=== PATIENT | female | born 1950 | race Caucasian/White ===

== ENCOUNTER → 2018-02-19 07:51 | Outpatient (CLI) | payer OTHER, MEDICAID, SELFPAY ==
[2018-02-19 09:59] LABS: Add Manual Diff / Slide Review NO; Eosinophils Percent Auto 1.8 % (2-4); Hematocrit 45.5 % (36-46); Hemoglobin 15.3 g/dL (12.0-16.0); Lymphocytes Percent Auto 41.4 % (25-40); Mean Corpuscular HGB Conc 33.8 % (30-36); Mean Corpuscular Hemoglobin 33.8 PG (26-34); Mean Corpuscular Volume 100.2 fL (80-100); Monocytes Percent Auto 10.6 % (3-14); Neutrophils Absolute Auto 2100 /uL (3000-5900); Neutrophils Percent Auto 45.2 % (50-75); Platelet Count 381 X10^3/uL (150-400); Red Blood Cell Count 4.54 X10^6/uL (4.0-5.2); Red Cell Distribution Width 13.9 % (11.6-14.8); White Blood Cell Count 4.6 X10^3/uL (4.5-11.0)
[2018-02-19 10:31] LABS: HDL Cholesterol 65 mg/dL (40-60); Triglycerides 286 mg/dL (35-150)
[2018-02-19 10:39] LABS: Cholesterol 420 mg/dL (140-199); LDL Cholesterol Calculated 298 mg/dL (<100)
[2018-02-19 10:41] LABS: Vitamin D 25 Hydroxy (D3) 38.4 ng/mL (30.0-100.0)
[2018-02-21 15:26] LABS: Cancer Antigen 27.29 21 U/mL (< 38)
== END ==
PROVIDERS: PCP Family Medicine; Visit Provider Family Medicine
DX: E55.9 Vitamin D deficiency, unspecified (principal); E78.5 Hyperlipidemia, unspecified
CPT/HCPCS: 36415; 80061; 82306; 85025; 86300

== ENCOUNTER → 2018-04-28 10:55 | Outpatient (CLI) | payer OTHER, MEDICAID, SELFPAY ==
--- NOTE | 2018-04-28 | DI.MG.S_ITS ---
BILATERAL DIGITAL SCREENING MAMMOGRAM 3D/2D WITH CAD POST LUMPECTOMY: 04/28/2018 CLINICAL: Routine screening. Personal history of left breast cancer. Comparison is made to exams dated: 04/12/2017 mammogram, 12/09/2015 mammogram, and 11/06/2014 mammogram - [facility]. The tissue of both breasts is heterogeneously dense. This may lower the sensitivity of mammography. Current study was also evaluated with a Computer Aided Detection (CAD) system. There is a high density focal asymmetry in the left breast at 3 o'clock anterior depth. No other significant masses, calcifications, or other findings are seen in either breast. IMPRESSION: INCOMPLETE: NEEDS ADDITIONAL IMAGING EVALUATION The high density focal asymmetry in the left breast is indeterminate. Additional views with possible ultrasound are recommended. This exam was interpreted at Station ID: [id number]. NOTE: For mammograms, a report in lay terms will be sent to the patient. Approximately 15% of breast malignancies will not be visualized mammographically. In the management of a palpable breast mass, a negative mammogram must not discourage biopsy of a clinically suspicious lesion. Electronically Signed By: Annabella cage/thomas:04/30/2018 08:56:49 copy to: FREDDY MCLAIN letter sent: Additional Imaging Needed ACR BI-RADS Category 0: Incomplete [id number]
== END ==
PROVIDERS: PCP Family Medicine; Visit Provider Family Medicine
DX: Z12.31 Encounter for screening mammogram for malignant neoplasm of breast (principal); Z85.3 Personal history of malignant neoplasm of breast
CPT/HCPCS: 77063; 77067

== ENCOUNTER → 2018-05-23 14:22 | Outpatient (CLI) | payer OTHER, MEDICAID, SELFPAY ==
--- NOTE | 2018-05-23 14:25 | DI.MG.S_ITS ---
UNILATERAL LEFT DIGITAL DIAGNOSTIC MAMMOGRAM 3D/2D WITH ADDITIONAL VIEWS: 05/23/2018 CLINICAL: Additional evaluation requested from prior study. Comparison is made to exams dated: 04/28/2018 mammogram, 04/12/2017 mammogram, and 12/09/2015 mammogram - [facility]. The tissue of left breast is heterogeneously dense. This may lower the sensitivity of mammography. Previously noted high density focal asymmetry in the left breast at 3 o'clock anterior depth on comparison screening mammogram resolves with additional views and likely represented superimposition of benign anatomic tissues. No significant masses, calcifications, or other findings are seen in the breast. IMPRESSION: INCOMPLETE: NEEDS ADDITIONAL IMAGING EVALUATION Previously noted high density focal asymmetry in the left breast at 3 o'clock anterior depth on comparison screening mammogram resolves with additional views and likely represented superimposition of benign anatomic tissues. A targeted ultrasound is recommended and will be performed immediately following this exam. This exam was interpreted at Station ID: [id number]. NOTE: For mammograms, a report in lay terms will be sent to the patient. Approximately 15% of breast malignancies will not be visualized mammographically. In the management of a palpable breast mass, a negative mammogram must not discourage biopsy of a clinically suspicious lesion. Electronically Signed By: Ramesh Brown M.D. ecl/:05/23/2018 17:48:20 copy to: Jakob Lamas copy to: FREDDY MCLAIN letter sent: Additional Imaging Needed ACR BI-RADS Category 0: Incomplete [id number]
--- NOTE | 2018-05-23 14:25 | DI.US.S_ITS ---
LIMITED ULTRASOUND OF LEFT BREAST: 05/23/2018 CLINICAL: Follow up from addtional views. Comparison is made to exams dated: 05/23/2018 mammogram, 04/28/2018 mammogram, and 04/12/2017 mammogram - [facility]. Real-time and Doppler ultrasound of the left breast 3 o'clock, and retroareolar regions were performed. Rooney scale images of the real-time examination were reviewed. No underlying breast mass or abnormality is identified. There is no ultrasound correlate for the previously noted high density focal asymmetry in the left breast at 3 o'clock anterior depth on comparison screening mammogram, which also resolved on additional diagnostic views performed earlier today. IMPRESSION: NEGATIVE There is no sonographic evidence of malignancy in the imaged portions of the left breast. Return to annual screening mammography is recommended, next due in April 2019. The patient is advised to monitor her breasts and to return sooner for re-evaluation should she feel anything grow or change. This exam was interpreted at Station ID: [id number]. Electronically Signed By: Ramesh Brown M.D. ecl/:05/23/2018 17:51:07 copy to: Jakob aLmas copy to: FREDDY MCLAIN letter sent: Clinical Evaluation Ultrasound BI-RADS: 1 Negative
== END ==
PROVIDERS: PCP Family Medicine; Visit Provider Family Medicine
DX: R92.8 Other abnormal and inconclusive findings on diagnostic imaging of breast (principal); N64.89 Other specified disorders of breast
CPT/HCPCS: 76642; 77065; G0279

== ENCOUNTER → 2018-08-09 10:03 | Outpatient (CLI) | payer OTHER, MEDICAID, SELFPAY ==
--- NOTE | 2018-08-09 10:08 | DI.RAD.S_ITS ---
PROCEDURE: XR FOOT LT MIN 3V INDICATIONS: left foot injury - dropped cup on foot 4 days ago TECHNIQUE: 3 views of the foot were acquired. COMPARISON: [facility], , FOOT 3V RIGHT, 07/09/2010, 11:38. FINDINGS: Bones: Postoperative changes are present related to a 1st metatarsophalangeal joint fusion. Orthopedic hardware is intact. There also are post surgical changes of the heads of the 2nd and 3rd metatarsals. A single orthopedic screw in each metatarsal head is present. The hardware is intact. Alignment is within normal limits. Moderate degenerative changes involving the interphalangeal joints and metatarsophalangeal joints are present. There also are mild to moderate degenerative changes of the midfoot and hindfoot joints. There is no acute fracture or dislocation. No suspicious osseous lesion is evident. Soft tissues: No tibiotalar joint effusion. Achilles tendon appears normal. IMPRESSION: 1. No acute osseous abnormality of the left foot. 2. Postoperative changes of the forefoot as described. 3. Mild to moderate degenerative changes of the left foot. Dictated by: Lenny Naranjo M.D. on 08/09/2018 at 9:48 Approved by: Lenny Naranjo M.D. on 08/09/2018 at 9:52
== END ==
PROVIDERS: PCP Family Medicine; Visit Provider Physician Assistant
DX: M79.672 Pain in left foot (principal); M19.072 Primary osteoarthritis, left ankle and foot
CPT/HCPCS: 73630

== ENCOUNTER → 2018-08-15 16:40 | Outpatient (CLI) | payer OTHER, MEDICAID, SELFPAY ==
[2018-08-15 17:40] LABS: Add Manual Diff / Slide Review NO; Basophils Absolute Auto 0 /uL (0-100); Basophils Percent Auto 0.7 % (0-2); Eosinophils Absolute Auto 200 /uL (0-450); Eosinophils Percent Auto 3.1 % (2-4); Hematocrit 42.7 % (36-46); Lymphocytes Absolute Auto 1800 /uL (1100-4500); Lymphocytes Percent Auto 25.7 % (25-40); Mean Corpuscular HGB Conc 32.9 % (30-36); Mean Corpuscular Hemoglobin 32.5 PG (26-34); Mean Corpuscular Volume 98.9 fL (80-100); Monocytes Absolute Auto 1000 /uL (0-900); Monocytes Percent Auto 14.4 % (3-14); Neutrophils Absolute Auto 3900 /uL (1500-7000); Neutrophils Percent Auto 56.1 % (50-75); Platelet Count 329 X10^3/uL (150-400); Red Blood Cell Count 4.32 X10^6/uL (4.0-5.2); Red Cell Distribution Width 14.4 % (11.6-14.8)
[2018-08-15 18:03] LABS: Alanine Aminotransferase 30 IU/L (9-52); Albumin 3.7 g/dL (3.5-5.0); Albumin Globulin Ratio 1.5 (1.0-2.8); Alkaline Phosphatase 62 U/L (38-126); Aspartate Aminotransferase 25 IU/L (14-36); Bilirubin Total 0.3 mg/dL (0.2-1.3); Blood Urea Nitrogen 18 mg/dL (7-17); Calcium 9.5 mg/dL (8.4-10.2); Carbon Dioxide 28 mmol/L (22-32); Chloride 102 mmol/L (98-107); Estimated Glomerular Filt Rate > 60.0 mL/min (>60); Globulin 2.4 g/dL (1.7-4.1); Glucose 90 mg/dL (80-110); HEMOLYSIS < 15 (0-50); Potassium 4.3 mmol/L (3.4-5.1); Sodium 137 mmol/L (137-145); Total Protein 6.1 g/dL (6.3-8.2)
[2018-08-15 18:35] LABS: TSH w/ Reflex to FT4 1.63 uIU/mL (0.47-4.68)
[2018-08-15 18:52] LABS: Vitamin B12 541 pg/mL (239-931)
[2018-08-18 14:50] LABS: Homocysteine 10.1 umol/L (< 10.4)
== END ==
PROVIDERS: Family Provider Orthopaedic Surgery; PCP Family Medicine; Visit Provider Family Medicine
DX: R41.3 Other amnesia (principal); R79.89 Other specified abnormal findings of blood chemistry; D75.89 Other specified diseases of blood and blood-forming organs
CPT/HCPCS: 36415; 80053; 82607; 83090; 84443; 85025

== ENCOUNTER → 2018-08-29 16:00 | Oncology outpatient (ONC) | payer OTHER, MEDICAID, SELFPAY ==
[2018-08-29 16:13] VITALS: BP 123/79; PULSE 81; RESP 18; TEMP 36.4; O2SAT 98
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
--- NOTE | 2019-09-13 08:29 | ONC.SCHED ---
Please don't move. Moved 09/24 appt out to 09/30 so additional imaging results would be available.
== END ==
PROVIDERS: PCP Family Medicine; Visit Provider Nurse Practitioner Gerontology
DX: Z08 Encounter for follow-up examination after completed treatment for malignant neoplasm (principal); Z85.3 Personal history of malignant neoplasm of breast
CPT/HCPCS: 99214

== ENCOUNTER → 2018-09-04 14:35 | Outpatient (CLI) | payer OTHER, MEDICAID, SELFPAY ==
--- NOTE | 2018-09-04 14:38 | DI.RAD.S_ITS ---
PROCEDURE: XR CERVICAL SPINE 2V OR 3V INDICATIONS: Neck pain TECHNIQUE: 3 view(s) of the cervical spine were acquired. COMPARISON: [facility], , THORACIC SPINE 3 VIEWS, 09/09/2015, 14:49. FINDINGS: Bones: No fractures or dislocations to the C7 level. The lateral masses of C1 appear intact on the odontoid view. No suspicious bony lesions. There is degenerative disc disease, severe at C5-C6 and moderate at C6-C7. Mild to moderate bilateral facet arthropathy scattered in cervical spine. Soft tissues: No prevertebral soft tissue swelling. IMPRESSION: Degenerative disc and facet disease in cervical spine. Dictated by: Sue Benoit M.D. on 09/04/2018 at 17:11 Approved by: Sue Benoit M.D. on 09/04/2018 at 17:12
== END ==
PROVIDERS: PCP Family Medicine; Visit Provider Registered Nurse
DX: M50.322 Other cervical disc degeneration at C5-C6 level (principal); M47.812 Spondylosis without myelopathy or radiculopathy, cervical region
CPT/HCPCS: 72040

== ENCOUNTER 2018-11-08 13:45 | Outpatient (RCR) | payer OTHER, MEDICAID, SELFPAY ==
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
== END 2018-12-27 11:33 | disposition home or self-care (01) ==
LOC: PHYS 13:45
PROVIDERS: PCP Family Medicine; Visit Provider Family Medicine
DX: M54.2 Cervicalgia (principal)
CPT/HCPCS: 97014; 97110; 97140; 97162; 97535; G0283

== ENCOUNTER 2018-11-14 17:18 | Emergency (ER) | payer OTHER, MEDICAID, SELFPAY ==
[2018-11-14 17:20] VITALS: BP 124/79; PULSE 101; RESP 18; TEMP 37.6; O2SAT 97
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
--- NOTE | 2018-11-14 19:18 | ED.EXTPRO ---
HPI - Extremity Problem <Mable GuptaCARL-BC - Last Filed: 11/14/18 20:26> General Chief complaint: Extremity Problem,Nontraumatic Stated complaint: RT ANKLE PAIN Time Seen by Provider: 11/14/18 18:21 Source: patient Mode of arrival: ambulatory Limitations: no limitations History of Present Illness HPI Narrative: The patient is a 68-year-old female former smoker with history of right ankle fracture presents with recurrence of right ankle pain. She states it started hurting yesterday. She states she has had steroid injections before and would like 1 today. She denies any numbness or tingling. She takes ibuprofen 3 times a day and has not taken anything else for the pain. She denies any trauma. She is concerned about not getting a steroid injection today as she is going out of town tomorrow. She denies any numbness or tingling. She denies any bruising to the area. She states that she sees an orthopedist with [facility]. Related Data Home Medications Medication Instructions Recorded Confirmed [BONE STRENGTH] TID #0 07/12/17 09/04/18 calcium carb,cit 300 mg-D3 200 tab PO tab 02/28/18 09/04/18 [id number] 13.5 mg tablet multivitamin tablet 1 tab PO DAILY 02/28/18 09/04/18 omega-3 fatty acids 1,000 mg 1,000 mg PO DAILY 02/28/18 09/04/18 capsule vitamin K2 40 mcg tablet 75 mcg PO DAILY tab 02/28/18 09/04/18 cholecalciferol (vitamin D3) 5,000 5,000 unit PO DAILY 08/23/18 09/04/18 unit capsule Previous Rx's Medication Instructions Recorded Disabled Parking Permit ea #1 05/09/16 atorvastatin 40 mg tablet 40 mg PO DAILY #90 tab 05/14/18 conjugated estrogens 0.625 mg/gram See Rx Instructions .ROUTE 07/27/18 vaginal cream .COMPLEX #30 gram acyclovir 400 mg tablet 800 mg PO TID #60 tab 09/26/18 zolpidem ER 12.5 mg 12.5 mg PO .COMPLEX #60 tab 10/12/18 tablet,extended release,multiphase ibuprofen 600 mg tablet 600 mg PO TID #30 tab 11/05/18 Valium 10mg Vaginal Tablet 1 tab VAGINAL Q8H PRN #30 tab 11/09/18 diclofenac 1 % topical gel 4 gram TOP QID #100 gram 11/09/18 lidocaine 1 patch TOP DAILY #15 each 11/14/18 Allergies Allergy/AdvReac Type Severity Reaction Status Date / Time hydroxyzine [HYDROXYZINE] Allergy Mild facial rash Verified 09/04/18 13:30 chlordiazepoxide Allergy Unknown anxiety Verified 09/04/18 13:30 [CHLORDIAZEPOXIDE] doxepin [DOXEPIN] Allergy Unknown rectal Verified 09/04/18 13:30 burning erythromycin base Allergy Unknown Verified 09/04/18 13:30 filgrastim Allergy Unknown Verified 09/04/18 13:30 meperidine Allergy Unknown Verified 09/04/18 13:30 mirtazapine [MIRTAZAPINE] Allergy Unknown swollen Verified 09/04/18 13:30 tongue, blurry vision pegfilgrastim Allergy Unknown Verified 09/04/18 13:30 propoxyphene Allergy Unknown Verified 09/04/18 13:30 ramelteon [RAMELTEON] Allergy Unknown rectal Verified 09/04/18 13:30 burning trazodone [TRAZODONE] Allergy Unknown insomnia Verified 09/04/18 13:30 bupropion AdvReac Intermediate SORE Verified 09/04/18 13:30 THROAT, SUPPRESSED APPETITE oxycodone [OXYCODONE] AdvReac Intermediate seizure Verified 09/04/18 13:30 amoxicillin [AMOXICILLIN] AdvReac Mild diarrhea Verified 09/04/18 13:30 meloxicam AdvReac Mild GI SYMPTOMS Verified 09/04/18 13:30 Review of Systems <CARL Walton- - Last Filed: 11/14/18 20:26> Review of Systems GENERAL: Denies chills, fatigue, malaise, fever, sweats. HEENT: Denies sinus pain, ear pain, sore throat, difficulty swallowing, dizziness. RESPIRATORY: Denies dyspnea, cough, wheezing, hemoptysis, sputum. CARDIOVASCULAR: Denies chest pain, palpitations, orthopnea, edema, GASTROINTESTINAL: Denies nausea, vomiting, abdominal pain, diarrhea, constipation, melena. : Denies dysuria, frequency, incontinence, hematuria, urinary retention. MUSCULOSKELETAL: See HPI SKIN: See HPI NEUROLOGIC: Denies weakness, headache, numbness, change in speech, confusion, seizures, incoordination. PSYCHIATRIC: No concerning psychosocial issues. 12 point review of systems is negative except for those stated above PFSH <JAYY Walton - Last Filed: 11/14/18 20:26> Medical History Ankle pain (Chronic ~2009) Anxiety (Chronic ~1957) Breast cancer (Chronic ~2004) Chronic back pain (Chronic ~2006) Depression (Chronic ~1957) Foot pain (Chronic ~1999) Hearing loss (Chronic ~2006) Hyperlipidemia (Chronic ~1979) Insomnia (Chronic ~1984) Osteoarthritis of knees, bilateral (Chronic ~2009) Osteopenia (Chronic ~1989) Osteoporosis (Chronic ~2009) Plantar warts (Chronic ~1963) Rosacea (Chronic ~1983) Shoulder pain (Chronic ~1999) Tinnitus (Chronic ~1999) Chickenpox (Resolved ~1953) Fracture, trimalleolar (Resolved ~07/12/10) Labral tear of left hip joint (Resolved ~1986) Mononucleosis (Resolved ~1967) Mumps (Resolved ~1953) Torn ACL (anterior cruciate ligament) (Resolved ~1966) Surgical History (Updated 08/29/18 @ 16:36 by Jerrod Casanova MD) History of ankle surgery (Resolved ~2009) History of repair of anterior cruciate ligament of left knee (Resolved ~2003) Anesthesia (Inactive) History of lumpectomy (~2005) Status post arthroscopy (~2014) Status post hysterectomy (~1996) Family History (Updated 07/02/15 @ 00:00 by Amalia Long DO) Father Osteoporosis Mother Heart disease High cholesterol Alzheimer's dementia without behavioral disturbance, unspecified timing of dementia onset Social History Smoking Status: Former smoker Tobacco: How many years used: 4 second hand exposure: No alcohol intake: never substance use type: does not use Family History (Updated 07/02/15 @ 00:00 by Amalia Long DO) Father Osteoporosis Mother Heart disease High cholesterol Alzheimer's dementia without behavioral disturbance, unspecified timing of dementia onset Social History Smoking Status: Former smoker Tobacco: How many years used: 4 second hand exposure: No alcohol intake: never substance use type: does not use Exam <JAYY Walton - Last Filed: 11/14/18 20:26> Narrative Exam Narrative: GENERAL: This is a well-nourished, well-developed patient, no acute distress 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 Normocephalic. No temporal or scalp tenderness. NECK: Trachea midline. No JVD or lymphadenopathy. Supple, nontender, no meningeal signs. CARDIOVASCULAR: Regular rate and rhythm RESPIRATORY: No cough. No increased respiratory effort. No stridor. EXTREMITIES: Generalized pain to palpation right ankle. Pain to palpation of medial malleolus especially. Full range of motion noted right ankle. No pedal edema. Positive pedal pulses. Capillary refill less than 2 seconds. BACK: Nontender without deformity or crepitance. No flank tenderness. NEURO: AOx3. SKIN: No erythema rash ecchymosis or abrasion noted right ankle Initial Vital Signs Initial Vital Signs: Vital Signs Temperature 99.6 F 11/14/18 17:20 Pulse Rate 101 H 11/14/18 17:20 Respiratory Rate 18 11/14/18 17:20 Blood Pressure 124/79 11/14/18 17:20 Pulse Oximetry 97 11/14/18 17:20 <Armand Deleon MD - Last Filed: 11/15/18 06:55> Initial Vital Signs Initial Vital Signs: Vital Signs Temperature 99.6 F 11/14/18 17:20 Pulse Rate 101 H 11/14/18 17:20 Respiratory Rate 18 11/14/18 17:20 Blood Pressure 124/79 11/14/18 17:20 Pulse Oximetry 97 11/14/18 17:20 Course <JAYY Walton - Last Filed: 11/14/18 20:26> Orders Ordered: ED Orders 11/14/18 18:27 XR ankle RT min 3V Stat Vital Signs - 8 hr 11/14/18 17:20 11/14/18 19:29 Temperature 99.6 F Pulse Rate 101 H 88 Respiratory Rate 18 Blood Pressure 124/79 121/74 Pulse Oximetry 97 98 <Armand Deleon MD - Last Filed: 11/15/18 06:55> Orders Ordered: ED Orders 11/14/18 18:27 XR ankle RT min 3V Stat Vital Signs - 8 hr 11/14/18 17:20 11/14/18 19:29 Temperature 99.6 F Pulse Rate 101 H 88 Respiratory Rate 18 Blood Pressure 124/79 121/74 Pulse Oximetry 97 98 MDM - Extremity (Nontraumatic) <JAYY Walton - Last Filed: 11/14/18 20:26> Imaging Data Ankle x-ray: Radiologist's impression: [address] [address] XRay Report Signed Patient: Yarelis Decker TMR#: [id number] : 1950Acct:[id number] Age/Sex: 68 / FDate of Service: 11/14/18 Loc: ED Accession Number: [id number] Procedure: XR ankle RT min 3V Ordering Provider: Mable Gupta PROCEDURE: XR ANKLE RT MIN 3V INDICATIONS: right ankle pain, hx fracture TECHNIQUE: 3 views of the ankle were acquired. COMPARISON: [facility], , ANKLE 3 VIEWS RIGHT, 07/09/2010, 12:02. FINDINGS: Bones: No acute fracture identified. Healed lateral malleolar fracture. Tibiotalar joint degeneration. Soft tissues: No tibiotalar joint effusion. Achilles tendon appears normal. IMPRESSION: No acute fracture. Chronic and posttraumatic skull as above. Dictated by: Tony Putnam M.D. on 11/14/2018 at 19:01 Approved by: Tony Putnam M.D. on 11/14/2018 at 19:02 [facility] Narrative Medical decision making narrative: The patient is a 68-year-old female with chronic right a new presents requesting a steroid injection into her right ankle. She was not to get in with Orthopedics, so came to the emergency department. The patient is neurovascularly intact and ambulating well. She has no acute findings on her x-ray. I encouraged rest ice compression elevation give her prescription of lidocaine patches for her pain. Discussed at length return precautions to the Emergency Department Clinic acute concerns such as chest pain or shortness of breath. Encouraged follow-up with primary care provider and/or Orthopedics regarding her ankle. No questions or concerns upon discharge. Discharge Plan Departure Patient Disposition: Home Clinical Impression: Acute ankle pain Qualifiers: Laterality: right Qualified Code(s): M25.571 - Pain in right ankle and joints of right foot Discharge Date/Time: 11/14/18 19:30 Interventions: ED Discharge Assessment Last Done: 11/14/18 19:29 Instructions: How To Perform RICE (Rest, Ice, Compress, Elevate), DI for Ankle Pain Activity Restrictions/Additional Instructions: Your ankle x-ray shows no new fracture. Please use rest ice compression elevation. I have given her prescription of lidocaine patches. For your request of steroid injection, please follow up with primary care provider and/or Orthopedics. Please come back to emergency department for any acute concerns such as chest pain shortness of breath, concern for heart attack or stroke. Prescriptions: New lidocaine 5 % adhesive patch,medicated 1 patch TOP DAILY Qty: 15 RF: 0 No Action cholecalciferol (vitamin D3) 5,000 unit capsule 5,000 unit PO DAILY RF: 0 Disabled Parking Permit Qty: 1 RF: 0 [BONE STRENGTH] TID Qty: 0 RF: 0 atorvastatin 40 mg tablet 40 mg PO DAILY Qty: 90 RF: 1 conjugated estrogens 0.625 mg/gram cream See Rx Instructions .ROUTE .COMPLEX Qty: 30 RF: 2 acyclovir 400 mg tablet 800 mg PO TID Qty: 60 RF: 5 zolpidem 12.5 mg tablet,ext release multiphase 12.5 mg PO .COMPLEX Qty: 60 RF: 2 ibuprofen 600 mg tablet 600 mg PO TID Qty: 30 RF: 0 Valium 10mg Vaginal Tablet 1 tab Vaginal 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 I was available for consultation or to see the patient directly if requested. I agree with the evaluation, assessment and treatment plan noted in the record.
--- NOTE | 2018-11-14 19:21 | ED_ITS ---
HPI - Extremity Problem <Mable GuptaCARL-BC - Last Filed: 11/14/18 20:26> General Chief complaint: Extremity Problem,Nontraumatic Stated complaint: RT ANKLE PAIN Time Seen by Provider: 11/14/18 18:21 Source: patient Mode of arrival: ambulatory Limitations: no limitations History of Present Illness HPI Narrative: The patient is a 68-year-old female former smoker with history of right ankle fracture presents with recurrence of right ankle pain. She states it started hurting yesterday. She states she has had steroid injections before and would like 1 today. She denies any numbness or tingling. She takes ibuprofen 3 times a day and has not taken anything else for the pain. She denies any trauma. She is concerned about not getting a steroid injection today as she is going out of town tomorrow. She denies any numbness or tingling. She denies any bruising to the area. She states that she sees an orthopedist with [facility]. Related Data Home Medications Medication Instructions Recorded Confirmed [BONE STRENGTH] TID #0 07/12/17 09/04/18 calcium carb,cit 300 mg-D3 200 tab PO tab 02/28/18 09/04/18 [id number]--[id number] 13.5 mg tablet multivitamin tablet 1 tab PO DAILY 02/28/18 09/04/18 omega-3 fatty acids 1,000 mg 1,000 mg PO DAILY 02/28/18 09/04/18 capsule vitamin K2 40 mcg tablet 75 mcg PO DAILY tab 02/28/18 09/04/18 cholecalciferol (vitamin D3) 5,000 5,000 unit PO DAILY 08/23/18 09/04/18 unit capsule Previous Rx's Medication Instructions Recorded Disabled Parking Permit ea #1 05/09/16 atorvastatin 40 mg tablet 40 mg PO DAILY #90 tab 05/14/18 conjugated estrogens 0.625 mg/gram See Rx Instructions .ROUTE 07/27/18 vaginal cream .COMPLEX #30 gram acyclovir 400 mg tablet 800 mg PO TID #60 tab 09/26/18 zolpidem ER 12.5 mg 12.5 mg PO .COMPLEX #60 tab 10/12/18 tablet,extended release,multiphase ibuprofen 600 mg tablet 600 mg PO TID #30 tab 11/05/18 Valium 10mg Vaginal Tablet 1 tab VAGINAL Q8H PRN #30 tab 11/09/18 diclofenac 1 % topical gel 4 gram TOP QID #100 gram 11/09/18 lidocaine 1 patch TOP DAILY #15 each 11/14/18 Allergies Allergy/AdvReac Type Severity Reaction Status Date / Time hydroxyzine [HYDROXYZINE] Allergy Mild facial rash Verified 09/04/18 13:30 chlordiazepoxide Allergy Unknown anxiety Verified 09/04/18 13:30 [CHLORDIAZEPOXIDE] doxepin [DOXEPIN] Allergy Unknown rectal Verified 09/04/18 13:30 burning erythromycin base Allergy Unknown Verified 09/04/18 13:30 filgrastim Allergy Unknown Verified 09/04/18 13:30 meperidine Allergy Unknown Verified 09/04/18 13:30 mirtazapine [MIRTAZAPINE] Allergy Unknown swollen Verified 09/04/18 13:30 tongue, blurry vision pegfilgrastim Allergy Unknown Verified 09/04/18 13:30 propoxyphene Allergy Unknown Verified 09/04/18 13:30 ramelteon [RAMELTEON] Allergy Unknown rectal Verified 09/04/18 13:30 burning trazodone [TRAZODONE] Allergy Unknown insomnia Verified 09/04/18 13:30 bupropion AdvReac Intermediate SORE Verified 09/04/18 13:30 THROAT, SUPPRESSED APPETITE oxycodone [OXYCODONE] AdvReac Intermediate seizure Verified 09/04/18 13:30 amoxicillin [AMOXICILLIN] AdvReac Mild diarrhea Verified 09/04/18 13:30 meloxicam AdvReac Mild GI SYMPTOMS Verified 09/04/18 13:30 Review of Systems <CARL Walton- - Last Filed: 11/14/18 20:26> Review of Systems GENERAL: Denies chills, fatigue, malaise, fever, sweats. HEENT: Denies sinus pain, ear pain, sore throat, difficulty swallowing, dizziness. RESPIRATORY: Denies dyspnea, cough, wheezing, hemoptysis, sputum. CARDIOVASCULAR: Denies chest pain, palpitations, orthopnea, edema, GASTROINTESTINAL: Denies nausea, vomiting, abdominal pain, diarrhea, constipation, melena. : Denies dysuria, frequency, incontinence, hematuria, urinary retention. MUSCULOSKELETAL: See HPI SKIN: See HPI NEUROLOGIC: Denies weakness, headache, numbness, change in speech, confusion, seizures, incoordination. PSYCHIATRIC: No concerning psychosocial issues. 12 point review of systems is negative except for those stated above PFSH <JAYY Walton - Last Filed: 11/14/18 20:26> Medical History Ankle pain (Chronic ~2009) Anxiety (Chronic ~1957) Breast cancer (Chronic ~2004) Chronic back pain (Chronic ~2006) Depression (Chronic ~1957) Foot pain (Chronic ~1999) Hearing loss (Chronic ~2006) Hyperlipidemia (Chronic ~1979) Insomnia (Chronic ~1984) Osteoarthritis of knees, bilateral (Chronic ~2009) Osteopenia (Chronic ~1989) Osteoporosis (Chronic ~2009) Plantar warts (Chronic ~1963) Rosacea (Chronic ~1983) Shoulder pain (Chronic ~1999) Tinnitus (Chronic ~1999) Chickenpox (Resolved ~1953) Fracture, trimalleolar (Resolved ~07/12/10) Labral tear of left hip joint (Resolved ~1986) Mononucleosis (Resolved ~1967) Mumps (Resolved ~1953) Torn ACL (anterior cruciate ligament) (Resolved ~1966) Surgical History (Updated 08/29/18 @ 16:36 by Jerrod Casanova MD) History of ankle surgery (Resolved ~2009) History of repair of anterior cruciate ligament of left knee (Resolved ~2003) Anesthesia (Inactive) History of lumpectomy (~2005) Status post arthroscopy (~2014) Status post hysterectomy (~1996) Family History (Updated 07/02/15 @ 00:00 by Amalia Long DO) Father Osteoporosis Mother Heart disease High cholesterol Alzheimer's dementia without behavioral disturbance, unspecified timing of dementia onset Social History Smoking Status: Former smoker Tobacco: How many years used: 4 second hand exposure: No alcohol intake: never substance use type: does not use Family History (Updated 07/02/15 @ 00:00 by Amalia Long DO) Father Osteoporosis Mother Heart disease High cholesterol Alzheimer's dementia without behavioral disturbance, unspecified timing of dementia onset Social History Smoking Status: Former smoker Tobacco: How many years used: 4 second hand exposure: No alcohol intake: never substance use type: does not use Exam <JAYY Walton - Last Filed: 11/14/18 20:26> Narrative Exam Narrative: GENERAL: This is a well-nourished, well-developed patient, no acute distress 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 Normocephalic. No temporal or scalp tenderness. NECK: Trachea midline. No JVD or lymphadenopathy. Supple, nontender, no meningeal signs. CARDIOVASCULAR: Regular rate and rhythm RESPIRATORY: No cough. No increased respiratory effort. No stridor. EXTREMITIES: Generalized pain to palpation right ankle. Pain to palpation of medial malleolus especially. Full range of motion noted right ankle. No pedal edema. Positive pedal pulses. Capillary refill less than 2 seconds. BACK: Nontender without deformity or crepitance. No flank tenderness. NEURO: AOx3. SKIN: No erythema rash ecchymosis or abrasion noted right ankle Initial Vital Signs Initial Vital Signs: Vital Signs Temperature 99.6 F 11/14/18 17:20 Pulse Rate 101 H 11/14/18 17:20 Respiratory Rate 18 11/14/18 17:20 Blood Pressure 124/79 11/14/18 17:20 Pulse Oximetry 97 11/14/18 17:20 <Armand Deleon MD - Last Filed: 11/15/18 06:55> Initial Vital Signs Initial Vital Signs: Vital Signs Temperature 99.6 F 11/14/18 17:20 Pulse Rate 101 H 11/14/18 17:20 Respiratory Rate 18 11/14/18 17:20 Blood Pressure 124/79 11/14/18 17:20 Pulse Oximetry 97 11/14/18 17:20 Course <JAYY Walton - Last Filed: 11/14/18 20:26> Orders Ordered: ED Orders 11/14/18 18:27 XR ankle RT min 3V Stat Vital Signs - 8 hr 11/14/18 17:20 11/14/18 19:29 Temperature 99.6 F Pulse Rate 101 H 88 Respiratory Rate 18 Blood Pressure 124/79 121/74 Pulse Oximetry 97 98 <Armand Deleon MD - Last Filed: 11/15/18 06:55> Orders Ordered: ED Orders 11/14/18 18:27 XR ankle RT min 3V Stat Vital Signs - 8 hr 11/14/18 17:20 11/14/18 19:29 Temperature 99.6 F Pulse Rate 101 H 88 Respiratory Rate 18 Blood Pressure 124/79 121/74 Pulse Oximetry 97 98 MDM - Extremity (Nontraumatic) <JAYY Walton - Last Filed: 11/14/18 20:26> Imaging Data Ankle x-ray: Radiologist's impression: [address] [address] XRay Report Signed Patient: Yarelis Decker TMR#: [id number] : 1950Acct:[id number] Age/Sex: 68 / FDate of Service: 11/14/18 Loc: ED Accession Number: [id number] Procedure: XR ankle RT min 3V Ordering Provider: Mable Gupta PROCEDURE: XR ANKLE RT MIN 3V INDICATIONS: right ankle pain, hx fracture TECHNIQUE: 3 views of the ankle were acquired. COMPARISON: [facility], , ANKLE 3 VIEWS RIGHT, 07/09/2010, 12:02. FINDINGS: Bones: No acute fracture identified. Healed lateral malleolar fracture. Tibiotalar joint degeneration. Soft tissues: No tibiotalar joint effusion. Achilles tendon appears normal. IMPRESSION: No acute fracture. Chronic and posttraumatic skull as above. Dictated by: Tony Putnam M.D. on 11/14/2018 at 19:01 Approved by: Tony Putnam M.D. on 11/14/2018 at 19:02 [facility] Narrative Medical decision making narrative: The patient is a 68-year-old female with chronic right a new presents requesting a steroid injection into her right ankle. She was not to get in with Orthopedics, so came to the emergency department. The patient is neurovascularly intact and ambulating well. She has no acute findings on her x-ray. I encouraged rest ice compression elevation give her prescription of lidocaine patches for her pain. Discussed at length return precautions to the Emergency Department Clinic acute concerns such as chest pain or shortness of breath. Encouraged follow-up with primary care provider and/or Orthopedics regarding her ankle. No questions or concerns upon discharge. Discharge Plan Departure Patient Disposition: Home Clinical Impression: Acute ankle pain Qualifiers: Laterality: right Qualified Code(s): M25.571 - Pain in right ankle and joints of right foot Discharge Date/Time: 11/14/18 19:30 Interventions: ED Discharge Assessment Last Done: 11/14/18 19:29 Instructions: How To Perform RICE (Rest, Ice, Compress, Elevate), DI for Ankle Pain Activity Restrictions/Additional Instructions: Your ankle x-ray shows no new fracture. Please use rest ice compression elevation. I have given her prescription of lidocaine patches. For your request of steroid injection, please follow up with primary care provider and/or Orthopedics. Please come back to emergency department for any acute concerns such as chest pain shortness of breath, concern for heart attack or stroke. Prescriptions: New lidocaine 5 % adhesive patch,medicated 1 patch TOP DAILY Qty: 15 RF: 0 No Action cholecalciferol (vitamin D3) 5,000 unit capsule 5,000 unit PO DAILY RF: 0 Disabled Parking Permit Qty: 1 RF: 0 [BONE STRENGTH] TID Qty: 0 RF: 0 atorvastatin 40 mg tablet 40 mg PO DAILY Qty: 90 RF: 1 conjugated estrogens 0.625 mg/gram cream See Rx Instructions .ROUTE .COMPLEX Qty: 30 RF: 2 acyclovir 400 mg tablet 800 mg PO TID Qty: 60 RF: 5 zolpidem 12.5 mg tablet,ext release multiphase 12.5 mg PO .COMPLEX Qty: 60 RF: 2 ibuprofen 600 mg tablet 600 mg PO TID Qty: 30 RF: 0 Valium 10mg Vaginal Tablet 1 tab Vaginal Q8H PRN (Reason: Pudendal Neuropathy) Qty: 30 RF: 3 diclofenac sodium [Voltaren] 1 % gel 4 gram TOP QID Qty: 100 RF: 0 vitamin K2 40 mcg tablet 75 mcg PO DAILY RF: 0 omega-3 fatty acids 1,000 mg capsule 1,000 mg PO DAILY RF: 0 multivitamin [One Daily Multivitamin] tablet 1 tab PO DAILY RF: 0 calcium crb,bbi-[id number]-fum88-genis [Citracal + Bone Density] 300-200-13.5 mg-unit-mg tablet PO RF: 0 Referrals: Amalia Long DO [Primary Care Provider] - <Armand Deleon MD - Last Filed: 11/15/18 06:55> Cosign ED Attending Dequanature Attestation: I was present in the ER at the time of this patient's care. I was available for consultation or to see the patient directly if requested. I agree with the evaluation, assessment and treatment plan noted in the record.
[2018-11-14 19:29] VITALS: BP 121/74; PULSE 88; O2SAT 98
== END 2018-11-14 19:30 | disposition home or self-care (01) ==
PROVIDERS: Emergency Provider Nurse Practitioner Family; PCP Family Medicine
DX: M25.571 Pain in right ankle and joints of right foot (principal)
CPT/HCPCS: 73610; 99282; 99283

== ENCOUNTER → 2019-01-18 07:40 | Outpatient (CLI) | payer OTHER, MEDICAID, SELFPAY ==
[2019-01-18 08:12] LABS: Add Manual Diff / Slide Review NO; Basophils Absolute Auto 100 /uL (0-100); Basophils Percent Auto 0.7 % (0-2); Eosinophils Absolute Auto 100 /uL (0-450); Eosinophils Percent Auto 1.9 % (2-4); Hematocrit 43.3 % (36-46); Hemoglobin 14.7 g/dL (12.0-16.0); Lymphocytes Absolute Auto 1600 /uL (1100-4500); Lymphocytes Percent Auto 20.2 % (25-40); Mean Corpuscular HGB Conc 33.8 % (30-36); Mean Corpuscular Hemoglobin 33.2 PG (26-34); Mean Corpuscular Volume 98.1 fL (80-100); Monocytes Absolute Auto 600 /uL (0-900); Monocytes Percent Auto 8.3 % (3-14); Neutrophils Absolute Auto 5300 /uL (1500-7000); Neutrophils Percent Auto 68.9 % (50-75); Platelet Count 318 X10^3/uL (150-400); Red Blood Cell Count 4.41 X10^6/uL (4.0-5.2); Red Cell Distribution Width 13.1 % (11.6-14.8); White Blood Cell Count 7.7 X10^3/uL (4.5-11.0)
[2019-01-18 08:33] LABS: Estimated Glomerular Filt Rate > 60.0 mL/min (>60)
[2019-01-18 08:53] LABS: Vitamin D 25 Hydroxy (D3) 69.5 ng/mL (30.0-100.0)
[2019-01-18 09:04] LABS: Thyroid Stimulating Hormone 3.59 uIU/mL (0.47-4.68)
[2019-01-22 15:50] LABS: Parathyroid Hormone Int 36 pg/mL (14-64)
[2019-01-23 16:12] LABS: N-Telopeptide Serum 6.6 nM BCE (6.2-19.0)
== END ==
PROVIDERS: PCP Family Medicine; Visit Provider Internal Medicine Endocrinology, Diabetes & Metabolism
DX: M81.0 Age-related osteoporosis without current pathological fracture (principal)
CPT/HCPCS: 36415; 82306; 82523; 82565; 83970; 84443; 85025

== ENCOUNTER → 2019-01-18 15:40 | Outpatient (CLI) | payer OTHER, MEDICAID, SELFPAY ==
--- NOTE | 2019-01-18 | DI.MRI.S_ITS ---
PROCEDURE: MR HEAD/BRAIN WO CON INDICATIONS: Memory loss. TECHNIQUE: Non-contrast axial T1 spin echo, axial T2 fast spin echo, sagittal and axial FLAIR, coronal T2 fast spin echo, axial gradient echo, axial diffusion and ADC through the brain. COMPARISON: [facility], CT, HEAD WITHOUT CONTRAST, 03/20/2015, 23:59. [facility], MR, BRAIN W&WO CONTRAST, 05/06/2016, 14:10. FINDINGS: Image quality: Excellent. CSF spaces: Ventricles appear symmetric in size and shape. Basal cisterns are patent. No extra-axial fluid collections. Brain: No intracranial bleeds or mass effects. There is ugii-az-[id number] cerebral volume loss for age, most prominent in frontal lobes. There are moderate periventricular and deep white matter chronic small vessel ischemic changes. Chronic microvascular ischemic change is also noted in the left irasema. Bilateral vasoganglia calcification. Brainstem appears normal. Diffusion-weighted images show no acute ischemic insults. No chronic ischemic insults. Normal intravascular flow voids are present. Skull and face: Calvarial bone marrow is normal in signal. Orbits are normal. Sinuses: Sinuses and mastoids are clear. IMPRESSION: 1. No acute intracranial abnormalities. 2. Quuk-ju-wxpnhegu cerebral volume loss, most prominent in frontal lobes bilaterally. 3. Moderate chronic microvascular ischemic changes. 4. Bilateral areas of calcifications, likely idiopathic. Dictated by: Sue Benoit M.D. on 01/18/2019 at 16:53 Approved by: Sue Benoit M.D. on 01/18/2019 at 16:59
== END ==
PROVIDERS: PCP Family Medicine; Visit Provider Psychiatry & Neurology Neurology
DX: R41.3 Other amnesia (principal)
CPT/HCPCS: 70551

== ENCOUNTER → 2019-01-22 10:43 | Outpatient (CLI) | payer OTHER, MEDICAID, SELFPAY ==
[2019-01-22 12:44] LABS: Free T3, Triiodothyronine Free 3.05 pg/mL (2.77-5.27); Free T4, Direct Thyroxine 0.92 ng/dL (0.78-2.19)
== END ==
PROVIDERS: PCP Family Medicine; Visit Provider Family Medicine
DX: E03.9 Hypothyroidism, unspecified (principal)
CPT/HCPCS: 36415; 84439; 84481

== ENCOUNTER → 2019-03-21 13:10 | Outpatient (CLI) | payer OTHER, MEDICAID, SELFPAY | PROVIDERS: PCP Family Medicine; Visit Provider Family Medicine | DX: M81.0 Age-related osteoporosis without current pathological fracture (principal); Z78.0 Asymptomatic menopausal state; Z82.62 Family history of osteoporosis; Z85.3 Personal history of malignant neoplasm of breast; Z90.722 Acquired absence of ovaries, bilateral; Z87.891 Personal history of nicotine dependence | CPT/HCPCS: 77080 ==

== ENCOUNTER 2019-05-09 14:30 | Outpatient (RCR) | payer OTHER, MEDICAID, SELFPAY ==
--- NOTE | 2019-03-12 15:44 | ST.OPIE ---
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 Pretty Arias, Neurologist Reason for Referral Mild Cognitive Impairment Past Medical History Patient History Ms. Brianne holliday she woke up with sudden memory loss in April of 2018. She has seen a neurologist and neuropsychologist and has been diagnosed with mild cognitive impairment of unknown cause. She had an MRI which showed wdop-fn-[id number] cerebral volume loss, most prominent in frontal lobes bilaterally and moderate chronic microvascular ischemic changes , but was negative for acute intracranial abnormalities. She has a medical history significant for an isolated seizure, anxiety, depression, alcohol abuse, breast cancer, COPD, PTSD, polysubstance overdose/suicide attempt. Hearing Hearing Level Impaired Auditory History Patient reports hearing impairments in her left ear Vision Vision Status Impaired Comments wears glasses Educational Status Education Level Some college Occupational Status Occupation Status Retired Previous Therapy Previous Speech-Language Therapy No - Findings Cognitive/Memory Impressions No formal assessment completed today since patient was recently evaluated by neuropsychologist Yeny Sarkar . Results of this assessment are as follows: Peerless Naming Test - Average RBANS Digit Span - Average Trails A - Average Trails B - Impaired RBANS Coding - Low Average RBANS Copy - Average RBANS Line Orientation - Average RBANS List Learning - Low Average List Recall - Average List Recognition - Average Story Learning - Average Story Recall - Low Average Figure Recall - Low Average Per report from Dr. Yeny Sarkar, Ms. Decker's baseline intellectual functional is in the average range. Her recommendations included a re-evaluation with Dr. Arias as well as physical, cognitive, and social engagement and a referral for a driving evaluation with consideration of restricted driving. Ms. Decker reports difficulty with short term memory and word finding problems. She states it is hard for her to remember where things are at home, even common items such as teaspoons . Her cognitive impairments have had a negative effect on her safety, self-care and general tasks and demands. For this reason, she now has a caregiver for a few hours 4 times a week who helps with cooking, shopping and errands. In addition to her caregiver, the patient implements the following strategies: making lists, using a calender, leaving a light over the stove on so she remembers to turn it off. Despite average results of neuropsychological assessment, patient was referred for cognitive rehabilitation by her neurologist Dr. Pretty Arias under the diagnosis of Mild Cognitive Impairment. Recommendations Recommendations Cognitive rehabilitation including and education and training in compensatory strategies is recommended. Ongoing assessment may also be warranted. Treatment Goals Short Term Goals To be determined Total Time Full Evaluation Time 45
--- NOTE | 2019-04-11 09:07 | ST.OPTN ---
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 Brianne holliday she woke up with sudden memory loss in April of 2018. She has seen a neurologist and neuropsychologist and has been diagnosed with mild cognitive impairment of unknown cause. She had an MRI which showed uvso-yw-beuudeuk cerebral volume loss, most prominent in frontal lobes bilaterally and moderate chronic microvascular ischemic changes , but was negative for acute intracranial abnormalities. She has a medical history significant for an isolated seizure, anxiety, depression, alcohol abuse, breast cancer, COPD, PTSD, polysubstance overdose/suicide attempt. She lives at home with an older room mate and she has a caregiver for 3 hours 4 times a week. Subjective Identification Type Name Observations/Patient Presentation Patient was pleasant, alert and oriented, but tangential and disorganized in her responses. She endorsed generalized anxiety symptoms related to daily chores/tasks and her caregiver. 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 Intermediate Goals Yarelis will implement strategies discussed and demonstrate improved time management, organization and overall executive functions for completing daily activities. Treatment Activities Reviewed assessment results from evaluation by neuropsychologist Dr. Yeny Sarkar. Discussed her recommendations for driving evaluation and follow-up with Dr. Jha which she has scheduled. We also discussed my recommendation for Yarelis to meet her a social service assistant from [facility] [employer] to discuss her concerns about her current caregiver not being a good fit for her and inquire about getting a new caregiver. Discussed goals for therapy including improving overall organization to improve productivity and decrease generalized anxiety related to daily tasks. Requested Yarelis bring her smart phone and calendar with her to the next session. Assessment Patient Response to Treatment Good Rehab Potential Good Reviewed with Patient Goals,Home Exercise Program Plan Amount of Therapy Recommended 1-2 Months Frequency of Treatment Once a Week Length of Session 45 Minutes Therapeutic Contents Client Education,Cognitive- Linguistic Training,Home Exercise Program Provided Patient/Caregiver Instruction Home Exercise Program,Plan of Care,Questions/Concerns Therapy Recommendations Continue with Current Program
--- NOTE | 2019-05-09 15:49 | ST.OPTN ---
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 Brianne holliday she woke up with sudden memory loss in April of 2018. She has seen a neurologist and neuropsychologist and has been diagnosed with mild cognitive impairment of unknown cause. She had an MRI which showed [id number] cerebral volume loss, most prominent in frontal lobes bilaterally and moderate chronic microvascular ischemic changes , but was negative for acute intracranial abnormalities. She has a medical history significant for an isolated seizure, anxiety, depression, alcohol abuse, breast cancer, COPD, PTSD, polysubstance overdose/suicide attempt. She lives at home with an older room mate and she has a caregiver for 3 hours 4 times a week. Subjective Identification Type Name Observations/Patient Presentation Yarelis arrived on time and remembered to bring her calendar and phone as suggested at our last meeting a month ago. Since that visit, she had a follow-up with her neurologist Dr. Jha and reports she was told her memory problems may be a side effect of one of the medications she is on. She is being weaned off of that medication. 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 Correspondence School Teacher Goals Yarelis will implement strategies discussed and demonstrate improved time management, organization and overall executive functions for completing daily activities. Treatment Activities Set-up phone reminders/alarms for taking vitamins in the morning and alerts 1 week prior to family/friend birthdays. Discussed organization of calendars/ planners and recommended sticking to one small materials planner which she keeps in her purse to use for scheduling appointments and a larger calendar at home. Targeted problem solving by giving solutions to various medical and household problems/ situations read aloud. Targeted organization/ executive function for ordering steps in a task (1-4) - 95% accuracy. Assessment Patient Response to Treatment Good Rehab Potential Good Assessment of Improvement Yarelis was less tangential today and more brief and on-topic with her responses today. She is demonstrating good use of external memory aids as she remembered to bring calendars and her phone to therapy which we talked about 1 month ago. She continues to have difficulty organizing her daily tasks and reports feeling overwhelmed or getting side tracked mid-project. Reviewed with Patient Goals,Home Exercise Program Plan Amount of Therapy Recommended 1-2 Months Frequency of Treatment Once a Week Length of Session 45 Minutes Therapeutic Contents Client Education,Cognitive- Linguistic Training,Home Exercise Program Provided Patient/Caregiver Instruction Home Exercise Program,Plan of Care,Questions/Concerns Therapy Recommendations Continue with Current Program
--- NOTE | 2019-05-21 15:22 | ST.OPDS ---
Visit Care Team Role Provider Type Amalia Long DO Primary Care Provider Physician Address: [address] [place] [address], [address], [place], [address] Pretty Arias MD Attending Provider Non-Staff Address: [address] [place] [address], [address] CURRICULUM ASSISTANT PRINCIPAL Treatment Note CURRICULUM ASSISTANT PRINCIPAL Treatment Note Start: 03/18/19 13:32 Freq: Status: Active Protocol: Document 05/21/19 15:20 TLC (Rec: 05/28/19 15:22 TLC [id number]) Speech Pathology Treatment Note Visit Type Note Type Discharge Summary Objective Short Term Goals Yarelis will participate in cognitive training including education on tips to improve memory, emotional self- regulation and building habits and routines. 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 Treatment Activities No treatment provided on this date. Assessment Assessment of Improvement Yarelis attended three speech therapy sessions targeting internal and external memory aids, organization and executive functions. She is being discharged per request. Reviewed with Patient Goals,Home Exercise Program Plan Amount of Therapy Recommended No Further Therapy Therapy Recommendations Discharge to Home Exercise Program
== END 2019-05-09 15:30 ==
LOC: SP 14:30
PROVIDERS: PCP Family Medicine; Visit Provider Psychiatry & Neurology Neurology
DX: G31.84 Mild cognitive impairment of uncertain or unknown etiology (principal)
CPT/HCPCS: 92507

== ENCOUNTER → 2019-07-01 16:16 | Outpatient (CLI) | payer OTHER, MEDICAID, SELFPAY | PROVIDERS: PCP Family Medicine; Visit Provider Family Medicine | DX: Z51.81 Encounter for therapeutic drug level monitoring (principal) | CPT/HCPCS: 80346 ==

== ENCOUNTER → 2019-09-04 12:00 | Outpatient (CLI) | payer OTHER, MEDICAID, SELFPAY ==
--- NOTE | 2019-09-04 | DI.MG.S_ITS ---
BILATERAL DIGITAL SCREENING MAMMOGRAM 3D/2D WITH CAD: 09/04/2019 CLINICAL: Routine screening. Personal history of left breast cancer. Comparison is made to exams dated: 05/23/2018 mammogram, 04/28/2018 mammogram, 04/12/2017 mammogram, 12/09/2015 mammogram, and 11/06/2014 mammogram - [facility]. The tissue of both breasts is heterogeneously dense. This may lower the sensitivity of mammography. Current study was also evaluated with a Computer Aided Detection (CAD) system. There is an irregular equal density asymmetry with fine calcifications in the right breast posterior depth superior region seen on the mediolateral oblique view only. There is possible architectural distortion associated with the asymmetry. No other significant masses, calcifications, or other findings are seen in either breast. IMPRESSION: INCOMPLETE: NEEDS ADDITIONAL IMAGING EVALUATION The irregular equal density asymmetry in the right breast is indeterminate. Additional views with possible ultrasound are recommended. This exam was interpreted at Station ID: [id number]. NOTE: For mammograms, a report in lay terms will be sent to the patient. Approximately 15% of breast malignancies will not be visualized mammographically. In the management of a palpable breast mass, a negative mammogram must not discourage biopsy of a clinically suspicious lesion. Electronically Signed By: Brennon Ash M.D. slc/:09/05/2019 12:52:24 copy to: Jakob Lamas copy to: FREDDY MCLAIN letter sent: Additional Imaging Needed ACR BI-RADS Category 0: Incomplete [id number]
== END ==
PROVIDERS: PCP Family Medicine; Referring Provider Family Medicine; Visit Provider Family Medicine
DX: Z12.31 Encounter for screening mammogram for malignant neoplasm of breast (principal); Z85.3 Personal history of malignant neoplasm of breast
CPT/HCPCS: 77063; 77067

== ENCOUNTER 2019-09-05 14:30 | Outpatient (RCR) | payer OTHER, MEDICAID, SELFPAY ==
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
== END 2019-09-06 14:30 ==
LOC: PHYS 14:30
PROVIDERS: PCP Family Medicine; Referring Provider Family Medicine; Visit Provider Family Medicine
DX: M53.3 Sacrococcygeal disorders, not elsewhere classified (principal); M76.02 Gluteal tendinitis, left hip
CPT/HCPCS: 97110; 97140; 97161

== ENCOUNTER → 2019-09-25 14:14 | Outpatient (CLI) | payer OTHER, MEDICAID, SELFPAY ==
--- NOTE | 2019-09-25 | DI.MG.S_ITS ---
UNILATERAL RIGHT DIGITAL DIAGNOSTIC MAMMOGRAM 3D/2D WITH ADDITIONAL VIEWS POST LUMPECTOMY: 09/25/2019 CLINICAL: Additional evaluation requested from prior study. Comparison is made to exams dated: 09/04/2019 mammogram, 04/28/2018 mammogram, and 04/12/2017 mammogram - [facility]. The tissue of right breast is heterogeneously dense. This may lower the sensitivity of mammography. The asymmetry in the right breast posterior depth superior region seen on the mediolateral oblique view only is not seen in additional views. The calicifications seen on the screening mammogram associated with this asymmetry are not seen on additional views. No other significant masses or calcifications are seen in the breast. IMPRESSION: The asymmetry in the right breast seen on the screening mammogram likely respresents superimposed fibroglandular tissue and is benign. The calcifications in the right breast seen only on the screening mammogram likely respresent artifact and are benign. There is no mammographic evidence of malignancy. A 1 year screening mammogram is recommended. This exam was interpreted at Station ID: [id number]. NOTE: For mammograms, a report in lay terms will be sent to the patient. Approximately 15% of breast malignancies will not be visualized mammographically. In the management of a palpable breast mass, a negative mammogram must not discourage biopsy of a clinically suspicious lesion. Electronically Signed By: Annabella Beaver M.D. lk/:09/25/2019 15:03:08 copy to: Jakob Lamas copy to: FREDDY MCLAIN letter sent: Normal Exam ACR BI-RADS Category 2: Benign Finding(s) 3342F
== END ==
PROVIDERS: PCP Family Medicine; Referring Provider Family Medicine; Visit Provider Family Medicine
DX: R92.8 Other abnormal and inconclusive findings on diagnostic imaging of breast (principal); R92.1 Mammographic calcification found on diagnostic imaging of breast; N64.89 Other specified disorders of breast
CPT/HCPCS: 77065; G0279

== ENCOUNTER → 2020-06-10 14:03 | Outpatient (CLI) | payer OTHER, MEDICAID, SELFPAY ==
--- NOTE | 2020-06-10 | DI.MG.S_ITS ---
BILATERAL DIGITAL DIAGNOSTIC MAMMOGRAM 3D/2D POST LUMPECTOMY: 06/10/2020 CLINICAL: Left breast pain. Comparison is made to exams dated: 09/25/2019 mammogram, 09/04/2019 mammogram, 09/04/2019 mammogram, and 04/28/2018 mammogram - [facility]. The tissue of both breasts is heterogeneously dense. This may lower the sensitivity of mammography. No significant masses, calcifications, or other findings are seen in either breast. IMPRESSION: INCOMPLETE: NEEDS ADDITIONAL IMAGING EVALUATION There is no abnormality seen in the left breast to correspond with the area of clinical concern, palpable abnormality, and pain indicated by square marker in the upper aspect, however, an ultrasound is recommended for further evaluation and is scheduled to immediately follow this examination. This exam was interpreted at Station ID: [id number]. NOTE: For mammograms, a report in lay terms will be sent to the patient. Approximately 15% of breast malignancies will not be visualized mammographically. In the management of a palpable breast mass, a negative mammogram must not discourage biopsy of a clinically suspicious lesion. Electronically Signed By: Shane Ivy M.D. aty/:06/10/2020 14:55:22 ACR BI-RADS Category 0: Incomplete [id number]
--- NOTE | 2020-06-10 | DI.US.S_ITS ---
ULTRASOUND OF LEFT BREAST: 06/10/2020 CLINICAL: Focal left breast pain. Comparison is made to exams dated: 06/10/2020 mammogram, 09/04/2019 mammogram, 09/04/2019 mammogram, 05/23/2018 ultrasound, 05/23/2018 mammogram, and 04/28/2018 mammogram - [facility]. Color flow and real-time ultrasound of the left breast were performed. Rooney scale images of the real-time examination were reviewed. No significant abnormalities were seen sonographically in the left breast. IMPRESSION: NEGATIVE There is no sonographic evidence of malignancy. There are no abnormalities seen in the left breast to correspond with the areas of clinical concern, palpable abnormality, and pain at 10, 11, and 12 o'clock which appears to correlate with ridge of normal dense fibroglandular tissue, however, recommend clinical follow up for persistent or worsening symptoms, or development of any clinically suspicious findings. A 1 year screening mammogram is recommended. Findings and recommendations were conveyed to the patient during today's evaluation. This exam was interpreted at Station ID: [id number]. Electronically Signed By: Shane Ivy M.D. at/:06/10/2020 14:57:31 letter sent: Clinical Evaluation Ultrasound BI-RADS: 1 Negative
== END ==
PROVIDERS: PCP Family Medicine; Referring Provider Family Medicine; Visit Provider Family Medicine
DX: R92.8 Other abnormal and inconclusive findings on diagnostic imaging of breast (principal); N64.4 Mastodynia; N63.20 Unspecified lump in the left breast, unspecified quadrant
CPT/HCPCS: 76642; 77066; G0279

== ENCOUNTER → 2020-06-11 07:24 | Outpatient (CLI) | payer OTHER, MEDICAID, SELFPAY ==
[2020-06-11 08:37] LABS: Add Manual Diff / Slide Review NO; Basophils Absolute Auto 100 /uL (0-100); Basophils Percent Auto 1.1 % (0-2); Eosinophils Absolute Auto 200 /uL (0-450); Eosinophils Percent Auto 2.7 % (2-4); Hematocrit 46.6 % (36-46); Hemoglobin 15.6 g/dL (12.0-16.0); Lymphocytes Absolute Auto 2900 /uL (1100-4500); Lymphocytes Percent Auto 39.4 % (25-40); Mean Corpuscular HGB Conc 33.5 % (30-36); Mean Corpuscular Hemoglobin 33.2 PG (26-34); Monocytes Absolute Auto 800 /uL (0-900); Monocytes Percent Auto 10.9 % (3-14); Neutrophils Absolute Auto 3400 /uL (1500-7000); Neutrophils Percent Auto 45.9 % (50-75); Platelet Count 394 X10^3/uL (150-400); Red Cell Distribution Width 13.9 % (11.6-14.8); White Blood Cell Count 7.3 X10^3/uL (4.5-11.0)
[2020-06-11 09:04] LABS: Alanine Aminotransferase 35 IU/L (<35); Albumin 3.9 g/dL (3.5-5.0); Albumin Globulin Ratio 1.3 (1.0-2.8); Alkaline Phosphatase 61 U/L (38-126); Aspartate Aminotransferase 27 IU/L (14-36); Bilirubin Total 0.5 mg/dL (0.2-1.3); Blood Urea Nitrogen 15 mg/dL (7-17); Calcium 9.5 mg/dL (8.4-10.2); Carbon Dioxide 31 mmol/L (22-32); Chloride 105 mmol/L (98-107); Cholesterol 281 mg/dL (140-199); Estimated Glomerular Filt Rate > 60.0 mL/min (>60); Glucose 84 mg/dL (80-110); HDL Cholesterol 61 mg/dL (40-60); HEMOLYSIS < 15 (0-50); LDL Cholesterol Calculated 173 mg/dL (<100); Potassium 4.3 mmol/L (3.4-5.1); Sodium 138 mmol/L (137-145); Total Protein 6.9 g/dL (6.3-8.2); Triglycerides 236 mg/dL (35-150)
[2020-06-11 09:33] LABS: TSH w/ Reflex to FT4 4.53 uIU/mL (0.47-4.68)
== END ==
PROVIDERS: PCP Family Medicine; Referring Provider Family Medicine; Visit Provider Family Medicine
DX: D75.89 Other specified diseases of blood and blood-forming organs (principal); E03.9 Hypothyroidism, unspecified; E55.9 Vitamin D deficiency, unspecified; E78.5 Hyperlipidemia, unspecified; M81.0 Age-related osteoporosis without current pathological fracture; R74.8 Abnormal levels of other serum enzymes; R79.89 Other specified abnormal findings of blood chemistry
CPT/HCPCS: 36415; 80053; 80061; 82306; 84443; 85025

== ENCOUNTER → 2020-07-30 07:45 | Outpatient (CLI) | payer OTHER, MEDICAID, SELFPAY ==
[2020-07-30 08:59] LABS: Alanine Aminotransferase 23 IU/L (<35); Albumin 3.9 g/dL (3.5-5.0); Albumin Globulin Ratio 1.5 (1.0-2.8); Alkaline Phosphatase 63 U/L (38-126); Aspartate Aminotransferase 22 IU/L (14-36); BUN Creatinine Ratio 20.2 (6-22); Bilirubin Total 0.5 mg/dL (0.2-1.3); Blood Urea Nitrogen 17 mg/dL (7-17); Calcium 9.4 mg/dL (8.4-10.2); Carbon Dioxide 34 mmol/L (22-32); Chloride 105 mmol/L (98-107); Cholesterol 264 mg/dL (140-199); Estimated Glomerular Filt Rate > 60.0 mL/min (>60); Globulin 2.6 g/dL (1.7-4.1); Glucose 89 mg/dL (80-110); HDL Cholesterol 61 mg/dL (40-60); HEMOLYSIS < 15 (0-50); LDL Cholesterol Calculated 169 mg/dL (<100); Potassium 4.2 mmol/L (3.4-5.1); Sodium 141 mmol/L (137-145); Total Protein 6.5 g/dL (6.3-8.2); Triglycerides 169 mg/dL (35-150)
== END ==
PROVIDERS: PCP Family Medicine; Referring Provider Family Medicine; Visit Provider Family Medicine
DX: E78.2 Mixed hyperlipidemia (principal); D75.89 Other specified diseases of blood and blood-forming organs
CPT/HCPCS: 36415; 80053; 80061

== ENCOUNTER → 2021-01-06 10:28 | Outpatient (CLI) | payer OTHER, MEDICAID, SELFPAY ==
--- NOTE | 2021-01-06 | DI.MRI.S_ITS ---
PROCEDURE: MR LUMBAR SPINE WO CON INDICATIONS: Other specified diseases of anus and rectum TECHNIQUE: Noncontrast sagittal T1 spin echo and T2 fast echo, sagittal STIR, axial T1 and T2 fast spin echo through the lumbar spine. In cases with scoliosis, additional coronal T2 fast spin echo may be performed. COMPARISON: [facility], MR, L-SPINE WITHOUT CONTRAST, 11/16/2016, 7:33. FINDINGS: Image quality: Excellent. Alignment and Curvature: There is normal bony alignment. Bone Marrow: Marrow is of normal overall signal. Moderate reactive endplate changes are present at L2-3, L3-4, L4-5, minimal to mild L1-L2, L5-S1. Prominent Schmorl's node is noted at the superior endplate of L5. No acute vertebral body compression fractures. Spinal Cord: Conus medullaris terminates at the L2 level. Visualized cord demonstrates normal signal and size. Paraspinous Soft Tissues: No paravertebral masses. Multiple foci of increased T2 hyperintensity are present within the left kidney, likely cyst. Discs: Pade-nm-rluhzoim desiccation is present throughout the lumbar spine most notable at L3-4. L1-L2: No disc bulge, spinal stenosis or foraminal narrowing. No interval change. L2-L3: No disc bulge, spinal stenosis or foraminal narrowing. No interval change. L3-L4: Mild disc bulge without spinal stenosis. Mild right and moderate left foraminal narrowing within packed on the left L3 nerve root. Facet hypertrophy is present. Overall appearance is stable. L4-L5: Mild disc bulge without spinal stenosis. Mild left and rusc-yx-vyezisxo right foraminal narrowing, minimally progressive on the right compared to prior exam. Facet and ligamentum flavum hypertrophy are present. L5-S1: Minimal disc bulge without spinal stenosis. Minimal left foraminal narrowing. No interval change. IMPRESSION: 1. Multilevel degenerative changes with minimal progression noted at L4-5 as above. Dictated by: Anastasiia Abdi M.D. on 01/06/2021 at 14:58 Approved by: Anastasiia Abdi M.D. on 01/06/2021 at 15:09
--- NOTE | 2021-01-06 | DI.MRI.S_ITS ---
PROCEDURE: MR PELVIS WO CON INDICATIONS: Rectal pain TECHNIQUE: Axial 2-D FLASH in- and [id number], axial breath-hold T2 FSE, axial STIR FSE. Optional contrast may be given, followed by axial 2-D FLASH with fat saturation acquired over the lesion of concern. COMPARISON: [facility], CR, XR LUMBAR SPINE WITH FLEXION EXTENSION 5 VIEWS, 10/31/2018, 10:34. [facility], MR, MR LUMBAR SPINE WO CON, 01/06/2021, 10:46. [facility], MR, PELVIS WITHOUT CONTRAST, 11/16/2016, 8:09. FINDINGS: Image quality: Reduced by absence of intravenous contrast, the clinical office was called and did confirm that the study was to be performed without intravenous MR contrast. Region of interest: The rectal wall thickness is normal, no evidence of eccentric mass at the mural or sub mucosal level. Inflammation along the borders of the rectum is not seen. In the presacral space no lesion is found.. Bones: Nearby osseous structures demonstrate normal overall marrow signal. IMPRESSION: Source of rectal pain is not identified. The study was performed without contrast specifically at the clinician request. No underlying infection or neoplasm is suspected. Dictated by: Ambrosio Dixon M.D. on 01/06/2021 at 15:47 Approved by: Ambrosio Dixon M.D. on 01/06/2021 at 15:52
== END ==
PROVIDERS: PCP Family Medicine; Referring Provider Physician Assistant; Visit Provider Physician Assistant
DX: M47.816 Spondylosis without myelopathy or radiculopathy, lumbar region (principal); K62.89 Other specified diseases of anus and rectum
CPT/HCPCS: 72148; 72195

== ENCOUNTER → 2021-06-15 14:08 | Outpatient (CLI) | payer OTHER, MEDICAID, SELFPAY ==
--- NOTE | 2021-06-15 | DI.MG.S_ITS ---
BILATERAL DIGITAL SCREENING MAMMOGRAM 3D/2D WITH CAD: 06/15/2021 CLINICAL: Routine screening. Personal history of left breast cancer. Comparison is made to exams dated: 06/10/2020 mammogram, 09/25/2019 mammogram, 09/04/2019 mammogram, and 09/04/2019 mammogram - [facility]. The tissue of both breasts is heterogeneously dense. This may lower the sensitivity of mammography. Current study was also evaluated with a Computer Aided Detection (CAD) system. There are benign vascular calcifications in the right breast. There also are benign post operative findings in the left breast. No significant masses, calcifications, or other findings are seen in either breast. There has been no significant interval change. IMPRESSION: BENIGN There is no mammographic evidence of malignancy. A 1 year screening mammogram is recommended. This exam was interpreted at Station ID: [id number]. NOTE: For mammograms, a report in lay terms will be sent to the patient. Approximately 15% of breast malignancies will not be visualized mammographically. In the management of a palpable breast mass, a negative mammogram must not discourage biopsy of a clinically suspicious lesion. Electronically Signed By: Sylvia jackman/thomas:06/15/2021 14:37:01 letter sent: Normal Exam ACR BI-RADS Category 2: Benign Finding(s) 3342F
== END ==
PROVIDERS: PCP Family Medicine; Referring Provider Family Medicine; Visit Provider Family Medicine
DX: Z12.31 Encounter for screening mammogram for malignant neoplasm of breast (principal); Z85.3 Personal history of malignant neoplasm of breast
CPT/HCPCS: 77063; 77067

== ENCOUNTER → 2021-07-23 13:31 | Outpatient (CLI) | payer OTHER, MEDICAID, SELFPAY | PROVIDERS: PCP Family Medicine; Referring Provider Family Medicine; Visit Provider Family Medicine | DX: M81.0 Age-related osteoporosis without current pathological fracture (principal); Z85.3 Personal history of malignant neoplasm of breast; Z78.0 Asymptomatic menopausal state; Z90.722 Acquired absence of ovaries, bilateral; Z87.891 Personal history of nicotine dependence | CPT/HCPCS: 77080 ==

== ENCOUNTER → 2021-09-16 12:33 | Outpatient (CLI) | payer OTHER, MEDICAID, SELFPAY ==
[2021-09-16 14:45] LABS: Add Manual Diff / Slide Review NO; Basophils Absolute Auto 100 /uL (0-100); Basophils Percent Auto 0.9 % (0-2); Eosinophils Absolute Auto 100 /uL (0-450); Eosinophils Percent Auto 1.6 % (2-4); Hematocrit 47.4 % (36-46); Hemoglobin 15.8 g/dL (12.0-16.0); Lymphocytes Absolute Auto 1800 /uL (1100-4500); Lymphocytes Percent Auto 21.7 % (25-40); Mean Corpuscular HGB Conc 33.3 % (30-36); Mean Corpuscular Hemoglobin 33.9 PG (26-34); Mean Corpuscular Volume 101.8 fL (80-100); Monocytes Absolute Auto 900 /uL (0-900); Neutrophils Absolute Auto 5300 /uL (1500-7000); Neutrophils Percent Auto 64.8 % (50-75); Platelet Count 418 X10^3/uL (150-400); Red Blood Cell Count 4.66 X10^6/uL (4.0-5.2); Red Cell Distribution Width 13.7 % (11.6-14.8); White Blood Cell Count 8.1 X10^3/uL (4.5-11.0)
[2021-09-16 15:03] LABS: Alanine Aminotransferase 24 IU/L (<35); Albumin 4.5 g/dL (3.5-5.0); Albumin Globulin Ratio 1.4 (1.0-2.8); Alkaline Phosphatase 82 U/L (38-126); Aspartate Aminotransferase 29 IU/L (14-36); BUN Creatinine Ratio 12.8 (6-22); Bilirubin Total 0.5 mg/dL (0.2-1.3); Blood Urea Nitrogen 11 mg/dL (7-17); Calcium 9.2 mg/dL (8.4-10.2); Carbon Dioxide 29 mmol/L (22-32); Chloride 102 mmol/L (98-107); Cholesterol 309 mg/dL (140-199); Estimated Glomerular Filt Rate > 60.0 mL/min (>60); Globulin 3.2 g/dL (1.7-4.1); Glucose 91 mg/dL (80-110); HDL Cholesterol 59 mg/dL (40-60); HEMOLYSIS < 15 (0-50); LDL Cholesterol Calculated 191 mg/dL (<100); Potassium 3.8 mmol/L (3.4-5.1); Sodium 140 mmol/L (137-145); Total Protein 7.7 g/dL (6.3-8.2); Triglycerides 296 mg/dL (35-150)
[2021-09-16 16:40] LABS: TSH w/ Reflex to FT4 3.87 uIU/mL (0.47-4.68)
== END ==
PROVIDERS: PCP Family Medicine; Referring Provider Family Medicine; Visit Provider Family Medicine
DX: D75.89 Other specified diseases of blood and blood-forming organs (principal); E03.9 Hypothyroidism, unspecified; E78.5 Hyperlipidemia, unspecified; F32.9 Major depressive disorder, single episode, unspecified; M81.0 Age-related osteoporosis without current pathological fracture; R79.89 Other specified abnormal findings of blood chemistry
CPT/HCPCS: 36415; 80053; 80061; 84443; 85025

== ENCOUNTER → 2022-07-22 14:09 | Outpatient (CLI) | payer OTHER, MEDICAID, SELFPAY ==
--- NOTE | 2022-07-22 | DI.MG.S_ITS ---
BILATERAL DIGITAL SCREENING MAMMOGRAM 3D/2D WITH CAD: 07/22/2022 CLINICAL: Routine screening. Personal history of left breast cancer. Comparison is made to exams dated: 06/15/2021 mammogram, 06/10/2020 mammogram, 09/04/2019 mammogram, and 04/28/2018 mammogram - [facility]. Both breasts are heterogeneously dense, which may obscure small masses (category c / 51-75% glandular tissue). Current study was also evaluated with a Computer Aided Detection (CAD) system. There are benign vascular calcifications in the right breast. There also are benign post operative findings in the left breast. No significant masses, calcifications, or other findings are seen in either breast. There has been no significant interval change. IMPRESSION: BENIGN There is no mammographic evidence of malignancy. A 1 year screening mammogram is recommended. This exam was interpreted at Station ID: [id number]. NOTE: For mammograms, a report in lay terms will be sent to the patient. Approximately 15% of breast malignancies will not be visualized mammographically. In the management of a palpable breast mass, a negative mammogram must not discourage biopsy of a clinically suspicious lesion. Electronically Signed By: Ismael bobby/thomas:07/22/2022 15:33:39 letter sent: Normal Exam ACR BI-RADS Category 2: Benign Finding(s) 3342F
== END ==
PROVIDERS: PCP Family Medicine; Referring Provider Family Medicine; Visit Provider Family Medicine
DX: Z12.31 Encounter for screening mammogram for malignant neoplasm of breast (principal); Z85.3 Personal history of malignant neoplasm of breast
CPT/HCPCS: 77063; 77067

== ENCOUNTER → 2022-10-13 08:59 | Outpatient (CLI) | payer OTHER, MEDICAID, SELFPAY | PROVIDERS: PCP Family Medicine; Visit Provider Nurse Practitioner Family | DX: R10.2 Pelvic and perineal pain (principal) | CPT/HCPCS: 87086 ==

== ENCOUNTER → 2022-11-14 15:51 | Outpatient (CLI) | payer OTHER, MEDICAID, SELFPAY ==
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
== END ==
PROVIDERS: PCP Family Medicine; Referring Provider Family Medicine; Visit Provider Family Medicine
DX: M19.072 Primary osteoarthritis, left ankle and foot (principal); M25.572 Pain in left ankle and joints of left foot; M85.872 Other specified disorders of bone density and structure, left ankle and foot; Z98.1 Arthrodesis status
CPT/HCPCS: 73610; 73630

== ENCOUNTER 2022-11-27 13:33 | Observation (INO) | payer OTHER, MEDICAID, SELFPAY ==
[2022-11-27] VITALS (18 sets, daily range): BP systolic 124–170; BP diastolic 56–89; PULSE 90–105; RESP 13–44; TEMP 36.4–37.1; O2SAT 94–100; BMI 25.7
--- NOTE | 2022-11-27 13:41 | DI.CT.S_ITS ---
PROCEDURE: CT HEAD/BRAIN WO CON INDICATIONS: altered mental status TECHNIQUE: Noncontrast 4.5 mm thick angled axial sections acquired from the foramen magnum to the vertex, with coronal and sagittal reformats. For radiation dose reduction, the following was used: automated exposure control, adjustment of mA and/or kV according to patient size. COMPARISON: None. FINDINGS: Image quality: Excellent. CSF spaces: Basal cisterns are patent. No extra-axial fluid collections. The ventricles are symmetric in size and shape. Brain: No intracranial bleeds or masses. There is cerebral volume loss for age, with resultant ventricular and sulcal prominence. There are moderate periventricular and deep white matter chronic small vessel ischemic changes. There is intracranial internal carotid artery atherosclerosis. Skull and face: Calvarium and visualized facial bones appear intact, without suspicious lesions. Sinuses: Visualized sinuses and mastoids are clear. IMPRESSION: 1. No CT evidence of acute intracranial process. 2. Age-appropriate cerebral cortical volume loss and chronic microvascular ischemic changes. Dictated by: Sylvia Vale M.D. on 11/27/2022 at 13:19 Approved by: Sylvia Vale M.D. on 11/27/2022 at 13:21
--- NOTE | 2022-11-27 13:41 | ED_ITS ---
HPI - Altered Mental Status General Chief Complaint: Altered Mental Status Stated Complaint: confused Time Seen by Provider: 11/27/22 13:40 History of Present Illness HPI narrative: 72-year-old female nonsmoker with out any known chronic medical history presents by [employer] police for [place]. They were called to evaluate the patient who was found wandering the streets. She was clearly confused and stating she was looking for the capital building in [place] and then mentioned that she was going to the [facility]. Finally she is making discussions about trying to find a court office. She is convinced it is 2005. She shows no signs of injury and has no complaints. Police had reached out to the patient's who is unable to care for her or keep her at home as he is limited by physical limitations secondary to chronic illness. Please state the mentions that this had happened 1 time before and he was able to convince her to stay home, however this time around he has no control over her. There is no report of medications that she should take or has not been taking. She denies any recent trauma or injury. There is no report of fever chills nor nausea, vomiting or diarrhea. The timeline regarding onset of her altered mental status is unclear. Related Data Home Medications Medication Instructions Recorded Confirmed atorvastatin 80 mg tablet 80 mg PO BEDTIME 11/27/22 11/27/22 Previous Rx's Medication Instructions Recorded Disabled Parking Permit #1 ea 02/26/21 quetiapine 25 mg tablet 25 mg PO BID 30 days #60 tabs 11/29/22 Allergies Allergy/AdvReac Type Severity Reaction Status Date / Time hydroxyzine [HYDROXYZINE] Allergy Mild facial rash Verified 11/29/22 18:43 erythromycin base Allergy Unknown Verified 11/29/22 18:43 filgrastim Allergy Unknown Verified 11/29/22 18:43 meperidine Allergy Unknown Verified 11/29/22 18:43 mirtazapine [MIRTAZAPINE] Allergy Unknown swollen Verified 11/29/22 18:43 tongue, blurry vision pegfilgrastim Allergy Unknown Verified 11/29/22 18:43 propoxyphene Allergy Unknown Verified 11/29/22 18:43 bupropion AdvReac Intermediate SORE Verified 11/29/22 18:43 THROAT, SUPPRESSED APPETITE oxycodone [OXYCODONE] AdvReac Intermediate seizure Verified 11/29/22 18:43 amoxicillin [AMOXICILLIN] AdvReac Mild diarrhea Verified 11/29/22 18:43 meloxicam AdvReac Mild GI SYMPTOMS Verified 11/29/22 18:43 chlordiazepoxide AdvReac Unknown anxiety Verified 11/29/22 18:43 [CHLORDIAZEPOXIDE] doxepin [DOXEPIN] AdvReac Unknown rectal Verified 11/29/22 18:43 burning ramelteon [RAMELTEON] AdvReac Unknown rectal Verified 11/29/22 18:43 burning trazodone [TRAZODONE] AdvReac Unknown insomnia Verified 11/29/22 18:43 Review of Systems Review of Systems Narrative: GENERAL: Denies chills, fatigue, malaise, fever, sweats. HEENT: Denies sinus pain, ear pain, sore throat, difficulty swallowing, dizziness. RESPIRATORY: Denies dyspnea, cough, wheezing, hemoptysis, sputum. CARDIOVASCULAR: Denies chest pain, palpitations, orthopnea, edema, GASTROINTESTINAL: Denies nausea, vomiting, abdominal pain, diarrhea, constipation, melena. : Denies dysuria, frequency, incontinence, hematuria, urinary retention. MUSCULOSKELETAL: denies weakness, joint pain, or bony pain SKIN: Denies rash, skin lesions, or other NEUROLOGIC: Denies weakness, headache, numbness, change in speech, confusion, seizures, incoordination. PSYCHIATRIC: see HPI 12 point review of systems is negative except for those stated above Patient History Medical History Acrochordon Actinic keratosis Alcoholism Ankle pain (~2009) Anxiety (~1957) Breast cancer (~2004) Callus of foot Chickenpox (~1953) Chronic back pain (~2006) Depression (~1957) Foot pain (~1999) Fracture, trimalleolar (~07/12/10) Hearing loss (~2006) Hyperlipidemia (~1979) Insomnia (~1984) Labral tear of left hip joint (~1986) Mononucleosis (~1967) Mumps (~1953) Osteoarthritis of ankle Osteoarthritis of knees, bilateral (~2009) Osteopenia (~1989) Osteoporosis (~2009) Pain of left breast Plantar warts (~1963) Rosacea (~1983) Shoulder pain (~1999) Tinnitus (~1999) Torn ACL (anterior cruciate ligament) (~1966) Surgical History Anesthesia History of ankle surgery (~2009) History of lumpectomy (~2005) History of repair of anterior cruciate ligament of left knee (~2003) Status post arthroscopy (~2014) Status post hysterectomy (~1996) Family History Father Osteoporosis Mother Heart disease High cholesterol Alzheimer's dementia without behavioral disturbance, unspecified timing of dementia onset Social History household members: spouse and other Smoking Status: Unknown if ever smoked Tobacco: How many years used: 4 second hand exposure: No alcohol intake: never substance use type: former substance user (former marijuana ) and marijuana (former ) Exam Narrative Exam Narrative: GENERAL: [72] year old patient appears stated age. Well-developed patient, in mild distress. pleasantly confused, GCS 14 HEAD: Atraumatic. Normocephalic. EYES: Pupils equal round and reactive. Extraocular motions intact. No scleral icterus. No injection or drainage. ENT: mucous membranes moistNose without bleeding, purulent drainage. Throat without erythema, tonsillar hypertrophy or exudate. Airway patent. NECK: Trachea midline. Non tender CARDIOVASCULAR: Regular rate and rhythm without murmurs, gallops, or rubs. RESPIRATORY: Clear to auscultation. Breath sounds equal bilaterally. No wheezes, rales, or rhonchi. GASTROINTESTINAL: Abdomen soft, non-tender, nondistended. EXTREMITIES: No edema or joint tenderness. BACK: Nontender without deformity or crepitance. No flank tenderness. NEURO: alert to person, unaware of date or location SKIN: No rash or erythema of visible areas Initial Vital Signs Initial Vital Signs: Vital Signs Temperature 98.8 F 11/27/22 13:35 Pulse Rate 90 11/27/22 13:35 Respiratory Rate 16 11/27/22 13:35 Blood Pressure 169/86 H 11/27/22 13:35 Pulse Oximetry 98 11/27/22 13:35 Oxygen Delivery Method Room Air 11/27/22 13:35 Procedures Lumbar Puncture Time Out Performed: Yes Patient Position: upright Skin Prep: 0.5% Chlorhexidine/Alcohol Local Anesthetic: lidocaine 2% Amount of anesthesia used (mL): 3 Spinal Needle Gauge: 22G Interspace Used: L4-L5 Fluid Initially Obtained: clear Complications: none Course Orders Ordered: Discontinued Medications Acetaminophen (Acetaminophen 325 Mg Tablet) 650 mg PO Q6H PRN PRN Reason: Fever/Mild Pain (1-3) Last Admin: 11/29/22 15:23 Dose: 650 mg Documented By: Admin: 11/29/22 09:25 Dose: 650 mg Documented By: Admin: 11/29/22 03:26 Dose: 650 mg Documented By: Admin: 11/28/22 22:01 Dose: 650 mg Documented By: Admin: 11/28/22 14:07 Dose: 650 mg Documented By: Admin: 11/28/22 08:15 Dose: 650 mg Documented By: Admin: 11/27/22 22:53 Dose: 650 mg Documented By: CARLOS Sodium Chloride (Normal Saline 0.9%) 1,000 mls @ 150 mls/hr IV CONT DESIREE Last Infusion: 11/27/22 17:37 Dose: 0 mls/hr Documented By: Admin: 11/27/22 14:04 Dose: 150 mls/hr Documented By: MARCELLUS Thiamine HCl 200 mg/ Sodium (Chloride) 102 mls @ 408 mls/hr IV NOW ONE Stop: 11/27/22 13:52 Last Infusion: 11/27/22 15:30 Dose: 0 mls/hr Documented By: Admin: 11/27/22 14:52 Dose: 408 mls/hr Documented By: MARCELLUS Sodium Chloride (Normal Saline 0.9%) 1,000 mls @ 1,000 mls/hr IV BOLUS ONE Stop: 11/27/22 17:20 Last Infusion: 11/27/22 18:20 Dose: 0 mls/hr Documented By: Admin: 11/27/22 17:38 Dose: 1,000 mls/hr Documented By: BRUCE Lactated Ringer's (Lactated Ringers) 1,000 mls @ 100 mls/hr IV CONT DESRIEE Stop: 12/28/22 04:58 Last Infusion: 11/28/22 22:17 Dose: 0 mls/hr Documented By: Admin: 11/28/22 05:26 Dose: 100 mls/hr Documented By: Infusion: 11/28/22 05:10 Dose: 0 mls/hr Documented By: Admin: 11/27/22 19:10 Dose: 100 mls/hr Documented By: CARLOS Naloxone HCl (Naloxone 0.4 Mg/Ml Vial) 0.2 mg IV Q2MIN PRN PRN Reason: Opiate Reversal Potassium Chloride (Potassium Chloride 20 Meq Tab) 40 meq PO Q6H DESIREE Stop: 11/28/22 18:46 Last Admin: 11/28/22 21:58 Dose: Not Given Documented By: Admin: 11/28/22 13:17 Dose: 40 meq Documented By: VISHAL Potassium Chloride (Potassium Chloride 20 Meq Tab) 40 meq PO Q6H DESIREE Stop: 11/28/22 22:01 Last Admin: 11/28/22 22:01 Dose: 40 meq Documented By: CARLOS Quetiapine Fumarate (Quetiapine 25 Mg Tablet) 25 mg PO BEDTIME [facility] Last Admin: 11/27/22 23:11 Dose: 25 mg Documented By: CARLOS Quetiapine Fumarate (Quetiapine 25 Mg Tablet) 25 mg PO BID [facility] Last Admin: 11/29/22 08:49 Dose: 25 mg Documented By: Admin: 11/28/22 22:02 Dose: 25 mg Documented By: Admin: 11/28/22 10:55 Dose: 25 mg Documented By: VISHAL MDM - Altered Mental Status Lab Data 11/28/22 07:45 11/29/22 05:45 Labs: Lab Results 11/27/22 11/27/22 11/27/22 Range/Units 14:00 14:00 14:00 WBC 11.4 H (4.5-11.0) X10^3/uL RBC 4.14 (4.0-5.2) X10^6/uL Hgb 14.1 (12.0-16.0) g/dL Hct 42.4 (36-46) % MCV 102.4 H (80-100) fL MCH 34.1 H (26-34) PG MCHC 33.3 (30-36) % RDW 13.2 (11.6-14.8) % Plt Count 397 (150-400) X10^3/uL Neut % (Auto) 70.4 (50-75) % Lymph % (Auto) 15.6 L (25-40) % [place] % (Auto) 13.3 (3-14) % Eos % (Auto) 0.2 L (2-4) % Baso % (Auto) 0.5 (0-2) % Neut # (Auto) 8000 H (2490-9568) /uL Lymph # (Auto) 1800 (2345-3222) /uL [place] # (Auto) 1500 H (0-900) /uL Eos # (Auto) 0 (0-450) /uL Baso # (Auto) 100 (0-100) /uL PT 12.9 H (10.1-12.7) SECONDS INR 1.1 (0.9-1.3) APTT 30 (26-36) SECONDS Sodium (137-145) mmol/L Potassium (3.4-5.1) mmol/L Chloride (98-107) mmol/L Carbon Dioxide (22-32) mmol/L BUN (7-17) mg/dL Creatinine (0.52-1.04) mg/dL Estimated GFR (>60) mL/min BUN/Creatinine Ratio (6-22) Glucose (80-110) mg/dL Serum Osmolality (280-301) mOsmol/kg Lactate (0.7-2.1) mmol/L Calcium (8.4-10.2) mg/dL Magnesium (1.6-2.3) mg/dL Total Bilirubin (0.2-1.3) mg/dL AST (14-36) IU/L ALT (<35) IU/L Alkaline Phosphatase (38-126) U/L Ammonia (9-30) umol/L Total Creatine Kinase 1103 H (30-135) U/L CK-MB (CK-2) TNP CK-MB (CK-2) Rel Index TNP Troponin I 0.018 (0.01-0.034) ng/mL Total Protein (6.3-8.2) g/dL Albumin (3.5-5.0) g/dL Globulin (1.7-4.1) g/dL Albumin/Globulin Ratio (1.0-2.8) Procalcitonin 0.05 (<0.5) ng/mL TSH (0.47-4.68) uIU/mL Prolactin (3.0-18.6) ng/mL Urine Color Urine Appearance Urine pH (4.5-8.0) Ur Specific [place] (1.000-1.035) Urine Protein (Negative) Urine Glucose (UA) (Negative) g/dL Urine Ketones (NEGATIVE) Urine Occult Blood (Negative) Urine Nitrate (Negative) Urine Bilirubin (NEGATIVE) Ur Bilirubin Confirm (Negative) Urine Urobilinogen (0.2) E.U./dL Ur Leukocyte Esterase (NEGATIVE) Urine RBC (0-5/HPF) Urine WBC (0-5/HPF) Ur Squamous Epith Cells (0-5/HPF) Urine Bacteria (None) Hyaline Casts (None) Urine Mucus (Negative) Salicylates (<20) mg/dL U Opiates 300ng/mL cut (Negative) Ur Oxycodone Screen (Negative) Urine Methadone Screen (Negative) Acetaminophen (10-30) ug/mL Ur Barbiturates Screen (Negative) U Tricyclic Antidepress (Negative) Ur Phencyclidine Scrn (Negative) Ur Amphetamines Screen (Negative) U Methamphetamines Scrn (Negative) Ur MDMA Scrn (Ecstasy) (Negative) U Benzodiazepines Scrn (Negative) Urine Cocaine Screen (Negative) U Marijuana (THC) Screen (Negative) Ethyl Alcohol ( - 10) mg/dL 11/27/22 11/27/22 11/27/22 Range/Units 14:00 14:00 14:00 WBC (4.5-11.0) X10^3/uL RBC (4.0-5.2) X10^6/uL Hgb (12.0-16.0) g/dL Hct (36-46) % MCV (80-100) fL MCH (26-34) PG MCHC (30-36) % RDW (11.6-14.8) % Plt Count (150-400) X10^3/uL Neut % (Auto) (50-75) % Lymph % (Auto) (25-40) % [place] % (Auto) (3-14) % Eos % (Auto) (2-4) % Baso % (Auto) (0-2) % Neut # (Auto) (8279-5277) /uL Lymph # (Auto) (2982-9944) /uL [place] # (Auto) (0-900) /uL Eos # (Auto) (0-450) /uL Baso # (Auto) (0-100) /uL PT (10.1-12.7) SECONDS INR (0.9-1.3) APTT (26-36) SECONDS Sodium 139 (137-145) mmol/L Potassium 3.7 (3.4-5.1) mmol/L Chloride 103 (98-107) mmol/L Carbon Dioxide 23 (22-32) mmol/L BUN 27 H (7-17) mg/dL Creatinine 0.90 (0.52-1.04) mg/dL Estimated GFR > 60 (>60) mL/min BUN/Creatinine Ratio 30.0 H (6-22) Glucose 105 (80-110) mg/dL Serum Osmolality (280-301) mOsmol/kg Lactate 1.6 (0.7-2.1) mmol/L Calcium 8.9 (8.4-10.2) mg/dL Magnesium (1.6-2.3) mg/dL Total Bilirubin 0.7 (0.2-1.3) mg/dL AST 65 H (14-36) IU/L ALT 30 (<35) IU/L Alkaline Phosphatase 99 (38-126) U/L Ammonia (9-30) umol/L Total Creatine Kinase (30-135) U/L CK-MB (CK-2) CK-MB (CK-2) Rel Index Troponin I (0.01-0.034) ng/mL Total Protein 7.4 (6.3-8.2) g/dL Albumin 4.3 (3.5-5.0) g/dL Globulin 3.1 (1.7-4.1) g/dL Albumin/Globulin Ratio 1.4 (1.0-2.8) Procalcitonin (<0.5) ng/mL TSH 2.28 (0.47-4.68) uIU/mL Prolactin 13.9 (3.0-18.6) ng/mL Urine Color Urine Appearance Urine pH (4.5-8.0) Ur Specific [place] (1.000-1.035) Urine Protein (Negative) Urine Glucose (UA) (Negative) g/dL Urine Ketones (NEGATIVE) Urine Occult Blood (Negative) Urine Nitrate (Negative) Urine Bilirubin (NEGATIVE) Ur Bilirubin Confirm (Negative) Urine Urobilinogen (0.2) E.U./dL Ur Leukocyte Esterase (NEGATIVE) Urine RBC (0-5/HPF) Urine WBC (0-5/HPF) Ur Squamous Epith Cells (0-5/HPF) Urine Bacteria (None) Hyaline Casts (None) Urine Mucus (Negative) Salicylates < 1.0 (<20) mg/dL U Opiates 300ng/mL cut (Negative) Ur Oxycodone Screen (Negative) Urine Methadone Screen (Negative) Acetaminophen < 10 (10-30) ug/mL Ur Barbiturates Screen (Negative) U Tricyclic Antidepress (Negative) Ur Phencyclidine Scrn (Negative) Ur Amphetamines Screen (Negative) U Methamphetamines Scrn (Negative) Ur MDMA Scrn (Ecstasy) (Negative) U Benzodiazepines Scrn (Negative) Urine Cocaine Screen (Negative) U Marijuana (THC) Screen (Negative) Ethyl Alcohol < 10 ( - 10) mg/dL 11/27/22 11/27/22 11/27/22 Range/Units 14:00 14:00 14:20 WBC (4.5-11.0) X10^3/uL RBC (4.0-5.2) X10^6/uL Hgb (12.0-16.0) g/dL Hct (36-46) % MCV (80-100) fL MCH (26-34) PG MCHC (30-36) % RDW (11.6-14.8) % Plt Count (150-400) X10^3/uL Neut % (Auto) (50-75) % Lymph % (Auto) (25-40) % [place] % (Auto) (3-14) % Eos % (Auto) (2-4) % Baso % (Auto) (0-2) % Neut # (Auto) (0653-3076) /uL Lymph # (Auto) (7303-3734) /uL [place] # (Auto) (0-900) /uL Eos # (Auto) (0-450) /uL Baso # (Auto) (0-100) /uL PT (10.1-12.7) SECONDS INR (0.9-1.3) APTT (26-36) SECONDS Sodium (137-145) mmol/L Potassium (3.4-5.1) mmol/L Chloride (98-107) mmol/L Carbon Dioxide (22-32) mmol/L BUN (7-17) mg/dL Creatinine (0.52-1.04) mg/dL Estimated GFR (>60) mL/min BUN/Creatinine Ratio (6-22) Glucose (80-110) mg/dL Serum Osmolality 297 (280-301) mOsmol/kg Lactate (0.7-2.1) mmol/L Calcium (8.4-10.2) mg/dL Magnesium 2.1 (1.6-2.3) mg/dL Total Bilirubin (0.2-1.3) mg/dL AST (14-36) IU/L ALT (<35) IU/L Alkaline Phosphatase (38-126) U/L Ammonia < 9 L (9-30) umol/L Total Creatine Kinase (30-135) U/L CK-MB (CK-2) CK-MB (CK-2) Rel Index Troponin I (0.01-0.034) ng/mL Total Protein (6.3-8.2) g/dL Albumin (3.5-5.0) g/dL Globulin (1.7-4.1) g/dL Albumin/Globulin Ratio (1.0-2.8) Procalcitonin (<0.5) ng/mL TSH (0.47-4.68) uIU/mL Prolactin (3.0-18.6) ng/mL Urine Color Urine Appearance Urine pH (4.5-8.0) Ur Specific [place] (1.000-1.035) Urine Protein (Negative) Urine Glucose (UA) (Negative) g/dL Urine Ketones (NEGATIVE) Urine Occult Blood (Negative) Urine Nitrate (Negative) Urine Bilirubin (NEGATIVE) Ur Bilirubin Confirm (Negative) Urine Urobilinogen (0.2) E.U./dL Ur Leukocyte Esterase (NEGATIVE) Urine RBC (0-5/HPF) Urine WBC (0-5/HPF) Ur Squamous Epith Cells (0-5/HPF) Urine Bacteria (None) Hyaline Casts (None) Urine Mucus (Negative) Salicylates (<20) mg/dL U Opiates 300ng/mL cut (Negative) Ur Oxycodone Screen (Negative) Urine Methadone Screen (Negative) Acetaminophen (10-30) ug/mL Ur Barbiturates Screen (Negative) U Tricyclic Antidepress (Negative) Ur Phencyclidine Scrn (Negative) Ur Amphetamines Screen (Negative) U Methamphetamines Scrn (Negative) Ur MDMA Scrn (Ecstasy) (Negative) U Benzodiazepines Scrn (Negative) Urine Cocaine Screen (Negative) U Marijuana (THC) Screen (Negative) Ethyl Alcohol ( - 10) mg/dL 11/27/22 11/27/22 Range/Units 15:17 15:17 WBC (4.5-11.0) X10^3/uL RBC (4.0-5.2) X10^6/uL Hgb (12.0-16.0) g/dL Hct (36-46) % MCV (80-100) fL MCH (26-34) PG MCHC (30-36) % RDW (11.6-14.8) % Plt Count (150-400) X10^3/uL Neut % (Auto) (50-75) % Lymph % (Auto) (25-40) % [place] % (Auto) (3-14) % Eos % (Auto) (2-4) % Baso % (Auto) (0-2) % Neut # (Auto) (8343-1311) /uL Lymph # (Auto) (1303-5302) /uL [place] # (Auto) (0-900) /uL Eos # (Auto) (0-450) /uL Baso # (Auto) (0-100) /uL PT (10.1-12.7) SECONDS INR (0.9-1.3) APTT (26-36) SECONDS Sodium (137-145) mmol/L Potassium (3.4-5.1) mmol/L Chloride (98-107) mmol/L Carbon Dioxide (22-32) mmol/L BUN (7-17) mg/dL Creatinine (0.52-1.04) mg/dL Estimated GFR (>60) mL/min BUN/Creatinine Ratio (6-22) Glucose (80-110) mg/dL Serum Osmolality (280-301) mOsmol/kg Lactate (0.7-2.1) mmol/L Calcium (8.4-10.2) mg/dL Magnesium (1.6-2.3) mg/dL Total Bilirubin (0.2-1.3) mg/dL AST (14-36) IU/L ALT (<35) IU/L Alkaline Phosphatase (38-126) U/L Ammonia (9-30) umol/L Total Creatine Kinase (30-135) U/L CK-MB (CK-2) CK-MB (CK-2) Rel Index Troponin I (0.01-0.034) ng/mL Total Protein (6.3-8.2) g/dL Albumin (3.5-5.0) g/dL Globulin (1.7-4.1) g/dL Albumin/Globulin Ratio (1.0-2.8) Procalcitonin (<0.5) ng/mL TSH (0.47-4.68) uIU/mL Prolactin (3.0-18.6) ng/mL Urine Color Yellow Urine Appearance Clear Urine pH 5.5 (4.5-8.0) Ur Specific [place] >=1.030 H (1.000-1.035) Urine Protein 1+ H (Negative) Urine Glucose (UA) Negative (Negative) g/dL Urine Ketones 2+ H (NEGATIVE) Urine Occult Blood Negative (Negative) Urine Nitrate Negative (Negative) Urine Bilirubin 2+ H (NEGATIVE) Ur Bilirubin Confirm Negative (Negative) Urine Urobilinogen 0.2 (0.2) E.U./dL Ur Leukocyte Esterase Negative (NEGATIVE) Urine RBC 0-1/hpf (0-5/HPF) Urine WBC 0-1/hpf (0-5/HPF) Ur Squamous Epith Cells 0-1 /hpf (0-5/HPF) Urine Bacteria None seen (None) Hyaline Casts 10-30/lpf (None) Urine Mucus 1+ H (Negative) Salicylates (<20) mg/dL U Opiates 300ng/mL cut Negative (Negative) Ur Oxycodone Screen Negative (Negative) Urine Methadone Screen Negative (Negative) Acetaminophen (10-30) ug/mL Ur Barbiturates Screen Negative (Negative) U Tricyclic Antidepress Negative (Negative) Ur Phencyclidine Scrn Negative (Negative) Ur Amphetamines Screen Negative (Negative) U Methamphetamines Scrn Negative (Negative) Ur MDMA Scrn (Ecstasy) Negative (Negative) U Benzodiazepines Scrn Positive H (Negative) Urine Cocaine Screen Negative (Negative) U Marijuana (THC) Screen Negative (Negative) Ethyl Alcohol ( - 10) mg/dL Point of Care Testing Glucose POC 105 MDM Narrative Medical decision making narrative: [72] year old patient presents with acute change in mental status Multiple etiologies for patient's symptoms considered including, but not limited to: [electrolyte abnormality versus intracranial abnormality versus toxic/metabolic/infectious encephalopathy] Prior Charts reviewed in our EMR Primary Historian: patient Labs reviewed and interpreted by myself: No significant abnormality requiring specific intervention Imaging reviewed: CT of head without specific findings requiring intervention Consultations: Discussed with hospitalist, Dr. Lucero, she is seen and evalua natalee the patient at the bedside and will admit for acute delirium/encephalopathy Patient presents with altered mental status which bowel counts is a significant departure from her baseline. Prior notes mention elements of dementia but certainly no confusion to this level. Patient requires hospitalization for further evaluation and stabilization of her condition Discharge Plan Departure Patient Disposition: Admitted as Observation Clinical Impression: Acute delirium, Rhabdomyolysis Admit Date/Time: 11/27/22 16:32 Admit Provider: Any Lucero
[2022-11-27] MEDS: SODIUM CHLORIDE 0.9% 1,000 ML 150 ML IV (14:04)
[2022-11-27 14:20] LABS: Add Manual Diff / Slide Review NO; Basophils Absolute Auto 100 /uL (0-100); Basophils Percent Auto 0.5 % (0-2); Eosinophils Absolute Auto 0 /uL (0-450); Eosinophils Percent Auto 0.2 % (2-4); Hematocrit 42.4 % (36-46); Hemoglobin 14.1 g/dL (12.0-16.0); Lymphocytes Absolute Auto 1800 /uL (1100-4500); Lymphocytes Percent Auto 15.6 % (25-40); Mean Corpuscular HGB Conc 33.3 % (30-36); Mean Corpuscular Hemoglobin 34.1 PG (26-34); Mean Corpuscular Volume 102.4 fL (80-100); Monocytes Absolute Auto 1500 /uL (0-900); Monocytes Percent Auto 13.3 % (3-14); Neutrophils Absolute Auto 8000 /uL (1500-7000); Neutrophils Percent Auto 70.4 % (50-75); Platelet Count 397 X10^3/uL (150-400); Red Blood Cell Count 4.14 X10^6/uL (4.0-5.2); Red Cell Distribution Width 13.2 % (11.6-14.8); White Blood Cell Count 11.4 X10^3/uL (4.5-11.0)
[2022-11-27 14:21] LABS: INR 1.1 (0.9-1.3); Prothrombin Time 12.9 SECONDS (10.1-12.7)
[2022-11-27 14:24] LABS: PTT Partial Thromboplastin Tim 30 SECONDS (26-36)
[2022-11-27 14:26] LABS: Creatine Kinase 1103 U/L (30-135)
[2022-11-27 14:27] LABS: Magnesium 2.1 mg/dL (1.6-2.3)
[2022-11-27 14:29] LABS: Acetaminophen < 10 ug/mL (10-30); Alanine Aminotransferase 30 IU/L (<35); Albumin 4.3 g/dL (3.5-5.0); Albumin Globulin Ratio 1.4 (1.0-2.8); Alkaline Phosphatase 99 U/L (38-126); Aspartate Aminotransferase 65 IU/L (14-36); Bilirubin Total 0.7 mg/dL (0.2-1.3); Blood Urea Nitrogen 27 mg/dL (7-17); Calcium 8.9 mg/dL (8.4-10.2); Carbon Dioxide 23 mmol/L (22-32); Chloride 103 mmol/L (98-107); Estimated Glomerular Filt Rate > 60 mL/min (>60); Ethanol (ETOH) < 10 mg/dL; Globulin 3.1 g/dL (1.7-4.1); Glucose 105 mg/dL (80-110); HEMOLYSIS < 15 (0-50); Lactate (Lactic Acid) 1.6 mmol/L (0.7-2.1); Potassium 3.7 mmol/L (3.4-5.1); Salicylate < 1.0 mg/dL (<20); Sodium 139 mmol/L (137-145); Total Protein 7.4 g/dL (6.3-8.2)
[2022-11-27 14:39] LABS: Troponin I 0.018 ng/mL (0.01-0.034)
[2022-11-27 14:44] LABS: Procalcitonin 0.05 ng/mL (<0.5); Prolactin 13.9 ng/mL (3.0-18.6)
[2022-11-27 14:48] LABS: Ammonia (NH3) < 9 umol/L (9-30)
[2022-11-27] MEDS: THIAMINE 200 MG in SODIUM CHLORIDE 0.9% 100 ML 408 MG IV (14:52)
--- NOTE | 2022-11-27 14:55 | PC.NURSE ---
Pt appears in no apparent distress. Alert to self, location, day/month but confused about how she arrived at ED. Ambulated with wobbly gait to restroom.
[2022-11-27 15:03] LABS: Thyroid Stimulating Hormone 2.28 uIU/mL (0.47-4.68)
[2022-11-27 15:26] LABS: Appearance Urine UA CLEAR; Bilirubin Urine UA 2+ (NEGATIVE); Color Urine UA YELLOW; Glucose Urine UA NEGATIVE (Negative); Ketones Urine UA 2+ (NEGATIVE); Leukocyte Esterase Urine UA NEGATIVE (NEGATIVE); Nitrite Urine UA NEGATIVE (Negative); Occult Blood Urine UA NEGATIVE (Negative); Protein Urine UA 1+ (Negative); Specific Gravity Urine UA >=1.030 (1.000-1.035); Urobilinogen Urine UA 0.2 E.U./dL (0.2)
[2022-11-27 15:33] LABS: pH Urine UA 5.5 (4.5-8.0)
[2022-11-27 15:34] LABS: UR Morphine/Opiate cutoff 300 Negative (Negative); Ur Creatinine Normal (Normal); Ur Specific Gravity Normal (Normal); Urine Amphetamines Negative (Negative); Urine Barbiturates Negative (Negative); Urine Benzodiazepines Positive (Negative); Urine Cocaine Negative (Negative); Urine MDMA Negative (Negative); Urine Methamphetamines Negative (Negative); Urine Phencyclidine Negative (Negative); Urine Tetrahydrocannabinol Negative (Negative); Urine pH Normal (Normal)
[2022-11-27 15:35] LABS: Urine Methadone Negative (Negative); Urine Oxycodone Negative (Negative); Urine Tricyclic Antidepressant Negative (Negative)
[2022-11-27 15:37] LABS: Ictotest Urine Negative (Negative)
[2022-11-27 15:46] LABS: Bacteria Urine None Seen; Hyaline Casts Urine 10-30/LPF; Mucus Urine 1+ (Negative); RBC Urine 0-1/HPF (0-5/HPF); Squamous Epithelial Cell Urine 0-1 /HPF (0-5/HPF); WBC Urine 0-1/HPF (0-5/HPF)
--- NOTE | 2022-11-27 16:15 | PC.NURSE ---
Pt appears more confused now, thinks she is in a hurry [place].
--- NOTE | 2022-11-27 17:30 | PC.NURSE ---
LP performed at bedside with physician, sterile procedure. Pt tolerated procedure well.
--- NOTE | 2022-11-27 17:31 | PC.NURSE ---
Pt eating dinner, in good spirits, and in no apparent distress.
[2022-11-27 17:36] LABS: Glucose CSF 62 mg/dL (40-70); Total Protein CSF 44 mg/dL (12-60)
[2022-11-27] MEDS: SODIUM CHLORIDE 0.9% 1,000 ML 1000 ML IV (17:38)
[2022-11-27 17:40] LABS: CSF Tube Number 3
[2022-11-27 17:41] LABS: Appearance CSF Clear (Clear); CSF Tube Volume 1.0 mL; Color CSF Colorless (Colorless); Red Blood Cell CSF 3 RBC /uL; White Blood Cell CSF 2.5 MONO/uL (0-5)
[2022-11-27 18:44] LABS: Enterovirus Not Detected (Not Detect); Escherichia coli K1 Not Detected (Not Detect); Streptococcus pneumoniae Not Detected (Not Detect)
[2022-11-27 18:45] LABS: Cryptococcus neoformans/gattii Not Detected (Not Detect); Haemophilus influenzae Not Detected (Not Detect); Herpes simplex virus 1 Not Detected (Not Detect); Herpes simplex virus 2 Not Detected (Not Detect); Human herpesvirus 6 Not Detected (Not Detect); Human parechovirus Not Detected (Not Detect); Listeria monocytogenes Not Detected (Not Detect); Neisseria meningitidis Not Detected (Not Detect); Streptococcus agalactiae Not Detected (Not Detect); Varicella Zoster Virus Not Detected (Not Detecte)
--- NOTE | 2022-11-27 18:59 | P.HP_ITS ---
History of Present Illness History of Present Illness Chief complaint: confused Narrative: 72-year-old female with known history of remote breast cancer, remote tobacco dependence, mild cognitive impairment, remote history of alcohol dependence, osteoporosis, hyperlipidemia, reported history of HSV for which she is on acyclovir 800 mg t.i.d. prophylactically and recent ankle sprain who was brought in by the [place] police Department after being found wandering in the streets in front of traffic. History is somewhat challenging to obtain. From what I am able to gather, zaid was recently in the process of moving. She has a housemate and she states that he is moving at the end of the summer to be with family. She is supposed to move into low-income housing according to records. She was seen on November [address] [facility] complaining that she had left her tramadol and Ambien at a hotel by accident and needed more. She also complained of needing her Valium vaginal suppositories. Additionally, she reported a 3 day history of an ankle sprain. At that time, she reported that she twisted it while she was in [place]. She stepped hard out of a [employer]. She was seen in the emergency department there and was diagnosed with a sprain. He returned to the primary care office on November 14. During this most recent visit, she noted that all of her medications were in a storage unit and she had been unable to access them. She got refills of her Ambien, tramadol, and Valium vaginal suppositories. During that visit she was noted to be alert and oriented x3. She was also noted to be alert and oriented during her visit on November 04. Patient is able to tell me she does have some confusion such as forgetting where the forks and knives or kept in her home. She is unable to tell me exactly where she is living right now. She states Magdi who is listed as her in her medical record is in fact her housemate. She can tell me it is approaching December but tells me the year is 2004. She is aware of her confusion and her inability to tell me her age. She states that while she has some baseline confusion this is much more than is normal for her. She does have difficulty tracking questions and will frequently become 10 essential and begin talking about lying underneath the stars on towels. She also continues to reference moving into some type of long term environment. There is no documentation of this anywhere. In the emergency department, she underwent wor kup inclusive of head CT, blood work, urinalysis, drug screen, lumbar puncture. She was found have an elevated CPK at 11:00 a.m. and 3. AST was mildly elevated at 65. She was mildly tachycardic. Urine was notably concentrated. No other obvious etiology for her symptoms were identified. Multiple efforts were made to contact her housemate, but he could not be reached. [facility] Social History Smoking Status: Never smoker Comment: Past medical history: As listed in the HPI Family history: Mother had dementia Social history: Patient is a former smoker remotely in her 20s. No alcohol use. Meds Home Medications and Allergies Home Medications Medication Instructions Recorded Confirmed Type acyclovir 800 mg tablet 800 mg PO TID 11/27/22 11/27/22 History atorvastatin 80 mg tablet 80 mg PO BEDTIME 11/27/22 11/27/22 History tramadol 50 mg tablet 50 mg PO BID PRN Pain (Scale Score 11/27/22 11/27/22 History 4-6) zolpidem 12.5 mg tablet,extended 12.5 mg PO BEDTIME 11/27/22 11/27/22 History release,multiphase Allergies Allergy/AdvReac Type Severity Reaction Status Date / Time oxycodone Allergy Severe Seizure Verified 11/27/22 14:17 hydroxyzine Allergy Mild Rash Verified 11/27/22 14:17 chlordiazepoxide Allergy Unknown Verified 11/27/22 14:21 doxepin Allergy Unknown Verified 11/27/22 14:17 erythromycin base Allergy Unknown Verified 11/27/22 14:17 filgrastim Allergy Unknown Verified 11/27/22 14:21 mirtazapine Allergy Unknown Verified 11/27/22 14:17 pegfilgrastim Allergy Unknown Verified 11/27/22 14:21 propoxyphene Allergy Unknown Verified 11/27/22 14:21 ramelteon Allergy Unknown Verified 11/27/22 14:17 bupropion AdvReac Intermediate Gastrointestinal Verified 11/27/22 14:21 Upset meloxicam AdvReac Mild Gastrointestinal Verified 11/27/22 14:21 Upset trazodone AdvReac Unknown Verified 11/27/22 14:17 Review of Systems Review of Systems Narrative: All other systems were reviewed negative Exam Vital Signs (past 8 hours): - 11/27/22 13:35 11/27/22 14:05 11/27/22 14:46 Temperature 98.8 F Pulse Rate 90 104 H 97 H Respiratory Rate 16 16 16 Blood Pressure 169/86 H Pulse Oximetry 98 99 Oxygen Delivery Method Room Air Room Air Oxygen Flow Rate 11/27/22 14:48 11/27/22 14:48 11/27/22 15:00 Temperature Pulse Rate 101 H Respiratory Rate 13 Blood Pressure 146/78 H 149/80 H Pulse Oximetry 100 Oxygen Delivery Method Oxygen Flow Rate 11/27/22 15:00 11/27/22 15:15 11/27/22 15:15 Temperature Pulse Rate 99 H 97 H Respiratory Rate 13 27 H Blood Pressure 145/67 H Pulse Oximetry 100 100 Oxygen Delivery Method Oxygen Flow Rate 11/27/22 15:30 11/27/22 15:31 11/27/22 15:31 Temperature Pulse Rate 103 H 105 H Respiratory Rate 26 H 44 H Blood Pressure 159/89 H Pulse Oximetry 100 99 Oxygen Delivery Method Oxygen Flow Rate 11/27/22 16:00 11/27/22 16:00 11/27/22 16:10 Temperature Pulse Rate 92 H Respiratory Rate 18 Blood Pressure 138/65 129/66 Pulse Oximetry Oxygen Delivery Method Oxygen Flow Rate 11/27/22 16:10 11/27/22 16:15 11/27/22 16:15 Temperature Pulse Rate 92 H 92 H Respiratory Rate 23 19 Blood Pressure 129/72 Pulse Oximetry Oxygen Delivery Method Room Air Oxygen Flow Rate 11/27/22 16:30 11/27/22 16:30 11/27/22 16:45 Temperature Pulse Rate 92 H 98 H Respiratory Rate 24 19 Blood Pressure 124/59 L Pulse Oximetry Oxygen Delivery Method Oxygen Flow Rate 11/27/22 16:45 11/27/22 16:50 11/27/22 16:56 Temperature Pulse Rate 93 H 101 H Respiratory Rate 22 Blood Pressure 170/67 H Pulse Oximetry 94 Oxygen Delivery Method Oxygen Flow Rate 11/27/22 17:49 11/27/22 18:44 Temperature 97.6 F Pulse Rate 101 H 94 H Respiratory Rate 20 19 Blood Pressure 130/57 L 129/56 L Pulse Oximetry 98 98 Oxygen Delivery Method Room Air Oxygen Flow Rate 0 Oxygen Delivery Method Room Air Oxygen Flow Rate 0 Narrative Exam Narrative: GEN: Alert and oriented x1-2, no acute distress HEENT: Normocephalic, face symmetric, pupils equal round reactive to light, extraocular movements intact, sclerae anicteric, conjunctiva clear, nares patent, oropharynx reveals an intact soft and hard palate with moist mucous membranes, dentition is fair NECK: Supple, no lymphadenopathy, thyroid without enlargement or nodularity, carotids no bruits CHEST: Respiratory excursions symmetric, clear to auscultation bilaterally CV: Regular rate and rhythm, no murmurs, rubs, gallops, PMI nondisplaced ABD: Soft, nontender, nondistended, bowel sounds present in all 4 quadrants, no organomegaly or masses appreciated EXTR: Warm, well perfused, no clubbing/cyanosis/edema SKIN: Warm and dry, without rash NEURO: Alert and oriented 1-2, she is mildly tremulous, otherwise grossly in tact Psych: Mood and affect are appropriate Objective Labs 11/27/22 14:00 11/27/22 14:00 Labs: Laboratory Results - last 24 hr 11/27/22 11/27/22 11/27/22 14:00 14:00 14:00 WBC 11.4 H RBC 4.14 Hgb 14.1 Hct 42.4 MCV 102.4 H MCH 34.1 H MCHC 33.3 RDW 13.2 Plt Count 397 Neut % (Auto) 70.4 Lymph % (Auto) 15.6 L [place] % (Auto) 13.3 Eos % (Auto) 0.2 L Baso % (Auto) 0.5 Neut # (Auto) 8000 H Lymph # (Auto) 1800 [place] # (Auto) 1500 H Eos # (Auto) 0 Baso # (Auto) 100 PT 12.9 H INR 1.1 APTT 30 Sodium Potassium Chloride Carbon Dioxide BUN Creatinine Estimated GFR BUN/Creatinine Ratio Glucose Lactate Calcium Magnesium Total Bilirubin AST ALT Alkaline Phosphatase Ammonia Total Creatine Kinase 1103 H CK-MB (CK-2) TNP CK-MB (CK-2) Rel Index TNP Troponin I 0.018 Total Protein Albumin Globulin Albumin/Globulin Ratio Procalcitonin 0.05 TSH Prolactin Urine Color Urine Appearance Urine pH Ur Specific [place] Urine Protein Urine Glucose (UA) Urine Ketones Urine Occult Blood Urine Nitrate Urine Bilirubin Ur Bilirubin Confirm Urine Urobilinogen Ur Leukocyte Esterase Urine RBC Urine WBC Ur Squamous Epith Cells Urine Bacteria Hyaline Casts Urine Mucus CSF Tube Number CSF Volume CSF Appearance CSF Color CSF WBC CSF RBC CSF Mononuclear WBCs CSF Polynuclear WBCs CSF Glucose CSF Total Protein CSF C.neoform/gat PCR CSF CMV DNA (PCR) CSF Enterovirus (PCR) CSF E. coli (PCR) CSF H. influenzae (PCR) CSF HSV I (PCR) CSF HSV II (PCR) CSF HHV 6 (PCR) CSF L.monocytogenes PCR CSF N. meningitidis PCR CSF Parechovirus (PCR) CSF S. agalactiae (PCR) CSF S. pneumoniae (PCR) CSF VZV (PCR) Salicylates U Opiates 300ng/mL cut Ur Oxycodone Screen Urine Methadone Screen Acetaminophen Ur Barbiturates Screen U Tricyclic Antidepress Ur Phencyclidine Scrn Ur Amphetamines Screen U Methamphetamines Scrn Ur MDMA Scrn (Ecstasy) U Benzodiazepines Scrn Urine Cocaine Screen U Marijuana (THC) Screen Ethyl Alcohol 11/27/22 11/27/22 11/27/22 14:00 14:00 14:00 WBC RBC Hgb Hct MCV MCH MCHC RDW Plt Count Neut % (Auto) Lymph % (Auto) [place] % (Auto) Eos % (Auto) Baso % (Auto) Neut # (Auto) Lymph # (Auto) [place] # (Auto) Eos # (Auto) Baso # (Auto) PT INR APTT Sodium 139 Potassium 3.7 Chloride 103 Carbon Dioxide 23 BUN 27 H Creatinine 0.90 Estimated GFR > 60 BUN/Creatinine Ratio 30.0 H Glucose 105 Lactate 1.6 Calcium 8.9 Magnesium Total Bilirubin 0.7 AST 65 H ALT 30 Alkaline Phosphatase 99 Ammonia Total Creatine Kinase CK-MB (CK-2) CK-MB (CK-2) Rel Index Troponin I Total Protein 7.4 Albumin 4.3 Globulin 3.1 Albumin/Globulin Ratio 1.4 Procalcitonin TSH 2.28 Prolactin 13.9 Urine Color Urine Appearance Urine pH Ur Specific [place] Urine Protein Urine Glucose (UA) Urine Ketones Urine Occult Blood Urine Nitrate Urine Bilirubin Ur Bilirubin Confirm Urine Urobilinogen Ur Leukocyte Esterase Urine RBC Urine WBC Ur Squamous Epith Cells Urine Bacteria Hyaline Casts Urine Mucus CSF Tube Number CSF Volume CSF Appearance CSF Color CSF WBC CSF RBC CSF Mononuclear WBCs CSF Polynuclear WBCs CSF Glucose CSF Total Protein CSF C.neoform/gat PCR CSF CMV DNA (PCR) CSF Enterovirus (PCR) CSF E. coli (PCR) CSF H. influenzae (PCR) CSF HSV I (PCR) CSF HSV II (PCR) CSF HHV 6 (PCR) CSF L.monocytogenes PCR CSF N. meningitidis PCR CSF Parechovirus (PCR) CSF S. agalactiae (PCR) CSF S. pneumoniae (PCR) CSF VZV (PCR) Salicylates < 1.0 U Opiates 300ng/mL cut Ur Oxycodone Screen Urine Methadone Screen Acetaminophen < 10 Ur Barbiturates Screen U Tricyclic Antidepress Ur Phencyclidine Scrn Ur Amphetamines Screen U Methamphetamines Scrn Ur MDMA Scrn (Ecstasy) U Benzodiazepines Scrn Urine Cocaine Screen U Marijuana (THC) Screen Ethyl Alcohol < 10 11/27/22 11/27/22 11/27/22 14:00 14:20 15:17 WBC RBC Hgb Hct MCV MCH MCHC RDW Plt Count Neut % (Auto) Lymph % (Auto) [place] % (Auto) Eos % (Auto) Baso % (Auto) Neut # (Auto) Lymph # (Auto) [place] # (Auto) Eos # (Auto) Baso # (Auto) PT INR APTT Sodium Potassium Chloride Carbon Dioxide BUN Creatinine Estimated GFR BUN/Creatinine Ratio Glucose Lactate Calcium Magnesium 2.1 Total Bilirubin AST ALT Alkaline Phosphatase Ammonia < 9 L Total Creatine Kinase CK-MB (CK-2) CK-MB (CK-2) Rel Index Troponin I Total Protein Albumin Globulin Albumin/Globulin Ratio Procalcitonin TSH Prolactin Urine Color Yellow Urine Appearance Clear Urine pH 5.5 Ur Specific [place] >=1.030 H Urine Protein 1+ H Urine Glucose (UA) Negative Urine Ketones 2+ H Urine Occult Blood Negative Urine Nitrate Negative Urine Bilirubin 2+ H Ur Bilirubin Confirm Negative Urine Urobilinogen 0.2 Ur Leukocyte Esterase Negative Urine RBC 0-1/hpf Urine WBC 0-1/hpf Ur Squamous Epith Cells 0-1 /hpf Urine Bacteria None seen Hyaline Casts 10-30/lpf Urine Mucus 1+ H CSF Tube Number CSF Volume CSF Appearance CSF Color CSF WBC CSF RBC CSF Mononuclear WBCs CSF Polynuclear WBCs CSF Glucose CSF Total Protein CSF C.neoform/gat PCR CSF CMV DNA (PCR) CSF Enterovirus (PCR) CSF E. coli (PCR) CSF H. influenzae (PCR) CSF HSV I (PCR) CSF HSV II (PCR) CSF HHV 6 (PCR) CSF L.monocytogenes PCR CSF N. meningitidis PCR CSF Parechovirus (PCR) CSF S. agalactiae (PCR) CSF S. pneumoniae (PCR) CSF VZV (PCR) Salicylates U Opiates 300ng/mL cut Ur Oxycodone Screen Urine Methadone Screen Acetaminophen Ur Barbiturates Screen U Tricyclic Antidepress Ur Phencyclidine Scrn Ur Amphetamines Screen U Methamphetamines Scrn Ur MDMA Scrn (Ecstasy) U Benzodiazepines Scrn Urine Cocaine Screen U Marijuana (THC) Screen Ethyl Alcohol 11/27/22 11/27/22 11/27/22 15:17 17:10 17:10 WBC RBC Hgb Hct MCV MCH MCHC RDW Plt Count Neut % (Auto) Lymph % (Auto) [place] % (Auto) Eos % (Auto) Baso % (Auto) Neut # (Auto) Lymph # (Auto) [place] # (Auto) Eos # (Auto) Baso # (Auto) PT INR APTT Sodium Potassium Chloride Carbon Dioxide BUN Creatinine Estimated GFR BUN/Creatinine Ratio Glucose Lactate Calcium Magnesium Total Bilirubin AST ALT Alkaline Phosphatase Ammonia Total Creatine Kinase CK-MB (CK-2) CK-MB (CK-2) Rel Index Troponin I Total Protein Albumin Globulin Albumin/Globulin Ratio Procalcitonin TSH Prolactin Urine Color Urine Appearance Urine pH Ur Specific [place] Urine Protein Urine Glucose (UA) Urine Ketones Urine Occult Blood Urine Nitrate Urine Bilirubin Ur Bilirubin Confirm Urine Urobilinogen Ur Leukocyte Esterase Urine RBC Urine WBC Ur Squamous Epith Cells Urine Bacteria Hyaline Casts Urine Mucus CSF Tube Number 3 CSF Volume 1.0 ml CSF Appearance Clear CSF Color Colorless CSF WBC 2.5 CSF RBC 3 CSF Mononuclear WBCs TNP CSF Polynuclear WBCs TNP CSF Glucose 62 CSF Total Protein 44 CSF C.neoform/gat PCR Not detected CSF CMV DNA (PCR) Not detected CSF Enterovirus (PCR) Not detected CSF E. coli (PCR) Not detected CSF H. influenzae (PCR) Not detected CSF HSV I (PCR) Not detected CSF HSV II (PCR) Not detected CSF HHV 6 (PCR) Not detected CSF L.monocytogenes PCR Not detected CSF N. meningitidis PCR Not detected CSF Parechovirus (PCR) Not detected CSF S. agalactiae (PCR) Not detected CSF S. pneumoniae (PCR) Not detected CSF VZV (PCR) Not detected Salicylates U Opiates 300ng/mL cut Negative Ur Oxycodone Screen Negative Urine Methadone Screen Negative Acetaminophen Ur Barbiturates Screen Negative U Tricyclic Antidepress Negative Ur Phencyclidine Scrn Negative Ur Amphetamines Screen Negative U Methamphetamines Scrn Negative Ur MDMA Scrn (Ecstasy) Negative U Benzodiazepines Scrn Positive H Urine Cocaine Screen Negative U Marijuana (THC) Screen Negative Ethyl Alcohol Assessment & Plan Assessment & Plan narrative: 1. Acute metabolic encephalopathy Unclear etiology, though I do suspect there may be a component of polypharmacy at play. Her recent visit it was noted that she had not had her meds as they had been locked in storage. She received refills of Ambien, diazepam suppositories, as well as tramadol. It is possible that she developed encephalopathy related to having been off of the meds for an unclear period of time and then having them all restarted simultaneously. It is also possible that she forgot she had taken meds and then taken higher doses and indicated. Furthermore, the high-dose acyclovir could certainly be contributing to her confusional state as well. There is no clear evidence of infection but cultures are pending. Given her history of breast cancer, I have also ordered an MRI to rule out metastatic disease, although I feel this is much less likely. 2. Dehydration Patient presents with concentrated urine, an elevated CPK and was found wandering in the streets. We are unable to verify where she has been most recently, what her access to food and water has been. Reportedly the police took her home and her housemate/ told them that he could not care for her. Will gently hydrate overnight and reassess in the morning. 3. Tachycardia Certainly, could be related to some toxicity from polypharmacy versus dehydration. She is not having any cardiac symptoms. 4. Leukocytosis Mild. As noted, no clear evidence for infection. Cultures are pending. No indication for antibiotics. 5. Azotemia Mild. Anticipate this will improve with hydration 6. Mild rhabdomyolysis As noted CPK was greater than 1100, AST is mildly elevated. Hydrating gently with LR overnight. Anticipate this will resolve without complication. 7. Remote history of breast cancer As noted, MRI has been ordered to rule out metastasis 8. Mild cognitive impairment Speech therapy for cognitive evaluation. However I am not sure they are here over the holiday weekend. Therefore,OT has been ordered for a slums assessment. 9. Genital herpes per report As noted, she is on high-dose acyclovir 800 t.i.d. for unclear reasons. This apparently has been prescribed chronically for prophylaxis. Given her cognitive impairment, she may be safer to be placed on Valtrex prophylaxis for decreased dosing frequency. Code status DNR DNI per POLST form Prophylaxis Low Meenu score Disposition Admit to acute medical care under observation status. Discharge planning co nsult requested as it is uncertain what her ultimate disposition will be
[2022-11-27] MEDS: LACTATED RINGERS 1,000 ML 100 ML IV (19:10)
[2022-11-27] MEDS: ACETAMINOPHEN 325 MG TABLET 650 MG PO (22:53)
[2022-11-27] MEDS: QUETIAPINE 25 MG TABLET PO (23:11)
[2022-11-28] VITALS: BP 107/52; PULSE 96; RESP 16; TEMP 36.4; O2SAT 90
[2022-11-28] MEDS: LACTATED RINGERS 1,000 ML 100 ML IV (05:26)
[2022-11-28 06:21] VITALS: BP 133/71; PULSE 105; RESP 16; TEMP 36.3; O2SAT 97
[2022-11-28 08:01] LABS: Add Manual Diff / Slide Review NO; Basophils Absolute Auto 0 /uL (0-100); Basophils Percent Auto 0.3 % (0-2); Eosinophils Absolute Auto 100 /uL (0-450); Eosinophils Percent Auto 0.8 % (2-4); Hematocrit 39.2 % (36-46); Hemoglobin 13.2 g/dL (12.0-16.0); Lymphocytes Absolute Auto 900 /uL (1100-4500); Lymphocytes Percent Auto 7.3 % (25-40); Mean Corpuscular HGB Conc 33.7 % (30-36); Mean Corpuscular Hemoglobin 34.5 PG (26-34); Mean Corpuscular Volume 102.5 fL (80-100); Monocytes Absolute Auto 1100 /uL (0-900); Neutrophils Absolute Auto 10100 /uL (1500-7000); Neutrophils Percent Auto 82.6 % (50-75); Platelet Count 318 X10^3/uL (150-400); Red Blood Cell Count 3.82 X10^6/uL (4.0-5.2); Red Cell Distribution Width 13.5 % (11.6-14.8); White Blood Cell Count 12.3 X10^3/uL (4.5-11.0)
[2022-11-28 08:13] LABS: Alanine Aminotransferase 27 IU/L (<35); Albumin 3.1 g/dL (3.5-5.0); Albumin Globulin Ratio 1.2 (1.0-2.8); Alkaline Phosphatase 78 U/L (38-126); Aspartate Aminotransferase 46 IU/L (14-36); BUN Creatinine Ratio 18.2 (6-22); Bilirubin Total 0.6 mg/dL (0.2-1.3); Blood Urea Nitrogen 10 mg/dL (7-17); Calcium 7.5 mg/dL (8.4-10.2); Carbon Dioxide 25 mmol/L (22-32); Chloride 109 mmol/L (98-107); Creatine Kinase 728 U/L (30-135); Estimated Glomerular Filt Rate > 60 mL/min (>60); Globulin 2.6 g/dL (1.7-4.1); Glucose 90 mg/dL (80-110); HEMOLYSIS < 15 (0-50); Potassium 3.1 mmol/L (3.4-5.1); Sodium 139 mmol/L (137-145); Total Protein 5.7 g/dL (6.3-8.2)
[2022-11-28] MEDS: ACETAMINOPHEN 325 MG TABLET 650 MG PO ×3 (08:15→22:01)
--- NOTE | 2022-11-28 09:37 | PM.PN.1 ---
Subjective Subjective Interval history: 72 year old female admitted with mild rhabdomyolysis and possible acute encephalopathy from polypharmacy. SLUMS testing was today with speech therapy. Likely at baseline after further review of outpatient documentation. Exam Vital Signs (past 8 hours): - 11/28/22 06:21 Temperature 97.4 F L Pulse Rate 105 H Respiratory Rate 16 Blood Pressure 133/71 Pulse Oximetry 97 Oxygen Delivery Method Room Air Oxygen Flow Rate 0 Narrative Exam Narrative: GEN: Alert and oriented x1, no acute distress HEENT: Normocephalic, face symmetric, pupils equal round reactive to light, extraocular movements intact, sclerae anicteric, conjunctiva clear, nares patent, oropharynx reveals an intact soft and hard palate with moist mucous membranes, dentition is fair NECK: Supple, no lymphadenopathy, thyroid without enlargement or nodularity, carotids no bruits CHEST: Respiratory excursions symmetric, clear to auscultation bilaterally CV: Regular rate and rhythm, no murmurs, rubs, gallops, PMI nondisplaced ABD: Soft, nontender, nondistended, bowel sounds present in all 4 quadrants, no organomegaly or masses appreciated EXTR: Warm, well perfused, no clubbing/cyanosis/edema SKIN: Warm and dry, without rash NEURO: Alert and oriented 1, she is mildly tremulous, otherwise grossly intact Psych: Mood and affect are appropriate Objective Labs 11/28/22 07:45 11/28/22 07:45 Labs: Laboratory Results - last 24 hr 11/27/22 11/27/22 11/27/22 14:00 14:00 14:00 WBC 11.4 H RBC 4.14 Hgb 14.1 Hct 42.4 MCV 102.4 H MCH 34.1 H MCHC 33.3 RDW 13.2 Plt Count 397 Neut % (Auto) 70.4 Lymph % (Auto) 15.6 L [place] % (Auto) 13.3 Eos % (Auto) 0.2 L Baso % (Auto) 0.5 Neut # (Auto) 8000 H Lymph # (Auto) 1800 [place] # (Auto) 1500 H Eos # (Auto) 0 Baso # (Auto) 100 PT 12.9 H INR 1.1 APTT 30 Sodium Potassium Chloride Carbon Dioxide BUN Creatinine Estimated GFR BUN/Creatinine Ratio Glucose Lactate Calcium Magnesium Total Bilirubin AST ALT Alkaline Phosphatase Ammonia Total Creatine Kinase 1103 H CK-MB (CK-2) TNP CK-MB (CK-2) Rel Index TNP Troponin I 0.018 Total Protein Albumin Globulin Albumin/Globulin Ratio Procalcitonin 0.05 TSH Prolactin Urine Color Urine Appearance Urine pH Ur Specific [place] Urine Protein Urine Glucose (UA) Urine Ketones Urine Occult Blood Urine Nitrate Urine Bilirubin Ur Bilirubin Confirm Urine Urobilinogen Ur Leukocyte Esterase Urine RBC Urine WBC Ur Squamous Epith Cells Urine Bacteria Hyaline Casts Urine Mucus CSF Tube Number CSF Volume CSF Appearance CSF Color CSF WBC CSF RBC CSF Mononuclear WBCs CSF Polynuclear WBCs CSF Glucose CSF Total Protein CSF C.neoform/gat PCR CSF CMV DNA (PCR) CSF Enterovirus (PCR) CSF E. coli (PCR) CSF H. influenzae (PCR) CSF HSV I (PCR) CSF HSV II (PCR) CSF HHV 6 (PCR) CSF L.monocytogenes PCR CSF N. meningitidis PCR CSF Parechovirus (PCR) CSF S. agalactiae (PCR) CSF S. pneumoniae (PCR) CSF VZV (PCR) Salicylates U Opiates 300ng/mL cut Ur Oxycodone Screen Urine Methadone Screen Acetaminophen Ur Barbiturates Screen U Tricyclic Antidepress Ur Phencyclidine Scrn Ur Amphetamines Screen U Methamphetamines Scrn Ur MDMA Scrn (Ecstasy) U Benzodiazepines Scrn Urine Cocaine Screen U Marijuana (THC) Screen Ethyl Alcohol 11/27/22 11/27/22 11/27/22 14:00 14:00 14:00 WBC RBC Hgb Hct MCV MCH MCHC RDW Plt Count Neut % (Auto) Lymph % (Auto) [place] % (Auto) Eos % (Auto) Baso % (Auto) Neut # (Auto) Lymph # (Auto) [place] # (Auto) Eos # (Auto) Baso # (Auto) PT INR APTT Sodium 139 Potassium 3.7 Chloride 103 Carbon Dioxide 23 BUN 27 H Creatinine 0.90 Estimated GFR > 60 BUN/Creatinine Ratio 30.0 H Glucose 105 Lactate 1.6 Calcium 8.9 Magnesium Total Bilirubin 0.7 AST 65 H ALT 30 Alkaline Phosphatase 99 Ammonia Total Creatine Kinase CK-MB (CK-2) CK-MB (CK-2) Rel Index Troponin I Total Protein 7.4 Albumin 4.3 Globulin 3.1 Albumin/Globulin Ratio 1.4 Procalcitonin TSH 2.28 Prolactin 13.9 Urine Color Urine Appearance Urine pH Ur Specific [place] Urine Protein Urine Glucose (UA) Urine Ketones Urine Occult Blood Urine Nitrate Urine Bilirubin Ur Bilirubin Confirm Urine Urobilinogen Ur Leukocyte Esterase Urine RBC Urine WBC Ur Squamous Epith Cells Urine Bacteria Hyaline Casts Urine Mucus CSF Tube Number CSF Volume CSF Appearance CSF Color CSF WBC CSF RBC CSF Mononuclear WBCs CSF Polynuclear WBCs CSF Glucose CSF Total Protein CSF C.neoform/gat PCR CSF CMV DNA (PCR) CSF Enterovirus (PCR) CSF E. coli (PCR) CSF H. influenzae (PCR) CSF HSV I (PCR) CSF HSV II (PCR) CSF HHV 6 (PCR) CSF L.monocytogenes PCR CSF N. meningitidis PCR CSF Parechovirus (PCR) CSF S. agalactiae (PCR) CSF S. pneumoniae (PCR) CSF VZV (PCR) Salicylates < 1.0 U Opiates 300ng/mL cut Ur Oxycodone Screen Urine Methadone Screen Acetaminophen < 10 Ur Barbiturates Screen U Tricyclic Antidepress Ur Phencyclidine Scrn Ur Amphetamines Screen U Methamphetamines Scrn Ur MDMA Scrn (Ecstasy) U Benzodiazepines Scrn Urine Cocaine Screen U Marijuana (THC) Screen Ethyl Alcohol < 10 11/27/22 11/27/22 11/27/22 14:00 14:20 15:17 WBC RBC Hgb Hct MCV MCH MCHC RDW Plt Count Neut % (Auto) Lymph % (Auto) [place] % (Auto) Eos % (Auto) Baso % (Auto) Neut # (Auto) Lymph # (Auto) [place] # (Auto) Eos # (Auto) Baso # (Auto) PT INR APTT Sodium Potassium Chloride Carbon Dioxide BUN Creatinine Estimated GFR BUN/Creatinine Ratio Glucose Lactate Calcium Magnesium 2.1 Total Bilirubin AST ALT Alkaline Phosphatase Ammonia < 9 L Total Creatine Kinase CK-MB (CK-2) CK-MB (CK-2) Rel Index Troponin I Total Protein Albumin Globulin Albumin/Globulin Ratio Procalcitonin TSH Prolactin Urine Color Yellow Urine Appearance Clear Urine pH 5.5 Ur Specific [place] >=1.030 H Urine Protein 1+ H Urine Glucose (UA) Negative Urine Ketones 2+ H Urine Occult Blood Negative Urine Nitrate Negative Urine Bilirubin 2+ H Ur Bilirubin Confirm Negative Urine Urobilinogen 0.2 Ur Leukocyte Esterase Negative Urine RBC 0-1/hpf Urine WBC 0-1/hpf Ur Squamous Epith Cells 0-1 /hpf Urine Bacteria None seen Hyaline Casts 10-30/lpf Urine Mucus 1+ H CSF Tube Number CSF Volume CSF Appearance CSF Color CSF WBC CSF RBC CSF Mononuclear WBCs CSF Polynuclear WBCs CSF Glucose CSF Total Protein CSF C.neoform/gat PCR CSF CMV DNA (PCR) CSF Enterovirus (PCR) CSF E. coli (PCR) CSF H. influenzae (PCR) CSF HSV I (PCR) CSF HSV II (PCR) CSF HHV 6 (PCR) CSF L.monocytogenes PCR CSF N. meningitidis PCR CSF Parechovirus (PCR) CSF S. agalactiae (PCR) CSF S. pneumoniae (PCR) CSF VZV (PCR) Salicylates U Opiates 300ng/mL cut Ur Oxycodone Screen Urine Methadone Screen Acetaminophen Ur Barbiturates Screen U Tricyclic Antidepress Ur Phencyclidine Scrn Ur Amphetamines Screen U Methamphetamines Scrn Ur MDMA Scrn (Ecstasy) U Benzodiazepines Scrn Urine Cocaine Screen U Marijuana (THC) Screen Ethyl Alcohol 11/27/22 11/27/22 11/27/22 15:17 17:10 17:10 WBC RBC Hgb Hct MCV MCH MCHC RDW Plt Count Neut % (Auto) Lymph % (Auto) [place] % (Auto) Eos % (Auto) Baso % (Auto) Neut # (Auto) Lymph # (Auto) [place] # (Auto) Eos # (Auto) Baso # (Auto) PT INR APTT Sodium Potassium Chloride Carbon Dioxide BUN Creatinine Estimated GFR BUN/Creatinine Ratio Glucose Lactate Calcium Magnesium Total Bilirubin AST ALT Alkaline Phosphatase Ammonia Total Creatine Kinase CK-MB (CK-2) CK-MB (CK-2) Rel Index Troponin I Total Protein Albumin Globulin Albumin/Globulin Ratio Procalcitonin TSH Prolactin Urine Color Urine Appearance Urine pH Ur Specific [place] Urine Protein Urine Glucose (UA) Urine Ketones Urine Occult Blood Urine Nitrate Urine Bilirubin Ur Bilirubin Confirm Urine Urobilinogen Ur Leukocyte Esterase Urine RBC Urine WBC Ur Squamous Epith Cells Urine Bacteria Hyaline Casts Urine Mucus CSF Tube Number 3 CSF Volume 1.0 ml CSF Appearance Clear CSF Color Colorless CSF WBC 2.5 CSF RBC 3 CSF Mononuclear WBCs TNP CSF Polynuclear WBCs TNP CSF Glucose 62 CSF Total Protein 44 CSF C.neoform/gat PCR Not detected CSF CMV DNA (PCR) Not detected CSF Enterovirus (PCR) Not detected CSF E. coli (PCR) Not detected CSF H. influenzae (PCR) Not detected CSF HSV I (PCR) Not detected CSF HSV II (PCR) Not detected CSF HHV 6 (PCR) Not detected CSF L.monocytogenes PCR Not detected CSF N. meningitidis PCR Not detected CSF Parechovirus (PCR) Not detected CSF S. agalactiae (PCR) Not detected CSF S. pneumoniae (PCR) Not detected CSF VZV (PCR) Not detected Salicylates U Opiates 300ng/mL cut Negative Ur Oxycodone Screen Negative Urine Methadone Screen Negative Acetaminophen Ur Barbiturates Screen Negative U Tricyclic Antidepress Negative Ur Phencyclidine Scrn Negative Ur Amphetamines Screen Negative U Methamphetamines Scrn Negative Ur MDMA Scrn (Ecstasy) Negative U Benzodiazepines Scrn Positive H Urine Cocaine Screen Negative U Marijuana (THC) Screen Negative Ethyl Alcohol 11/28/22 11/28/22 11/28/22 07:45 07:45 07:45 WBC 12.3 H RBC 3.82 L Hgb 13.2 Hct 39.2 MCV 102.5 H MCH 34.5 H MCHC 33.7 RDW 13.5 Plt Count 318 Neut % (Auto) 82.6 H Lymph % (Auto) 7.3 L [place] % (Auto) 9.0 Eos % (Auto) 0.8 L Baso % (Auto) 0.3 Neut # (Auto) 96425 H Lymph # (Auto) 900 L [place] # (Auto) 1100 H Eos # (Auto) 100 Baso # (Auto) 0 PT INR APTT Sodium 139 Potassium 3.1 L Chloride 109 H Carbon Dioxide 25 BUN 10 Creatinine 0.55 Estimated GFR > 60 BUN/Creatinine Ratio 18.2 Glucose 90 Lactate Calcium 7.5 L Magnesium Total Bilirubin 0.6 AST 46 H ALT 27 Alkaline Phosphatase 78 Ammonia Total Creatine Kinase 728 H CK-MB (CK-2) CK-MB (CK-2) Rel Index Troponin I Total Protein 5.7 L Albumin 3.1 L Globulin 2.6 Albumin/Globulin Ratio 1.2 Procalcitonin TSH Prolactin Urine Color Urine Appearance Urine pH Ur Specific [place] Urine Protein Urine Glucose (UA) Urine Ketones Urine Occult Blood Urine Nitrate Urine Bilirubin Ur Bilirubin Confirm Urine Urobilinogen Ur Leukocyte Esterase Urine RBC Urine WBC Ur Squamous Epith Cells Urine Bacteria Hyaline Casts Urine Mucus CSF Tube Number CSF Volume CSF Appearance CSF Color CSF WBC CSF RBC CSF Mononuclear WBCs CSF Polynuclear WBCs CSF Glucose CSF Total Protein CSF C.neoform/gat PCR CSF CMV DNA (PCR) CSF Enterovirus (PCR) CSF E. coli (PCR) CSF H. influenzae (PCR) CSF HSV I (PCR) CSF HSV II (PCR) CSF HHV 6 (PCR) CSF L.monocytogenes PCR CSF N. meningitidis PCR CSF Parechovirus (PCR) CSF S. agalactiae (PCR) CSF S. pneumoniae (PCR) CSF VZV (PCR) Salicylates U Opiates 300ng/mL cut Ur Oxycodone Screen Urine Methadone Screen Acetaminophen Ur Barbiturates Screen U Tricyclic Antidepress Ur Phencyclidine Scrn Ur Amphetamines Screen U Methamphetamines Scrn Ur MDMA Scrn (Ecstasy) U Benzodiazepines Scrn Urine Cocaine Screen U Marijuana (THC) Screen Ethyl Alcohol [facility] Social History household members: spouse and other Smoking Status: Unknown if ever smoked Assessment & Plan Assessment & Plan narrative: 1. Acute metabolic encephalopathy with chronic dementia, possible benzodiazepine withdrawal. I do suspect there may be a component of polypharmacy at play. She received refills of Ambien, diazepam suppositories, as well as tramadol. It is possible that she developed encephalopathy related to having been off of the meds for an unclear period of time and then having them all restarted simultaneously. It is also possible that she forgot she had taken meds and then taken higher doses and indicated. Furthermore, the high-dose acyclovir could certainly be contributing to her confusional state as well. However, given her SLUMS of there is a component of severe dementia and after review of her outpatient documentation this has been going on for quite some time and she has been found wandering in the past. - have started seroquel 25 mg BID, consider increasing dose at night for insomnia. - with tachycardia mild benzodiazepine withdrawal is also a possibility, consider low dose (0.25 mg) ativan if agitation continues along with tachycardia. - consider psych tomorrow (unavailable today given the holiday) if impulsive still - suspect she is currently at her baseline mental status given SLUMS testing today, further review of her outpatient documentation and additional history obtained. Will need memory care most likely. 2. Dehydration, mild rhabdomyolysis Patient presents with concentrated urine, an elevated CPK and was found wandering in the streets. -patient has removed IV, CK improved at 700, will encourage or rehydration at this time. 3. Tachycardia Certainly, could be related to some toxicity or benzodiazepine withdrawal from polypharmacy versus dehydration. She is not having any cardiac symptoms currently. 4. Leukocytosis Mild. As noted, no clear evidence for infection. Cultures are pending. No indication for antibiotics. 5. Azotemia Mild. Anticipate this will improve with hydration 6. Mild rhabdomyolysis As noted CPK was greater than 1100, AST mildly elevated. Hydrated gently with LR overnight, now improved. 7. Remote history of breast cancer As noted, MRI has been ordered to rule out metastasis 8. Severe cognitive impairment SLUMS 9. Genital herpes per report As noted, she is on high-dose acyclovir 800 t.i.d. for unclear reasons. This apparently has been prescribed chronically for prophylaxis. Given her cognitive impairment, she may be safer to be placed on Valtrex prophylaxis for decreased dosing frequency. Code status DNR DNI per POLST form Prophylaxis Low Meenu score Disposition Admit to acute medical care under observation status. Likely memory care, appreciate care management staff Additional history obtained via discussions with case management team, bedside staff. Quality VTE Deep Vein Thrombosis/Pulmonary Embolism Present on Admission: No
--- NOTE | 2022-11-28 10:48 | OT.IPNOTE ---
Chart reviewed and discussed case with and . Pt is ambulatory and performing ADLs at this time. Cog assessment performed by . NO further acute OT needs. Will discharge order.
--- NOTE | 2022-11-28 10:52 | PT-IP ANOTE ---
Received PT orders and completed chart review. Pt was assessed by ELECTRICIAN POWERHOUSE this AM with SLUMS score of 2/30. Per nursing and ELECTRICIAN POWERHOU[employer], pt is mobilizing well. She does not appear to have mobility needs at this time. Hospitalist physician stated ok to discharge PT orders. Please re-consult if mobility status declines.
[2022-11-28] MEDS: QUETIAPINE 25 MG TABLET PO ×2 (10:55→22:02)
--- NOTE | 2022-11-28 11:17 | CM.DANOTE ---
Addendum entered by Laly Ceja R.N. 11/28/22 12:46: CM faxed expedited HEATHER application to home and community services. CM team will continue to follow and work on DC planning needs for safe and appropriate DC. Laly Ceja RNit program manager Addendum entered by Laly Ceja R.N. 11/28/22 11:46: APS report made for home safety concerns, [id number]- report number.... Speech therapy also did a slums assessment on the patient and she scored a 2/30 she is significantly altered. Laly Ceja RNground hand Original Note: DCP Assessment: Patient is a 72 yr old female who was admitted to the hospital for mild dehydration and confusion. Patient was brought in by [employer] for being a danger to herself after being found in traffic and her stating to police that she does this all the time and he is not able to care for her. After reviewing patients charts and speaking with Dr. Hull the determination is that the patient has cognition issues at baseline. CM attempted to meet with the patient at the bedside and explained role. Patient was A&O x2 during meeting and was not able to give detailed insight into a plan for DC. Patient states she lives with her Magdi. CM called walker and LVM x3 but have not received a call back at this time. CM team called [facility] mucking machine operator and LVM about checking on the spouse. Patient does have a POLST on file and it states she is a DNR and has no POA. In her record it shows that she had medicaid - called to check on patients medicaid LVM - current medicaid # [id number]- want to check to see if she has HEATHER or any other services available to support her care at DC. CM will make APS report for self neglect and home safety concerns due to her wondering in the street and needing [employer] to intervene CM Team will continue to work with patient, spouse and community resources to support patients planning for DC. CM team will continue to work on getting ahold of patients Significant other and Medicaid continuous pillowcase cutter. PCP: Dr pagan Insurance listed: [facility] Plan: DC home with - for medication management and INDUSTRIAL PRODUCTION MANAGER support VS MEdicaid DC to SENIOR CARE vs Memory Care? CM team will continue to follow to determine which path is appropriate for patients DC. Laly Ceja RNground hand Discharge Planning/Care Management CM Discharge Assessment Start: 11/28/22 10:46 Freq: Status: Active Protocol: Document 11/28/22 10:47 HS (Rec: 11/28/22 11:17 HS [id number]) Discharge Planning Assessment Assigned Warehouse Specialist Laly Ceja RNground hand DPOA/Assigned Designee Name listed Magdi Jay- no fomal paperwork Contact Information [phone] Advance Directives? No Advance Directives on File No History Provided By Medical Record Has Patient been admitted in last 30 No days? Prior Living Arrangements House Comment Currently lives in [place] [facility] with significant other/ Household Members spouse,other Comment attempting to get a hold of spouce and have left 3 VM Type of transporation used prior to Relies on Others admit Willing to Return to Facility? No Independent with ADL's Unknown Is patient alert and oriented? No: A&O x2 at this time Caregiver for Another No Patient/Family Preference Home with Home Health Comment plan is potentially home with HH vs memory care depending on conversation with spouse. Barriers to Discharge Yes Comment determining DC plan - home Vs Memeory care? Discharge Plan Home Community Services Social Work Referrals Initiated Home Health Whiteboard Updated in Patient Room with Yes name and ext. # of Warehouse Specialist Review Status In Process Next Review Type Continued Stay Review
[2022-11-28 11:25] VITALS: BP 134/76; PULSE 100; RESP 16; O2SAT 98
--- NOTE | 2022-11-28 11:39 | ST.IPIE ---
Visit Care Team Role Provider Type Basilio Vasquez DO Emergency Provider Physician Referring Provider Specialty: Emergency Medicine Address: [address] [place] [address], [id number] Email: [email or web address] Lucero MD Admit Provider Physician Attending Provider Specialty: Family Practice Address: [address] [place] [address], [id number] Phone: Fax: Email: [email or web address] Initial Evaluation Report OBSTETRICS GYN Adult Cognitive Linguistic Eval Start: 11/28/22 11:23 Freq: Status: Active Protocol: Document 11/28/22 11:25 MG (Rec: 11/28/22 11:38 MG [id number]) Adult Cognitive Linguistic Evaluation Session Time Visit Start Time 10:05 Visit Stop Time 10:30 Total Visit Minutes 25 Visit Information Visit Number 1 Setting Assessment Location Acute Care Visit Type Note Type Initial evaluation Patient Information Identification Type Name,Wristband Patient History Per H&P: Pt is a 72-year-old female with known history of remote breast cancer, remote tobacco dependence, mild cognitive impairment, remote history of alcohol dependence, osteoporosis, hyperlipidemia, reported history of HSV for which she is on acyclovir 800 mg t.i.d. prophylactically and recent ankle sprain who was brought in by the [place] police Department after being found wandering in the streets in front of traffic. History is somewhat challenging to obtain. From what I am able to gather, she was recently in the process of moving. She has a housemate and she states that he is moving at the end of the summer to be with family. She is supposed to move into low-income housing according to records. She was seen on November 04 at for [facility] complaining that she had left her tramadol and Ambien at a hotel by accident and needed more. She also complained of needing her Valium vaginal suppositories. Additionally, she reported a 3 day history of an ankle sprain. At that time, she reported that she twisted it while she was in [place]. She stepped hard out of a [employer]. She was seen in the emergency department there and was diagnosed with a sprain. He returned to the primary care office on November 14. During this most recent visit, she noted that all of her medications were in a storage unit and she had been unable to access them. She got refills of her Ambien, tramadol, and Valium vaginal suppositories. During that visit she was noted to be alert and oriented x3. She was also noted to be alert and oriented during her visit on November 04. Patient is able to tell me she does have some confusion such as forgetting where the forks and knives or kept in her home. She is unable to tell me exactly where she is living right now. She states Magdi who is listed as her in her medical record is in fact her housemate. She can tell me it is approaching December but tells me the year is 2004. She is aware of her confusion and her inability to tell me her age. She states that while she has some baseline confusion this is much more than is normal for her. She does have difficulty tracking questions and will frequently become 10 essential and begin talking about lying underneath the stars on towels. She also continues to reference moving into some type of alf environment. There is no documentation of this anywhere . In the emergency department , she underwent workup inclusive of head CT, blood work, urinalysis, drug screen, lumbar puncture. She was found have an elevated CPK at 11:00 a.m. and 3. AST was mildly elevated at 65. She was mildly tachycardic. Urine was notably concentrated. No other obvious etiology for her symptoms were identified. Multiple efforts were made to contact her housemate, but he could not be reached. Education Level Unknown - could not tell me Occupation Status Unknown - could not tell me Hearing Hearing Level Normal Vision Comments Unknown - did not know if she uses glasses or contacts Previous Therapy Previous Speech-Language Therapy Unknown - could not tell me Subjective Patient Report Pt was sitting in chair upon OBSTETRICS GYN arrival to the room. Pt was coming back from an MRI which was unsuccessful. Pt was agreeable to OBSTETRICS GYN entering the room and conducting cognitive testing. Mental Status Alert,Confused,Impulsive Assessment Oral Motor Examination Completed Yes Results OME resulted in adequate strength and ROM for articulators. Speech is 100% intelligible. Pt had some difficulty following simple 1 step directions. Informal Assessment Receptive Language Normal No Receptive Language Impairment(s) Comprehension of complex yes/ no questions,Following 1-step commands,Following 2-step commands,Following 3-step commands,Comprehension of conversation Expressive Language Normal No Expressive Language Impairment(s) Expression of basic wants/ needs,Expression of complex thoughts/ideas Pragmatic Language Normal Yes Speech Normal Yes Cognition Normal No Cognitive Impairment(s) Orientation,Attention,Short- term memory,Long-term memory, Executive functioning,Problem solving,Reasoning,Thought organization,Safety awareness, Impulsivity Formal Assessment Standardized Test/Screener Type [facility] Mental Status (UMS) Administration Complete Results SLUMS was scored 2/30 at this time. Pt identified what state we are in and recalled two series of giving numbers backwards. Pt demonstrates severe deficits in all cognitive areas. Of note, the pt also does not answer questions correctly. As an example - when asked if she used to work with kids, she responded with no I don't have kids. She appears to be able to take some information from the question asked but not all. Findings/Results Language Function Moderately impaired Cognitive Function Severely impaired Findings Pt presents with language and cognitive impairments at this time. Due to current status, it may be beneficial to provide pt's family with education vs directly working with the pt as the pt cannot retain or use skills/ strategies effectively with multiple verbal and visual reminders at this time. Cognitive Communication Deficits Self-awareness of Cognitive- No awareness Communication Deficits Impact on Functioning Activity Limits/Particip.Rest. Sev: General Tasks and Demands Household Tasks Interpersonal Interactions Education Employment Community Other (comment) Safety Risks Sev: Being Left Alone at Home Reacting to Emergency Managing Medication Traveling Alone in Community Other (comment) Prognosis Prognosis Poor Based on Cognitive status,Family support,Duration of symptoms/ severity,Time since onset Plan of Care Speech-Language Treatment Yes Frequency x1 for family education if possible Patient/Caregiver Education Described results of evaluation,Family/caregivers require further education/ training Short Term Goals Pt's family with participate in education re: cognitive strategies, communication, etc Discharge Recommendations [facility] care facility
[2022-11-28] MEDS: POTASSIUM CHLORIDE 20 MEQ TAB 40 MEQ PO ×2 (13:17→22:01)
[2022-11-28 19:25] VITALS: BP 137/69; PULSE 105; RESP 18; TEMP 36.4; O2SAT 96
[2022-11-29 02:56] VITALS: BP 155/83; PULSE 92; RESP 18; TEMP 36.1; O2SAT 94
[2022-11-29] MEDS: ACETAMINOPHEN 325 MG TABLET 650 MG PO ×3 (03:26→15:23)
[2022-11-29 06:15] LABS: BUN Creatinine Ratio 7.4 (6-22); Blood Urea Nitrogen 4 mg/dL (7-17); Calcium 7.8 mg/dL (8.4-10.2); Carbon Dioxide 24 mmol/L (22-32); Chloride 111 mmol/L (98-107); Estimated Glomerular Filt Rate > 60 mL/min (>60); Glucose 94 mg/dL (80-110); HEMOLYSIS < 15 (0-50); Potassium 3.8 mmol/L (3.4-5.1); Sodium 140 mmol/L (137-145)
[2022-11-29] MEDS: QUETIAPINE 25 MG TABLET PO (08:49)
--- NOTE | 2022-11-29 08:59 | P.PN_ITS ---
Subjective Subjective Interval history: 72 year old female admitted with mild rhabdomyolysis and possible acute e ncephalopathy from polypharmacy. SLUMS testing was . She does appear to bLikely at baseline after further review of outpatient documentation. Exam Vital Signs (past 8 hours): - 11/29/22 02:56 Temperature 97.0 F L Pulse Rate 92 H Respiratory Rate 18 Blood Pressure 155/83 H Pulse Oximetry 94 Oxygen Flow Rate 0 Oxygen Delivery Method Room Air Oxygen Flow Rate 0 Narrative Exam Narrative: GEN: no acute distress, wdwn CHEST: Respiratory excursions symmetric, clear to auscultation bilaterally CV: Regular rate and rhythm ABD: Soft, nontender, nondistended EXTR: Warm, well perfused, no clubbing/cyanosis/edema SKIN: Warm and dry, without rash NEURO: Alert and oriented x2, no focal deficits, no tremors Psych: Mood and affect are appropriate Objective Labs 11/28/22 07:45 11/29/22 05:45 Labs: Laboratory Results - last 24 hr 11/29/22 05:45 Sodium 140 Potassium 3.8 Chloride 111 H Carbon Dioxide 24 BUN 4 L Creatinine 0.54 Estimated GFR > 60 BUN/Creatinine Ratio 7.4 Glucose 94 Calcium 7.8 L [facility] Medical History (Updated 11/29/22 @ 07:09 by Luz Phelan) Acrochordon Actinic keratosis Alcoholism Ankle pain (~2009) Anxiety (~1957) Breast cancer (~2004) Callus of foot Chickenpox (~1953) Chronic back pain (~2006) Depression (~1957) Foot pain (~1999) Fracture, trimalleolar (~07/12/10) Hearing loss (~2006) Hyperlipidemia (~1979) Insomnia (~1984) Labral tear of left hip joint (~1986) Mononucleosis (~1967) Mumps (~1953) Osteoarthritis of ankle Osteoarthritis of knees, bilateral (~2009) Osteopenia (~1989) Osteoporosis (~2009) Pain of left breast Plantar warts (~1963) Rosacea (~1983) Shoulder pain (~1999) Tinnitus (~1999) Torn ACL (anterior cruciate ligament) (~1966) Surgical History (System 11/29/22 @ 07:09 by Luz Phelan) Anesthesia History of ankle surgery (~2009) History of lumpectomy (~2005) History of repair of anterior cruciate ligament of left knee (~2003) Status post arthroscopy (~2014) Status post hysterectomy (~1996) Family History Father Osteoporosis Mother Heart disease High cholesterol Alzheimer's dementia without behavioral disturbance, unspecified timing of dementia onset Social History (System 11/29/22 @ 07:09 by Luz Phelan) household members: spouse and other Smoking Status: Unknown if ever smoked Tobacco: How many years used: 4 second hand exposure: No alcohol intake: never substance use type: former substance user (former marijuana ) and marijuana (former ) Assessment & Plan Assessment & Plan narrative: 1. Acute metabolic encephalopathy with chronic dementia, possible benzodiazepine withdrawal. I do suspect there may be a component of polypharmacy at play. She received refills of Ambien, diazepam suppositories, as well as tramadol. It is possible that she developed encephalopathy related to having been off of the meds for an unclear period of time and then having them all restarted simultaneously. It is also possible that she forgot she had taken meds and then taken higher doses and indicated. Furthermore, the high-dose acyclovir could certainly be contributing to her confusional state as well. However, given her SLUMS of there is a component of severe dementia and after review of her outpatient documentation this has been going on for quite some time and she has been found wandering in the past. With slight improvement today (oriented x2 with some recall of recent events) there was a definite acute component on top of her baseline severe dementia. - have started seroquel 25 mg BID, consider increasing dose at night if needed adjustments. - with tachycardia mild benzodiazepine withdrawal is also a possibility but this has improved today without medications - consider psychiatry if behavior is worsening - suspect she is currently at her baseline mental status given SLUMS testing, further review of her outpatient documentation and additional history obtained. Will need memory care most likely. - MR brain ordered to rule out CVA or metastasis given history of breast cancer. 2. Dehydration, mild rhabdomyolysis Patient presents with concentrated urine, an elevated CPK and was found wandering in the streets. -patient has removed IV, CK improved at 700. Will recheck tomorrow. 3. Tachycardia Certainly, could be related to some toxicity or benzodiazepine withdrawal from polypharmacy versus dehydration. She is not having any cardiac symptoms currently and tachycardia has improved today. 4. Leukocytosis Mild. As noted, no clear evidence for infection. Cultures are pending. No indication for antibiotics. 5. Azotemia Mild. Anticipate this will improve with hydration 6. Mild rhabdomyolysis As noted CPK was greater than 1100, AST mildly elevated. Hydrated gently with LR overnight, now improved. 7. Remote history of breast cancer As noted, MRI brain has been ordered to rule out metastasis 8. Severe cognitive impairment SLUMS 9. Genital herpes per report As noted, she is on high-dose acyclovir 800 t.i.d. for unclear reasons. This apparently has been prescribed chronically for prophylaxis. Given her cognitive impairment, she may be safer to be placed on Valtrex prophylaxis for decreased dosing frequency. Code status DNR DNI per POLST form Prophylaxis Low Meenu score Disposition Admit to acute medical care under observation status. Likely memory care, appreciate care management staff Additional history obtained via discussions with case management team, bedside staff. Quality VTE Deep Vein Thrombosis/Pulmonary Embolism Present on Admission: No
[2022-11-29 10:36] LABS: Osmolality, Serum 297 mOsmol/kg (280-301)
--- NOTE | 2022-11-29 10:46 | SLP.IPNOTE ---
Pt status reviewed in Rounds this morning. client services coordinator unable to reach pt's family. Discussed with MD who indicated ST is not indicated at this time given severe dementia. Will discharge.
--- NOTE | 2022-11-29 11:19 | CM.DPC ---
Addendum entered by Nina Salmon R.N. 11/29/22 17:01: Was notified that the taxi brought patient back, stated, she does not live at that address. Patient is down in the ER, called Washington Ramirez, he will meet patient here. Washington is attempting to get in touch with Nikky luis. Addendum entered by Nina Salmon R.N. 11/29/22 16:45: Called Washington Ramirez, formerly [facility] paramedics and asked if he can meet patient at her home at about 1700, she is getting ready to leave, so she has someone to escort her to the door, stated that he will do so. Addendum entered by Nina Salmon R.N. 11/29/22 16:15: Washington Ramirez came by the [facility] solar applications development engineer. Stated that he went to patient's room mate's house, he is home, stated that he got a new phone, and was not working. Number is: [phone]. Was able to get in touch with Magdi, and updated him that patient is ready to go home. He indicated that he can't drive, has bad gout, was hoping that someone can find a way to get her home. Decided to call Nikky smith, she will need to be walked to the door, but Washington Ashley stated to call him when she will be there, and can walk her to the door. Called Nikky smith, attempted to set up time for 4:45, but wants hospital to call when she is ready so they don't have to wait. Nurse is working on getting her prescription filled at [facility], unsure when it will be ready. Will have nursing call Nikky when ready, and will fax [facility] the AR Summary, have left them a message. Addendum entered by Nina Salmon R.N. 11/29/22 15:26: Called Washington Watsonketty to follow up on status of patient's home, and well check. He is in [facility] [place], then will head over to her place. Ana Cj called back, asked her about daily rate. Stated that she is currently working on her new assessment, and so far, since she is ambulatory, has a daily rate of about $86.00. Asked her about her dementia. Stated, she is trying to get a formal diagnosis of her dementia from her provider. Asked her if care management can fax her some information indicating that she does have dementia, as patient was walking in the middle of traffic a couple of days ago, and brought in by the police department. Her fax number is: [phone]. Will fax over some notes. Attempting to get records from the clinic, her last appointment at the clinic was on 11-14. Addendum entered by Nina Salmon R.N. 11/29/22 14:38: It is noted that patient's contact, Magdi Jay, is not her spouse, is her room mate and point of contact. Called her manager case, Ana Corona and left her a message asking her if she has a daily rate for the patient, or if she was at the home on Mon doing a new assessment, for this can help with locating a memory care facility for patient. Also, spoke to Sharmila Sheth at [facility], has received the referral on patient. Stated, should be able to accept. Addendum entered by Nina Salmon R.N. 11/29/22 13:06: Attempted to call spouse on alternate number, which was on patient's cell phone. Number listed is: [phone]. The number kept ringing, then there was a message voice mail has not been set up. Did go ahead and initiate home health referrals. Called all three agencies. Initially, was going to order RN, P.t, O.t, IT HELP DESK MANAGER, and bath aide. Called over at [facility], spoke to Karly, they do not have any openings until next Monday. Called over at [facility]. Spoke to Martha, they do not have any openings until the end of the week, possibly next week. Called [facility]. Spoke to Sharmila. Stated that if P.T is ordered and not nursing, can see patient potentially , and that they can always call in nursing if needed. Went ahead and gave her the name of patient and some history. reordered P.T, O.T, and IT HELP DESK MANAGER. Completed new orders, and a new face to face, and faxed them, along with face sheet, H&P, speech notes. Asked Sharmila to update this [employer] Custodian if she can't accept. Addendum entered by Nina Salmon R.N. 11/29/22 11:41: Called back Washington Ramirez and asked him when he arrives in the home to let spouse know that she is medically ready to be picked up, and needs to come and get her. Original Note: DCP Cont: Spoke to Washington Ramirez, formerly [facility] solar applications development engineer. He indicated that he is familiar with this patient, was on his radar. Indicated that his [facility] manager case, Ana, had been to the home to see the patient on Mon, and mentioned that she was working on getting patient into assisted living facility. She informed spouse that patient can't be alone. Ana's phone number is: [phone], alternate number is: [phone]. There was mention that her spouse had went camping, left patient alone, and she wandered. Let Washington know that care management has continued to attempt to contact the spouse, and has not answered his phone. Asked Washington to do a wellness check today, he plans on stopping by the house this afternoon. Ana has spoken to YONI Orta this am, and had mentioned that she is working on getting patient into a facility. Spouse will need to be informed that he will need to take patient home, while she is looking for a facility for patient. P: DCP to continue to follow and work on getting patient home. Will follow up with Washington today. Nina Salmon RN/Napper Tender
[2022-11-29 12:05] VITALS: BP 146/84; PULSE 106; RESP 16; O2SAT 96
--- NOTE | 2022-11-29 15:58 | PM.DS.1 ---
History of Present Illness History of Present Illness Date Patient Seen: 11/29/22 Time Patient Seen: 09:00 Chief complaint: confused Narrative: Per admitting provider, 72-year-old female with known history of remote breast cancer, remote tobacco dependence, mild cognitive impairment, remote history of alcohol dependence, osteoporosis, hyperlipidemia, reported history of HSV for which she is on acyclovir 800 mg t.i.d. prophylactically and recent ankle sprain who was brought in by the [place] police Department after being found wandering in the streets in front of traffic. History is somewhat challenging to obtain. From what I am able to gather, zaid was recently in the process of moving. She has a housemate and she states that he is moving at the end of the summer to be with family. She is supposed to move into low-income housing according to records. She was seen on November 04 at [facility] complaining that she had left her tramadol and Ambien at a hotel by accident and needed more. She also complained of needing her Valium vaginal suppositories. Additionally, she reported a 3 day history of an ankle sprain. At that time, she reported that she twisted it while she was in [place]. She stepped hard out of a [employer]. She was seen in the emergency department there and was diagnosed with a sprain. He returned to the primary care office on November 14. During this most recent visit, she noted that all of her medications were in a storage unit and she had been unable to access them. She got refills of her Ambien, tramadol, and Valium vaginal suppositories. During that visit she was noted to be alert and oriented x3. She was also noted to be alert and oriented during her visit on November 04. Patient is able to tell me she does have some confusion such as forgetting where the forks and knives or kept in her home. She is unable to tell me exactly where she is living right now. She states Magdi who is listed as her in her medical record is in fact her housemate. She can tell me it is approaching December but tells me the year is 2004. She is aware of her confusion and her inability to tell me her age. She states that while she has some baseline confusion this is much more than is normal for her. She does have difficulty tracking questions and will frequently become 10 essential and begin talking about lying underneath the stars on towels. She also continues to reference moving into some type of correction environment. There is no documentation of this anywhere. In the emergency department, she underwent workup inclusive of head CT, blood work, urinalysis, drug screen, lumbar puncture. She was found have an elevated CPK at 11:00 a.m. and 3. AST was mildly elevated at 65. She was mildly tachycardic. Urine was notably concentrated. No other obvious etiology for her symptoms were identified. Multiple efforts were made to contact her housemate, but he could not be reached. Discharge Providers Provider Date of admission: 11/27/22 16:32 Discharge Date: 11/29/22 Primary care physician: Jessie Bess DO Consults: 11/27/22 18:59 Consult to Discharge Planning Routine Comment: Consult to Occupational Therapy Evaluate & Treat Comment: SLUMS assessment pls Physician Instructions: Evaluate and treat Consult to Speech Therapy Evaluate & Treat Comment: Cognitive evaluation Physician Instructions: Evaluate and treat 11/28/22 08:17 Consult to Physical Therapy Evaluate & Treat Comment: Physician Instructions: Evaluate and Treat 11/29/22 12:26 Consult to Home Health Routine Comment: Reason For Exam: Home Health RN, P.T, O.T, JANETTE gutierrez 11/29/22 12:51 Consult to Home Health Routine Comment: Reason For Exam: Updated Home Health orders, P.T, O.T, SKIVER MACHINE Discharge provider: Aubrey Hull DO Summary Hospital Course Discharge Diagnosis: 1. Acute metabolic encephalopathy with chronic dementia, possible benzodiazepine withdrawal. 2. Dehydration, mild rhabdomyolysis 3. Tachycardia, resolved 4. Leukocytosis, improved 6. Mild rhabdomyolysis 7. Remote history of breast cancer 8. Severe cognitive impairment and chronic dementia 9. Genital herpes per report Hospital Course: 72 year old female found wandering, brought in by police admitted for presumed acute encephalopathy and mild rhabdomyolysis. She was treated with IV fluids with improvement in CK levels, and was able to adequately orally rehydrate after pulling out her IV due to acute encephalopathy. I do suspect there may be a component of polypharmacy at play for her acute encephalopathy as she received refills of Ambien, diazepam suppositories, as well as tramadol per review of her chart and outside medications.? It is possible that she developed encephalopathy related to having been off of the meds for an unclear period of time and then having them all restarted simultaneously.? It is also possible that she forgot she had taken meds and then taken higher doses and indicated.?It is not entirely clear. Furthermore, the high-dose acyclovir could certainly be contributing to her confusional state as well. However, given her SLUMS of (performed this admission) there is a component of severe dementia and after review of her outpatient documentation this has been going on for quite some time and she has been found wandering in the past. With slight improvement on the day of discharge (oriented x2 with some recall of recent events) there was a definite acute component on top of her baseline severe dementia. Patient was able to be discharged home with her . Seroquel was started to hopefully improve sleep quality and help with mild behavioral impairments. MRI was ordered, but given history and lack of focal findings on exam was not performed prior to discharge. Many of her previous medications are recommended to be held upon discharge. Time Spent with Patient Time spent: Greater than 30 minutes Exam Vital Signs (past 8 hours): - 11/29/22 12:05 Pulse Rate 106 H Respiratory Rate 16 Blood Pressure 146/84 H Pulse Oximetry 96 Oxygen Delivery Method Room Air Oxygen Flow Rate 0 Narrative Exam Narrative: GEN: no acute distress, wdwn CHEST: Respiratory excursions symmetric, clear to auscultation bilaterally CV: Regular rate and rhythm ABD: Soft, nontender, nondistended EXTR: Warm, well perfused, no clubbing/cyanosis/edema SKIN: Warm and dry, without rash NEURO: Alert and oriented x2, no focal deficits, no tremors Psych: Mood and affect are appropriate Objective Labs 11/28/22 07:45 11/29/22 05:45 Labs: Laboratory Results - last 24 hr 11/27/22 11/29/22 14:00 05:45 Sodium 140 Potassium 3.8 Chloride 111 H Carbon Dioxide 24 BUN 4 L Creatinine 0.54 Estimated GFR > 60 BUN/Creatinine Ratio 7.4 Glucose 94 Serum Osmolality 297 Calcium 7.8 L [facility] Medical History (Updated 11/29/22 @ 07:09 by Luz Phelan) Acrochordon Actinic keratosis Alcoholism Ankle pain (~2009) Anxiety (~1957) Breast cancer (~2004) Callus of foot Chickenpox (~1953) Chronic back pain (~2006) Depression (~1957) Foot pain (~1999) Fracture, trimalleolar (~07/12/10) Hearing loss (~2006) Hyperlipidemia (~1979) Insomnia (~1984) Labral tear of left hip joint (~1986) Mononucleosis (~1967) Mumps (~1953) Osteoarthritis of ankle Osteoarthritis of knees, bilateral (~2009) Osteopenia (~1989) Osteoporosis (~2009) Pain of left breast Plantar warts (~1963) Rosacea (~1983) Shoulder pain (~1999) Tinnitus (~1999) Torn ACL (anterior cruciate ligament) (~1966) Surgical History (System 11/29/22 @ 07:09 by Luz Phelan) Anesthesia History of ankle surgery (~2009) History of lumpectomy (~2005) History of repair of anterior cruciate ligament of left knee (~2003) Status post arthroscopy (~2014) Status post hysterectomy (~1996) Family History Father Osteoporosis Mother Heart disease High cholesterol Alzheimer's dementia without behavioral disturbance, unspecified timing of dementia onset Social History (System 11/29/22 @ 07:09 by Luz Phelan) household members: spouse and other Smoking Status: Unknown if ever smoked Tobacco: How many years used: 4 second hand exposure: No alcohol intake: never substance use type: former substance user (former marijuana ) and marijuana (former ) Discharge Plan Discharge Plan Patient Disposition: Home Health Service Provider Discharge Comment: you were admitted to the hospital for confusion, likely in the setting of polypharmacy. You should stop most medications at home. Please follow up with home health and PCP for further management. Discharge orders & Medications Prescriptions: New quetiapine 25 mg Tablet 25 mg PO BID 30 Days Qty: 60 0RF Continued (DME) Disabled Parking Permit See Rx Instructions .Route .MEDSUPPLY Qty: 1 0RF Rx Instructions: My patient qualifies for a disabled parking permit. 02/26/21 atorvastatin 80 mg tablet 80 mg PO BEDTIME Discontinued tramadol 50 mg tablet 50 mg PO BID PRN (Reason: Pain (Scale Score 4-6)) Patient Comments: TAKE ONE TABLET BY MOUTH TWICE DAILY NEEDED FOR PAIN acyclovir 800 mg tablet 800 mg PO TID zolpidem 12.5 mg tablet,ext release multiphase 12.5 mg PO BEDTIME Follow up/Referrals: Jessie Bess DO [Primary Care Provider] - Diet/Activity/Treatments Diet: Diet as Tolerated and Regular Activity: As tolerated Visit Report/Discharge Packet Stand Alone Forms: Patient Portal/API, Stroke Signs & Symptoms Discharge Data Primary Care Provider: Jessie Bess Attending Provider: Any Lucero Admit Date/Time: 11/27/22 16:32 Quality VTE Deep Vein Thrombosis/Pulmonary Embolism Present on Admission: No
--- NOTE | 2022-11-29 16:40 | PC.NURSE ---
Patient dressed and packed up to go home. Meds sent to pharmacy to be filled, taxi ordered, patient will be taken to pharmacy prior to loading into taxi. Went over d/c instructions with pt, discussed d/c meds, time of last dose, reviewed stroke education, encouraged pt to follow up with PCP. Pt. denied further questions. Pt was taken out via w/c by WATCH AND CLOCK REPAIR CLERK to taxi with all belongings.
--- NOTE | 2022-11-29 17:07 | CM.DPC ---
DCP continued: during DC planning CM met with patient and LEATHA Jimenez at the bedside and explained DC plan to patient. Patient was in agreement with DC plan to go home with her room mate Magdi via taxi. Magdi cannot pick her up and would like a taxi to take her home. CM spoke with MD and nursing staff who agreed with DC plan. CM team got a taxi voucher and set her up with [employer] to transport her home. Staff LEATHA took the patient to the pharmacy got her Rxs then took her to the ED to meet her Taxi. patient didn't what to ride home in [place] - patient was assisted home by [facility] administrative engineer and patients nurse Jahaira help to redirect the patient to go with [place] back to her residence. Laly Ceja RNdevelopmental education instructor
== END 2022-11-29 16:43 | disposition home health service (06) ==
LOC: ED 16:27 → AC 16:33
PROVIDERS: Admitting Provider Family Medicine; Emergency Provider Emergency Medicine; PCP Family Medicine; Referring Provider Emergency Medicine; Visit Provider Family Medicine
DX: G93.41 Metabolic encephalopathy (principal); E86.0 Dehydration; R00.0 Tachycardia, unspecified; D72.829 Elevated white blood cell count, unspecified; M62.82 Rhabdomyolysis; F03.90 Unspecified dementia, unspecified severity, without behavioral disturbance, psychotic disturbance, mood disturbance, and anxiety; A60.00 Herpesviral infection of urogenital system, unspecified; K59.00 Constipation, unspecified; D75.89 Other specified diseases of blood and blood-forming organs; E87.6 Hypokalemia; R21 Rash and other nonspecific skin eruption; G47.00 Insomnia, unspecified; M25.572 Pain in left ankle and joints of left foot
CPT/HCPCS: 36415; 51701; 62272; 70450; 80048; 80053; 80305; 80320; 80329; 81001; 82140; 82550; 82945; 82962; 83605; 83735; 83930; 84145; 84146; 84157; 84443; 84484; 85025; 85610; 85730; 87040; 87070; 87086; 87205; 87798; 89051; 92523; 93005; 93010; 96360; 96361; 97166; 99284; G0378; G0480

== ENCOUNTER 2022-11-29 18:33 | Observation (INO) | payer OTHER, MEDICAID, SELFPAY ==
[2022-11-27 16:36] VITALS: BMI 25.7
[2022-11-29 18:29] VITALS: BP 141/89; PULSE 95; RESP 15; TEMP 36.1; O2SAT 97; BMI 25.7
[2022-11-29 19:04] LABS: UR Morphine/Opiate cutoff 300 Negative (Negative); Ur Creatinine Normal (Normal); Ur Specific Gravity Normal (Normal); Urine Amphetamines Negative (Negative); Urine Barbiturates Negative (Negative); Urine Benzodiazepines Positive (Negative); Urine Cocaine Negative (Negative); Urine MDMA Negative (Negative); Urine Methadone Negative (Negative); Urine Methamphetamines Negative (Negative); Urine Oxycodone Negative (Negative); Urine Phencyclidine Negative (Negative); Urine Tetrahydrocannabinol Negative (Negative); Urine Tricyclic Antidepressant Negative (Negative); Urine pH Normal (Normal)
[2022-11-29 19:15] LABS: Add Manual Diff / Slide Review NO; Basophils Absolute Auto 0 /uL (0-100); Basophils Percent Auto 0.5 % (0-2); Eosinophils Absolute Auto 200 /uL (0-450); Hematocrit 39.7 % (36-46); Hemoglobin 13.3 g/dL (12.0-16.0); Lymphocytes Absolute Auto 1700 /uL (1100-4500); Lymphocytes Percent Auto 23.4 % (25-40); Mean Corpuscular HGB Conc 33.5 % (30-36); Mean Corpuscular Hemoglobin 34.4 PG (26-34); Mean Corpuscular Volume 102.6 fL (80-100); Monocytes Absolute Auto 800 /uL (0-900); Neutrophils Absolute Auto 4500 /uL (1500-7000); Neutrophils Percent Auto 62.1 % (50-75); Platelet Count 288 X10^3/uL (150-400); Red Blood Cell Count 3.87 X10^6/uL (4.0-5.2); Red Cell Distribution Width 13.6 % (11.6-14.8); White Blood Cell Count 7.2 X10^3/uL (4.5-11.0)
[2022-11-29 19:35] LABS: Acetaminophen < 10 ug/mL (10-30); Alanine Aminotransferase 27 IU/L (<35); Albumin 3.5 g/dL (3.5-5.0); Albumin Globulin Ratio 1.3 (1.0-2.8); Alkaline Phosphatase 77 U/L (38-126); Aspartate Aminotransferase 31 IU/L (14-36); BUN Creatinine Ratio 12.3 (6-22); Bilirubin Total 0.2 mg/dL (0.2-1.3); Blood Urea Nitrogen 7 mg/dL (7-17); Calcium 8.2 mg/dL (8.4-10.2); Carbon Dioxide 25 mmol/L (22-32); Chloride 108 mmol/L (98-107); Estimated Glomerular Filt Rate > 60 mL/min (>60); Ethanol (ETOH) < 10 mg/dL; Globulin 2.8 g/dL (1.7-4.1); Glucose 99 mg/dL (80-110); HEMOLYSIS < 15 (0-50); Potassium 3.3 mmol/L (3.4-5.1); Salicylate < 1.0 mg/dL (<20); Sodium 140 mmol/L (137-145); Total Protein 6.3 g/dL (6.3-8.2)
[2022-11-29 20:02] LABS: Appearance Urine UA CLEAR; Bilirubin Urine UA NEGATIVE (NEGATIVE); Color Urine UA YELLOW; Glucose Urine UA NEGATIVE (Negative); Ketones Urine UA NEGATIVE (NEGATIVE); Leukocyte Esterase Urine UA NEGATIVE (NEGATIVE); Nitrite Urine UA NEGATIVE (Negative); Occult Blood Urine UA NEGATIVE (Negative); Protein Urine UA NEGATIVE (Negative); Specific Gravity Urine UA <=1.005 (1.000-1.035); Urobilinogen Urine UA 0.2 E.U./dL (0.2)
[2022-11-29 20:04] LABS: pH Urine UA 6.5 (4.5-8.0)
[2022-11-29 20:06] LABS: TSH w/ Reflex to FT4 1.63 uIU/mL (0.47-4.68)
[2022-11-29 20:11] LABS: Bacteria Urine None Seen; Culture Indicated Urine Cult Not Indicated; RBC Urine 1-5/HPF (0-5/HPF); WBC Urine 1-5/HPF (0-5/HPF)
[2022-11-29 20:25] VITALS: BP 164/78; PULSE 90; RESP 16; O2SAT 97
[2022-11-29] MEDS: ACETAMINOPHEN 325 MG TABLET 975 MG PO (20:48)
--- NOTE | 2022-11-29 21:40 | PC.NURSE ---
Patient is sitting at bedside and states I need to call my friends, I have a hearing tomorrow and I dont know what time it is at or who will take me. I attempted to redirect patient to wait in her room with us, and that the plan is to remain here for now. Patient agreeable but pacing in the room.
--- NOTE | 2022-11-29 22:55 | PC.NURSE ---
Patient wandering out in the [place], I told her I would be able to walk with her around the department. We walked 5 laps and brought her some warm tea.
--- NOTE | 2022-11-29 23:38 | ED.PSYCH ---
HPI - Psych <Basilio Vasquez, DO - Last Filed: 12/04/22 02:46> General Chief Complaint: Psychiatric Symptoms Stated Complaint: Psych Time Seen by Provider: 11/29/22 18:35 Source: police Mode of arrival: Ambulatory History of Present Illness HPI Narrative: 72-year-old female with history of cognitive impairment, hyperlipidemia, remote breast cancer, former alcohol and tobacco abuse with known ankle sprain presents by [place] police for the 2nd time this week. She was seen and evaluated by myself earlier this week and had extensive evaluation including serum labs, urine, lumbar puncture and CT scan. She was found to have an acute delirium and was admitted for further workup. She had multiple consultations from care management, occupational therapy, speech therapy, home health and in the end was discharged earlier today with the primary diagnosis thought to be related to polypharmacy. She lives at home with her and he is reported to be chronically ill and unable to help with her much. Police were dispatched to help get her in the house after discharge in his reported that the patient did not recognize her house nor her and refused to go inside. Per their report she was stating she was cold and needed to go back to the hospital. She would previously been contacted by police stating she was found wandering in traffic. She denies any specific current complaints such as headache, nausea or vomiting nor chest pain, fever or chills. She denies homicidal or suicidal ideations but there is certainly concern that the patient is unable to perform her activities of daily living, she does not recognize the severity of her condition Related Data Home Medications Medication Instructions Recorded Confirmed atorvastatin 80 mg tablet 80 mg PO BEDTIME 11/27/22 12/02/22 zolpidem 12.5 mg tablet,extended 12.5 mg PO BEDTIME PRN Insomnia 12/02/22 12/02/22 release,multiphase Previous Rx's Medication Instructions Recorded Disabled Parking Permit #1 ea 02/26/21 quetiapine 25 mg tablet 25 mg PO BID 30 days #60 tabs 11/29/22 Allergies Allergy/AdvReac Type Severity Reaction Status Date / Time hydroxyzine [HYDROXYZINE] Allergy Mild facial rash Verified 11/29/22 18:43 erythromycin base Allergy Unknown Verified 11/29/22 18:43 filgrastim Allergy Unknown Verified 11/29/22 18:43 meperidine Allergy Unknown Verified 11/29/22 18:43 mirtazapine [MIRTAZAPINE] Allergy Unknown swollen Verified 11/29/22 18:43 tongue, blurry vision pegfilgrastim Allergy Unknown Verified 11/29/22 18:43 propoxyphene Allergy Unknown Verified 11/29/22 18:43 bupropion AdvReac Intermediate SORE Verified 11/29/22 18:43 THROAT, SUPPRESSED APPETITE oxycodone [OXYCODONE] AdvReac Intermediate seizure Verified 11/29/22 18:43 amoxicillin [AMOXICILLIN] AdvReac Mild diarrhea Verified 11/29/22 18:43 meloxicam AdvReac Mild GI SYMPTOMS Verified 11/29/22 18:43 chlordiazepoxide AdvReac Unknown anxiety Verified 11/29/22 18:43 [CHLORDIAZEPOXIDE] doxepin [DOXEPIN] AdvReac Unknown rectal Verified 11/29/22 18:43 burning ramelteon [RAMELTEON] AdvReac Unknown rectal Verified 11/29/22 18:43 burning trazodone [TRAZODONE] AdvReac Unknown insomnia Verified 11/29/22 18:43 Review of Systems <Basilio Vasquez DO - Last Filed: 12/04/22 02:46> Review of Systems Narrative: GENERAL: Denies chills, fatigue, malaise, fever, sweats. HEENT: Denies sinus pain, ear pain, sore throat, difficulty swallowing, dizziness. RESPIRATORY: Denies dyspnea, cough, wheezing, hemoptysis, sputum. CARDIOVASCULAR: Denies chest pain, palpitations, orthopnea, edema, GASTROINTESTINAL: Denies nausea, vomiting, abdominal pain, diarrhea, constipation, melena. : Denies dysuria, frequency, incontinence, hematuria, urinary retention. MUSCULOSKELETAL: denies weakness, joint pain, or bony pain SKIN: Denies rash, skin lesions, or other NEUROLOGIC: Denies weakness, headache, numbness, change in speech, confusion, seizures, incoordination. PSYCHIATRIC: See HPI 12 point review of systems is negative except for those stated above Patient History <Basilio Vasquez DO - Last Filed: 12/04/22 02:46> Medical History Acrochordon Actinic keratosis Alcoholism Ankle pain (~2009) Anxiety (~1957) Breast cancer (~2004) Callus of foot Chickenpox (~1953) Chronic back pain (~2006) Depression (~1957) Foot pain (~1999) Fracture, trimalleolar (~07/12/10) Hearing loss (~2006) Hyperlipidemia (~1979) Insomnia (~1984) Labral tear of left hip joint (~1986) Mononucleosis (~1967) Mumps (~1953) Osteoarthritis of ankle Osteoarthritis of knees, bilateral (~2009) Osteopenia (~1989) Osteoporosis (~2009) Pain of left breast Plantar warts (~1963) Rosacea (~1983) Shoulder pain (~1999) Tinnitus (~1999) Torn ACL (anterior cruciate ligament) (~1966) Surgical History Anesthesia History of ankle surgery (~2009) History of lumpectomy (~2005) History of repair of anterior cruciate ligament of left knee (~2003) Status post arthroscopy (~2014) Status post hysterectomy (~1996) Family History Father Osteoporosis Mother Heart disease High cholesterol Alzheimer's dementia without behavioral disturbance, unspecified timing of dementia onset Social History household members: friend(s) Smoking Status: Unknown if ever smoked Tobacco: How many years used: 4 second hand exposure: No alcohol intake: never substance use type: former substance user (former marijuana ) and marijuana (former ) Smoking Status: Unknown if ever smoked alcohol intake frequency: other Substance Use Type: does not use and unknown Exam <Basilio Vasquez DO - Last Filed: 12/04/22 02:46> Narrative Exam Narrative: GENERAL: [72] year old patient appears stated age. Well-developed patient, in mild distress. Pleasantly confused, GCS 14 HEAD: Atraumatic. Normocephalic. EYES: Pupils equal round and reactive. Extraocular motions intact. No scleral icterus. No injection or drainage. ENT: Nose without bleeding, purulent drainage. Throat without erythema, tonsillar hypertrophy or exudate. Airway patent. NECK: Trachea midline. Non tender CARDIOVASCULAR: Regular rate and rhythm without murmurs, gallops, or rubs. RESPIRATORY: Clear to auscultation. Breath sounds equal bilaterally. No wheezes, rales, or rhonchi. GASTROINTESTINAL: Abdomen soft, non-tender, nondistended. EXTREMITIES: No edema or joint tenderness. BACK: Nontender without deformity or crepitance. No flank tenderness. NEURO: AOx3. SKIN: No rash or erythema of visible areas Initial Vital Signs Initial Vital Signs: Vital Signs Temperature 97.0 F L 11/29/22 18:29 Pulse Rate 95 H 11/29/22 18:29 Respiratory Rate 15 11/29/22 18:29 Blood Pressure 141/89 H 11/29/22 18:29 Pulse Oximetry 97 11/29/22 18:29 Oxygen Delivery Method Room Air 11/29/22 18:29 <Mable Peng DO - Last Filed: 12/07/22 02:05> Initial Vital Signs Initial Vital Signs: Vital Signs Temperature 97.0 F L 11/29/22 18:29 Pulse Rate 95 H 11/29/22 18:29 Respiratory Rate 15 11/29/22 18:29 Blood Pressure 141/89 H 11/29/22 18:29 Pulse Oximetry 97 11/29/22 18:29 Oxygen Delivery Method Room Air 11/29/22 18:29 <Federico Wilkerson DO - Last Filed: 12/02/22 22:50> Initial Vital Signs Initial Vital Signs: Vital Signs Temperature 97.0 F L 11/29/22 18:29 Pulse Rate 95 H 11/29/22 18:29 Respiratory Rate 15 11/29/22 18:29 Blood Pressure 141/89 H 11/29/22 18:29 Pulse Oximetry 97 11/29/22 18:29 Oxygen Delivery Method Room Air 11/29/22 18:29 Course <Basilio Vasquez DO - Last Filed: 12/04/22 02:46> Orders Ordered: Acetaminophen (Acetaminophen 325 Mg Tablet) 650 mg PO Q6H PRN PRN Reason: Fever/Mild Pain (1-3) Last Admin: 12/06/22 21:16 Dose: 650 mg Documented By: Admin: 12/06/22 14:32 Dose: 650 mg Documented By: Admin: 12/05/22 16:53 Dose: 650 mg Documented By: Admin: 12/05/22 04:55 Dose: 650 mg Documented By: Admin: 12/04/22 22:54 Dose: 650 mg Documented By: Admin: 12/04/22 17:10 Dose: 650 mg Documented By: Admin: 12/04/22 11:00 Dose: 650 mg Documented By: Admin: 12/03/22 18:34 Dose: 650 mg Documented By: Admin: 12/03/22 09:00 Dose: 650 mg Documented By: Admin: 12/02/22 20:39 Dose: 650 mg Documented By: Admin: 12/02/22 13:00 Dose: 650 mg Documented By: Admin: 12/02/22 08:50 Dose: 650 mg Documented By: Admin: 12/01/22 15:00 Dose: 650 mg Documented By: SPF Atorvastatin Calcium (Atorvastatin 20 Mg Tablet) 40 mg PO BEDTIME [facility] Last Admin: 12/06/22 21:17 Dose: 40 mg Documented By: Admin: 12/05/22 20:45 Dose: 40 mg Documented By: Admin: 12/04/22 20:46 Dose: 40 mg Documented By: Admin: 12/03/22 20:41 Dose: 40 mg Documented By: CT Bisacodyl (Bisacodyl 10 Mg Supp) 10 mg [place] DAILY PRN PRN Reason: Constipation Last Admin: 12/03/22 18:34 Dose: 10 mg Documented By: MARCELLUS Heparin Sodium (Porcine) (Heparin 5,000 Unit/Ml Vial) 5,000 unit SUBCUT BID [facility] Last Admin: 12/06/22 21:16 Dose: 5,000 unit Documented By: Admin: 12/06/22 08:44 Dose: 5,000 unit Documented By: Admin: 12/05/22 20:45 Dose: 5,000 unit Documented By: Admin: 12/05/22 08:44 Dose: 5,000 unit Documented By: Admin: 12/04/22 20:47 Dose: 5,000 unit Documented By: Admin: 12/04/22 08:36 Dose: 5,000 unit Documented By: Admin: 12/03/22 20:42 Dose: 5,000 unit Documented By: Admin: 12/03/22 09:00 Dose: 5,000 unit Documented By: MARCELLUS Hydrocortisone (Hydrocortisone 1% Cream 28 Gm) 1 applic TOP BID [facility] Last Admin: 12/06/22 21:17 Dose: 1 applic Documented By: Admin: 12/06/22 11:46 Dose: 1 applic Documented By: SEBAS Loperamide HCl (Loperamide 2 Mg Capsule) 2 mg PO QID PRN PRN Reason: Diarrhea Last Admin: 12/06/22 11:46 Dose: 2 mg Documented By: SEBAS Melatonin (Melatonin 3 Mg Tablet) 6 mg PO BEDTIME PRN PRN Reason: Insomnia Last Admin: 12/04/22 22:38 Dose: 6 mg Documented By: Admin: 12/04/22 01:47 Dose: 6 mg Documented By: CT Naloxone HCl (Naloxone 0.4 Mg/Ml Vial) 0.2 mg IV Q2MIN PRN PRN Reason: Opiate Reversal Quetiapine Fumarate (Quetiapine 25 Mg Tablet) 25 mg PO BID [facility] Last Admin: 12/06/22 21:24 Dose: 25 mg Documented By: Admin: 12/06/22 08:44 Dose: 25 mg Documented By: Admin: 12/05/22 20:45 Dose: 25 mg Documented By: Admin: 12/05/22 08:44 Dose: 25 mg Documented By: Admin: 12/04/22 20:47 Dose: 25 mg Documented By: Admin: 12/04/22 08:36 Dose: 25 mg Documented By: Admin: 12/03/22 20:42 Dose: 25 mg Documented By: Admin: 12/03/22 09:00 Dose: 25 mg Documented By: Admin: 12/02/22 20:39 Dose: 25 mg Documented By: Admin: 12/02/22 10:21 Dose: 25 mg Documented By: Admin: 12/01/22 20:50 Dose: 25 mg Documented By: Admin: 12/01/22 10:16 Dose: 25 mg Documented By: Admin: 11/30/22 20:42 Dose: 25 mg Documented By: Sennosides (Sennosides 8.6 Mg Tablet) 8.6 mg PO BID [facility] Last Admin: 12/06/22 21:18 Dose: Not Given Documented By: Admin: 12/06/22 08:44 Dose: 8.6 mg Documented By: Admin: 12/05/22 20:45 Dose: 8.6 mg Documented By: Admin: 12/05/22 08:45 Dose: 8.6 mg Documented By: Admin: 12/04/22 20:47 Dose: 8.6 mg Documented By: Admin: 12/04/22 08:36 Dose: 8.6 mg Documented By: Admin: 12/03/22 20:41 Dose: 8.6 mg Documented By: Admin: 12/03/22 12:30 Dose: 8.6 mg Documented By: MARCELLUS Valacyclovir HCl (Valacyclovir 500 Mg Tablet) 1,000 mg PO TID [facility] Last Admin: 12/06/22 21:17 Dose: 1,000 mg Documented By: Admin: 12/06/22 16:18 Dose: 1,000 mg Documented By: Admin: 12/06/22 11:46 Dose: 1,000 mg Documented By: SEBAS Discontinued Medications Acetaminophen (Acetaminophen 325 Mg Tablet) 975 mg PO NOW ONE Stop: 11/29/22 20:42 Last Admin: 11/29/22 20:48 Dose: 975 mg Documented By: Acetaminophen (Acetaminophen 325 Mg Tablet) 650 mg PO NOW ONE Stop: 11/30/22 06:38 Last Admin: 11/30/22 06:44 Dose: 650 mg Documented By: Acetaminophen (Acetaminophen 325 Mg Tablet) 325 mg PO NOW ONE Stop: 11/30/22 08:32 Last Admin: 11/30/22 08:42 Dose: 325 mg Documented By: BRUCE(2) Acetaminophen (Acetaminophen 325 Mg Tablet) 650 mg PO NOW ONE Stop: 12/01/22 05:34 Last Admin: 12/01/22 05:39 Dose: 650 mg Documented By: Atorvastatin Calcium (Atorvastatin 20 Mg Tablet) 80 mg PO BEDTIME [facility] Last Admin: 12/02/22 20:39 Dose: 80 mg Documented By: Admin: 12/01/22 21:24 Dose: 80 mg Documented By: Admin: 11/30/22 20:41 Dose: 80 mg Documented By: Quetiapine Fumarate (Quetiapine 25 Mg Tablet) 25 mg PO NOW ONE Stop: 11/29/22 23:40 Last Admin: 11/29/22 23:46 Dose: 25 mg Documented By: Quetiapine Fumarate (Quetiapine 25 Mg Tablet) 25 mg PO NOW ONE Stop: 11/30/22 03:02 Last Admin: 11/30/22 03:16 Dose: 25 mg Documented By: Vital Signs Vital signs: Vital Signs - 8 hr 12/02/22 20:46 12/02/22 20:47 Temperature 98.5 F Pulse Rate 89 Respiratory Rate 16 Blood Pressure 125/75 Pulse Oximetry 98 Oxygen Delivery Method Room Air <Mable Peng DO - Last Filed: 12/07/22 02:05> Orders Ordered: Acetaminophen (Acetaminophen 325 Mg Tablet) 650 mg PO Q6H PRN PRN Reason: Fever/Mild Pain (1-3) Last Admin: 12/06/22 21:16 Dose: 650 mg Documented By: Admin: 12/06/22 14:32 Dose: 650 mg Documented By: Admin: 12/05/22 16:53 Dose: 650 mg Documented By: Admin: 12/05/22 04:55 Dose: 650 mg Documented By: Admin: 12/04/22 22:54 Dose: 650 mg Documented By: Admin: 12/04/22 17:10 Dose: 650 mg Documented By: Admin: 12/04/22 11:00 Dose: 650 mg Documented By: Admin: 12/03/22 18:34 Dose: 650 mg Documented By: Admin: 12/03/22 09:00 Dose: 650 mg Documented By: Admin: 12/02/22 20:39 Dose: 650 mg Documented By: Admin: 12/02/22 13:00 Dose: 650 mg Documented By: Admin: 12/02/22 08:50 Dose: 650 mg Documented By: Admin: 12/01/22 15:00 Dose: 650 mg Documented By: SPF Atorvastatin Calcium (Atorvastatin 20 Mg Tablet) 40 mg PO BEDTIME [facility] Last Admin: 12/06/22 21:17 Dose: 40 mg Documented By: Admin: 12/05/22 20:45 Dose: 40 mg Documented By: Admin: 12/04/22 20:46 Dose: 40 mg Documented By: Admin: 12/03/22 20:41 Dose: 40 mg Documented By: CT Bisacodyl (Bisacodyl 10 Mg Supp) 10 mg [place] DAILY PRN PRN Reason: Constipation Last Admin: 12/03/22 18:34 Dose: 10 mg Documented By: SB Heparin Sodium (Porcine) (Heparin 5,000 Unit/Ml Vial) 5,000 unit SUBCUT BID [facility] Last Admin: 12/06/22 21:16 Dose: 5,000 unit Documented By: Admin: 12/06/22 08:44 Dose: 5,000 unit Documented By: Admin: 12/05/22 20:45 Dose: 5,000 unit Documented By: Admin: 12/05/22 08:44 Dose: 5,000 unit Documented By: Admin: 12/04/22 20:47 Dose: 5,000 unit Documented By: Admin: 12/04/22 08:36 Dose: 5,000 unit Documented By: Admin: 12/03/22 20:42 Dose: 5,000 unit Documented By: Admin: 12/03/22 09:00 Dose: 5,000 unit Documented By: MARCELLUS Hydrocortisone (Hydrocortisone 1% Cream 28 Gm) 1 applic TOP BID [facility] Last Admin: 12/06/22 21:17 Dose: 1 applic Documented By: Admin: 12/06/22 11:46 Dose: 1 applic Documented By: SEBAS Loperamide HCl (Loperamide 2 Mg Capsule) 2 mg PO QID PRN PRN Reason: Diarrhea Last Admin: 12/06/22 11:46 Dose: 2 mg Documented By: SEBAS Melatonin (Melatonin 3 Mg Tablet) 6 mg PO BEDTIME PRN PRN Reason: Insomnia Last Admin: 12/04/22 22:38 Dose: 6 mg Documented By: Admin: 12/04/22 01:47 Dose: 6 mg Documented By: CT Naloxone HCl (Naloxone 0.4 Mg/Ml Vial) 0.2 mg IV Q2MIN PRN PRN Reason: Opiate Reversal Quetiapine Fumarate (Quetiapine 25 Mg Tablet) 25 mg PO BID [facility] Last Admin: 12/06/22 21:24 Dose: 25 mg Documented By: Admin: 12/06/22 08:44 Dose: 25 mg Documented By: Admin: 12/05/22 20:45 Dose: 25 mg Documented By: Admin: 12/05/22 08:44 Dose: 25 mg Documented By: Admin: 12/04/22 20:47 Dose: 25 mg Documented By: Admin: 12/04/22 08:36 Dose: 25 mg Documented By: Admin: 12/03/22 20:42 Dose: 25 mg Documented By: Admin: 12/03/22 09:00 Dose: 25 mg Documented By: Admin: 12/02/22 20:39 Dose: 25 mg Documented By: Admin: 12/02/22 10:21 Dose: 25 mg Documented By: Admin: 12/01/22 20:50 Dose: 25 mg Documented By: Admin: 12/01/22 10:16 Dose: 25 mg Documented By: Admin: 11/30/22 20:42 Dose: 25 mg Documented By: Sennosides (Sennosides 8.6 Mg Tablet) 8.6 mg PO BID [facility] Last Admin: 12/06/22 21:18 Dose: Not Given Documented By: Admin: 12/06/22 08:44 Dose: 8.6 mg Documented By: Admin: 12/05/22 20:45 Dose: 8.6 mg Documented By: Admin: 12/05/22 08:45 Dose: 8.6 mg Documented By: Admin: 12/04/22 20:47 Dose: 8.6 mg Documented By: Admin: 12/04/22 08:36 Dose: 8.6 mg Documented By: Admin: 12/03/22 20:41 Dose: 8.6 mg Documented By: Admin: 12/03/22 12:30 Dose: 8.6 mg Documented By: MARCELLUS Valacyclovir HCl (Valacyclovir 500 Mg Tablet) 1,000 mg PO TID [facility] Last Admin: 12/06/22 21:17 Dose: 1,000 mg Documented By: Admin: 12/06/22 16:18 Dose: 1,000 mg Documented By: Admin: 12/06/22 11:46 Dose: 1,000 mg Documented By: SEBAS Discontinued Medications Acetaminophen (Acetaminophen 325 Mg Tablet) 975 mg PO NOW ONE Stop: 11/29/22 20:42 Last Admin: 11/29/22 20:48 Dose: 975 mg Documented By: Acetaminophen (Acetaminophen 325 Mg Tablet) 650 mg PO NOW ONE Stop: 11/30/22 06:38 Last Admin: 11/30/22 06:44 Dose: 650 mg Documented By: Acetaminophen (Acetaminophen 325 Mg Tablet) 325 mg PO NOW ONE Stop: 11/30/22 08:32 Last Admin: 11/30/22 08:42 Dose: 325 mg Documented By: BRUCE(2) Acetaminophen (Acetaminophen 325 Mg Tablet) 650 mg PO NOW ONE Stop: 12/01/22 05:34 Last Admin: 12/01/22 05:39 Dose: 650 mg Documented By: Atorvastatin Calcium (Atorvastatin 20 Mg Tablet) 80 mg PO BEDTIME [facility] Last Admin: 12/02/22 20:39 Dose: 80 mg Documented By: Admin: 12/01/22 21:24 Dose: 80 mg Documented By: Admin: 11/30/22 20:41 Dose: 80 mg Documented By: Quetiapine Fumarate (Quetiapine 25 Mg Tablet) 25 mg PO NOW ONE Stop: 11/29/22 23:40 Last Admin: 11/29/22 23:46 Dose: 25 mg Documented By: Quetiapine Fumarate (Quetiapine 25 Mg Tablet) 25 mg PO NOW ONE Stop: 11/30/22 03:02 Last Admin: 11/30/22 03:16 Dose: 25 mg Documented By: Vital Signs Vital signs: Vital Signs - 8 hr 12/02/22 20:46 12/02/22 20:47 Temperature 98.5 F Pulse Rate 89 Respiratory Rate 16 Blood Pressure 125/75 Pulse Oximetry 98 Oxygen Delivery Method Room Air <Federico Wilkerson DO - Last Filed: 12/02/22 22:50> Orders Ordered: Acetaminophen (Acetaminophen 325 Mg Tablet) 650 mg PO Q6H PRN PRN Reason: Fever/Mild Pain (1-3) Last Admin: 12/06/22 21:16 Dose: 650 mg Documented By: Admin: 12/06/22 14:32 Dose: 650 mg Documented By: Admin: 12/05/22 16:53 Dose: 650 mg Documented By: Admin: 12/05/22 04:55 Dose: 650 mg Documented By: Admin: 12/04/22 22:54 Dose: 650 mg Documented By: Admin: 12/04/22 17:10 Dose: 650 mg Documented By: Admin: 12/04/22 11:00 Dose: 650 mg Documented By: Admin: 12/03/22 18:34 Dose: 650 mg Documented By: Admin: 12/03/22 09:00 Dose: 650 mg Documented By: Admin: 12/02/22 20:39 Dose: 650 mg Documented By: Admin: 12/02/22 13:00 Dose: 650 mg Documented By: Admin: 12/02/22 08:50 Dose: 650 mg Documented By: Admin: 12/01/22 15:00 Dose: 650 mg Documented By: SPF Atorvastatin Calcium (Atorvastatin 20 Mg Tablet) 40 mg PO BEDTIME [facility] Last Admin: 12/06/22 21:17 Dose: 40 mg Documented By: Admin: 12/05/22 20:45 Dose: 40 mg Documented By: Admin: 12/04/22 20:46 Dose: 40 mg Documented By: Admin: 12/03/22 20:41 Dose: 40 mg Documented By: CT Bisacodyl (Bisacodyl 10 Mg Supp) 10 mg [place] DAILY PRN PRN Reason: Constipation Last Admin: 12/03/22 18:34 Dose: 10 mg Documented By: SB Heparin Sodium (Porcine) (Heparin 5,000 Unit/Ml Vial) 5,000 unit SUBCUT BID [facility] Last Admin: 12/06/22 21:16 Dose: 5,000 unit Documented By: Admin: 12/06/22 08:44 Dose: 5,000 unit Documented By: Admin: 12/05/22 20:45 Dose: 5,000 unit Documented By: Admin: 12/05/22 08:44 Dose: 5,000 unit Documented By: Admin: 12/04/22 20:47 Dose: 5,000 unit Documented By: Admin: 12/04/22 08:36 Dose: 5,000 unit Documented By: Admin: 12/03/22 20:42 Dose: 5,000 unit Documented By: Admin: 12/03/22 09:00 Dose: 5,000 unit Documented By: MARCELLUS Hydrocortisone (Hydrocortisone 1% Cream 28 Gm) 1 applic TOP BID [facility] Last Admin: 12/06/22 21:17 Dose: 1 applic Documented By: Admin: 12/06/22 11:46 Dose: 1 applic Documented By: SEBAS Loperamide HCl (Loperamide 2 Mg Capsule) 2 mg PO QID PRN PRN Reason: Diarrhea Last Admin: 12/06/22 11:46 Dose: 2 mg Documented By: SEBAS Melatonin (Melatonin 3 Mg Tablet) 6 mg PO BEDTIME PRN PRN Reason: Insomnia Last Admin: 12/04/22 22:38 Dose: 6 mg Documented By: Admin: 12/04/22 01:47 Dose: 6 mg Documented By: CT Naloxone HCl (Naloxone 0.4 Mg/Ml Vial) 0.2 mg IV Q2MIN PRN PRN Reason: Opiate Reversal Quetiapine Fumarate (Quetiapine 25 Mg Tablet) 25 mg PO BID [facility] Last Admin: 12/06/22 21:24 Dose: 25 mg Documented By: Admin: 12/06/22 08:44 Dose: 25 mg Documented By: Admin: 12/05/22 20:45 Dose: 25 mg Documented By: Admin: 12/05/22 08:44 Dose: 25 mg Documented By: Admin: 12/04/22 20:47 Dose: 25 mg Documented By: Admin: 12/04/22 08:36 Dose: 25 mg Documented By: Admin: 12/03/22 20:42 Dose: 25 mg Documented By: Admin: 12/03/22 09:00 Dose: 25 mg Documented By: Admin: 12/02/22 20:39 Dose: 25 mg Documented By: Admin: 12/02/22 10:21 Dose: 25 mg Documented By: Admin: 12/01/22 20:50 Dose: 25 mg Documented By: Admin: 12/01/22 10:16 Dose: 25 mg Documented By: Admin: 11/30/22 20:42 Dose: 25 mg Documented By: Sennosides (Sennosides 8.6 Mg Tablet) 8.6 mg PO BID [facility] Admin: 12/06/22 21:18 Dose: Not Given Documented By: Admin: 12/06/22 08:44 Dose: 8.6 mg Documented By: Admin: 12/05/22 20:45 Dose: 8.6 mg Documented By: Admin: 12/05/22 08:45 Dose: 8.6 mg Documented By: Admin: 12/04/22 20:47 Dose: 8.6 mg Documented By: Admin: 12/04/22 08:36 Dose: 8.6 mg Documented By: Admin: 12/03/22 20:41 Dose: 8.6 mg Documented By: Admin: 12/03/22 12:30 Dose: 8.6 mg Documented By: SB Valacyclovir HCl (Valacyclovir 500 Mg Tablet) 1,000 mg PO TID [facility] Last Admin: 12/06/22 21:17 Dose: 1,000 mg Documented By: Admin: 12/06/22 16:18 Dose: 1,000 mg Documented By: Admin: 12/06/22 11:46 Dose: 1,000 mg Documented By: SEBAS Discontinued Medications Acetaminophen (Acetaminophen 325 Mg Tablet) 975 mg PO NOW ONE Stop: 11/29/22 20:42 Last Admin: 11/29/22 20:48 Dose: 975 mg Documented By: Acetaminophen (Acetaminophen 325 Mg Tablet) 650 mg PO NOW ONE Stop: 11/30/22 06:38 Last Admin: 11/30/22 06:44 Dose: 650 mg Documented By: Acetaminophen (Acetaminophen 325 Mg Tablet) 325 mg PO NOW ONE Stop: 11/30/22 08:32 Last Admin: 11/30/22 08:42 Dose: 325 mg Documented By: BRUCE(2) Acetaminophen (Acetaminophen 325 Mg Tablet) 650 mg PO NOW ONE Stop: 12/01/22 05:34 Last Admin: 12/01/22 05:39 Dose: 650 mg Documented By: Atorvastatin Calcium (Atorvastatin 20 Mg Tablet) 80 mg PO BEDTIME [facility] Last Admin: 12/02/22 20:39 Dose: 80 mg Documented By: Admin: 12/01/22 21:24 Dose: 80 mg Documented By: Admin: 11/30/22 20:41 Dose: 80 mg Documented By: Quetiapine Fumarate (Quetiapine 25 Mg Tablet) 25 mg PO NOW ONE Stop: 11/29/22 23:40 Last Admin: 11/29/22 23:46 Dose: 25 mg Documented By: Quetiapine Fumarate (Quetiapine 25 Mg Tablet) 25 mg PO NOW ONE Stop: 11/30/22 03:02 Last Admin: 11/30/22 03:16 Dose: 25 mg Documented By: Vital Signs Vital signs: Vital Signs - 8 hr 12/02/22 20:46 12/02/22 20:47 Temperature 98.5 F Pulse Rate 89 Respiratory Rate 16 Blood Pressure 125/75 Pulse Oximetry 98 Oxygen Delivery Method Room Air MDM - Psych <Basilio Vasquez DO - Last Filed: 12/04/22 02:46> Lab Data 12/04/22 06:19 12/04/22 06:19 Labs: Lab Results 11/29/22 11/29/22 11/29/22 Range/Units 18:43 18:43 19:08 WBC 7.2 (4.5-11.0) X10^3/uL RBC 3.87 L (4.0-5.2) X10^6/uL Hgb 13.3 (12.0-16.0) g/dL Hct 39.7 (36-46) % MCV 102.6 H (80-100) fL MCH 34.4 H (26-34) PG MCHC 33.5 (30-36) % RDW 13.6 (11.6-14.8) % Plt Count 288 (150-400) X10^3/uL Neut % (Auto) 62.1 D (50-75) % Lymph % (Auto) 23.4 L (25-40) % [place] % (Auto) 11.0 (3-14) % Eos % (Auto) 3.0 (2-4) % Baso % (Auto) 0.5 (0-2) % Neut # (Auto) 4500 (4731-9999) /uL Lymph # (Auto) 1700 (7795-6125) /uL [place] # (Auto) 800 (0-900) /uL Eos # (Auto) 200 (0-450) /uL Baso # (Auto) 0 (0-100) /uL Sodium (137-145) mmol/L Potassium (3.4-5.1) mmol/L Chloride (98-107) mmol/L Carbon Dioxide (22-32) mmol/L BUN (7-17) mg/dL Creatinine (0.52-1.04) mg/dL Estimated GFR (>60) mL/min BUN/Creatinine Ratio (6-22) Glucose (80-110) mg/dL Calcium (8.4-10.2) mg/dL Total Bilirubin (0.2-1.3) mg/dL AST (14-36) IU/L ALT (<35) IU/L Alkaline Phosphatase (38-126) U/L Total Protein (6.3-8.2) g/dL Albumin (3.5-5.0) g/dL Globulin (1.7-4.1) g/dL Albumin/Globulin Ratio (1.0-2.8) TSH (0.47-4.68) uIU/mL Urine Color Yellow Urine Appearance Clear Urine pH 6.5 (4.5-8.0) Ur Specific [place] <=1.005 (1.000-1.035) Urine Protein Negative (Negative) Urine Glucose (UA) Negative (Negative) g/dL Urine Ketones Negative (NEGATIVE) Urine Occult Blood Negative (Negative) Urine Nitrate Negative (Negative) Urine Bilirubin Negative (NEGATIVE) Urine Urobilinogen 0.2 (0.2) E.U./dL Ur Leukocyte Esterase Negative (NEGATIVE) Urine RBC 1-5/hpf (0-5/HPF) Urine WBC 1-5/hpf (0-5/HPF) Urine Bacteria None seen (None) Ur Culture Indicated? Cult not indicated Salicylates (<20) mg/dL U Opiates 300ng/mL cut Negative (Negative) Ur Oxycodone Screen Negative (Negative) Urine Methadone Screen Negative (Negative) Acetaminophen (10-30) ug/mL Ur Barbiturates Screen Negative (Negative) U Tricyclic Antidepress Negative (Negative) Ur Phencyclidine Scrn Negative (Negative) Ur Amphetamines Screen Negative (Negative) U Methamphetamines Scrn Negative (Negative) Ur MDMA Scrn (Ecstasy) Negative (Negative) U Benzodiazepines Scrn Positive H (Negative) Urine Cocaine Screen Negative (Negative) U Marijuana (THC) Screen Negative (Negative) Ethyl Alcohol ( - 10) mg/dL 11/29/22 11/29/22 Range/Units 19:08 19:08 WBC (4.5-11.0) X10^3/uL RBC (4.0-5.2) X10^6/uL Hgb (12.0-16.0) g/dL Hct (36-46) % MCV (80-100) fL MCH (26-34) PG MCHC (30-36) % RDW (11.6-14.8) % Plt Count (150-400) X10^3/uL Neut % (Auto) (50-75) % Lymph % (Auto) (25-40) % [place] % (Auto) (3-14) % Eos % (Auto) (2-4) % Baso % (Auto) (0-2) % Neut # (Auto) (3930-4836) /uL Lymph # (Auto) (8502-0094) /uL [place] # (Auto) (0-900) /uL Eos # (Auto) (0-450) /uL Baso # (Auto) (0-100) /uL Sodium 140 (137-145) mmol/L Potassium 3.3 L (3.4-5.1) mmol/L Chloride 108 H (98-107) mmol/L Carbon Dioxide 25 (22-32) mmol/L BUN 7 (7-17) mg/dL Creatinine 0.57 (0.52-1.04) mg/dL Estimated GFR > 60 (>60) mL/min BUN/Creatinine Ratio 12.3 (6-22) Glucose 99 (80-110) mg/dL Calcium 8.2 L (8.4-10.2) mg/dL Total Bilirubin 0.2 (0.2-1.3) mg/dL AST 31 (14-36) IU/L ALT 27 (<35) IU/L Alkaline Phosphatase 77 (38-126) U/L Total Protein 6.3 (6.3-8.2) g/dL Albumin 3.5 (3.5-5.0) g/dL Globulin 2.8 (1.7-4.1) g/dL Albumin/Globulin Ratio 1.3 (1.0-2.8) TSH 1.63 (0.47-4.68) uIU/mL Urine Color Urine Appearance Urine pH (4.5-8.0) Ur Specific [place] (1.000-1.035) Urine Protein (Negative) Urine Glucose (UA) (Negative) g/dL Urine Ketones (NEGATIVE) Urine Occult Blood (Negative) Urine Nitrate (Negative) Urine Bilirubin (NEGATIVE) Urine Urobilinogen (0.2) E.U./dL Ur Leukocyte Esterase (NEGATIVE) Urine RBC (0-5/HPF) Urine WBC (0-5/HPF) Urine Bacteria (None) Ur Culture Indicated? Salicylates < 1.0 (<20) mg/dL U Opiates 300ng/mL cut (Negative) Ur Oxycodone Screen (Negative) Urine Methadone Screen (Negative) Acetaminophen < 10 (10-30) ug/mL Ur Barbiturates Screen (Negative) U Tricyclic Antidepress (Negative) Ur Phencyclidine Scrn (Negative) Ur Amphetamines Screen (Negative) U Methamphetamines Scrn (Negative) Ur MDMA Scrn (Ecstasy) (Negative) U Benzodiazepines Scrn (Negative) Urine Cocaine Screen (Negative) U Marijuana (THC) Screen (Negative) Ethyl Alcohol < 10 ( - 10) mg/dL MDM Narrative Medical decision making narrative: 72-year-old female with 2nd visit this week has no obvious medical condition that would require hospitalization or would require stabilization or intervention. The patient has no suicidal or homicidal ideation but clearly is a risk to herself and potentially others depending on her behavior if she continues to wander. There are not set of circumstances that help keep her safe at home and she is medically cleared and in my opinion appropriate for DCR consultation to consider MONIQUE 010 - DCR has evaluated patient and plans to detain, working on bed placement 0300 - DCR states no appropriate beds currently available, currently a walk away 0700 -patient signed out to Dr. Peng for further evaluation and hopeful disposition <Mable Peng, DO - Last Filed: 12/07/22 02:05> Lab Data Labs: Lab Results 11/29/22 11/29/22 11/29/22 Range/Units 18:43 18:43 19:08 WBC 7.2 (4.5-11.0) X10^3/uL RBC 3.87 L (4.0-5.2) X10^6/uL Hgb 13.3 (12.0-16.0) g/dL Hct 39.7 (36-46) % MCV 102.6 H (80-100) fL MCH 34.4 H (26-34) PG MCHC 33.5 (30-36) % RDW 13.6 (11.6-14.8) % Plt Count 288 (150-400) X10^3/uL Neut % (Auto) 62.1 D (50-75) % Lymph % (Auto) 23.4 L (25-40) % [place] % (Auto) 11.0 (3-14) % Eos % (Auto) 3.0 (2-4) % Baso % (Auto) 0.5 (0-2) % Neut # (Auto) 4500 (7400-7124) /uL Lymph # (Auto) 1700 (6624-2210) /uL [place] # (Auto) 800 (0-900) /uL Eos # (Auto) 200 (0-450) /uL Baso # (Auto) 0 (0-100) /uL Sodium (137-145) mmol/L Potassium (3.4-5.1) mmol/L Chloride (98-107) mmol/L Carbon Dioxide (22-32) mmol/L BUN (7-17) mg/dL Creatinine (0.52-1.04) mg/dL Estimated GFR (>60) mL/min BUN/Creatinine Ratio (6-22) Glucose (80-110) mg/dL Calcium (8.4-10.2) mg/dL Total Bilirubin (0.2-1.3) mg/dL AST (14-36) IU/L ALT (<35) IU/L Alkaline Phosphatase (38-126) U/L Total Protein (6.3-8.2) g/dL Albumin (3.5-5.0) g/dL Globulin (1.7-4.1) g/dL Albumin/Globulin Ratio (1.0-2.8) TSH (0.47-4.68) uIU/mL Urine Color Yellow Urine Appearance Clear Urine pH 6.5 (4.5-8.0) Ur Specific [place] <=1.005 (1.000-1.035) Urine Protein Negative (Negative) Urine Glucose (UA) Negative (Negative) g/dL Urine Ketones Negative (NEGATIVE) Urine Occult Blood Negative (Negative) Urine Nitrate Negative (Negative) Urine Bilirubin Negative (NEGATIVE) Urine Urobilinogen 0.2 (0.2) E.U./dL Ur Leukocyte Esterase Negative (NEGATIVE) Urine RBC 1-5/hpf (0-5/HPF) Urine WBC 1-5/hpf (0-5/HPF) Urine Bacteria None seen (None) Ur Culture Indicated? Cult not indicated Salicylates (<20) mg/dL U Opiates 300ng/mL cut Negative (Negative) Ur Oxycodone Screen Negative (Negative) Urine Methadone Screen Negative (Negative) Acetaminophen (10-30) ug/mL Ur Barbiturates Screen Negative (Negative) U Tricyclic Antidepress Negative (Negative) Ur Phencyclidine Scrn Negative (Negative) Ur Amphetamines Screen Negative (Negative) U Methamphetamines Scrn Negative (Negative) Ur MDMA Scrn (Ecstasy) Negative (Negative) U Benzodiazepines Scrn Positive H (Negative) Urine Cocaine Screen Negative (Negative) U Marijuana (THC) Screen Negative (Negative) Ethyl Alcohol ( - 10) mg/dL 11/29/22 11/29/22 Range/Units 19:08 19:08 WBC (4.5-11.0) X10^3/uL RBC (4.0-5.2) X10^6/uL Hgb (12.0-16.0) g/dL Hct (36-46) % MCV (80-100) fL MCH (26-34) PG MCHC (30-36) % RDW (11.6-14.8) % Plt Count (150-400) X10^3/uL Neut % (Auto) (50-75) % Lymph % (Auto) (25-40) % [place] % (Auto) (3-14) % Eos % (Auto) (2-4) % Baso % (Auto) (0-2) % Neut # (Auto) (3621-0880) /uL Lymph # (Auto) (7511-5643) /uL [place] # (Auto) (0-900) /uL Eos # (Auto) (0-450) /uL Baso # (Auto) (0-100) /uL Sodium 140 (137-145) mmol/L Potassium 3.3 L (3.4-5.1) mmol/L Chloride 108 H (98-107) mmol/L Carbon Dioxide 25 (22-32) mmol/L BUN 7 (7-17) mg/dL Creatinine 0.57 (0.52-1.04) mg/dL Estimated GFR > 60 (>60) mL/min BUN/Creatinine Ratio 12.3 (6-22) Glucose 99 (80-110) mg/dL Calcium 8.2 L (8.4-10.2) mg/dL Total Bilirubin 0.2 (0.2-1.3) mg/dL AST 31 (14-36) IU/L ALT 27 (<35) IU/L Alkaline Phosphatase 77 (38-126) U/L Total Protein 6.3 (6.3-8.2) g/dL Albumin 3.5 (3.5-5.0) g/dL Globulin 2.8 (1.7-4.1) g/dL Albumin/Globulin Ratio 1.3 (1.0-2.8) TSH 1.63 (0.47-4.68) uIU/mL Urine Color Urine Appearance Urine pH (4.5-8.0) Ur Specific [place] (1.000-1.035) Urine Protein (Negative) Urine Glucose (UA) (Negative) g/dL Urine Ketones (NEGATIVE) Urine Occult Blood (Negative) Urine Nitrate (Negative) Urine Bilirubin (NEGATIVE) Urine Urobilinogen (0.2) E.U./dL Ur Leukocyte Esterase (NEGATIVE) Urine RBC (0-5/HPF) Urine WBC (0-5/HPF) Urine Bacteria (None) Ur Culture Indicated? Salicylates < 1.0 (<20) mg/dL U Opiates 300ng/mL cut (Negative) Ur Oxycodone Screen (Negative) Urine Methadone Screen (Negative) Acetaminophen < 10 (10-30) ug/mL Ur Barbiturates Screen (Negative) U Tricyclic Antidepress (Negative) Ur Phencyclidine Scrn (Negative) Ur Amphetamines Screen (Negative) U Methamphetamines Scrn (Negative) Ur MDMA Scrn (Ecstasy) (Negative) U Benzodiazepines Scrn (Negative) Urine Cocaine Screen (Negative) U Marijuana (THC) Screen (Negative) Ethyl Alcohol < 10 ( - 10) mg/dL MDM Narrative Medical decision making narrative: 72-year-old female with 2nd visit this week has no obvious medical condition that would require hospitalization or would require stabilization or intervention. The patient has no suicidal or homicidal ideation but clearly is a risk to herself and potentially others depending on her behavior if she continues to wander. There are not set of circumstances that help keep her safe at home and she is medically cleared and in my opinion appropriate for DCR consultation to consider MONIQUE 0100 - DCR has evaluated patient and plans to detain, working on bed placement 0300 - [facility] states no appropriate beds currently available, currently a walk away 0700 -patient signed out to Dr. Peng for further evaluation and hopeful disposition 11/30/22 Danish: Patient signed out to myself by Dr. Vasquez. Patient is currently a walk away by the DCR were not able to find placement. She is felt to be gravely disabled, no suicidal or homicidal ideation. She has been medically cleared. Patient's home medication of atorvastatin and quetiapine were ordered. Patient did request Tylenol she had 650 mg about 645 this morning requested 1 additional tablet which would be an appropriate dose for her for a total of 975mg. Patient was seen and evaluated by myself, social work, and Dr. Barrios from Psychiatry also evaluated the patient. Patient's records reviewed she has not neurology consult from 2019, she was seen by her primary care in the past 2 weeks and unclear exact etiology of her symptoms but there is some concern about polypharmacy and benzodiazepine use. Dr. Layton recommendation was for monitoring holding benzos, he felt Seroquel 25 mg b.i.d. would be appropriate to continue. He will see patient again tomorrow. Patient does not have any other clear and minimal diagnosis at this time. Patient signed out to Dr. Wilkerson overnight. Dr Wilkerson: overnight 11/30-12/01: Received turned over. Review patient's history and physical. Patient has been stable. We re-contacted DCR since it has been 24 hours since their walk away secondary to no bed availability and they stated that there were still no beds available. They did not specifically re-evaluate the patient. Care turned over to Dr. Peng to continue to observe and disposition. 12/01/22 Danish: Patient was signed out back to myself. Patient has continued to be stable she is been ambulating in the department intermittently. Patient was seen again today by Dr. Barrios, his recommendations are for memory care he does not feel that [facility] would be available and feels that her issues are longstanding and not acute. We do not have social work available in the emergency department today. Both Dr. Barrios and our social media director and worn yesterday spoke to patient's gun fitter Katherine Ward at [phone] who had been contacted had issues daily rate from memory Care which is 85 dollars and upstairs social work recommended sending Dr. Barrios is note back to to see if they can Re issue a higher rate for placement. They suspect this would take 1-2 weeks potentially. There is 1 facility welcome home in [place] that maybe a possibility. JANETTE Ang called she has had daily rate reset, called multiple facilities and 2-[address] Wilkerson: overnight 12/01-12/02: Received turned over. Patient had no issues overnight. Care turned over to day provider to continue to observe until dispositioned. <Federico Wilkerson, DO - Last Filed: 12/02/22 22:50> Lab Data Labs: Lab Results 11/29/22 11/29/22 11/29/22 Range/Units 18:43 18:43 19:08 WBC 7.2 (4.5-11.0) X10^3/uL RBC 3.87 L (4.0-5.2) X10^6/uL Hgb 13.3 (12.0-16.0) g/dL Hct 39.7 (36-46) % MCV 102.6 H (80-100) fL MCH 34.4 H (26-34) PG MCHC 33.5 (30-36) % RDW 13.6 (11.6-14.8) % Plt Count 288 (150-400) X10^3/uL Neut % (Auto) 62.1 D (50-75) % Lymph % (Auto) 23.4 L (25-40) % [place] % (Auto) 11.0 (3-14) % Eos % (Auto) 3.0 (2-4) % Baso % (Auto) 0.5 (0-2) % Neut # (Auto) 4500 (9889-8428) /uL Lymph # (Auto) 1700 (2689-0196) /uL [place] # (Auto) 800 (0-900) /uL Eos # (Auto) 200 (0-450) /uL Baso # (Auto) 0 (0-100) /uL Sodium (137-145) mmol/L Potassium (3.4-5.1) mmol/L Chloride (98-107) mmol/L Carbon Dioxide (22-32) mmol/L BUN (7-17) mg/dL Creatinine (0.52-1.04) mg/dL Estimated GFR (>60) mL/min BUN/Creatinine Ratio (6-22) Glucose (80-110) mg/dL Calcium (8.4-10.2) mg/dL Total Bilirubin (0.2-1.3) mg/dL AST (14-36) IU/L ALT (<35) IU/L Alkaline Phosphatase (38-126) U/L Total Protein (6.3-8.2) g/dL Albumin (3.5-5.0) g/dL Globulin (1.7-4.1) g/dL Albumin/Globulin Ratio (1.0-2.8) TSH (0.47-4.68) uIU/mL Urine Color Yellow Urine Appearance Clear Urine pH 6.5 (4.5-8.0) Ur Specific [place] <=1.005 (1.000-1.035) Urine Protein Negative (Negative) Urine Glucose (UA) Negative (Negative) g/dL Urine Ketones Negative (NEGATIVE) Urine Occult Blood Negative (Negative) Urine Nitrate Negative (Negative) Urine Bilirubin Negative (NEGATIVE) Urine Urobilinogen 0.2 (0.2) E.U./dL Ur Leukocyte Esterase Negative (NEGATIVE) Urine RBC 1-5/hpf (0-5/HPF) Urine WBC 1-5/hpf (0-5/HPF) Urine Bacteria None seen (None) Ur Culture Indicated? Cult not indicated Salicylates (<20) mg/dL U Opiates 300ng/mL cut Negative (Negative) Ur Oxycodone Screen Negative (Negative) Urine Methadone Screen Negative (Negative) Acetaminophen (10-30) ug/mL Ur Barbiturates Screen Negative (Negative) U Tricyclic Antidepress Negative (Negative) Ur Phencyclidine Scrn Negative (Negative) Ur Amphetamines Screen Negative (Negative) U Methamphetamines Scrn Negative (Negative) Ur MDMA Scrn (Ecstasy) Negative (Negative) U Benzodiazepines Scrn Positive H (Negative) Urine Cocaine Screen Negative (Negative) U Marijuana (THC) Screen Negative (Negative) Ethyl Alcohol ( - 10) mg/dL 11/29/22 11/29/22 Range/Units 19:08 19:08 WBC (4.5-11.0) X10^3/uL RBC (4.0-5.2) X10^6/uL Hgb (12.0-16.0) g/dL Hct (36-46) % MCV (80-100) fL MCH (26-34) PG MCHC (30-36) % RDW (11.6-14.8) % Plt Count (150-400) X10^3/uL Neut % (Auto) (50-75) % Lymph % (Auto) (25-40) % [place] % (Auto) (3-14) % Eos % (Auto) (2-4) % Baso % (Auto) (0-2) % Neut # (Auto) (3628-6954) /uL Lymph # (Auto) (7265-6619) /uL [place] # (Auto) (0-900) /uL Eos # (Auto) (0-450) /uL Baso # (Auto) (0-100) /uL Sodium 140 (137-145) mmol/L Potassium 3.3 L (3.4-5.1) mmol/L Chloride 108 H (98-107) mmol/L Carbon Dioxide 25 (22-32) mmol/L BUN 7 (7-17) mg/dL Creatinine 0.57 (0.52-1.04) mg/dL Estimated GFR > 60 (>60) mL/min BUN/Creatinine Ratio 12.3 (6-22) Glucose 99 (80-110) mg/dL Calcium 8.2 L (8.4-10.2) mg/dL Total Bilirubin 0.2 (0.2-1.3) mg/dL AST 31 (14-36) IU/L ALT 27 (<35) IU/L Alkaline Phosphatase 77 (38-126) U/L Total Protein 6.3 (6.3-8.2) g/dL Albumin 3.5 (3.5-5.0) g/dL Globulin 2.8 (1.7-4.1) g/dL Albumin/Globulin Ratio 1.3 (1.0-2.8) TSH 1.63 (0.47-4.68) uIU/mL Urine Color Urine Appearance Urine pH (4.5-8.0) Ur Specific [place] (1.000-1.035) Urine Protein (Negative) Urine Glucose (UA) (Negative) g/dL Urine Ketones (NEGATIVE) Urine Occult Blood (Negative) Urine Nitrate (Negative) Urine Bilirubin (NEGATIVE) Urine Urobilinogen (0.2) E.U./dL Ur Leukocyte Esterase (NEGATIVE) Urine RBC (0-5/HPF) Urine WBC (0-5/HPF) Urine Bacteria (None) Ur Culture Indicated? Salicylates < 1.0 (<20) mg/dL U Opiates 300ng/mL cut (Negative) Ur Oxycodone Screen (Negative) Urine Methadone Screen (Negative) Acetaminophen < 10 (10-30) ug/mL Ur Barbiturates Screen (Negative) U Tricyclic Antidepress (Negative) Ur Phencyclidine Scrn (Negative) Ur Amphetamines Screen (Negative) U Methamphetamines Scrn (Negative) Ur MDMA Scrn (Ecstasy) (Negative) U Benzodiazepines Scrn (Negative) Urine Cocaine Screen (Negative) U Marijuana (THC) Screen (Negative) Ethyl Alcohol < 10 ( - 10) mg/dL MDM Narrative Medical decision making narrative: 72-year-old female with 2nd visit this week has no obvious medical condition that would require hospitalization or would require stabilization or intervention. The patient has no suicidal or homicidal ideation but clearly is a risk to herself and potentially others depending on her behavior if she continues to wander. There are not set of circumstances that help keep her safe at home and she is medically cleared and in my opinion appropriate for DCR consultation to consider MONIQUE 0100 - DCR has evaluated patient and plans to detain, working on bed placement 0300 - DCR states no appropriate beds currently available, currently a walk away 0700 -patient signed out to Dr. Peng for further evaluation and hopeful disposition 11/30/22 Danish: Patient signed out to myself by Dr. Vasquez. Patient is currently a walk away by the DCR were not able to find placement. She is felt to be gravely disabled, no suicidal or homicidal ideation. She has been medically cleared. Patient's home medication of atorvastatin and quetiapine were ordered. Patient did request Tylenol she had 650 mg about 645 this morning requested 1 additional tablet which would be an appropriate dose for her for a total of 975mg. Patient was seen and evaluated by myself, social work, and Dr. Barrios from Psychiatry also evaluated the patient. Patient's records reviewed she has not neurology consult from 2019, she was seen by her primary care in the past 2 weeks and unclear exact etiology of her symptoms but there is some concern about polypharmacy and benzodiazepine use. Dr. Layton recommendation was for monitoring holding benzos, he felt Seroquel 25 mg b.i.d. would be appropriate to continue. He will see patient again tomorrow. Patient does not have any other clear and minimal diagnosis at this time. Patient signed out to Dr. Wilkerson overnight. Dr Wilkerson: overnight 11/30-12/01: Received turned over. Review patient's history and physical. Patient has been stable. We re-contacted DCR since it has been 24 hours since their walk away secondary to no bed availability and they stated that there were still no beds available. They did not specifically re-evaluate the patient. Care turned over to Dr. Peng to continue to observe and disposition. 12/01/22 Danish: Patient was signed out back to myself. Patient has continued to be stable she is been ambulating in the department intermittently. Patient was seen again today by Dr. Barrios, his recommendations are for memory care he does not feel that [facility] would be available and feels that her issues are longstanding and not acute. We do not have social work available in the emergency department today. Both Dr. Barrios and our social media director and worn yesterday spoke to patient's gun fitter Katherine Ward at [phone] who had been contacted had issues daily rate from memory Care which is 85 dollars and upstairs social work recommended sending Dr. Barrios is note back to to see if they can Re issue a higher rate for placement. They suspect this would take 1-2 weeks potentially. There is 1 facility welcome home in [place] that maybe a possibility. JANETTE Ang called she has had daily rate reset, called multiple facilities and 2-[address] Wilkerson: overnight 12/01-12/02: Received turned over. Patient had no issues overnight. Care turned over to day provider to continue to observe until dispositioned. Dr Wilkerson 12/02: Received turned over. Still no movement today for placement for the patient and there was little hope that there will be movement over the weekend.. I discussed the case with hospital administration to come up with a plan as to whether not the patient should stay in the emergency department over the weekend versus being admitted to the hospital. I was informed that the patient should be admitted to the hospital until appropriate disposition can be found. Did discuss the case with Dr. Carey who will admit Discharge Plan Departure Patient Disposition: Admitted As Inpatient Clinical Impression: Adult failure to thrive Admit Date/Time: 12/02/22 21:41 Admit Provider: Clifford Carey
[2022-11-29] MEDS: QUETIAPINE 25 MG TABLET PO (23:46)
[2022-11-29 23:47] VITALS: BP 138/74; PULSE 84; RESP 18; O2SAT 97
--- NOTE | 2022-11-30 00:12 | PC.NURSE ---
Pt preoccupied with needing a suppository for her rectum. Pt unable to recall what suppository she has been using in the past. Pt has been told multiple times that the ED is unable to provide a suppository for her at this time. Pt then asked this RN to cut a piece of gauze she has rolled up. Pt reports she is going to insert it into her rectum, but needs it cut smaller. This RN informed pt that placing a foreign body into her rectum is not advised. Pt states she needs something in her rectum to help her sleep. This RN again informed pt that inserting a foreign body into her rectum is not advised. Pt states, Well I guess I won't be getting any sleep tonight.
[2022-11-30] MEDS: QUETIAPINE 25 MG TABLET PO ×2 (03:16→20:42)
--- NOTE | 2022-11-30 06:19 | PC.NURSE ---
Pt up to use the bathroom. Pt reports she needs to call a taxi this morning and arrange for herself to go back to her [facility], where she has already picked out her breakfast. Pt states she also needs to go back to arrange transportation for her hearing this morning. Pt is unable to tell me what [facility] she is at. Unable to tell me details about this hearing. Attempted to reorient patient. Continues to remain disoriented. Pt currently awaiting DCR placement.
[2022-11-30 06:41] VITALS: BP 154/83; PULSE 113; RESP 18; TEMP 36.6; O2SAT 97
[2022-11-30] MEDS: ACETAMINOPHEN 325 MG TABLET 650 MG PO (06:44)
--- NOTE | 2022-11-30 06:57 | PC.NURSE ---
This RN received call from pt's sister Dixon Baldwin . Pt confirmed that it is okay to speak with Dixon and to give her medical information. Dixon has been unaware of pt's situation over the past few days/weeks. Dixon does confirm that, Magdi, pt's emergency contact is in fact her roommate. Per Dixon, pt has been aware that Magdi will be selling the house and pt had to move out by end of October. Dixon has been attempting to assist pt with low income housing and has provided her information about housing in [place]. Per Dixon, pt had reported she will look into low income housing in [place]. Dixon has been unaware that pt has been diagnosed with dementia that has progressively worsen. Dixon has been update on pt's current situation. Dixon states she will call back later in the day and would appreciate a call as well for updates.
[2022-11-30] MEDS: ACETAMINOPHEN 325 MG TABLET PO (08:42)
--- NOTE | 2022-11-30 12:20 | PC.NURSE ---
Pt very active in her room all morning, folding clothing and rearranging her belongings. Walks to restroom with steady gait. Oriented to self. Pt routinely talks to herself. Advises this RN that she has a room mate in the treatment room with her.
[2022-11-30 12:25] VITALS: BP 141/77; PULSE 107; RESP 16; TEMP 36.5; O2SAT 96
--- NOTE | 2022-11-30 15:22 | CM.DPNOTE ---
DCP note: CM talked with ADULT HIGH SCHOOL INSTRUCTOR Kalie and discussed case. patient was DC yesterday afternoon home with her house mate who agreed with DC home with him providing patient care and home health was set up to start . CM spoke with ADULT HIGH SCHOOL INSTRUCTORHans Jade and discussed patients baseline cognitive issues presented in previous medical records and discussed possible DC planning options. CM printed and gave Packet to ADULT HIGH SCHOOL INSTRUCTOR with information about patient from previous stay along with patients [facility] case preparer and liner number and current daily rate information to help with possible DC planning to [facility], [facility] or memory care. Cm encouraged ADULT HIGH SCHOOL INSTRUCTOR to reach out to [facility] porter sample case and discuss increasing daily rate for placement. Also encouraged ADULT HIGH SCHOOL INSTRUCTOR to call Memory care units like [facility] [place], or [facility] which both accept Medicaid payments. CM team is here to help with questions as needed Laly Ceja RNchristian science healer
--- NOTE | 2022-11-30 15:56 | PC.NURSE ---
Patient was wandering in the hallway again. I approached patient and was able to redirect her to her room. I encouraged patient to sit in the recliner with her foot elevated and explained that this would help decrease swelling. Patient was agreeable, resting comfortably in the recliner.
--- NOTE | 2022-11-30 17:55 | P.CONS_ITS ---
History of Present Illness Consult details Date Patient Seen: 11/30/22 Time Patient Seen: 16:20 Chief complaint: Psych Reason for consult: Dementia vs. Delirium Requesting provider: Mable Peng Narrative: REFERRAL INFORMATION This is the LATEST OF MANY psychiatric evaluation for this 72-YEAR-OLD FEMALE referred from the emergency department for evaluation of mental status changes. RECORDS REVIEW The patient?s referral documents, medical records and intake questionnaire were reviewed as part of this evaluation. In addition, I referred to my previous outpatient evaluation dated 06/18/2020 for background history unobtainable today. CHIEF COMPLAINT ?I am not sure.? HISTORY OF PRESENT ILLNESS The patient has a long history of depression and anxiety dating back to childhood and a prior history of multiple suicide attempts as an adult. She also has a long history of substance use throughout her adulthood but was apparently sober for alcohol in more recent years. The patient was referred to me almost 3 years ago by her primary care provider after the patient had admitted to taking diazepam 10 mg suppositories up to 6 times per day which was significantly more than what was prescribed. In addition the patient also took zolpidem XR nightly with the additional doses of Benadryl for insomnia. An attempt was made at that time to begin the process of gradually tapering her off of benzodiazepines with a goal ultimately of withdrawal but the patient failed to follow-up with me. Currently, she apparently was living with a housemate who is moving at the end of the summer to be with family and she was supposed to move into low-income housing. She was seen on November 04 at her primary care office complaining that she had left her tramadol and Ambien that hotel by accident and needed more and also complained of needing Valium vaginal suppositories which is what she had been using previously when I 1st saw her. Patient was able to get refills of Ambien, tramadol, and Valium and at that visit was noted to be alert and oriented x3. On November 27, the patient was brought into the emergency department by police officers after she was found wandering in the street. Apparently the patient was standing in traffic at [facility] and [facility] and when contacted by police officers told them that she was supposed to be getting a ride to [place] in order to go to court. She was apparently unaware that it was Monday and there was no court open. Police officers attempted to give her ride to our residence where the house made informed them that she would done this before and the yomi ent continued to insist that she was supposed to go to [place] so the [place] police determined that she might be a danger to herself and was unable to care for herself so he brought her to the emergency department for further evaluation and treatment. Here, at the [facility] ED, the patient underwent a fairly thorough workup inclusive of head CT, blood work, urinalysis, drug screen, lumbar puncture, and thorough physical exam. She was found to have an elevated CPK and mildly elevated AST and was mildly tachycardic. Other than being moderately dehydrated there was no other obvious etiology for her symptoms identified. She was ultimately admitted to the inpatient medicine service. She was treated with IV fluids and her CK levels improved. The hospitalist speculated that it was possible that she developed an encephalopathy related to having been off of a number of sedating medications for an unclear period of time and then having them all restarted simultaneously when she obtain them. It is also possible that she may have taken higher doses than indicated and given her history, this may have been likely. In addition, he noted a possibility of dementia with a slums of , but noted some improvement in orientation on the day of discharge and felt that she was safe to return home with her ?? who was actually her housemate. He provided her with Seroquel in hopes that this might improve sleep quality. The previous intoxicating medications were recommended to be held upon discharge. The patient was discharged on the afternoon of 11/29/2022 The patient returned later that evening after police were dispatched to her previous home to help get her into the house after discharge. The patient apparently did not recognize her housemate or the house and refused to go inside. She was transferred back to the emergency department and is now waiting further disposition. Currently, the patient has no significant complaints other than difficulty with memory. She is oriented to her name and date, but is somewhat confused about the place (thought she was in a longterm facility), and time (knows that it is the end of October but thinks that it is 2002). She can spell WORLD backwards but can not appropriately interpret proverbs nor remember any items even with almost immediate recall. She was alert and cooperative with the examination, and although occasionally tangential, generally remained focused on the examiner and answered questions the best of her ability. She denied feeling particularly anxious or depressed, but did express si gnificant concern about her lack of memory and cognition. She denied any psychosis. She denied any suicidal or homicidal ideation, intent, or plan. Prior Hx from my previous eval 06/18/2020. PAST PSYCHIATRIC HISTORY: - Diagnoses: Depression, unknown Provider, 1980s. - Inpatient: Once, location unknown, following suicide attempt. - Outpatient: - Dr. Jamal Paz, therapy, 2010 ? 2019 - Dr. Lancaster, therapy, 2006 ? 2011 - Suicide Attempts: One, timeline unknown; occurred as an adult. Patient could not recount. Previous Medication Trials: - Bupropion ? previously effective, but recently ineffective on a trial with Dr. Long - Fluoxetine ? reaction; ?I went to the ER? CURRENT PSYCHOTROPIC MEDICATIONS: - Diazepam powder suppository Q6H PRN rectal pain - Zolpidem ER 12.5mg Q4H PRN insomnia, up to 2 per night PERTINENT FAMILY AND SOCIAL HISTORY FAMILY HISTORY: - Maternal:? Patient denies. - Paternal:? Patient denies. - Siblings:? Patient denies. SUBSTANCE USE HISTORY: - Tobacco: The patient does not smoke. - Alcohol: The patient reports consuming up to 1 bottle of wine every 4 ? 6 weeks. - Drugs: The patient reports a significant history of previous extensive substance use. ? Of note, she proudly displayed her book describing her experiences at [place] in 1968.? She currently denies use of cannabis and? anyother substances. DEVELOPMENTAL AND SOCIAL HISTORY: - Family Constellation/Environment:? Born in [facility], the patient grew- up living in a home that her parents owned. The patient describes a difficult relationship with her mother and older sister; her mother was neglectful and her sister resented her. She was somewhat close with her father through the years. - Childhood Trauma: The patient denied any history of childhood physical or sexual abuse, and has no history of witnessing violence as a child. - Developmental milestones: The patient reached normal developmental milestones. - Education: The patient was an adequate student in school and graduated from high school. The patient initially attended college following high school, but left for a period of years, then finished college in 1979. - Employment:? The patient states that she has never stayed at a job longer than 9 months. - Relationships: She lives with a roommate/former romantic partner. She has one close friend in [place] who she typically visits yearly. - Current Living: She currently lives locally with a former romantic partner. She says that they are now just good friends. - Support: Income from social security. - Legal: No current legal difficulties. Meds Home Medications and Allergies Home Medications Medication Instructions Recorded Confirmed Type Disabled Parking Permit #1 ea 02/26/21 11/04/22 Rx atorvastatin 80 mg tablet 80 mg PO BEDTIME 11/27/22 11/27/22 History quetiapine 25 mg tablet 25 mg PO BID 30 days #60 tabs 11/29/22 Rx Allergies Allergy/AdvReac Type Severity Reaction Status Date / Time hydroxyzine [HYDROXYZINE] Allergy Mild facial rash Verified 11/29/22 18:43 erythromycin base Allergy Unknown Verified 11/29/22 18:43 filgrastim Allergy Unknown Verified 11/29/22 18:43 meperidine Allergy Unknown Verified 11/29/22 18:43 mirtazapine [MIRTAZAPINE] Allergy Unknown swollen Verified 11/29/22 18:43 tongue, blurry vision pegfilgrastim Allergy Unknown Verified 11/29/22 18:43 propoxyphene Allergy Unknown Verified 11/29/22 18:43 bupropion AdvReac Intermediate SORE Verified 11/29/22 18:43 THROAT, SUPPRESSED APPETITE oxycodone [OXYCODONE] AdvReac Intermediate seizure Verified 11/29/22 18:43 amoxicillin [AMOXICILLIN] AdvReac Mild diarrhea Verified 11/29/22 18:43 meloxicam AdvReac Mild GI SYMPTOMS Verified 11/29/22 18:43 chlordiazepoxide AdvReac Unknown anxiety Verified 11/29/22 18:43 [CHLORDIAZEPOXIDE] doxepin [DOXEPIN] AdvReac Unknown rectal Verified 11/29/22 18:43 burning ramelteon [RAMELTEON] AdvReac Unknown rectal Verified 11/29/22 18:43 burning trazodone [TRAZODONE] AdvReac Unknown insomnia Verified 11/29/22 18:43 Review of Systems Review of Systems ROS: Yes unobtainable due to mental condition Exam Vital Signs (past 8 hours): - 11/30/22 12:25 Temperature 97.7 F Pulse Rate 107 H Respiratory Rate 16 Blood Pressure 141/77 H Pulse Oximetry 96 Oxygen Delivery Method Room Air Oxygen Delivery Method Room Air Narrative Exam Narrative: MENTAL STATUS EXAM * Apperance: The patient is well-developed and well-nourished female who appears stated age. * Grooming: neatly dressed in casual clothing and adequately groomed. * Eye Contact: Good * Behavior: Calm and cooperative with the examination. * Motor Movement: No abnormal motor movements noted. * Gait: Not tested * Speech: Normal rate, volume, tone, and franchesca. * Mood: I am not sure. * Affect: Pleasant, cooperative, neutral affect, generally euthymic. Congruent with thought content and with normal range and reactivity. * Thought Process: For the most part, linear, logical, and goal directed. * Thought Content: No SI/HI, intent, or plan. No evidence of a thought or perceptual disturbance. * Attention: Attentive to interview * Orientation: Oriented to person, but not to place, year, or specific circumstance. * Memory: 0/4 objects recalled at 5 minutes. * Insight: Poor by history * Judgment: Poor by history * Impulse Control: Poor by history Objective Labs 11/29/22 19:08 11/29/22 19:08 Labs: Laboratory Results - last 24 hr 11/29/22 11/29/22 11/29/22 18:43 18:43 19:08 WBC 7.2 RBC 3.87 L Hgb 13.3 Hct 39.7 MCV 102.6 H MCH 34.4 H MCHC 33.5 RDW 13.6 Plt Count 288 Neut % (Auto) 62.1 D Lymph % (Auto) 23.4 L Rich % (Auto) 11.0 Eos % (Auto) 3.0 Baso % (Auto) 0.5 Neut # (Auto) 4500 Lymph # (Auto) 1700 Rich # (Auto) 800 Eos # (Auto) 200 Baso # (Auto) 0 Sodium Potassium Chloride Carbon Dioxide BUN Creatinine Estimated GFR BUN/Creatinine Ratio Glucose Calcium Total Bilirubin AST ALT Alkaline Phosphatase Total Protein Albumin Globulin Albumin/Globulin Ratio TSH Urine Color Yellow Urine Appearance Clear Urine pH 6.5 Ur Specific [place] <=1.005 Urine Protein Negative Urine Glucose (UA) Negative Urine Ketones Negative Urine Occult Blood Negative Urine Nitrate Negative Urine Bilirubin Negative Urine Urobilinogen 0.2 Ur Leukocyte Esterase Negative Urine RBC 1-5/hpf Urine WBC 1-5/hpf Urine Bacteria None seen Ur Culture Indicated? Cult not indicated Salicylates U Opiates 300ng/mL cut Negative Ur Oxycodone Screen Negative Urine Methadone Screen Negative Acetaminophen Ur Barbiturates Screen Negative U Tricyclic Antidepress Negative Ur Phencyclidine Scrn Negative Ur Amphetamines Screen Negative U Methamphetamines Scrn Negative Ur MDMA Scrn (Ecstasy) Negative U Benzodiazepines Scrn Positive H Urine Cocaine Screen Negative U Marijuana (THC) Screen Negative Ethyl Alcohol 11/29/22 11/29/22 19:08 19:08 WBC RBC Hgb Hct MCV MCH MCHC RDW Plt Count Neut % (Auto) Lymph % (Auto) Rich % (Auto) Eos % (Auto) Baso % (Auto) Neut # (Auto) Lymph # (Auto) Rich # (Auto) Eos # (Auto) Baso # (Auto) Sodium 140 Potassium 3.3 L Chloride 108 H Carbon Dioxide 25 BUN 7 Creatinine 0.57 Estimated GFR > 60 BUN/Creatinine Ratio 12.3 Glucose 99 Calcium 8.2 L Total Bilirubin 0.2 AST 31 ALT 27 Alkaline Phosphatase 77 Total Protein 6.3 Albumin 3.5 Globulin 2.8 Albumin/Globulin Ratio 1.3 TSH 1.63 Urine Color Urine Appearance Urine pH Ur Specific [place] Urine Protein Urine Glucose (UA) Urine Ketones Urine Occult Blood Urine Nitrate Urine Bilirubin Urine Urobilinogen Ur Leukocyte Esterase Urine RBC Urine WBC Urine Bacteria Ur Culture Indicated? Salicylates < 1.0 U Opiates 300ng/mL cut Ur Oxycodone Screen Urine Methadone Screen Acetaminophen < 10 Ur Barbiturates Screen U Tricyclic Antidepress Ur Phencyclidine Scrn Ur Amphetamines Screen U Methamphetamines Scrn Ur MDMA Scrn (Ecstasy) U Benzodiazepines Scrn Urine Cocaine Screen U Marijuana (THC) Screen Ethyl Alcohol < 10 [facility] Medical History Acrochordon Actinic keratosis Alcoholism Ankle pain (~2009) Anxiety (~1957) Breast cancer (~2004) Callus of foot Chickenpox (~1953) Chronic back pain (~2006) Depression (~1957) Foot pain (~1999) Fracture, trimalleolar (~07/12/10) Hearing loss (~2006) Hyperlipidemia (~1979) Insomnia (~1984) Labral tear of left hip joint (~1986) Mononucleosis (~1967) Mumps (~1953) Osteoarthritis of ankle Osteoarthritis of knees, bilateral (~2009) Osteopenia (~1989) Osteoporosis (~2009) Pain of left breast Plantar warts (~1963) Rosacea (~1983) Shoulder pain (~1999) Tinnitus (~1999) Torn ACL (anterior cruciate ligament) (~1966) Surgical History Anesthesia History of ankle surgery (~2009) History of lumpectomy (~2005) History of repair of anterior cruciate ligament of left knee (~2003) Status post arthroscopy (~2014) Status post hysterectomy (~1996) Family History Father Osteoporosis Mother Heart disease High cholesterol Alzheimer's dementia without behavioral disturbance, unspecified timing of dementia onset Social History household members: spouse and other Tobacco & Substance Use Smoking Status: Unknown if ever smoked Tobacco: How many years used: 4 second hand exposure: No alcohol intake: never substance use type: former substance user (former marijuana ) and marijuana (former ) Assessment & Plan Assessment and plan (1) Major neurocognitive disorder due to multiple etiologies: Status: Acute (2) Polysubstance use disorder: Status: Acute Assessment & Plan narrative: ASSESSMENT/MEDICAL DECISION MAKING The patient is a 72-year-old woman previously seen by me over 2 and half years ago after she presented with mild cognitive impairment and memory loss. During that interview she admitted to a prior history of significant levels of substance use and at that time was taking diazepam 10 mg suppositories up to 6 times per day which was significantly more than prescribed. In addition, the patient may have been abusing zolpidem as well as other potential prescription meds with potential for abuse. At that time her cognitive function was declining and may have become worse more recently. In the last several days, the patient once again presented with significant cognitive deficits in the context of chronic cognitive impairment as well as acute substance intoxication apparently having convince a clinic that she needed diazepam, tramadol, and zolpidem. It appears likely that there may be a combination of both acute and chronic neurocognitive impairment. The patient was evaluated by the DCR and determined to be a danger to self, but given that they [facility] available decided to declare this case a ?walk away.? RECOMMENDATIONS 1. Concur that the patient is likely a danger to self and not capable of caring for basic needs. 2. Recommend that patient be held until appropriate disposition can be arranged. 3. Recommend holding any potentially intoxicating medications such as benzodiazepines, Ambien, or opiates. There is a possibility that with additional time and given the long half-life of diazepam, her mental state may clear further. 4. We will continue to follow with you and assist as best I can with social work to obtain appropriate disposition. Time Spent With Patient Time with patient: 50 to 69 minutes with 50% spent counseling/coordinating care
--- NOTE | 2022-11-30 18:41 | CM.SWNOTE ---
ED CREPE SOLE WIRE BRUSHER/DCP Assessment Note Patient is 72 y/o female who presents to ED via LE and Community Illustrator Set last evening two hours after discharge from observational stay in Acute care. Patient has hx of two incidents with LE where patient is wandering streets and confused. LE reported concern for patient wandering in traffic. Patient was discharged with [facility] referral, contact with [facility] case checker for [facility] care search and Community Illustrator Set. Patient discharged via merts taxi yesterday and upon arrival to home where roommate lives patient stated she didn't live there, community report developer transported patient to home and patient reports similar complaint, patient is brought back to ED due to her confusion. DCR was dispatched last night upon medical clearance and patient was deemed a walk away due to no geripsych placements available and no facilities willing to take patient with Dementia diagnosis. Patient has hx of Mild Cognitive impairment with Memory loss, hx of seizure, RENE, Insomnia, Depression, and Hyperlipidemia. Per Dr. Barrios?s previous report in 2019 there is concern for patient?s reported polysubstance use of diazepam suppositories and benzodiazepines. Patient's PCP is Dr. Bess, patient has Medicaid and [facility] insurance. DCR Report and Geripsych placement Search: Patient was deemed gravely disabled but due to her diagnosis of Dementia the DCR was unable to find an accepting facility. XOCHITL Rhoades attempted to find placement at [facility], [facility], [facility], and [facility]. This CREPE SOLE WIRE BRUSHER contacted hospitals as well: [facility]- no beds Anna At capacity [facility] does not accept out of county patients Patient Assessment: CREPE SOLE WIRE BRUSHER enters room to meet with patient. Patient states you must be the social services analyst. CREPE SOLE WIRE BRUSHER asks where patient is right now, patient states [place] [facility]. CREPE SOLE WIRE BRUSHER informs patient that she is at in [place]. Patient states it is the last day of October in the year 2002. Patient endorses that she has stage 3 Alzheimer?s Patient presents as adamant that she resides at a residential and her case checker Ana informed her to move to her new residential. Patient endorses that she [place] but she is not able to identify the name and the city. (Prior to meeting with patient, CREPE SOLE WIRE BRUSHER speaks with Ana who endorses that patient is not residing at a residential.) Patient endorses she moved to [place] several years ago and has been living with roommate Magdi. Patient reports that Magdi is moving out to live with his son, and patient endorses that she moved out to a residential. Patient endorses Magdi?s address as her current address. Patient endorses concern for a ?hearing tomorrow? and states that the hearing is where she is [facility]. Patient cannot endorse where. Patient endorses she cannot recall how she got to [place] from where she was living but states she recalls taxi rides yesterday and contact with the ?option trader?. Per [employer] search, patient did have [facility] date in August 2022, no details provided. [place] supports. Patient states she has two caregivers. Patient later comes out of room and provides COLLEGE BASKETBALL COACH with phone number to facility that she states she resides in (Ph. # [phone]) CREPE SOLE WIRE BRUSHER searches and calls number for [facility] in [place], [place]. It is reported that patient does not and has not resided there. belt notcher care placement: CREPE SOLE WIRE BRUSHER calls patient?s [facility] case checker Ana Corona (Ph. # [phone]) Ana reports that patient called her late last night and this morning stating that she was at an [facility]. CREPE SOLE WIRE BRUSHER informs Ana that patient returned to ED shortly after d/c from acute care yesterday and patient is still in need of [facility] placement. Ana endorses concerns for patient?s memory issues over the past 3 years. Ana endorses that patient will need to pay private pay for the first two years of [facility] and then insurance will cover placement. Ana endorses that she received medical information regarding new Dementia dx and will reassess and continue search for [facility]. After reviewing RN notes, CREPE SOLE WIRE BRUSHER identifies a sister that contacted ED and CREPE SOLE WIRE BRUSHER provides sister?s number to Ana as patient will need payee or guardian for finances. CREPE SOLE WIRE BRUSHER calls Ana back after meeting with patient and endorses concern for patient?s need for new assessment due to increased memory loss, CREPE SOLE WIRE BRUSHER leaves requesting return call. CREPE SOLE WIRE BRUSHER calls patient?s roommate Magdi at (Ph. # [phone]) twice and there is no answer and VM set up. CREPE SOLE WIRE BRUSHER calls Magdi at (Ph. # [phone]) and leaves VM requesting return call. CREPE SOLE WIRE BRUSHER calls Marianne at [facility] and leaves VM regarding patient boarding in ED and CREPE SOLE WIRE BRUSHER will follow up regarding POC, requesting to place referral for HH on pause as patient will not be home. CREPE SOLE WIRE BRUSHER calls [facility] in [place], it was reported that patient has been declined and they have told [facility] case checker this. CREPE SOLE WIRE BRUSHER calls [facility] in [place] and leaves message requesting return call. Discussion with Family and supports: CREPE SOLE WIRE BRUSHER calls patient?s sister Nolvia (previously documented as Dixon) who resides in [place] (ph. # [phone]) Nolvia reports that patient does not have a current place to reside and was under the impression that she and Magdi had to move out at the end of this month and the house is to be sold. Sister endorses knowledge of patient?s hx with counselors and doctors and questions if she is taking medication as prescribed. Nolvia reports that she thought patient was capable of identifying a new place to reside and gave patient resources to do so. CREPE SOLE WIRE BRUSHER endorses that patient is not able at this time to independently plan for her living situation and is in need of assistance. Nolvia states all of her family resides in [place]. Nolvia endorses recently that patient reconnected with a friend in [place] and they tried to help patient move to [place] and patient [place] foot [place]) and then decided to return to [place]. CREPE SOLE WIRE BRUSHER endorses that patient is in need of a DPOA and assistance with managing finances and seeking a living situation. CREPE SOLE WIRE BRUSHER provides sister with [facility] case checker?s phone number. Nolvia?s daughter arrives by phone and endorses her experience in human services and it is reported that Nolvia and daughter will discuss patient?s situation and attempt to identify a plan. It is not likely that either one can come to [place] to assist in person. CREPE SOLE WIRE BRUSHER provides phone number for ED CREPE SOLE WIRE BRUSHER and ED and endorses that CREPE SOLE WIRE BRUSHER will not be working tomorrow. Discussion with PCP and consults: CREPE SOLE WIRE BRUSHER calls patient?s PCP Dr. Bess who reports she assessed and met with patient on 11/14/22 and patient presented as ?normal baseline? no concerns for confusion. PCP reports that patient was cognitive and coherent and stated that she was planning to move to new state. PCP does report concern for hx of on/off narcotics and benzodiazepines. CREPE SOLE WIRE BRUSHER reviews patient with DONAVON Ruffin DCP who reports that they contacted Magdi yesterday and he stated patient resided there and he could manage her needs, they set up HH referral with [facility]. Laly recommends Psychiatry consult. CREPE SOLE WIRE BRUSHER requests consult for Psychiatry after reviewing patient with ED provider. Dr. Barrios assesses patient in ED this afternoon. Dr. Barrios endorses concern for patient?s benzodiazepine use and suggests monitoring patient. Dr. Barrios recommendations: RECOMMENDATIONS 1. Concur that the patient is likely a danger to self and not capable of caring for basic needs. 2. Recommend that patient be held until appropriate disposition can be arranged. 3. Recommend holding any potentially intoxicating medications such as benzodiazepines, Ambien, or opiates. There is a possibility that with additional time and given the long half-life of diazepam, her mental state may clear further. 4. We will continue to follow with you and assist as best I can with social work to obtain appropriate disposition. CREPE SOLE WIRE BRUSHER leaves with Community Illustrator Set [place] Ramirez and requests that he follow up with patient and ED tomorrow as this CREPE SOLE WIRE BRUSHER will not be there. APS: CREPE SOLE WIRE BRUSHER calls APS and it is reported that the APS intake that was submitted yesterday was screened out. CREPE SOLE WIRE BRUSHER makes new APS report due to concern for self-neglect. APS Online Report Confirmation Number: [id number] Plan: Patient to continue to board in ED, Community Illustrator Set [place] Ramirez to f/u with [facility] tomorrow, awaiting return call from [facility] case checker, Psychiatrist Dr. Barrios to re-assess patient tomorrow. ED provider to continue to treat and evaluate patient. CREPE SOLE WIRE BRUSHER to f/u with family upon CREPE SOLE WIRE BRUSHER's return to work. ANDRA Storey
[2022-11-30 19:20] VITALS: BP 127/83; PULSE 88; RESP 16; TEMP 37.1; O2SAT 99
[2022-11-30] MEDS: ATORVASTATIN 20 MG TABLET 80 MG PO (20:41)
--- NOTE | 2022-12-01 03:10 | PC.NURSE ---
Spoke with XOCHITL Rhoades. There continues to be no beds in the area for patient.
--- NOTE | 2022-12-01 03:35 | PC.NURSE ---
This anode machine operator Spoke with Rabia (XOCHITL) on a follow up call about placement opportunity for the Pt. XOCHITL States there are currently no facilities with availibility to take this Pt. XOCHITL States I will pass this on to the day time DCR and DIRECTOR OF COMPENSATION should follow up during the day
[2022-12-01] MEDS: ACETAMINOPHEN 325 MG TABLET 650 MG PO ×2 (05:39→15:00)
[2022-12-01 05:42] VITALS: BP 162/94; PULSE 106; RESP 16; TEMP 36.6; O2SAT 97
--- NOTE | 2022-12-01 09:38 | OT.IP.EVAL ---
Current Diagnoses Dementia in other diseases classified elsewhere, unspecified severity, without behavioral disturbance, psychotic disturbance, mood disturbance, and anxiety (11/29/22) Other psychoactive substance use, unspecified, uncomplicated (11/29/22) Past Medical History (Last Reviewed 11/30/22 @ 18:20 by Ivan Barrios MD) Acrochordon Actinic keratosis Alcoholism Ankle pain (~2009) Anxiety (~1957) Breast cancer (~2004) Callus of foot Chickenpox (~1953) Chronic back pain (~2006) Depression (~1957) Foot pain (~1999) Fracture, trimalleolar (~07/12/10) Hearing loss (~2006) Hyperlipidemia (~1979) Insomnia (~1984) Labral tear of left hip joint (~1986) Mononucleosis (~1967) Mumps (~1953) Osteoarthritis of ankle Osteoarthritis of knees, bilateral (~2009) Osteopenia (~1989) Osteoporosis (~2009) Pain of left breast Plantar warts (~1963) Rosacea (~1983) Shoulder pain (~1999) Tinnitus (~1999) Torn ACL (anterior cruciate ligament) (~1966) Surgical History (Last Reviewed 11/30/22 @ 18:20 by Ivan Barrios MD) Anesthesia History of ankle surgery (~2009) History of lumpectomy (~2005) History of repair of anterior cruciate ligament of left knee (~2003) Status post arthroscopy (~2014) Status post hysterectomy (~1996) Occupational Therapy Inpatient Evaluation/Re-Eval M1 PT/OT-IP Prior Functional Status Start: 12/01/22 10:17 Freq: Status: Active Protocol: Document 12/01/22 09:03 [facility] (Rec: 12/01/22 10:52 [facility] [id number]) Medical Review Prior Functional Status Communication independent Mobility and Gait independent Activities of Daily Living and IADL's Pt states has friend, staff, and that assist her. Pt not able to recall and inconsistent with her information of whose is helping her especially for IADl needs. Prior Functional Level (Other details) Pt insists that she lives in [place] at [facility]. Social History Household Members spouse,other M2 OT-IP Current Condition Start: 12/01/22 10:17 Freq: Status: Active Protocol: Document 12/01/22 09:03 [facility] (Rec: 12/01/22 10:52 [facility] [id number]) Occupational Therapy Current Condition Current Condition Evaluation Date 12/01/22 Treatment Diagnosis Dementia versus Delirium Diagnosis Onset Date 11/29/22 M3 OT- IP Subjective and Pain Start: 12/01/22 10:17 Freq: Status: Active Protocol: Document 12/01/22 09:03 [facility] (Rec: 12/01/22 10:52 [facility] [id number]) OT- Subjective Occupational Therapy Visit Type Type Initial Evaluation Visit Start Time 09:03 Visit Stop Time 09:38 Total Visit Minutes 35 Occupational Therapy Visit Comments Patient Comments Pt agreed to do cognitive assessment for OT eval as SLUMS requested to be done. Patient/Caregiver Goals To go back to [place]. OT Pain Assessment Pain When Pain Assessed At Rest Pain Present Pain Present Denied Pain M4 OT- IP ADL's Start: 12/01/22 10:17 Freq: Status: Active Protocol: Document 12/01/22 09:03 [facility] (Rec: 12/01/22 10:52 [facility] [id number]) OT [id number] Comments OT Self-Feeding Comments Not at meal OT ADL-Grooming Comments OT Grooming Comments Pt able to wash her hands at the sink. Pt needing vc to find the soap dispenser. OT ADL-Oral Care Comments Oral Care Comments Not performed. OT ADL-Dressing Comments OT Dressing Comments Not performed. OT ADL-Toileting Comments OT Toileting Comments Pt and nursing states pt has been able to do toileting needs. OT ADL-Bathing Comments OT Bathing Comments Not performed. M5 OT- IP IADL's Start: 12/01/22 10:17 Freq: Status: Active Protocol: Document 12/01/22 09:03 [facility] (Rec: 12/01/22 10:52 [facility] [id number]) OT-Instrumental Activities of Daily Living Home Safety Awareness Home Safety Comments Pt has poor short term memory and will need 24/7 supervision and best to be at a Memory Care facility. M6 OT- IP Functional Cognition Start: 12/01/22 10:17 Freq: Status: Active Protocol: Document 12/01/22 09:03 [facility] (Rec: 12/01/22 10:52 [facility] [id number]) Cognitive Factors Limiting Selfcare Function Cognitive Ability Level of Alertness Alert Patient Orientation Name Attention Span Ability Capable of Focused Attention, Unable to Sustain Attention Ability to Follow Commands Able to Follow One Step Commands with Increased Time, Able to Follow One Step Commands with Repetition Memory Description Short Term Impaired,Visual Supervisor Impaired,Working Impaired Cognitive Tests SLUMS Pt scored 2/30 with SPOOLER OPERATOR AUTOMATIC on and today scored 11/30 which implies dementia. Pt able to states what state we are in, able to recall 10 animals in one minute, able to recall 3 and 4 digit numbers backwards,and able to answer 3 /4 questions right after paragraph read. ACL Pt scored 4.2/6.0 which implies pt will need 24/7 supervision to recognize and correct hazzards even in routine activities. Prompt to do daily ADL tasks, provide meals/meds/finances. Pt needing 24 supervision to remove dangerous objects outside of the visual field and solve any new problems that arise from minor changes in the environment. Cognitive Comments Cognitive Assessment Comments Pt SLUMS score implies dementia and ACL score implies pt will benefit from 24/7 supervision and best suited for memory care facility. OT- Vision and Hearing OT- Hearing Assessment OT- Hearing Assessment WFL OT- Vision Assessment Visual Acuity WFL M7 OT- IP Mobility and Balance Start: 12/01/22 10:17 Freq: Status: Active Protocol: Document 12/01/22 09:03 [facility] (Rec: 12/01/22 10:52 [facility] [id number]) OT-Transfer Assessment Sit to and From Stand Sit to and from Stand Standby Assistance Transfers Transfer Ability Standby Assistance Technique Transfer Destination Chair Comments Mobility Comments Pt able to stand from the recliner to the sink and able to walk back on her own with slightly wide base on support distant SBA. OT- Balance Assessment Sitting Balance and Reactions Static Sitting Balance Ability Normal Dynamic Sitting Balance Ability Good Standing Balance and Reactions Static Standing Balance Ability Good Dynamic Standing Balance Ability Fair M8 OT- IP Objective Assessments Start: 12/01/22 10:17 Freq: Status: Active Protocol: Document 12/01/22 09:03 [facility] (Rec: 12/01/22 10:52 [facility] [id number]) OT Strength Upper Extremity Strength Assessment Within Functional Limits Comments Strength Comments grossly WFL for needs for BUE OT- Coordination Assessment Comments Coordination Comments Arthritic changes in her hands . OT-Muscle Tone Assessment Muscle Tone WNL Yes M9 OT- IP Assessment and Plan Start: 12/01/22 10:17 Freq: Status: Active Protocol: Document 12/01/22 09:03 [facility] (Rec: 12/01/22 10:52 [facility] [id number]) OT Summary Assessment and Plan Potential Rehabilitation Potential Fair Analytic Complexity at Evaluation Moderate Summary OT Impairments Functional Cognition Assessment Summary Pt MOD complexity and main barriers is her decreased memory. Pt scored 11/30 on the SLUMS which implies dementia. Pt scored 4.2 out of 6.0 on the [place] Cognitive Level Screen which implies pt will need 24/7 supervision to recognize and correct hazzards even in routine activities. Prompt to do daily ADL tasks, provide meals/meds/finances. Pt needing 24 supervision to remove dangerous objects outside of the visual field and solve any new problems that arise from minor changes in the environment. Pt would benefit from Memory care facility. At this time discharge from OT services as SLUMS completed. Discharge Recommendations Other Discharge Recommendations Memory Care Transportation Needs at Discharge Private Vehicle
[2022-12-01] MEDS: QUETIAPINE 25 MG TABLET PO ×2 (10:16→20:50)
--- NOTE | 2022-12-01 10:16 | PC.NURSE ---
OT in department to see pt for cognitive evaluation. Declared pt would need 24hr care. No MECHANICAL DESIGN DRAFTER in department today. Pt has been in contact with her MECHANICAL DESIGN DRAFTER from the [facility]--Katherine Machado--[phone].
--- NOTE | 2022-12-01 10:34 | PC.NURSE ---
PROJECT DESIGNER Note: I assisted pt in taking a shower. Throughout, pt kept mentioning her worries about going to her hearing scheduled at noon.
--- NOTE | 2022-12-01 10:43 | PC.NURSE ---
Received call from madalyn Murphy's SECOND CHEF from the [facility]. Referred to SECOND CHEF.
[2022-12-01 11:00] VITALS: BP 129/71; PULSE 102; RESP 16; TEMP 36.9; O2SAT 100
--- NOTE | 2022-12-01 11:05 | CM.DPC ---
DCP Continued: MICHAEL spoke with Ana with Home and community services this morning at [phone], Michael discussed current situation with the patient needing guardianship- Ana stated she is not familiar with this process but she will contact her boss and APS to see about getting guardianship process started on there end. . MICHAEL did ask Ana about what JANETTE Del Real note stated Ana endorses concerns for patient?s memory issues over the past 3 years. Ana endorses that patient will need to pay private pay for the first two years of [facility]/SNF and then insurance will cover placement. Ana informed me that this is inaccurate.... the patient does currently have active medicaid she is not in spend down but that a few facilities contacted by Ana stated they have a policy that they cannot accept the patients medicaid for two years and the Patient would need to pay privately for there facility for two years before they could accept her Medicaid insurance. However there are some medicaid accepting facilities that they are attempting to get the patient placed at that will accept medicaid from day one and do not have those policies. MICHAEL asked Ana if she was able to update the patients daily rate? she said she was able to increase it from $86 dollars to $124.65 for an [facility]... CM asked what the rate would be for a locked memory care unit since that is the recommendation? Ana stated that she is working with her coworkers to get that added to the equation and see if that will increase the daily rate more. MICHAEL asked Ana to send updated Daily rate information and assessment to CM team. She stated she would. Once recieved CM will have it scanned into EMR for easy team access. JANETTE Ang is working on contacting locked memory care facilities, [facility] and [facility] to see who has bed availability as well as contacting the patients Sister Nolvia Baldwin [phone] to see, as the patients next of Kin, if she would be willing to agree to the patient going to Memory care unit or [facility] under her medicaid and signing for that vs needing guardianship established prior to patient being placed. CM team will continue to work on this complex DC plan Laly Ceja RNapplication systems architect
--- NOTE | 2022-12-01 14:50 | CM.DPNOTE ---
Addendum entered by Laly Ceja R.N. 12/01/22 17:06: DC plan continued: JANETTE Ang left for the day and CM received a call back from [facility] [place] and was told they have no more medicaid beds available but there admissions did tell CM about the facility [facility] [place] that just opened and has a large facility and Cm was told they maybe taking medicaid patients at this time. CM called there facility and [facility] [phone] Cm was also told to try [facility] [phone] and [facility] [place] are also two facilities that take medicaid patients and he believes they have beds. JANETTE Ang has already contacted these two facilities at this time and we are currently waiting for calls back. Alex at [facility] phone number was not working however admissions from [facility] gave new number to try listed above. CM team will continue to work with ED Team to find safe DC plan for this patient. Laly Ceja bundle collector Original Note: Per MD, pt remains medically stable and LTC placement issue as currently pt's dementia and wandering make returning home unsafe and pt did not recognize her home and refused to enter 2 days ago. Pt does not have behaviors and ambulates independently but per OT today pt scored 11/30 on SLUMS cog assess and needs 24/7 due to safety risk and impulsivity. Per Psychiatrist Consult, recommending Memory Care placement and likely no need for Faust[facility]-Psych placement but recommends not providing pt with benzos. Pt currently on Seroquel. MIRNA left 2 messages for pt's HCS worker Ana Griffith [phone] to follow up on her emailing pt's HCS assessment with daily rate $124.65 or possibly even higher from Ana's discussion with DCP Laly this morning. MIRNA also left msg inquiring about pt qualifying for the incentive hospital rate in addition to daily rate for LTC placement. MIRNA called the following Memory Care facilities to accept under pt's Medicaid: [facility]- only private pay for memory care [facility]- only private pay for memory care [facility] [place]- 2 year private pay then medicaid [facility]- currently full and long wait list for memory care [facility]- 2 yr private pay then medicaid [facility] [place]- no medicaid [facility] [place]- no medicaid [facility] Annel Pe[facility]aloza- no openings [facility]- no answer Santh[facility] Fitzpatrick- no memory care, just assisted Carolee Paz- 2 yrs private pay then medicaid [place] Eunice [place]- no openings Edson Andrade-left msg for [facility] [place]- doesn't ring through [facility]- Gricelda [phone] left msg [facility]- left msg [facility] [place]- left msg [facility]- left msg [facility]- [facility] msg [facility] [place]- they have openings, willing to review. Sent hospital clinicals via secure email to [email or web address]. They are not a locked/secured facility. Not appropriate placement. [facility] Nadia Marco A- willing to review. Sent hospital clinicals via secure email to [email or web address] [place]- Lamar [phone] willing to review. Sent hospital clinicals via secure email to [email or web address] Likely has openings at their [place], [facility] or [place] location. [facility]- has openings, willing to review once confirmed pt qualifies for hospital incentive rate. [facility]- Have openings for Medicaid Memory care, willing to review. Faxed hospital clinicals to [phone]. RN would need to do an assessment if they think they can accept but could be in person or via [employer]. MIRNA called pt's sister Nolvia [phone] and left msg updating on attempts to find placement under Medicaid and also to confirm she would be willing to sign pwk if needed as NOK etc.. Requested she call back. MIRNA updated ED supervisor car installations and MD and staff appreciative of the placement attempts. Plan: MIRNA to follow closely for return call/fax from [facility] CM Ana with pt's updated [facility] assessment with daily rate and to confirm pt qualifies for hospital incentive rate to then send to above reviewing Memory Care facilities to determine if any can accept. JANETTE Lazaro
--- NOTE | 2022-12-01 15:45 | PC.NURSE ---
Patient in the hallway stating she has to leave today and needs to go soon. Patient was redirected to her room and obeys commands. Patient is anxious to leave.
--- NOTE | 2022-12-01 17:19 | PC.NURSE ---
Patient wandering in halls. Walked patient back to her room. Patient anxious, but cooperative.
--- NOTE | 2022-12-01 17:26 | PC.NURSE ---
Patient came out of her room to the ER desk and was having issues using her phone. I walked with the patient back to her room and was able to fix her phone for her. Patient sitting in reclining chair in room. Patient anxious, but cooperative.
[2022-12-01 21:17] VITALS: BP 146/80; PULSE 101; RESP 18; O2SAT 99
[2022-12-01] MEDS: ATORVASTATIN 20 MG TABLET 80 MG PO (21:24)
--- NOTE | 2022-12-01 21:54 | PC.NURSE ---
Patient was ambulating in the hallway again. Patient reoriented to room and cooperative.
[2022-12-01 23:13] VITALS: BP 142/79; PULSE 101; RESP 16; O2SAT 100
[2022-12-02 01:16] VITALS: BP 149/81; PULSE 96; RESP 18; O2SAT 99
--- NOTE | 2022-12-02 08:44 | CM.DPC ---
Addendum entered by JANETTE Lazaro 12/02/22 12:56: ADD: MIRNA updated ED DIRECTOR PAYMENT and nursing informatics analyst Lea and ED DIRECTOR PAYMENT to continue with coordinating attempts at LTC placement. BF Addendum entered by JANETTE Lazaro 12/02/22 11:51: ADD: MIRNA received the HCS assessment from Ana and then sent the HCS assessment to the following facilities: [facility]- HCS assessment sent secure email to [email or web address]- HCS assessment sent via secure email to [email or web address] Faxed HCS assessment to [phone]. RN would need to do an assessment if they think they can accept but could be in person or via Ipad/Remote. Waiting to confirm if Hospital incentive rate still in effect before reaching out to :[facility]- has openings, willing to review once confirmed pt qualifies for hospital incentive rate. BF Original Note: Per ED RN notes, pt has been cooperative with care and follows directives but wanting to leave and has been allowed to walk the unit halls and then returns to room and is reoriented. MIRNA had no return calls from pt's HCS worker Ana P [phone] so MIRNA called again and she answered and Ana states she misunderstood about sending pt's HCS assessment and states she will send it this morning and MIRNA provided [facility] email. MIRNA also requested that Ana confirm if [facility] still has Hospital Incentive Rate in place or any other incentives for facilities to accept pt's directly from the hospital. MIRNA also discussed the lengthy process for Guardianship and asked Ana to inquire with her Supervisors the option of the state setting up Payee or if the Medicaid daily rate could be paid directly to the Memory Care facility. Ana states she will get confirmation and information regarding these two questions. MIRNA then emailed Ana with the 4 Memory Care Units ( [facility]- [phone] [facility] [place]- [phone] [facility]- [phone] [facility]- [phone]) that have openings and accept Medicaid and informed her that the facilities would likely be reaching out to her for confirmation and questions once they receive the HCS assessment that MIRNA will send out once Ana emails Care Management. Plan: MIRNA to follow closely for Ana to email HCS assessment this morning and MIRNA will then send out to above 4 memory care units and Ana to gather additional information regarding Hospital incentive rate and Payee. Ana states email correspondence is likely the fastest right now [email or web address]. MIRNA will hand off and update incoming ED DIRECTOR PAYMENT later today to continue working on placement. JANETTE Lazaro
[2022-12-02] MEDS: ACETAMINOPHEN 325 MG TABLET 650 MG PO ×3 (08:50→20:39)
[2022-12-02 08:55] VITALS: BP 130/70; PULSE 111; RESP 14; O2SAT 94
[2022-12-02] MEDS: QUETIAPINE 25 MG TABLET PO ×2 (10:21→20:39)
[2022-12-02 11:41] VITALS: BP 114/60; PULSE 108; RESP 14; O2SAT 96
--- NOTE | 2022-12-02 16:03 | CM.SWNOTE ---
Addendum entered by Kalie Rodriguez 12/03/22 14:04: TRANSMISSION TECHNICIAN received call from [facility] and it is reported they have no memory care openings and only have a 3 year private pay spenddown Medicaid program. ANDRA Storey Addendum entered by Kalie Rodriguez 12/02/22 18:06: TRANSMISSION TECHNICIAN calls patient?s roommate Magdi at (Ph. # [phone]) twice and there is no answer and set up. TRANSMISSION TECHNICIAN calls Magdi at (Ph. # [phone]) it is reported that the number is no longer in service. ANDRA Storey Addendum entered by Kalie Rodriguez 12/02/22 17:16: TRANSMISSION TECHNICIAN receives email from Ana [facility] senior project manager engineering She reports she is still awaiting confirmation about the hospital incentive rate of pay, she was previously informed that it ended in December 2021. Ana reports that Lamar with [facility] [place] has been able to receive this incentive in the last month. It is reported that [facility] [place] reached out to her and states they have a specialized dementia care program with a daily rate of pay of $135.95. Since patients current daily rate is $124.65, Ana is going to request increase approval from [facility] but cannot do so until Monday. Ana reports that none of the other facilities reviewing patient reached out to her yet. Ana confirms that patient's sister and niece are in the process of becoming patient's payee and filling out paperwork. Ana will return to work on Monday and will f/u with any further updates regarding pay rate increase and hospital incentives. *per conversation with patient's niece, TRANSMISSION TECHNICIAN requests return call if they hear from patient's roommate Magdi. TRANSMISSION TECHNICIAN to attempt to call roommate once more as well. Patient continues to board in ED and wander through halls, patient is responsive to redirection and presents with calm disposition. TRANSMISSION TECHNICIAN meets with patient and redirects her to her room. Patient presents as patient while she is in ED but does not quite understand she is in the ED. TRANSMISSION TECHNICIAN explains that TRANSMISSION TECHNICIAN is working with Ana to identify a memory care facility for patient, patient indicates agreement. TRANSMISSION TECHNICIAN endorses that TRANSMISSION TECHNICIAN has been in contact with her niece and sister to assist her with navigating the transition to moving and in regards to finances, patient indicates agreement. Patient endorses she believes she was living at an [facility] in [place] before this. Patient endorses she has been trying to get in touch with Magdi her roommate with no success and she is worried about her belongings at home. Kaile Rodriguez, [facility] Original Note: ED DCP Note Continued TRANSMISSION TECHNICIAN reviews patient with Ashia, TRANSMISSION TECHNICIAN and ED director Lea Three memory facilities are currently reviewing patient: [facility], [facility] and [facility]. Madisyn Conde in [facility] is interested in reviewing patient if there is a hospital incentive rate. TRANSMISSION TECHNICIAN calls and emails Ana [facility] Construction Executive regarding this, Ana reports she is awaiting information about hospital incentive rate. She reports that she sent Payee paperwork to patient's sister and niece. TRANSMISSION TECHNICIAN requests Ana to update TRANSMISSION TECHNICIAN prior to the end of her business day. TRANSMISSION TECHNICIAN speaks with patient's niece Jazz (Ph. # [phone]) Jazz is daughter of Nolvia- tawnya's sister. Jazz endorses she is discussing with her parents that they may need to travel here to assist patient with this transition to new living situation. Jazz states she has been in contact with Ana and she and her mom are awaiting paperwork from [employer] for becoming Payee and/or guardian. TRANSMISSION TECHNICIAN informs Jazz of the continued search for placement. TRANSMISSION TECHNICIAN receives VM from Irina with [facility] (Ph.# [phone]) regarding this TRANSMISSION TECHNICIAN's [facility] intake report. TRANSMISSION TECHNICIAN calls back and leaves regarding patient. Continued Memory Care search (Facilities that accept Medicaid: TRANSMISSION TECHNICIAN receives call from Gricelda who covers the [place] end of all [facility] facilities (Ph. # [phone]) she reports that there could be openings in [place] or [place]. TRANSMISSION TECHNICIAN states that Lamar at [place] is currently reviewing patient's [facility] assessment and clinicals. Gricelda states she will call Lamar to confirm this and if needed Gricelda will call back for further coordination. Ronan Halfway - 2 year private pay then Medicaid [facility] [place]- left message with admissions, executive receptionist states they accept medicaid and should have openings Edson Andrade - no openings and 3 year private pay then medicaid [facility] [place] - lest message with Annalise Kwong - 3 year private pay then medicaid [facility] [place] - no medicaid [place] Amaya Guthrie (Ph. # [phone]) left message [facility] [place] - 2 year private pay then medicaid [facility] [place] - left message [facility] - [facility] message [facility] - left message [place] Darrel Dillon - 2 year private pay then medicaid [facility] - no answer [facility] - 2 year private pay then medicaid [facility] - 15 month private pay then medicaid [facility] - left message with Pablo Res[facility] [place] - left message Leonardo Johnson @ Haritha Peñaloza - 2 year private pay then medicaid Becca Velasco - 5 year private pay then medicaid Plan: f/u with [facility] case liner for information about hospital rate incentive or any rate increases, f/u with 3 memory care facilities reviewing patient, stay in contact with sister and niece regarding payee ppwk and patient care and placement. Kalie Rodriguez, SPECIAL CLASS WELDER
[2022-12-02] MEDS: ATORVASTATIN 20 MG TABLET 80 MG PO (20:39)
[2022-12-02 20:46] VITALS: BP 125/75; PULSE 89; RESP 16; O2SAT 98
[2022-12-02 20:47] VITALS: TEMP 36.9
[2022-12-02 22:45] VITALS: BP 114/57; PULSE 99; RESP 17; TEMP 35.9; O2SAT 95
[2022-12-02 22:49] VITALS: BMI 25.7
--- NOTE | 2022-12-02 23:52 | PC.NURSE ---
Pt. admitted to a view room in room 206. Pt. very poor historian she stated I'm living in an assisted home in [facility]. But she said' I was moving out, because my dementia is getting bad. I sprained my left ankle/foot when we're put something in the U haul & finally got my boot last week. Wearing her sweater, pants & hospital gown. Refused to take off her pants & sweater. Unable to thoroughly inspect her skin, denies any fall @ home. Bed alarm activated, will cont. POC & monitor.
--- NOTE | 2022-12-03 00:56 | P.HP_ITS ---
History of Present Illness History of Present Illness Date Patient Seen: 12/02/22 Time Patient Seen: 22:00 Chief complaint: Psych Narrative: Ms. Decker is a 72W with H depression, anxiety, cognitive impairment who is admitted for prolonged delay in finding placement. She has a history of alcohol abuse bug has been sober for quite some time per other physician notes. She lives with a roommate who will be leaving in a few month, with her plan to move to low income housing. She presented to the hospital on 11/[address]. Workup showed no acute process on CT, normal LP. She had mildly elevated CK, AST. There was some documentation of considering an MRI brain, but this appears not to have been done. She was dehydrated. She had SLUMS of . She had previously been on ambien, tramadol, and valium, and was supervising her own medication administration. It was thought she was mostly demented, but possibly had polypharmacy contributing to her confusion. She was discharged back home on 11/29 with seroquel. She returned to the ED that evening as she refused to enter her house and did not recognize her roommate per notes. She has been in the ED for days as they have been unable to place patient, it appears that press [facility] long [facility] memory care is being looked into. She was seen by psychiatry in the ED who agreed with other physicians that she was unsafe for home. Psychiatry agreed with avoiding altering medications. She has no complaints when I see her. [facility] Medical History Acrochordon Actinic keratosis Alcoholism Ankle pain (~2009) Anxiety (~1957) Breast cancer (~2004) Callus of foot Chickenpox (~1953) Chronic back pain (~2006) Depression (~1957) Foot pain (~1999) Fracture, trimalleolar (~07/12/10) Hearing loss (~2006) Hyperlipidemia (~1979) Insomnia (~1984) Labral tear of left hip joint (~1986) Mononucleosis (~1967) Mumps (~1953) Osteoarthritis of ankle Osteoarthritis of knees, bilateral (~2009) Osteopenia (~1989) Osteoporosis (~2009) Pain of left breast Plantar warts (~1963) Rosacea (~1983) Shoulder pain (~1999) Tinnitus (~1999) Torn ACL (anterior cruciate ligament) (~1966) Surgical History Anesthesia History of ankle surgery (~2009) History of lumpectomy (~2005) History of repair of anterior cruciate ligament of left knee (~2003) Status post arthroscopy (~2014) Status post hysterectomy (~1996) Family History Father Osteoporosis Mother Heart disease High cholesterol Alzheimer's dementia without behavioral disturbance, unspecified timing of dementia onset Social History household members: friend(s) Smoking Status: Unknown if ever smoked Tobacco: How many years used: 4 second hand exposure: No alcohol intake: never substance use type: former substance user (former marijuana ) and marijuana (former ) Meds Home Medications and Allergies Home Medications Medication Instructions Recorded Confirmed Type Disabled Parking Permit #1 ea 02/26/21 12/02/22 Rx atorvastatin 80 mg tablet 80 mg PO BEDTIME 11/27/22 12/02/22 History quetiapine 25 mg tablet 25 mg PO BID 30 days #60 tabs 11/29/22 12/02/22 Rx zolpidem 12.5 mg tablet,extended 12.5 mg PO BEDTIME PRN Insomnia 12/02/22 12/02/22 History release,multiphase Allergies Allergy/AdvReac Type Severity Reaction Status Date / Time hydroxyzine [HYDROXYZINE] Allergy Mild facial rash Verified 11/29/22 18:43 erythromycin base Allergy Unknown Verified 11/29/22 18:43 filgrastim Allergy Unknown Verified 11/29/22 18:43 meperidine Allergy Unknown Verified 11/29/22 18:43 mirtazapine [MIRTAZAPINE] Allergy Unknown swollen Verified 11/29/22 18:43 tongue, blurry vision pegfilgrastim Allergy Unknown Verified 11/29/22 18:43 propoxyphene Allergy Unknown Verified 11/29/22 18:43 bupropion AdvReac Intermediate SORE Verified 11/29/22 18:43 THROAT, SUPPRESSED APPETITE oxycodone [OXYCODONE] AdvReac Intermediate seizure Verified 11/29/22 18:43 amoxicillin [AMOXICILLIN] AdvReac Mild diarrhea Verified 11/29/22 18:43 meloxicam AdvReac Mild GI SYMPTOMS Verified 11/29/22 18:43 chlordiazepoxide AdvReac Unknown anxiety Verified 11/29/22 18:43 [CHLORDIAZEPOXIDE] doxepin [DOXEPIN] AdvReac Unknown rectal Verified 11/29/22 18:43 burning ramelteon [RAMELTEON] AdvReac Unknown rectal Verified 11/29/22 18:43 burning trazodone [TRAZODONE] AdvReac Unknown insomnia Verified 11/29/22 18:43 Review of Systems Review of Systems Narrative: 14 systems unable to be reviewed due to mental status Exam Vital Signs (past 8 hours): - 12/02/22 20:46 12/02/22 20:47 12/02/22 22:45 Temperature 98.5 F 96.6 F L Pulse Rate 89 99 H Respiratory Rate 16 17 Blood Pressure 125/75 114/57 L Pulse Oximetry 98 95 Oxygen Delivery Method Room Air Oxygen Flow Rate 0 Oxygen Delivery Method Room Air Oxygen Flow Rate 0 Narrative Exam Narrative: GEN:? no acute distress PULM:?clear bilaterally CV:? Regular rate and rhythm ABD:? Soft, nontender, nondistended EXT:? Warm, well perfused, no edema NEURO:? Alert and awake Objective Labs 11/29/22 19:08 11/29/22 19:08 Assessment & Plan Assessment & Plan narrative: 1. Cognitive impairment -working diagnosis currently is fairly significant dementia -she has been worked up for other etiology of encephalopathy with no clear source, and per other staff she remains without improvement -plan is for press tender long goods memory care placement per note -she has a sister who MIRNA is discussing next steps I have discussed plan with patient. I have discussed plan of care with ED physician and bedside nurse. I have reviewed labs, imaing, and medical notes. CODE: presumed Full Proxy: Nolvia Baldwin, sister Quality VTE Deep Vein Thrombosis/Pulmonary Embolism Present on Admission: No MIPS - Meds 'Current medications' to include all prescriptions, ppgn-fjf-nrubxco products, herbals, cannabis/cannabidiol products, and vitamin/mineral/dietary (nutritional) supplements. I have utilized all available resources to obtain, update, or review the patient?s current medications. [If Yes, STOP here]: Yes
[2022-12-03 08:00] VITALS: BP 106/88; PULSE 88; RESP 17; TEMP 36.2; O2SAT 98
[2022-12-03] MEDS: ACETAMINOPHEN 325 MG TABLET 650 MG PO ×2 (09:00→18:34)
[2022-12-03] MEDS: QUETIAPINE 25 MG TABLET PO ×2 (09:00→20:42)
[2022-12-03] MEDS: HEPARIN 5,000 UNIT/ML VIAL 5000 UNIT SUBCUT ×2 (09:00→20:42)
[2022-12-03] MEDS: SENNOSIDES 8.6 MG TABLET PO ×2 (12:30→20:41)
--- NOTE | 2022-12-03 14:01 | CM.DANOTE ---
Initial DCP Assessment Note Patient is a 72 yo female, diagnosis of dementia, has been living with friend Magdi in [place] and was found wandering down the street approx one week ago trying to flag down people in traffic. At that time, attempt was made by [employer] to return patient to her home where friend Magdi admitted he could not keep her from wandering and did not feel it was safe for her to remain in his home Patient brought into the ED, admitted OBS for further w/u r/t delirium in the setting of poly-pharmacy and was inevitably taken home by Community Chemist [place] Ramirez. At which point patient refused to go back into [facility]'s home- Patient again brought into the ED for evaluation and felt not to be safe for return home Reference notes for detailed notes outlining placement efforts thus far Patient's contacts: Sister Nolvia Baldwin P [phone] and remy Vikki P [phone] ([place]) email: [email or web address] Friend Magdi P [phone] ([facility]) HEATHER Nuclear We[employer] Custodian Ana Corona P [phone] email: [email or web address] Allyssa with [employer] (Ph.# [phone]) [place] Ramirez, Community Chemist P [phone] Today, patient seen in/out of room #206, Dr Lucero says patient's cognition much improved since her last OBS admission. Patient continues to need monitoring and redirecting r/t her dementia however can ambulate, shower, brush teeth and dress indp according to [employer]IL[employer]ER Placed call to remy Florez to inquire about any other living arrangements available to patient locally (while placement efforts continue) Vikki explains that patient was in the middle of moving out of Magdi's home because he is likely going to sell soon. Patient has no friends or family that live in [facility]. Sister and/or niece available by phone but not planning on flying to [place] at this time. Vikki confirms her mom, Nolvia, is actively working on becoming patient's payee Placed calls to the following placement leads to inquire about scheduling bedside vs zoom assessments: [facility] in [facility], [facility], [facility] and [facility] in [facility] No one available over the weekend at any of these facilities to discuss scheduling of a bedside/IPAD assessment Plan: Patient requires ocean transportation intermediary care placement. Movement over the weekend is unlikely as jimenez players in this DCplanning process are not available. CM team will continue to follow closely, keep family updated JANETTE Milligan Discharge Planning/Care Management CM Discharge Assessment Start: 12/03/22 13:55 Freq: Status: Active Protocol: Document 12/03/22 13:55 SHAYE (Rec: 12/03/22 14:01 SHAYE [id number]) Discharge Planning Assessment Assigned Lining Setter JANETTE Gardiner DPOA/Assigned Designee Name Nolvia Baldwin, sister (FADI) Contact Information [phone] Advance Directives? No Advance Directives on File No History Provided By Family Member,Medical Record Has Patient been admitted in last 30 Yes days? Comment OBS admit [id number] Prior Living Arrangements House Household Members friend(s) Type of transporation used prior to Relies on Others admit Willing to Return to Facility? does not know the name of the assisted living. Independent with ADL's Yes: Needs assist r/t her dementia, Indp physically Is patient alert and oriented? No Needs Assistance With Meal Prep,Managing Medications ,Home Chores / Shopping Comment Has HEATHER RODRIGUEZ- Ana Comment long-term care placement at Memory care, locked unit presumed the most appropriate Barriers to Discharge Yes Comment See narrative Discharge Plan [facility] Care Facility Transportation Arrangement TBD
--- NOTE | 2022-12-03 14:09 | PM.PN.1 ---
Subjective Subjective Interval history: 72-year-old female with known history of remote breast cancer, remote tobacco dependence, mild cognitive impairment, remote history of alcohol dependence, osteoporosis, hyperlipidemia, reported history of HSV?who was previously admitted from 11/27/2022 through 11/29/2022 with acute encephalopathy and concern for progressive dementia with worsening cognitive impairment. She discharged back to her home where she lives with a roommate. Unfortunately, upon returning home he did not recognize her nor her roommate. She refused to go in. She was subsequently brought back into the emergency department for further evaluation. Patient was placed on a DCR hold, which was subsequently discontinued. Psychiatry consultation was obtained. Dr. Barrios recommended memory care placement. Unfortunately, she is remained in the emergency department since that time and ultimately our service was asked to admit her to the medical floor pending discharge disposition. This morning, she is much clear than when I admitted her last weekend. She is able to tell me it is December 03. She tells me she was at an adult family states she was placed there against her will by her roommate. She states her sister lives in [facility]. She has a good friend from [place] named Sachin who she reports came out a month or so ago to help her move down to [place] where another friend lives. She states in [place] she sustained a sprained ankle and ultimately returned to this area. She is unable to clarify why she would return to [place] if she had been planning to move. She also is adamant that she was staying in the adult family home prior to coming to the hospital. Exam Vital Signs (past 8 hours): - 12/03/22 08:00 Temperature 97.1 F L Pulse Rate 88 Respiratory Rate 17 Blood Pressure 106/88 Pulse Oximetry 98 Oxygen Flow Rate 0 Oxygen Delivery Method Room Air Oxygen Flow Rate 0 Narrative Exam Narrative: GEN: Alert and oriented x 2, NAD HEENT:NC, Face symmetric CHEST: Respiratory excursions symmetric, CTAB CV: RRR, no M/R/G ABD: Soft, NT/ND, BT present in all 4 quadrants, no organomegaly or masses EXTR: warm, well perfused, no C/C/E SKIN: warm and dry, no rash NEURO: Alert and oriented x 3, nonfocal Objective Labs 11/29/22 19:08 11/29/22 19:08 [facility] Medical History Acrochordon Actinic keratosis Alcoholism Ankle pain (~2009) Anxiety (~1957) Breast cancer (~2004) Callus of foot Chickenpox (~1953) Chronic back pain (~2006) Depression (~1957) Foot pain (~1999) Fracture, trimalleolar (~07/12/10) Hearing loss (~2006) Hyperlipidemia (~1979) Insomnia (~1984) Labral tear of left hip joint (~1986) Mononucleosis (~1967) Mumps (~1953) Osteoarthritis of ankle Osteoarthritis of knees, bilateral (~2009) Osteopenia (~1989) Osteoporosis (~2009) Pain of left breast Plantar warts (~1963) Rosacea (~1983) Shoulder pain (~1999) Tinnitus (~1999) Torn ACL (anterior cruciate ligament) (~1966) Surgical History Anesthesia History of ankle surgery (~2009) History of lumpectomy (~2005) History of repair of anterior cruciate ligament of left knee (~2003) Status post arthroscopy (~2014) Status post hysterectomy (~1996) Family History Father Osteoporosis Mother Heart disease High cholesterol Alzheimer's dementia without behavioral disturbance, unspecified timing of dementia onset Social History household members: friend(s) Smoking Status: Unknown if ever smoked Tobacco: How many years used: 4 second hand exposure: No alcohol intake: never substance use type: former substance user (former marijuana ) and marijuana (former ) Assessment & Plan Assessment & Plan narrative: 1. Cognitive impairment Previous slums assessment done here was . She certainly seems cognitively better than that today. Will ask OT to do a repeat slums assessment. Placement is pending. Social work is assisting with further arrangements. 2. Remote history of breast cancer Stable. No known recurrence. 3. Genital herpes Was on high-dose acyclovir prior to last admission. That has since been discontinued. 4. Constipation Patient is complaining of constipation. Senna has been ordered. 5. Macrocytosis No evidence of anemia. Will check a B12 and folate level as deficiency could worsen cognitive impairment 6. Hypokalemia Noted on November 29. Will recheck labs in the morning. Code status DNR/DNI per POLST Prophy Low Meenu score Dispo Continue monitoring on the medical unit pending placement. Quality VTE Deep Vein Thrombosis/Pulmonary Embolism Present on Admission: No
[2022-12-03 15:57] VITALS: BP 127/73; PULSE 89; RESP 17; TEMP 36.3; O2SAT 96
[2022-12-03] MEDS: BISACODYL 10 MG SUPP PR (18:34)
--- NOTE | 2022-12-03 20:20 | P.PN_ITS ---
Subjective Subjective Interval history: 72-year-old female with known history of remote breast cancer, remote tobacco dependence, mild cognitive impairment, remote history of alcohol dependence, osteoporosis, hyperlipidemia, reported history of HSV?who was previously admitted from 11/27/2022 through 11/29/2022 with acute encephalopathy and concern for progressive dementia with worsening cognitive impairment.? She discharged back to her home where she lives with a roommate.? Unfortunately, upon returning home he did not recognize her nor her roommate.? She refused to go in.? She was subsequently brought back into the emergency department for further evaluation.? Patient was placed on a DCR hold, which was subsequently discontinued.? Psychiatry consultation was obtained.? Dr. Barrios recommended memory care placement.? Unfortunately, she is remained in the emergency department since that time and ultimately our service was asked to admit her to the medical floor on the evening of 12/02/22 pending discharge disposition. Yesterday, pt became increasingly perseverative over having a bowel movement. She initially asked for laxatives, which were ordered and given in the late morning hours. She then began asking for more laxatives. She was given warm prune juice. She then began inserting her finger in her rectum and was convinced she had hard stool she needed to pass. She became increasingly focused on it and by the late afternoon was talking about needing to see the doctor urgently and about going to a real hospital to get checked out. A dulcolax suppository was subsequently ordered and she had no further requests. Today, she reports she is feeling well. No further abdominal complaints. She is asking that we contact her roommate and to have him call her she states the phone in the room can not dial out. Exam Vital Signs (past 8 hours): - 12/03/22 15:57 Temperature 97.3 F L Pulse Rate 89 Respiratory Rate 17 Blood Pressure 127/73 Pulse Oximetry 96 Oxygen Flow Rate 0 Oxygen Delivery Method Room Air Oxygen Flow Rate 0 Narrative Exam Narrative: GEN: Alert and oriented x 2-3, NAD HEENT:NC, Face symmetric CHEST: Respiratory excursions symmetric, CTAB CV: RRR, no M/R/G ABD: Soft, NT/ND, BT present in all 4 quadrants, no organomegaly or masses EXTR: warm, well perfused, no C/C/E SKIN: warm and dry, no rash NEURO: Alert and oriented x 2-3, nonfocal Objective Labs 12/04/22 06:19 12/04/22 06:19 [facility] Medical History Acrochordon Actinic keratosis Alcoholism Ankle pain (~2009) Anxiety (~1957) Breast cancer (~2004) Callus of foot Chickenpox (~1953) Chronic back pain (~2006) Depression (~1957) Foot pain (~1999) Fracture, trimalleolar (~07/12/10) Hearing loss (~2006) Hyperlipidemia (~1979) Insomnia (~1984) Labral tear of left hip joint (~1986) Mononucleosis (~1967) Mumps (~1953) Osteoarthritis of ankle Osteoarthritis of knees, bilateral (~2009) Osteopenia (~1989) Osteoporosis (~2009) Pain of left breast Plantar warts (~1963) Rosacea (~1983) Shoulder pain (~1999) Tinnitus (~1999) Torn ACL (anterior cruciate ligament) (~1966) Surgical History Anesthesia History of ankle surgery (~2009) History of lumpectomy (~2005) History of repair of anterior cruciate ligament of left knee (~2003) Status post arthroscopy (~2014) Status post hysterectomy (~1996) Family History Father Osteoporosis Mother Heart disease High cholesterol Alzheimer's dementia without behavioral disturbance, unspecified timing of dementia onset Social History household members: friend(s) Smoking Status: Unknown if ever smoked Tobacco: How many years used: 4 second hand exposure: No alcohol intake: never substance use type: former substance user (former marijuana ) and marijuana (former ) Assessment & Plan Assessment & Plan narrative: 1. Cognitive impairment Previous slums assessment done here was .? She continues to cognitively clear here. She remember that I am her physician without me reintroducing myself. She was able to write out a list of things she wishes to discuss with her roommate. OT re-assessment pending to reperformed a slums assessment. Pl acement is pending.? Social work is assisting with further arrangements. 2. Remote history of breast cancer Stable.? No known recurrence. 3. Genital herpes Was on high-dose acyclovir prior to last admission.? That has since been discontinued. 4. Constipation Senna scheduled. PRN dulcolax. Large BM documented in the past 24 hours. 5. Macrocytosis No evidence of anemia.? Normal B12 and folate levels. Macrocytosis is improved today. 6. Hypokalemia Resolved. Code status DNR/DNI per POLST Prophy Low Meenu score Dispo Continue monitoring on the medical unit pending placement. Quality VTE Deep Vein Thrombosis/Pulmonary Embolism Present on Admission: No
[2022-12-03] MEDS: ATORVASTATIN 20 MG TABLET 40 MG PO (20:41)
[2022-12-03 21:00] VITALS: BP 138/80; PULSE 91; RESP 18; TEMP 36.6; O2SAT 97
[2022-12-04] MEDS: MELATONIN 3 MG TABLET 6 MG PO ×2 (01:47→22:38)
[2022-12-04 06:52] LABS: Add Manual Diff / Slide Review NO; Basophils Absolute Auto 100 /uL (0-100); Basophils Percent Auto 1.1 % (0-2); Eosinophils Absolute Auto 300 /uL (0-450); Eosinophils Percent Auto 5.2 % (2-4); Hematocrit 40.3 % (36-46); Hemoglobin 13.9 g/dL (12.0-16.0); Lymphocytes Absolute Auto 1700 /uL (1100-4500); Lymphocytes Percent Auto 31.4 % (25-40); Mean Corpuscular HGB Conc 34.5 % (30-36); Mean Corpuscular Hemoglobin 34.5 PG (26-34); Mean Corpuscular Volume 100.1 fL (80-100); Monocytes Absolute Auto 600 /uL (0-900); Monocytes Percent Auto 11.9 % (3-14); Neutrophils Absolute Auto 2700 /uL (1500-7000); Neutrophils Percent Auto 50.4 % (50-75); Platelet Count 386 X10^3/uL (150-400); Red Blood Cell Count 4.02 X10^6/uL (4.0-5.2); Red Cell Distribution Width 13.3 % (11.6-14.8); White Blood Cell Count 5.3 X10^3/uL (4.5-11.0)
[2022-12-04 06:55] LABS: BUN Creatinine Ratio 21.2 (6-22); Blood Urea Nitrogen 14 mg/dL (7-17); Calcium 8.5 mg/dL (8.4-10.2); Carbon Dioxide 29 mmol/L (22-32); Chloride 108 mmol/L (98-107); Estimated Glomerular Filt Rate > 60 mL/min (>60); Glucose 98 mg/dL (80-110); HEMOLYSIS < 15 (0-50); Potassium 3.9 mmol/L (3.4-5.1); Sodium 139 mmol/L (137-145)
[2022-12-04 07:52] LABS: Vitamin B12 474 pg/mL (239-931)
[2022-12-04 08:00] VITALS: BP 136/84; PULSE 99; RESP 16; TEMP 36.7; O2SAT 97
[2022-12-04] MEDS: QUETIAPINE 25 MG TABLET PO ×2 (08:36→20:47)
[2022-12-04] MEDS: HEPARIN 5,000 UNIT/ML VIAL 5000 UNIT SUBCUT ×2 (08:36→20:47)
[2022-12-04] MEDS: SENNOSIDES 8.6 MG TABLET PO ×2 (08:36→20:47)
[2022-12-04] MEDS: ACETAMINOPHEN 325 MG TABLET 650 MG PO ×3 (11:00→22:54)
--- NOTE | 2022-12-04 15:16 | CM.DPNOTE ---
Discharge Planning Note: Patient thinks the phones don't work right in the hospital and was asking nurse to go outside and call Magdi with her phone. Explained to patient that the phones work fine. Patient's mentation has improved since her last admission but there is an aspect of her that is not tracking accurately. Let her know that this DCP tried calling Magdi at [phone] and it goes to a voicemail that has not been set up. It is still unclear if Magdi is even willing or wanting patient to return and patient is confused about the course of action. It seems that the best option is to be discharged to a memory care unit despite the drawn out time factor involved. If we were to dc back to Magdi, it would be likely she would return again as she did last week upon discharge. Plan: Continue to work with [facility] family service caseworker Ana Corona and contacting facilities, see CM notes. Marviel Rubin RN/DCP
[2022-12-04 19:00] VITALS: BP 132/77; PULSE 94; RESP 16; TEMP 36.3; O2SAT 96
--- NOTE | 2022-12-04 19:01 | P.PN_ITS ---
Subjective Subjective Interval history: 72-year-old female with known history of remote breast cancer, remote tobacco dependence, mild cognitive impairment, remote history of alcohol dependence, osteoporosis, hyperlipidemia, reported history of HSV?who was previously admitted from 11/27/2022 through 11/29/2022 with acute encephalopathy and concern for progressive dementia with worsening cognitive impairment.? She discharged back to her home where she lives with a roommate.? Unfortunately, upon returning home he did not recognize her nor her roommate.? She refused to go in.? She was subsequently brought back into the emergency department for further evaluation.? Patient was placed on a DCR hold, which was subsequently discontinued.? Psychiatry consultation was obtained.? Dr. Barrios recommended memory care placement.? Unfortunately, she is remained in the emergency department since that time and ultimately our service was asked to admit her to the medical floor on the evening of 12/02/22 pending discharge disposition. Patient reports she feels about the same today as yesterday. She was able to get some sleep. She states no one has been able to get in touch with Magdi, her former roommate. She tells me that she had stayed for 3 weeks at an adult family home in [place], [place]. She is still vague on the details of how she ended up in [place]. Care management was able to confirm that the patient has never been to an adult family home and that information is not true. OT nitin natalee a slums assessment today and her score was 12/30. Apparently another 1 had been done last week and she was 11/30 up from the initial . Exam Vital Signs (past 8 hours): Oxygen Delivery Method Room Air Oxygen Flow Rate 0 Narrative Exam Narrative: GEN: Alert and oriented x 2-3, NAD HEENT:NC, Face symmetric CHEST: Respiratory excursions symmetric, CTAB CV: RRR, no M/R/G ABD: Soft, NT/ND, BT present in all 4 quadrants, no organomegaly or masses EXTR: warm, well perfused, no C/C/E SKIN: warm and dry, no rash NEURO: Alert and oriented x 2-3, nonfocal Objective Labs 12/04/22 06:19 12/04/22 06:19 Labs: Laboratory Results - last 24 hr 12/04/22 12/04/22 12/04/22 06:19 06:19 06:19 WBC 5.3 RBC 4.02 Hgb 13.9 Hct 40.3 MCV 100.1 H MCH 34.5 H MCHC 34.5 RDW 13.3 Plt Count 386 Neut % (Auto) 50.4 Lymph % (Auto) 31.4 [place]oughton % (Auto) 11.9 Eos % (Auto) 5.2 H Baso % (Auto) 1.1 Neut # (Auto) 2700 Lymph # (Auto) 1700 [place] # (Auto) 600 Eos # (Auto) 300 Baso # (Auto) 100 Sodium 139 Potassium 3.9 Chloride 108 H Carbon Dioxide 29 BUN 14 Creatinine 0.66 Estimated GFR > 60 BUN/Creatinine Ratio 21.2 Glucose 98 Calcium 8.5 Vitamin B12 474 Folate 15.0 PFSH Medical History Acrochordon Actinic keratosis Alcoholism Ankle pain (~2009) Anxiety (~1957) Breast cancer (~2004) Callus of foot Chickenpox (~1953) Chronic back pain (~2006) Depression (~1957) Foot pain (~1999) Fracture, trimalleolar (~07/12/10) Hearing loss (~2006) Hyperlipidemia (~1979) Insomnia (~1984) Labral tear of left hip joint (~1986) Mononucleosis (~1967) Mumps (~1953) Osteoarthritis of ankle Osteoarthritis of knees, bilateral (~2009) Osteopenia (~1989) Osteoporosis (~2009) Pain of left breast Plantar warts (~1963) Rosacea (~1983) Shoulder pain (~1999) Tinnitus (~1999) Torn ACL (anterior cruciate ligament) (~1966) Surgical History Anesthesia History of ankle surgery (~2009) History of lumpectomy (~2005) History of repair of anterior cruciate ligament of left knee (~2003) Status post arthroscopy (~2014) Status post hysterectomy (~1996) Family History Father Osteoporosis Mother Heart disease High cholesterol Alzheimer's dementia without behavioral disturbance, unspecified timing of de mentia onset Social History household members: friend(s) Smoking Status: Unknown if ever smoked Tobacco: How many years used: 4 second hand exposure: No alcohol intake: never substance use type: former substance user (former marijuana ) and marijuana (former ) Assessment & Plan Assessment & Plan narrative: 1. Cognitive impairment Previous slums assessment done here was .? Repeat slums today put her at 07/01. This is consistent with fairly severe dementia. Placement efforts are ongoing. There may be a facility in [place] that is able to take her, but they are presently sorting through the financial aspects of her care. Social work is assisting with further arrangements. 2. Remote history of breast cancer Stable.? No known recurrence. 3. Genital herpes Was on high-dose acyclovir prior to last admission.? That has since been discontinued. 4. Constipation Senna scheduled.? PRN dulcolax.? No recurrent symptoms 5. Macrocytosis No evidence of anemia.? Normal B12 and folate levels.? 6. Hypokalemia Resolved. Code status DNR/DNI per SARA Fuller Low Meenu score Dispo Continue monitoring on the medical unit pending placement. Quality VTE Deep Vein Thrombosis/Pulmonary Embolism Present on Admission: No
[2022-12-04] MEDS: ATORVASTATIN 20 MG TABLET 40 MG PO (20:46)
--- NOTE | 2022-12-04 21:52 | PC.NURSE ---
Patient is alert and oriented except off on day of month by 1 day and wasn't certain why she is in the hospital. Breath sounds CTA with RA sat of 96%. HRR. Denies nausea. BT present and reports she had BM earlier today. Is independent with mobility. Did complain of pain in left ankle at shift change (states she has a sprain from 1 month ago) but ice applied and denied pain at time of assessment. Fall risk score is moderate; bed alarm is activated to monitor patient activity. Patient is forgetful and does not remember to call for help.
[2022-12-05] MEDS: ACETAMINOPHEN 325 MG TABLET 650 MG PO ×2 (04:55→16:53)
[2022-12-05 08:00] VITALS: BP 149/71; PULSE 93; RESP 17; TEMP 36.3; O2SAT 97
[2022-12-05] MEDS: QUETIAPINE 25 MG TABLET PO ×2 (08:44→20:45)
[2022-12-05] MEDS: HEPARIN 5,000 UNIT/ML VIAL 5000 UNIT SUBCUT ×2 (08:44→20:45)
[2022-12-05] MEDS: SENNOSIDES 8.6 MG TABLET PO ×2 (08:45→20:45)
--- NOTE | 2022-12-05 13:00 | OT.IPRE ---
Current Diagnoses Dementia in other diseases classified elsewhere, unspecified severity, without behavioral disturbance, psychotic disturbance, mood disturbance, and anxiety (12/02/22) Other psychoactive substance use, unspecified, uncomplicated (12/02/22) Past Medical History (Last Reviewed 12/03/22 @ 00:56 by Clifford Carey MD) Acrochordon Actinic keratosis Alcoholism Ankle pain (~2009) Anxiety (~1957) Breast cancer (~2004) Callus of foot Chickenpox (~1953) Chronic back pain (~2006) Depression (~1957) Foot pain (~1999) Fracture, trimalleolar (~07/12/10) Hearing loss (~2006) Hyperlipidemia (~1979) Insomnia (~1984) Labral tear of left hip joint (~1986) Mononucleosis (~1967) Mumps (~1953) Osteoarthritis of ankle Osteoarthritis of knees, bilateral (~2009) Osteopenia (~1989) Osteoporosis (~2009) Pain of left breast Plantar warts (~1963) Rosacea (~1983) Shoulder pain (~1999) Tinnitus (~1999) Torn ACL (anterior cruciate ligament) (~1966) Surgical History (Last Reviewed 12/03/22 @ 00:56 by Clifford Carey MD) Anesthesia History of ankle surgery (~2009) History of lumpectomy (~2005) History of repair of anterior cruciate ligament of left knee (~2003) Status post arthroscopy (~2014) Status post hysterectomy (~1996) Occupational Therapy Inpatient Evaluation/Re-Eval M1 PT/OT-IP Prior Functional Status Start: 12/01/22 10:17 Freq: Status: Active Protocol: Document 12/05/22 13:12 CGR (Rec: 12/05/22 13:28 CGR [id number]) Medical Review Prior Functional Status Medical History Reviewed Yes Communication independent Mobility and Gait independent Activities of Daily Living and IADL's Pt states has friend, staff, and husand that assist her. Pt not able to recall and inconsistent with her information of whose is helping her especially for IADl needs. Prior Functional Level (Other details) Pt insists that she lives in [place] at [facility]. Social History Household Members friend(s) Living Arrangements House M2 OT-IP Current Condition Start: 12/01/22 10:17 Freq: Status: Active Protocol: Document 12/05/22 13:12 CGR (Rec: 12/05/22 13:28 CGR [id number]) Occupational Therapy Current Condition Current Condition Evaluation Date 12/05/22 Treatment Diagnosis Dementia versus Delirium Diagnosis Onset Date 11/29/22 M3 OT- IP Subjective and Pain Start: 12/01/22 10:17 Freq: Status: Active Protocol: Document 12/05/22 13:12 CGR (Rec: 12/05/22 13:28 CGR [id number]) OT- Subjective Occupational Therapy Visit Type Type Re-Evaluation Visit Start Time 12:49 Visit Stop Time 13:00 Total Visit Minutes 11 Notes Per MD note, please re administer the SLUMS Occupational Therapy Visit Comments Patient Comments You know, I have dementia. OT Pain Assessment Pain When Pain Assessed At Rest Pain Present Pain Present Denied Pain M4 OT- IP ADL's Start: 12/01/22 10:17 Freq: Status: Active Protocol: Document 12/05/22 13:12 CGR (Rec: 12/05/22 13:28 CGR [id number]) OT [id number] Comments OT Self-Feeding Comments not meal time OT ADL-Grooming Comments OT Grooming Comments not performed OT ADL-Oral Care Comments Oral Care Comments not performed OT ADL-Dressing General Eval Lower Body Dressing Ability Independent Areas Needing Assistance Socks Comments OT Dressing Comments seated EOB OT ADL-Toileting Comments OT Toileting Comments not performed OT ADL-Bathing Comments OT Bathing Comments not performed M5 OT- IP IADL's Start: 12/01/22 10:17 Freq: Status: Active Protocol: Document 12/05/22 13:12 CGR (Rec: 12/05/22 13:28 CGR [id number]) OT-Instrumental Activities of Daily Living Deficits IADL Deficits Identified Deficits Home Safety Awareness Awareness of Need for Assistance at Home Decreased Awareness Ability to Problem Solve Emergency Unable to Problem Solve Situations M6 OT- IP Functional Cognition Start: 12/01/22 10:17 Freq: Status: Active Protocol: Document 12/05/22 13:12 CGR (Rec: 12/05/22 13:28 R [id number]) Cognitive Factors Limiting Selfcare Function Cognitive Ability Level of Alertness Alert,Confusional State Patient Orientation Name,Month,Year,Day of Week, Place,Situation Attention Span Ability Capable of Focused Attention, Capable of Sustained Attention Ability to Follow Commands Able to Follow One Step Commands with Increased Time, Able to Follow One Step Commands with Repetition Cognitive Tests SLUMS Pt participated in the SLUMS. This is the third administration of the SLUMs in the recent past. Pt scored a 12/30 Pt was able to state the day of the week, the year, and the state. She was unable to do simple math, recall any of the 5 objects, and named 8 animals in one minute. Pt was able to do both 3 and 4 number sequencing backwards but scored no points for the clock . She was able to identify the largest object and put an X in the triangle. She was able to correctly answer 2 of the 4 listening comprehension questions. A score of 12/30 puts her well into the dementia range of scoring for this test. Cognitive Comments Cognitive Assessment Comments Pt's score today was consistent with the most recent administration of the test performed on 12/01/22 where the patient scored an 11/30. M7 OT- IP Mobility and Balance Start: 12/01/22 10:17 Freq: Status: Active Protocol: Document 12/05/22 13:12 CGR (Rec: 12/05/22 13:28 CGR [id number]) OT-Transfer Assessment Sit to and From Stand Sit to and from Stand Independent Transfers Transfer Ability Independent Technique Transfer Destination Bed,Chair OT- Balance Assessment Sitting Balance and Reactions Static Sitting Balance Ability Normal Dynamic Sitting Balance Ability Normal M8 OT- IP Objective Assessments Start: 12/01/22 10:17 Freq: Status: Active Protocol: Document 12/01/22 09:03 CCC (Rec: 12/01/22 10:52 CCC [id number]) OT Strength Upper Extremity Strength Assessment Within Functional Limits Comments Strength Comments grossly WFL for needs for BUE OT- Coordination Assessment Comments Coordination Comments Arthritic changes in her hands . OT-Muscle Tone Assessment Muscle Tone WNL Yes M9 OT- IP Assessment and Plan Start: 12/01/22 10:17 Freq: Status: Active Protocol: Document 12/05/22 13:12 CGR (Rec: 12/05/22 13:28 CGR [id number]) OT Summary Assessment and Plan Potential Rehabilitation Potential Good Analytic Complexity at Evaluation Low Summary OT Impairments Functional Cognition Progress Towards Goals Goals Met Assessment Summary Pt presents as a low complexity eval/reeval for SLUMS assessment per MD. Pt is otherwise IND for simple ADLs at this time. Will place SLUMS in pt's folder to be scanned into the system. Frequency of Treatment Frequency Of Treatment Discharge
--- NOTE | 2022-12-05 13:40 | CM.DPC ---
DCP Cont: Per MD, pt remains medically stable and cooperative with care and awaiting safe LTC discharge plan. Per OT, completed updated SLUMS today and pt scored 12/30 and mod to severe dementia. MIRNA emailed pt's HCS MIRNA Perez and she updated that she is working closely with Lamar at [facility] towards determining final daily rate and if any option for a hospital incentive rate. Ana has also been in contact with pt's sister Nolvia and selenebethany Florez. MIRNA received an email from remy Florez stating ?My mom and I have a phone appointment with the [facility] Social Security Administration office on December 06 at 5pm EST (2pm Rodriguez time).? They have asked us to have a document from a medical provider that states that Yarelis is not capable of managing her finances.? Is this something you might be able to help with? MIRNA spoke to Hospitalist who was agreeable with signing a letter stating pt could benefit from Payee and MIRNA scanned and secure emailed it to remy [email or web address]. MIRNA called Lamar at [facility] ([phone]) and she confirms that she has been assisting Ana with the wording for request for the hospital incentive rate and plans to contact Ana's ferry terminal supervisor today towards expediting the process since Ana is new to her [facility] role. Lamar is worried this might delay discharge. MIRNA provided pt's sister Nolvia and remy Vikki contact info and update on their appointment tomorrow for Payee planning. Lamar very appreciative and plans to contact family today as well. Lamar states she has confirmed with their [place] facility E Commerce Manager, that if pt approved for an acceptable rate then they can accept the pt and would send an RN to do bedside assessment from [place] since the drive is not too far. Lamar also confirms they have furniture at their [place] facility that can be used in pt's room if family cannot fly out from [place] by the time pt is discharged. Lamar will continue to work closely with [facility] on attempting to get pt discharged to their facility and will update MIRNA tomorrow 12/06/22. Plan: MIRNA to follow closely tomorrow with Lamar at [facility] and Ana at [facility] to confirm acceptable rate for pt to be admitted to [facility] at [place] and bedside assessment. JANETTE Lazaro
--- NOTE | 2022-12-05 14:07 | PC.NURSE ---
Day shift: New rash noted on patient's back. Red, pinpoint bumps across back of shoulder blades. Patient denies pain or itching. Lotion applied. Notified MD Lucero.
[2022-12-05 20:10] VITALS: BP 131/82; PULSE 86; RESP 18; TEMP 36.1; O2SAT 97
[2022-12-05] MEDS: ATORVASTATIN 20 MG TABLET 40 MG PO (20:45)
--- NOTE | 2022-12-05 21:58 | PC.NURSE ---
Patient is alert and oriented except was off on day of week and day of month by 1; also, does not remember why she is in the hospital. Breath sounds CTA with RA sat of 97%. HRR. Denies nausea. BT present and had BM earlier today. Denies dysuria, frequency or urgency. Is independent with mobility and steady on feet. States pain in left ankle and knee is 4/10 and tolerable; has ice packs to each and had Tylenol at 1653 previous shift. Fall risk score is moderate but since steady on feet bed alarm is not activated.
[2022-12-06] MEDS: QUETIAPINE 25 MG TABLET PO ×2 (08:44→21:24)
[2022-12-06] MEDS: HEPARIN 5,000 UNIT/ML VIAL 5000 UNIT SUBCUT ×2 (08:44→21:16)
[2022-12-06] MEDS: SENNOSIDES 8.6 MG TABLET PO (08:44)
[2022-12-06 11:00] VITALS: BP 130/77; PULSE 102; RESP 17; TEMP 36.6; O2SAT 94
--- NOTE | 2022-12-06 11:18 | CM.DPC ---
Addendum entered by Laly Ceja R.N. 12/06/22 16:08: MICHAEL spoke with Ana patients state case manager again and she let me know that she just found out that they do have a new Acute care hospital incentive rate of $60 more a month on top of current daily rate. MICHAEL also confirmed that Ana applied for that increase rate as well and she confirmed that she had and that we should know if she was approved for this rate increase and the dementia rate increase by tomorrow or at the latest. If patient gets both incentives her daily rate will go from $124.65 (current rate), with dementia rate $135.95 and up to $195.95 with the hospital acute care incentive. Lamar with [facility] will accept the patient if she gets both the acute care hospital incentive and the dementia rate incentive with the total daily rate of $195.95. MICHAEL called and LVM with Lamar x3 to see if she can schedule a time to come in and meet with the patient at the bedside to confirm she will accept the patient when financial information is finished. CM team will continue to follow to help support dc planning as this process continues.. Patient will need / medicaid or BLS transport to facility when medically stable for discharge due to her wondering and current cognitive status. Cm heard from [facility] who stated they are not able to accept the patient because they do not have the resources to support her needs at this time. CM left for Facility in [place] that cinthia had talked with waiting on there return call. CM pending calls from Viv and Madisyn landry as well. Laly Ceja starch mangle tender Addendum entered by Laly Ceja R.N. 12/06/22 12:15: MICHAEL spoke with Ana who stated they do not have an administrative rate for hospitals any longer this went away when covid precautions were lifted. Ana did state they have a Dementia incentive rate of $135.95 which she is applying for today this is an increase from the patients current rate of $124.65. Ana let me know that [facility] does not want to accept the patient without having the increased hospital incentive as well as the increase for dementia rate... Ana stated that she does not know what to tell them since there is no hospital incentive rate any longer. CM team will follow up with nAa to see if patient gets approved for dementia rate. this rate only works on SDCP contracted facilities. like [facility] and [facility]yn landry. CM team will continue to follow and work on locating an accepting facility Laly Ceja RNstarch mangle tender Original Note: DCP continued: MICHAEL called and Lsft 3 voicemails with Ana - patients home and community services nurse outreach case manager [phone] checking on where we are with getting in increase to the patients daily rate we are currently pending approval for a rate of $135.95 or approval for hospital incentive rate. Cm called and Left 2x voicemail with Lamar at [facility] to see if she has heard anything back from the state on the increase in rate or incentive pay. CM called [employer] direct natural gas field processing supervisor Sharmila Palomino at [phone] to see if I can get some direct answers on if the patients rate has increased or if there is still incentive pay for facilities to take hospital patients. CM called Jennanicolette Golva in [facility], CM called [facility] [phone] to see if they have reviewed current daily rate and patients case and determined if they can accept the current approved rate of $124.65? they are currently still reviewing the case is with her Nurse reviewer and she will call CM back this afternoon to discuss this patient. [facility]- memory care CM called [phone]- and spoke with Марина Bazan the residential sales who stated they are reviewing this case but are heading into a meeting and will call CM back in a few hours to discuss this patient. Madisyn Landry in [facility] is interested in reviewing patient if there is a hospital incentive rate. still waiting on determination from the state on if they are still doing hospital incentive rate. will follow up with them once that is determined by Home and community case manager natural gas field processing supervisor Sharmila. CM will continue to work on calling facilities to see if they can accept current daily rate as well as work with state case workers to get current rate increased and see if there is an incentive pay. Laly Ceja RNstarch mangle tender
[2022-12-06] MEDS: HYDROCORTISONE 1% CREAM 28 GM 1 APPLIC TOP ×2 (11:46→21:17)
[2022-12-06] MEDS: LOPERAMIDE 2 MG CAPSULE PO (11:46)
[2022-12-06] MEDS: valACYclovir 500 MG TABLET 1000 MG PO ×3 (11:46→21:17)
[2022-12-06] MEDS: ACETAMINOPHEN 325 MG TABLET 650 MG PO ×2 (14:32→21:16)
--- NOTE | 2022-12-06 14:58 | PM.PN.1 ---
Subjective Subjective Interval history: She feels well except she has discomfort and redness on her back side where she often gets herpetic outbreak for which she has been on acyclovir Exam Vital Signs (past 8 hours): - 12/06/22 11:00 Temperature 97.9 F Pulse Rate 102 H Respiratory Rate 17 Blood Pressure 130/77 Pulse Oximetry 94 Oxygen Flow Rate 0 Oxygen Delivery Method Room Air Oxygen Flow Rate 0 Narrative Exam Narrative: GEN: no acute distress Back: papular rash on upper back CV: regular rate and rhythm PULM: clear bilaterally Objective Labs 12/04/22 06:19 12/04/22 06:19 [facility] Medical History Acrochordon Actinic keratosis Alcoholism Ankle pain (~2009) Anxiety (~1957) Breast cancer (~2004) Callus of foot Chickenpox (~1953) Chronic back pain (~2006) Depression (~1957) Foot pain (~1999) Fracture, trimalleolar (~07/12/10) Hearing loss (~2006) Hyperlipidemia (~1979) Insomnia (~1984) Labral tear of left hip joint (~1986) Mononucleosis (~1967) Mumps (~1953) Osteoarthritis of ankle Osteoarthritis of knees, bilateral (~2009) Osteopenia (~1989) Osteoporosis (~2009) Pain of left breast Plantar warts (~1963) Rosacea (~1983) Shoulder pain (~1999) Tinnitus (~1999) Torn ACL (anterior cruciate ligament) (~1966) Surgical History Anesthesia History of ankle surgery (~2009) History of lumpectomy (~2005) History of repair of anterior cruciate ligament of left knee (~2003) Status post arthroscopy (~2014) Status post hysterectomy (~1996) Family History Father Osteoporosis Mother Heart disease High cholesterol Alzheimer's dementia without behavioral disturbance, unspecified timing of dementia onset Social History household members: friend(s) Smoking Status: Unknown if ever smoked Tobacco: How many years used: 4 second hand exposure: No alcohol intake: never substance use type: former substance user (former marijuana ) and marijuana (former ) Assessment & Plan Assessment & Plan narrative: 1. Cognitive impairment -improved off meds, slums remains low at 12 from 2 -likely dementia and resolved encephalopathy -unable to return previous living situation -placement underway 2. History of herpes -has possible outbreak on backside -will start valtrex 1gm tid and monitor 3. Diarrhea -prn loperamide -may be secondary to bowel regimen Dispo pending placement Quality VTE Deep Vein Thrombosis/Pulmonary Embolism Present on Admission: No
--- NOTE | 2022-12-06 15:54 | CM.SWNOTE ---
DCP Note continued SERVICE STATION OPERATOR receives several VMs regarding patient from ED SERVICE STATION OPERATOR phone. SERVICE STATION OPERATOR receives VM from Marianne at [facility] after SERVICE STATION OPERATOR reports that patient is still at , Marianne requests update upon patient's discharge plan. SERVICE STATION OPERATOR receives VM from [facility] in [place]. SERVICE STATION OPERATOR returns call, it is reported that this facility only accepts 3 year private pay prior to accepting Medicaid. SERVICE STATION OPERATOR receives VM from [facility] in [place], [place]. SERVICE STATION OPERATOR calls back and speaks with Maria Luisa in admissions (Ph. # [phone]). Evelyn endorses that they usually take a 2 year private pay spend down before Medicaid but can make acceptations given certain circumstances after reviewing case to their team. Maria Luisa requests a packet to review patient. Fax number is [phone]. SERVICE STATION OPERATOR emails this information to NCP team. SERVICE STATION OPERATOR receives VM from Corie at [facility] (ph. # [phone]) regarding inquiry for memory care for patient, SERVICE STATION OPERATOR calls back and leaves VM requesting return call. SERVICE STATION OPERATOR receives message from RN regarding call from JUAN Engel (Ph. # [phone]). SERVICE STATION OPERATOR calls Maren back, she states that she has been in contact with patient's sister and it is reported that they are becoming patient's payee. Maren states her plans to close the investigation as patient's sister is becoming Payee and patient has medical DPOA. Maren states she will follow up with patient's [facility] SW before closing the case as well. JESS StoreySW
[2022-12-06 19:00] VITALS: BP 116/64; PULSE 88; RESP 16; TEMP 36; O2SAT 95
[2022-12-06] MEDS: ATORVASTATIN 20 MG TABLET 40 MG PO (21:17)
[2022-12-07 09:00] VITALS: BP 118/70; PULSE 82; RESP 17; TEMP 36.3; O2SAT 95
[2022-12-07] MEDS: HEPARIN 5,000 UNIT/ML VIAL 5000 UNIT SUBCUT ×2 (09:02→21:47)
[2022-12-07] MEDS: valACYclovir 500 MG TABLET 1000 MG PO ×2 (09:03→15:17)
[2022-12-07] MEDS: QUETIAPINE 25 MG TABLET PO ×2 (09:03→21:46)
[2022-12-07] MEDS: HYDROCORTISONE 1% CREAM 28 GM 1 APPLIC TOP ×2 (09:05→21:45)
--- NOTE | 2022-12-07 15:13 | CM.DPNOTE ---
Placement Efforts Patient has been approved by [facility] for a daily rate of $208.33 which includes the: 1. Specialized Dementia Care (SDC) program $148.33 daily 2. Hospital incentive rate $60 daily [facility] MICHAEL Corona P [phone] email: [email or web address] working closely with Lamar at [facility] P [phone] to finalize details Meanwhile, this MOTHER HELPER places calls to : Jennanicolette Strickland [employer]- [phone] Karly cell [phone] [facility]- [phone] Leesa jiménez [phone] Karly @[facility]- [phone] Nina @ [facility] in [place], [place] (Ph. # [phone]) F [phone] Corie [facility] (ph. # [phone]) Had to leave messages for most updating w/patient's new daily rate and asking if they would consider patient. Faxed clinical packet to Nina at [facility] in [place] for review...she asked about POA ppk (?) Rusk from Lamar at [facility] who explained patient has been approved to move into any one of our facilities which are [facility] and [facility]. Lamar waiting on sister Nolvia to complete the POA/Payee ppk in order to begin move in process Laly Ceja RN, places call to sister Nolvia who confirms she has received POA/Payee ppk from Lamar at [facility] and once completed she will email to Lamar and to this MOTHER HELPER Plan: Awaiting POA/Payee completion by family which will trigger Lamar at [facility] to begin admission process for this patient, anticipate w/c van vs BLS transport depending on patient's cognition and tolerance to unattended transport (?) Dipika Yanes MSW
--- NOTE | 2022-12-07 15:21 | PM.PN.1 ---
Subjective Subjective Date Patient Seen: 12/07/22 Time Patient Seen: 08:00 Interval history: She has no new complaints. Her back rash is less itchy Exam Vital Signs (past 8 hours): - 12/07/22 09:00 Temperature 97.3 F L Pulse Rate 82 Respiratory Rate 17 Blood Pressure 118/70 Pulse Oximetry 95 Oxygen Flow Rate 0 Oxygen Delivery Method Room Air Oxygen Flow Rate 0 Narrative Exam Narrative: GEN: no acute distress Back: papular rash on upper back CV: regular rate and rhythm PULM: clear bilaterally Objective Labs 12/04/22 06:19 12/04/22 06:19 [facility] Medical History Acrochordon Actinic keratosis Alcoholism Ankle pain (~2009) Anxiety (~1957) Breast cancer (~2004) Callus of foot Chickenpox (~1953) Chronic back pain (~2006) Depression (~1957) Foot pain (~1999) Fracture, trimalleolar (~07/12/10) Hearing loss (~2006) Hyperlipidemia (~1979) Insomnia (~1984) Labral tear of left hip joint (~1986) Mononucleosis (~1967) Mumps (~1953) Osteoarthritis of ankle Osteoarthritis of knees, bilateral (~2009) Osteopenia (~1989) Osteoporosis (~2009) Pain of left breast Plantar warts (~1963) Rosacea (~1983) Shoulder pain (~1999) Tinnitus (~1999) Torn ACL (anterior cruciate ligament) (~1966) Surgical History Anesthesia History of ankle surgery (~2009) History of lumpectomy (~2005) History of repair of anterior cruciate ligament of left knee (~2003) Status post arthroscopy (~2014) Status post hysterectomy (~1996) Family History Father Osteoporosis Mother Heart disease High cholesterol Alzheimer's dementia without behavioral disturbance, unspecified timing of dementia onset Social History household members: friend(s) Smoking Status: Unknown if ever smoked Tobacco: How many years used: 4 second hand exposure: No alcohol intake: never substance use type: former substance user (former marijuana ) and marijuana (former ) Assessment & Plan Assessment & Plan narrative: 1. Cognitive impairment -improved off meds, slums remains low at 12 from 2 -likely dementia and resolved encephalopathy -unable to return previous living situation -placement underway 2. History of herpes -has possible outbreak on backside -will start valtrex 1gm tid and monitor -reevaluation does not appear to be herpetic outbreak -stop valtrex 3. Diarrhea -prn loperamide -may be secondary to bowel regimen 4. Skin rash upper back -hydrocortisone cream Dispo pending placement Quality VTE Deep Vein Thrombosis/Pulmonary Embolism Present on Admission: No
[2022-12-07 19:00] VITALS: BP 134/70; PULSE 99; RESP 16; TEMP 36.1; O2SAT 96
[2022-12-07] MEDS: ATORVASTATIN 20 MG TABLET 40 MG PO (21:46)
[2022-12-07] MEDS: LOPERAMIDE 2 MG CAPSULE PO (21:46)
[2022-12-07] MEDS: ACETAMINOPHEN 325 MG TABLET 650 MG PO (21:49)
[2022-12-08] MEDS: ACETAMINOPHEN 325 MG TABLET 650 MG PO ×3 (04:37→21:05)
[2022-12-08] MEDS: MELATONIN 3 MG TABLET 6 MG PO ×2 (04:37→21:05)
[2022-12-08] MEDS: HEPARIN 5,000 UNIT/ML VIAL 5000 UNIT SUBCUT ×2 (08:26→21:05)
[2022-12-08] MEDS: QUETIAPINE 25 MG TABLET PO ×2 (08:27→21:06)
[2022-12-08] MEDS: HYDROCORTISONE 1% CREAM 28 GM 1 APPLIC TOP ×2 (10:06→21:20)
--- NOTE | 2022-12-08 10:08 | P.PN_ITS ---
Subjective Subjective Interval history: 72-year-old female with known history of remote breast cancer, remote tobacco dependence, mild cognitive impairment, remote history of alcohol dependence, osteoporosis, hyperlipidemia, reported history of HSV?who was previously admitted from 11/27/2022 through 11/29/2022 with acute encephalopathy and concern for progressive dementia with worsening cognitive impairment.? She discharged back to her home where she lives with a roommate.? Unfortunately, upon returning home he did not recognize her nor her roommate.? She refused to go in.? She was subsequently brought back into the emergency department for further evaluation.? Patient was placed on a DCR hold, which was subsequently discontinued.? Psychiatry consultation was obtained.? Dr. Barrios recommended memory care placement.? Unfortunately, she is remained in the emergency department since that time and ultimately our service was asked to admit her to the medical floor on the evening of 12/02/22 pending discharge disposition. Since admission, she has had improved mentation overall compared to her prior. However her slums assessment remains 07/01. Care management is working with her family on establishing a payee and once that has been complete, patient does have an accepting facility, [facility]. Patient reports she is anxious about moving to a new location. She was able to tell me she looked at pictures of the facility yesterday. She states that she understands this is a big life change for her. She notes because of her anxiety over the move, she did not sleep well last night. No physical complaints. Exam Vital Signs (past 8 hours): Oxygen Delivery Method Room Air Oxygen Flow Rate 0 Narrative Exam Narrative: GEN: Middle-aged female, Alert and oriented x 2-3, NAD HEENT:NC, Face symmetric CHEST: Respiratory excursions symmetric, CTAB CV: RRR, no M/R/G ABD: Soft, NT/ND, BT present in all 4 quadrants, no organomegaly or masses EXTR: warm, well perfused, no C/C/E SKIN: warm and dry, no rash NEURO: Alert and oriented x 2-3, nonfocal Objective Labs 12/04/22 06:19 12/04/22 06:19 [facility] Medical History Acrochordon Actinic keratosis Alcoholism Ankle pain (~2009) Anxiety (~1958) Breast cancer (~2004) Callus of foot Chickenpox (~1953) Chronic back pain (~2006) Depression (~1957) Foot pain (~1999) Fracture, trimalleolar (~07/12/10) Hearing loss (~2006) Hyperlipidemia (~1979) Insomnia (~1984) Labral tear of left hip joint (~1986) Mononucleosis (~1967) Mumps (~1953) Osteoarthritis of ankle Osteoarthritis of knees, bilateral (~2009) Osteopenia (~1989) Osteoporosis (~2009) Pain of left breast Plantar warts (~1963) Rosacea (~1983) Shoulder pain (~1999) Tinnitus (~1999) Torn ACL (anterior cruciate ligament) (~1966) Surgical History Anesthesia History of ankle surgery (~2009) History of lumpectomy (~2005) History of repair of anterior cruciate ligament of left knee (~2003) Status post arthroscopy (~2014) Status post hysterectomy (~1996) Family History Father Osteoporosis Mother Heart disease High cholesterol Alzheimer's dementia without behavioral disturbance, unspecified timing of dementia onset Social History household members: friend(s) Smoking Status: Unknown if ever smoked Tobacco: How many years used: 4 second hand exposure: No alcohol intake: never substance use type: former substance user (former marijuana ) and marijuana (former ) Assessment & Plan Assessment & Plan narrative: 1. Cognitive impairment Slums assessment this admission put her at 07/01.? This is consistent with fairly severe dementia.? Placement efforts are ongoing.? For is worse with jose wagoner on obtaining payee status. She remains unsafe for discharge at to her prior living arrangements at this time. 2. Remote history of breast cancer Stable.? No known recurrence. 3. Genital herpes Was on high-dose acyclovir prior to last admission.? That has since been discontinued. Due to a rash on her back, previous provider placed her briefly on Valtrex, but after evaluating the rash felt it was not herpetic. Valtrex was since discontinued. 4. Constipation Senna scheduled.? PRN dulcolax.? No recurrent symptoms 5. Macrocytosis No evidence of anemia.? Normal B12 and folate levels.? 6. Hypokalemia Resolved. 7. Rash on her back Continue triamcinolone cream Code status DNR/DNI per SARA Fuller Low Meenu score Dispo Continue monitoring on the medical unit pending placement. Quality VTE Deep Vein Thrombosis/Pulmonary Embolism Present on Admission: No
--- NOTE | 2022-12-08 10:43 | PC.NURSE ---
12/07/22 - Late Entry: JANETTE Jade notified me that the patient was found to be wandering downstairs by ED registration. Follow up with staff, patient dressed in green scrub pants with gown tucked into pants and a brown hoodie on. PERSONAL CARE AID did not recognize as a patient because of the hoodie. RN and PCT report patient was ambulating in the halls independently. Patient assisted to return to her room. She is currently cooperative and re-directable. Staff to increase observation during ambulation.
[2022-12-08 13:15] VITALS: BP 110/64; PULSE 97; RESP 16; TEMP 36.7; O2SAT 98
--- NOTE | 2022-12-08 14:59 | DIET.CONS2 ---
Dietary Inpatient Consultation Note Admission Date: 12/02/2022 21:[address] for LOS day 6. Pt awaiting placement at [facility]. POs acceptable, no nutrition concerns identified. Diet: 11/30/22 Dinner Vegetarian Diet Diet Modifications: Just no meats May Advance Diet as Tolerated: Yes Safety Tray needed?: No Vegetarian Type: Lacto-ovo vegetarian Nutrition Percent Meal Consumed 100% 12/08/22 09:09 Percent Meal Consumed 50% 12/07/22 18:01 Percent Meal Consumed 50% 12/07/22 13:00 Percent Meal Consumed 100% 12/07/22 09:00 Percent Meal Consumed 75% 12/06/22 18:06 Electronically Signed by: Dnaia Phelan 12/08/22 14:59 Clinical Dietitian [address] [address]
--- NOTE | 2022-12-08 15:42 | CM.DPC ---
Placement Efforts [facility] have accepted patient Communication between Lamar at the [facility], Ana- [facility] MICHAEL, remy Florez and this RESPIRATORY SUPPORT TECHNICIAN have continued throughout the day The barrier now appears to be getting a payee assigned so that [facility] can be paid patient?s co-pay of $834/month. I have asked that Lamar at [facility] consider admitting patient with payee pending, with family possibly paying privately for 1-2 months (?) Friend and roommate Nick is listed on patient?s checking account however he cannot be reached at this time Have continued to request all contacts involved to help facilitate this discharge as soon as possible, patient compliant with care however continues to state she is ready to move in to her [facility] care facility now Will continue to follow closely to help in this coordination. Expect BLS transport r/t patient's dementia, she will benefit from having a medical collections representative with her during transport - [facility] confirms for this team today that they can schedule BLS stretcher without medical collections representative- patient requires medical collections representative (no other contact available to ride along). Likely [facility] or comparable upon DC JW
[2022-12-08] MEDS: SENNOSIDES 8.6 MG TABLET PO (17:14)
[2022-12-08 19:55] VITALS: BP 123/72; PULSE 93; RESP 16; TEMP 35.9; O2SAT 96
[2022-12-08] MEDS: ATORVASTATIN 20 MG TABLET 40 MG PO (21:05)
[2022-12-09] MEDS: QUETIAPINE 25 MG TABLET PO ×2 (08:07→20:58)
[2022-12-09] MEDS: SENNOSIDES 8.6 MG TABLET PO ×2 (08:07→20:58)
[2022-12-09] MEDS: HEPARIN 5,000 UNIT/ML VIAL 5000 UNIT SUBCUT ×2 (08:07→20:58)
[2022-12-09] MEDS: ACETAMINOPHEN 325 MG TABLET 650 MG PO ×2 (08:13→19:27)
[2022-12-09 08:14] VITALS: BP 126/74; PULSE 103; RESP 16; TEMP 37; O2SAT 96
[2022-12-09] MEDS: HYDROCORTISONE 1% CREAM 28 GM 1 APPLIC TOP ×2 (08:15→20:59)
--- NOTE | 2022-12-09 14:33 | P.PN_ITS ---
Subjective Subjective Interval history: 72-year-old female with known history of remote breast cancer, remote tobacco dependence, mild cognitive impairment, remote history of alcohol dependence, osteoporosis, hyperlipidemia, reported history of HSV?who was previously admitted from 11/27/2022 through 11/29/2022 with acute encephalopathy and concern for progressive dementia with worsening cognitive impairment.? She discharged back to her home where she lives with a roommate.? Unfortunately, upon returning home he did not recognize her nor her roommate.? She refused to go in.? She was subsequently brought back into the emergency department for further evaluation.? Patient was placed on a DCR hold, which was subsequently discontinued.? Psychiatry consultation was obtained.? Dr. Barrios recommended memory care placement.? Unfortunately, she is remained in the emergency department since that time and ultimately our service was asked to admit her to the medical floor on the evening of 12/02/22 pending discharge disposition.? Since admission, she has had improved mentation overall compared to her prior.? However her slums assessment remains 07/01.? Care management is working with her family on establishing a payee and once that has been complete, patient does have an accepting facility, [facility]. Pt has no complaints and is hoping to get into [facility] facility.. Exam Vital Signs (past 8 hours): - 12/09/22 08:14 Temperature 98.6 F Pulse Rate 103 H Respiratory Rate 16 Blood Pressure 126/74 Pulse Oximetry 96 Oxygen Delivery Method Room Air Oxygen Flow Rate 0 Narrative Exam Narrative: Gen: alert, pleasant NAD Objective Labs 12/04/22 06:19 12/04/22 06:19 [facility] Medical History Acrochordon Actinic keratosis Alcoholism Ankle pain (~2009) Anxiety (~1957) Breast cancer (~2004) Callus of foot Chickenpox (~1953) Chronic back pain (~2006) Depression (~1957) Foot pain (~1999) Fracture, trimalleolar (~07/12/10) Hearing loss (~2006) Hyperlipidemia (~1979) Insomnia (~1984) Labral tear of left hip joint (~1986) Mononucleosis (~1967) Mumps (~1953) Osteoarthritis of ankle Osteoarthritis of knees, bilateral (~2009) Osteopenia (~1989) Osteoporosis (~2009) Pain of left breast Plantar warts (~1963) Rosacea (~1983) Shoulder pain (~1999) Tinnitus (~1999) Torn ACL (anterior cruciate ligament) (~1966) Surgical History Anesthesia History of ankle surgery (~2009) History of lumpectomy (~2005) History of repair of anterior cruciate ligament of left knee (~2003) Status post arthroscopy (~2014) Status post hysterectomy (~1996) Family History Father Osteoporosis Mother Heart disease High cholesterol Alzheimer's dementia without behavioral disturbance, unspecified timing of dementia onset Social History household members: friend(s) Smoking Status: Unknown if ever smoked Tobacco: How many years used: 4 second hand exposure: No alcohol intake: never substance use type: former substance user (former marijuana ) and marijuana (former ) Assessment & Plan Assessment & Plan narrative: 1. Cognitive impairment Slums assessment this admission? put her at 07/01.? This is consistent with fairly severe dementia.? Placement efforts are ongoing.? She remains unsafe for discharge at to her prior living arrangements at this time. 2. Remote history of breast cancer Stable.? No known recurrence. 3. Genital herpes Was on high-dose acyclovir prior to last admission.? That has since been discontinued.? Due to a rash on her back, previous provider placed her briefly on Valtrex, but after evaluating the rash felt it was not herpetic.? Valtrex was since discontinued. 4. Constipation Senna scheduled.? PRN dulcolax.? No recurrent symptoms 5. Macrocytosis No evidence of anemia.? Normal B12 and folate levels.? 6. Hypokalemia Resolved. 7. Rash on her back Continue triamcinolone cream Code status DNR/DNI per POL Prophy Low Meenu score Dispo Continue monitoring on the medical unit pending placement. Quality VTE Deep Vein Thrombosis/Pulmonary Embolism Present on Admission: No
--- NOTE | 2022-12-09 14:49 | CM.DPNOTE ---
Placement Efforts Lamar at [facility] tells us they have accepted patient, however, still needed is: a bedside assessment (likely via phone or IPAD) from [facility] RN an agreement between Lamar at [facility] and family re how [facility] gets paid the $834 mo co-pay patient is responsible for move-in ppk and likely doctor?s orders Friend and roommate Nick is listed on patient?s checking account however he cannot be reached at this time Emailed Lamar at [facility] the clinical packet, patient's insurance information, copy of MCR card and local city driver's license, [employer] vaccine info, [employer] and the letter from Dr Lucero outlining patient's need for a payee to manage her finances JW
[2022-12-09 19:25] VITALS: BP 114/68; PULSE 95; RESP 16; TEMP 36.8; O2SAT 98
[2022-12-09] MEDS: ATORVASTATIN 20 MG TABLET 40 MG PO (20:58)
[2022-12-09] MEDS: MELATONIN 3 MG TABLET 6 MG PO (22:37)
--- NOTE | 2022-12-10 00:13 | PC.NURSE ---
Patient is alert and oriented except identified year as 2021. Breath sounds CTA with RA sat of 98%. HRR. Denies nausea. BT present and abdomen is soft. Voiding per toilet and denies dysuria. Is independent with mobility. Did complain of 8/10 headache, left knee and ankle pain and was medicated with tylenol and ice applied with pain decreasing to 4/10. Fall risk score is moderate but patient is steady on her feet so alarm is not activated.
--- NOTE | 2022-12-10 07:50 | P.PN_ITS ---
Subjective Subjective Interval history: [facility], but understands she is awaiting medicaid application for this. Exam Vital Signs (past 8 hours): Oxygen Delivery Method Room Air Oxygen Flow Rate 0 Narrative Exam Narrative: GEN: Middle-aged female, Alert and oriented x 2-3, NAD HEENT:NC, Face symmetric CHEST: Respiratory excursions symmetric, CTAB CV: RRR, no M/R/G ABD: Soft, NT/ND, BT present in all 4 quadrants, no organomegaly or masses EXTR: warm, well perfused, no C/C/E SKIN: warm and dry, no rash NEURO: Alert and oriented x 2-3, nonfocal Objective Labs 12/04/22 06:19 12/04/22 06:19 [facility] Medical History Acrochordon Actinic keratosis Alcoholism Ankle pain (~2009) Anxiety (~1957) Breast cancer (~2004) Callus of foot Chickenpox (~1953) Chronic back pain (~2006) Depression (~1957) Foot pain (~1999) Fracture, trimalleolar (~07/12/10) Hearing loss (~2006) Hyperlipidemia (~1979) Insomnia (~1984) Labral tear of left hip joint (~1986) Mononucleosis (~1967) Mumps (~1953) Osteoarthritis of ankle Osteoarthritis of knees, bilateral (~2009) Osteopenia (~1989) Osteoporosis (~2009) Pain of left breast Plantar warts (~1963) Rosacea (~1983) Shoulder pain (~1999) Tinnitus (~1999) Torn ACL (anterior cruciate ligament) (~1966) Surgical History Anesthesia History of ankle surgery (~2009) History of lumpectomy (~2005) History of repair of anterior cruciate ligament of left knee (~2003) Status post arthroscopy (~2014) Status post hysterectomy (~1996) Family History Father Osteoporosis Mother Heart disease High cholesterol Alzheimer's dementia without behavioral disturbance, unspecified timing of dementia onset Social History household members: friend(s) Smoking Status: Unknown if ever smoked Tobacco: How many years used: 4 second hand exposure: No alcohol intake: never substance use type: former substance user (former marijuana ) and marijuana (former ) Assessment & Plan Assessment & Plan narrative: 1. Cognitive impairment Slums assessment this admission? put her at 07/01.? This is consistent with fairly severe dementia.? Placement efforts are ongoing.? She remains unsafe for discharge at to her prior living arrangements at this time. 2. Remote history of breast cancer Stable.? No known recurrence. 3. Genital herpes Was on high-dose acyclovir prior to last admission.? That has since been discontinued.? Due to a rash on her back, previous provider placed her briefly on Valtrex, but after evaluating the rash felt it was not herpetic.? Valtrex was since discontinued. 4. Constipation Senna scheduled.? PRN dulcolax.? No recurrent symptoms 5. Macrocytosis No evidence of anemia.? Normal B12 and folate levels.? 6. Hypokalemia Resolved. 7. Rash on her back Continue triamcinolone cream Code status DNR/DNI per SARA Fuller Low Meenu score Dispo Continue monitoring on the medical unit pending placement. Quality VTE Deep Vein Thrombosis/Pulmonary Embolism Present on Admission: No
[2022-12-10 09:11] VITALS: BP 131/67; PULSE 98; RESP 18; TEMP 36.4; O2SAT 98
[2022-12-10] MEDS: HEPARIN 5,000 UNIT/ML VIAL 5000 UNIT SUBCUT ×2 (09:44→20:49)
[2022-12-10] MEDS: QUETIAPINE 25 MG TABLET PO ×2 (09:44→20:49)
[2022-12-10] MEDS: SENNOSIDES 8.6 MG TABLET PO ×2 (09:44→20:49)
[2022-12-10] MEDS: ACETAMINOPHEN 325 MG TABLET 650 MG PO ×2 (11:37→20:48)
[2022-12-10] MEDS: HYDROCORTISONE 1% CREAM 28 GM 1 APPLIC TOP ×2 (16:41→20:49)
[2022-12-10 19:55] VITALS: BP 129/71; PULSE 92; RESP 18; TEMP 36.7; O2SAT 97
[2022-12-10] MEDS: ATORVASTATIN 20 MG TABLET 40 MG PO (20:49)
--- NOTE | 2022-12-10 23:44 | PC.NURSE ---
Patient is alert and totally oriented tonight although initially stated year was 2002 but then quickly corrected it to 2022. Breath sounds CTA with RA sat of 97%. HRR. Denies nausea. Reports she had a BM earlier today and has been voiding without dysuria. Independent with mobility. Did complain of 9/10 pain in left hip, knee and ankle and was medicated with tylenol and ice applied to knee and ankle with resolution of symptoms. Continues to await placement in memory care unit. Pleasant and cooperative. Fall risk score is moderate but is steady on feet so alarm is not activated.
[2022-12-11] MEDS: MELATONIN 3 MG TABLET 6 MG PO ×2 (00:08→21:30)
[2022-12-11] MEDS: ACETAMINOPHEN 325 MG TABLET 650 MG PO ×3 (04:00→21:30)
--- NOTE | 2022-12-11 07:17 | PM.PN.1 ---
Subjective Subjective Interval history: Feeling depressed today. Worried she [facility] get [facility]. Exam Vital Signs (past 8 hours): Oxygen Delivery Method Room Air Oxygen Flow Rate 0 Narrative Exam Narrative: GEN: Middle-aged female, Alert and oriented x 2-3, NAD HEENT:NC, Face symmetric CHEST: Respiratory excursions symmetric, CTAB CV: RRR, no M/R/G ABD: Soft, NT/ND, BT present in all 4 quadrants, no organomegaly or masses EXTR: warm, well perfused, no C/C/E SKIN: warm and dry, no rash NEURO: Alert and oriented x 2-3, nonfocal Objective Labs 12/04/22 06:19 12/04/22 06:19 [facility] Medical History Acrochordon Actinic keratosis Alcoholism Ankle pain (~2009) Anxiety (~1957) Breast cancer (~2004) Callus of foot Chickenpox (~1953) Chronic back pain (~2006) Depression (~1957) Foot pain (~1999) Fracture, trimalleolar (~07/12/10) Hearing loss (~2006) Hyperlipidemia (~1979) Insomnia (~1984) Labral tear of left hip joint (~1986) Mononucleosis (~1967) Mumps (~1953) Osteoarthritis of ankle Osteoarthritis of knees, bilateral (~2009) Osteopenia (~1989) Osteoporosis (~2009) Pain of left breast Plantar warts (~1963) Rosacea (~1983) Shoulder pain (~1999) Tinnitus (~1999) Torn ACL (anterior cruciate ligament) (~1966) Surgical History Anesthesia History of ankle surgery (~2009) History of lumpectomy (~2005) History of repair of anterior cruciate ligament of left knee (~2003) Status post arthroscopy (~2014) Status post hysterectomy (~1996) Family History Father Osteoporosis Mother Heart disease High cholesterol Alzheimer's dementia without behavioral disturbance, unspecified timing of dementia onset Social History household members: friend(s) Smoking Status: Unknown if ever smoked Tobacco: How many years used: 4 second hand exposure: No alcohol intake: never substance use type: former substance user (former marijuana ) and marijuana (former ) Assessment & Plan Assessment & Plan narrative: 1. Cognitive impairment Slums assessment this admission?put her at 07/01.? This is consistent with fairly severe dementia.? Placement efforts are ongoing.? She remains unsafe for discharge at to her prior living arrangements at this time. Continue home seroquel 25mg BID. 2. Remote history of breast cancer Stable.? No known recurrence. 3. Genital herpes Was on high-dose acyclovir prior to last admission.? That has since been discontinued.? Due to a rash on her back, previous provider placed her briefly on Valtrex, but after evaluating the rash felt it was not herpetic.? Valtrex was since discontinued. 4. Constipation Senna scheduled.? PRN dulcolax.? No recurrent symptoms 5. Macrocytosis No evidence of anemia.? Normal B12 and folate levels.? 6. Hypokalemia Resolved. 7. Rash on her back Continue triamcinolone cream Code status DNR/DNI per SARA Fuller Low Meenu score Dispo Continue monitoring on the medical unit pending placement. Quality VTE Deep Vein Thrombosis/Pulmonary Embolism Present on Admission: No
[2022-12-11] MEDS: SENNOSIDES 8.6 MG TABLET PO ×2 (09:06→21:15)
[2022-12-11] MEDS: QUETIAPINE 25 MG TABLET PO ×2 (09:06→21:16)
[2022-12-11] MEDS: HEPARIN 5,000 UNIT/ML VIAL 5000 UNIT SUBCUT ×2 (09:06→21:15)
[2022-12-11] MEDS: HYDROCORTISONE 1% CREAM 28 GM 1 APPLIC TOP ×2 (09:07→21:16)
[2022-12-11 11:00] VITALS: BP 121/65; PULSE 91; RESP 18; TEMP 36.3; O2SAT 95
[2022-12-11 20:35] VITALS: BP 129/99; PULSE 97; RESP 16; TEMP 36.1; O2SAT 97
[2022-12-11] MEDS: ATORVASTATIN 20 MG TABLET 40 MG PO (21:15)
--- NOTE | 2022-12-12 07:30 | P.PN_ITS ---
Subjective Subjective Interval history: Patient will likely leave tomorrow for the [facility]. She is excited about this. Asking we restart her home acyclovir and ambien. Exam Vital Signs (past 8 hours): Oxygen Delivery Method Room Air Oxygen Flow Rate 0 Narrative Exam Narrative: GEN: Middle-aged female, Alert and oriented x 2-3, NAD HEENT:NC, Face symmetric CHEST: Respiratory excursions symmetric, CTAB CV: RRR, no M/R/G ABD: Soft, NT/ND, BT present in all 4 quadrants, no organomegaly or masses EXTR: warm, well perfused, no C/C/E SKIN: warm and dry, no rash NEURO: Alert and oriented x 2-3, nonfocal Objective Labs 12/04/22 06:19 12/04/22 06:19 [facility] Medical History Acrochordon Actinic keratosis Alcoholism Ankle pain (~2009) Anxiety (~1957) Breast cancer (~2004) Callus of foot Chickenpox (~1953) Chronic back pain (~2006) Depression (~1957) Foot pain (~1999) Fracture, trimalleolar (~07/12/10) Hearing loss (~2006) Hyperlipidemia (~1979) Insomnia (~1984) Labral tear of left hip joint (~1986) Mononucleosis (~1967) Mumps (~1953) Osteoarthritis of ankle Osteoarthritis of knees, bilateral (~2009) Osteopenia (~1989) Osteoporosis (~2009) Pain of left breast Plantar warts (~1963) Rosacea (~1983) Shoulder pain (~1999) Tinnitus (~1999) Torn ACL (anterior cruciate ligament) (~1966) Surgical History Anesthesia History of ankle surgery (~2009) History of lumpectomy (~2005) History of repair of anterior cruciate ligament of left knee (~2003) Status post arthroscopy (~2014) Status post hysterectomy (~1996) Family History Father Osteoporosis Mother Heart disease High cholesterol Alzheimer's dementia without behavioral disturbance, unspecified timing of dementia onset Social History household members: friend(s) Smoking Status: Unknown if ever smoked Tobacco: How many years used: 4 second hand exposure: No alcohol intake: never substance use type: former substance user (former marijuana ) and marijuana (former ) Assessment & Plan Assessment & Plan narrative: 1. Cognitive impairment Slums assessment this admission?put her at 07/01.? This is consistent with fairly severe dementia.? Placement efforts are ongoing.? She remains unsafe for discharge at to her prior living arrangements at this time. Continue home seroquel 25mg BID. 2. Remote history of breast cancer Stable.? No known recurrence. 3. Genital herpes Was on high-dose acyclovir prior to last admission.? That has since been discontinued.? Due to a rash on her back, previous provider placed her briefly on Valtrex, but after evaluating the rash felt it was not herpetic.? Valtrex was since discontinued. Patient requesting resumption of acyclovir so this was ordered. 4. Constipation Senna scheduled.? PRN dulcolax.? No recurrent symptoms 5. Macrocytosis No evidence of anemia.? Normal B12 and folate levels.? 6. Hypokalemia Resolved. 7. Rash on her back Continue triamcinolone cream 8. Insomnia Patient requesting her home ambien. This was reordered as 5mg nightly PRN. Code status DNR/DNI per SARA Fuller Low Meenu score Dispo [facility] PERSON says likely placement at the [facility] on 12/13. Quality VTE Deep Vein Thrombosis/Pulmonary Embolism Present on Admission: No
[2022-12-12 08:00] VITALS: BP 129/74; PULSE 95; RESP 98; TEMP 36.1
[2022-12-12] MEDS: QUETIAPINE 25 MG TABLET PO ×2 (09:02→20:20)
[2022-12-12] MEDS: SENNOSIDES 8.6 MG TABLET PO ×2 (09:02→20:20)
[2022-12-12] MEDS: HYDROCORTISONE 1% CREAM 28 GM 1 APPLIC TOP ×2 (09:03→20:19)
[2022-12-12] MEDS: HEPARIN 5,000 UNIT/ML VIAL 5000 UNIT SUBCUT ×2 (09:03→20:19)
[2022-12-12] MEDS: ACETAMINOPHEN 325 MG TABLET 650 MG PO (10:38)
[2022-12-12] MEDS: HYDROCODONE/ACET 5/325 TABLET 1 TAB PO (13:35)
--- NOTE | 2022-12-12 15:45 | CM.DPC ---
LTC placement cont: MIRNA contacted Lamar at the [facility] via phone [phone] and via email [email or web address] and she states their facility RN plans to complete assessment with pt still today and they need to wait for that assessment to determine which facility would be the best placement before admission pwk could be faxed for completion and move in date could be determined. MIRNA reached out to Katy with the [facility] via email [email or web address] and helped to coordinate a bedside assessment with pt via FaceTime at 1400. MIRNA met bedside with pt and updated on assessment and pt very agreeable and MIRNA assisted with FaceTime assessment between Katy and pt and pt was very cooperative and asked questions and answered appropriately and states she is looking forward to discharging from the hospital and into a more residential living facility rather than the hospital. RN kindly provided additional information to Katy regarding pt's care needs and medical needs. MIRNA contacted Lamar at the [facility] and she confirms she spoke to their RN Katy and states I just heard from Katy, and she does not think [facility] will be a good fit for Yarelis as she is mobile and loves to take walks.? [facility] is our oldest/smallest and has no courtyard or walking area. Katy also thinks Yarelis could be a good candidate for Assisted Living in the near future and we want to match her with the community that will best meet her needs as well as allow her to take walks, progress, etc. Our ED from [facility] is reviewing her assessment now and I have asked our ED?s from [facility] to do the same.? All of these [facility] have large courtyards with walking paths and also offer assisted living ?in the event she can transition. I will get back to you liz. MINRA requested an answer on accepting facility/location from Lamar by tomorrow 12/13 to move forward with admission pwk and scheduling transport as pt likely will need BLS due to her dementia and exit seeking behaviors as well as confusion at times although pt currently presenting well. BLS form completed but needs MD signature and address of location pt will d/c to. Plan: MIRNA to follow closely for update from Lamar at the [facility] on which location can accept the pt and a date for move in, the admission pwk to be faxed and completed and likely BLS transport to be scheduled for LTC placement. SW to follow for updating pt's sister/niece after facility acceptance confirmed. JANETTE Lazaro
[2022-12-12 19:00] VITALS: BP 121/76; PULSE 95; RESP 20; TEMP 36.1; O2SAT 99
[2022-12-12] MEDS: ACYCLOVIR 400 MG TABLET PO (20:20)
[2022-12-12] MEDS: ATORVASTATIN 20 MG TABLET 40 MG PO (20:20)
[2022-12-12] MEDS: ZOLPIDEM 5 MG TABLET PO (22:05)
[2022-12-13 07:00] VITALS: BP 138/89; PULSE 60; RESP 18; TEMP 36.3; O2SAT 97
[2022-12-13] MEDS: ACYCLOVIR 400 MG TABLET PO ×2 (08:44→20:58)
[2022-12-13] MEDS: SENNOSIDES 8.6 MG TABLET PO (08:44)
[2022-12-13] MEDS: QUETIAPINE 25 MG TABLET PO ×2 (08:44→20:58)
[2022-12-13] MEDS: HYDROCODONE/ACET 5/325 TABLET 1 TAB PO ×3 (08:45→20:58)
[2022-12-13] MEDS: HEPARIN 5,000 UNIT/ML VIAL 5000 UNIT SUBCUT (08:45)
[2022-12-13] MEDS: HYDROCORTISONE 1% CREAM 28 GM 1 APPLIC TOP (08:51)
--- NOTE | 2022-12-13 10:23 | DI.RAD.S_ITS ---
PROCEDURE: XR ANKLE LT MIN 3V INDICATIONS: ongoing dorsal pain after sprain 2mo ago TECHNIQUE: 3 views of the ankle were acquired. COMPARISON: [facility], CR, XR ANKLE LT MIN 3V, 11/14/2022, 16:06. FINDINGS: Bones: No fractures or dislocations. Ankle mortise is normally aligned. No suspicious bony lesions. Partially visualized 1st digit fusion as well as 2nd 3rd and 4th fusion at the distal metatarsals. Distal metatarsals. Soft tissues: No tibiotalar joint effusion. Achilles tendon appears normal. IMPRESSION: Postsurgical changes as above. No visualized acute fracture or dislocation. However, if clinical concern and/or pain persist, short interval imaging followup in 7-10 days is recommended, as occult injury cannot be definitively excluded. Dictated by: Anastasiia Abdi M.D. on 12/13/2022 at 17:17 Approved by: Anastasiia Abdi M.D. on 12/13/2022 at 17:18
--- NOTE | 2022-12-13 14:36 | CM.DPNOTE ---
Placement Efforts Email communication continues between remy Florez (w/sister Nolvia's permission), Lamar w/[facility] and DEL Perez Latest email from Vikki 12.13.22 at 1411: Lamar and I spoke and either the [facility] or [facility] would be a good fit for SANDY as they have ease of outdoor access and wooded areas. Lamar has requested the two facilities review SANDY's case. As I understand it, we await approval from the facilities for next steps. Marietta Ceja, MICHAEL Director, urging Lamar by phone to provide move in ppk to be completed BARBARA and suggest a move in date so that transportation can be arranged BARBARA According to Lamar, patient is still being reviewed at facilities (?) Had lengthy conversation w/sister Nolvia this afternoon; explained that Lamar at [facility] does not seem to understand the urgency w/which [facility] is trying to get patient discharged to the safest and most appropriate placement If Lamar cannot secure a facility and move in date this week on patient's behalf it appears alternative facilities will need to be contacted, possibly alt placement secured. Sister Nolvia states understanding and gives this STEAM AND POWER SUPERVISOR permission to contact her daughter Vikki tomorrow for further discussion of these details. Sister Nolvia does not know [facility] geography and has no preference, only that patient resides at an appropriate memory care facility JW
--- NOTE | 2022-12-13 16:10 | P.PN_ITS ---
Subjective Subjective Interval history: Patient complaining of left anterior ankle pain from a sprain she sustained 2 montsh ago. Asking for an X-ray. Still awaiting approval to go to memory care. Exam Vital Signs (past 8 hours): Oxygen Delivery Method Room Air Oxygen Flow Rate 0 Narrative Exam Narrative: GEN: Middle-aged female, Alert and oriented x 2-3, NAD HEENT:NC, Face symmetric CHEST: Respiratory excursions symmetric, CTAB CV: RRR, no M/R/G ABD: Soft, NT/ND, BT present in all 4 quadrants, no organomegaly or masses EXTR: warm, well perfused, no C/C/E SKIN: warm and dry, no rash NEURO: Alert and oriented x 2-3, nonfocal Objective Labs 12/04/22 06:19 12/04/22 06:19 [facility] Medical History Acrochordon Actinic keratosis Alcoholism Ankle pain (~2009) Anxiety (~1957) Breast cancer (~2004) Callus of foot Chickenpox (~1953) Chronic back pain (~2006) Depression (~1957) Foot pain (~1999) Fracture, trimalleolar (~07/12/10) Hearing loss (~2006) Hyperlipidemia (~1979) Insomnia (~1984) Labral tear of left hip joint (~1986) Mononucleosis (~1967) Mumps (~1953) Osteoarthritis of ankle Osteoarthritis of knees, bilateral (~2009) Osteopenia (~1989) Osteoporosis (~2009) Pain of left breast Plantar warts (~1963) Rosacea (~1983) Shoulder pain (~1999) Tinnitus (~1999) Torn ACL (anterior cruciate ligament) (~1966) Surgical History Anesthesia History of ankle surgery (~2009) History of lumpectomy (~2005) History of repair of anterior cruciate ligament of left knee (~2003) Status post arthroscopy (~2014) Status post hysterectomy (~1996) Family History Father Osteoporosis Mother Heart disease High cholesterol Alzheimer's dementia without behavioral disturbance, unspecified timing of dementia onset Social History household members: friend(s) Smoking Status: Unknown if ever smoked Tobacco: How many years used: 4 second hand exposure: No alcohol intake: never substance use type: former substance user (former marijuana ) and marijuana (former ) Assessment & Plan Assessment & Plan narrative: 1. Cognitive impairment Slums assessment this admission?put her at 07/01.? This is consistent with fairly severe dementia.? Placement efforts are ongoing.? She remains unsafe for discharge at to her prior living arrangements at this time. Continue home seroquel 25mg BID. 2. Remote history of breast cancer Stable.? No known recurrence. 3. Genital herpes Was on high-dose acyclovir prior to last admission.? That has since been discontinued.? Due to a rash on her back, previous provider placed her briefly on Valtrex, but after evaluating the rash felt it was not herpetic.? Valtrex was since discontinued. Patient requesting resumption of acyclovir so this was ordered. 4. Constipation Senna scheduled.? PRN dulcolax.? No recurrent symptoms 5. Macrocytosis No evidence of anemia.? Normal B12 and folate levels.? 6. Hypokalemia Resolved. 7. Rash on her back Continue triamcinolone cream 8. Insomnia Patient requesting her home ambien. This was reordered as 5mg nightly PRN. 9. Left ankle pain -sustained from a sprain 2mo ago -obtain left ankle X-ray Code status DNR/DNI per SARA Fuller Low Meenu score Dispo SHANK PIECE TACKER says likely placement at the [facility] the week of 12/12. Quality VTE Deep Vein Thrombosis/Pulmonary Embolism Present on Admission: No
[2022-12-13 19:00] VITALS: BP 113/67; PULSE 81; RESP 20; TEMP 36.7; O2SAT 96
[2022-12-13] MEDS: ATORVASTATIN 20 MG TABLET 40 MG PO (20:58)
[2022-12-13] MEDS: ZOLPIDEM 5 MG TABLET PO (22:19)
[2022-12-14] MEDS: HYDROCODONE/ACET 5/325 TABLET 1 TAB PO ×3 (06:19→20:16)
[2022-12-14] MEDS: QUETIAPINE 25 MG TABLET PO ×2 (09:14→20:16)
[2022-12-14] MEDS: ACYCLOVIR 400 MG TABLET PO ×2 (09:14→20:16)
[2022-12-14] MEDS: ACETAMINOPHEN 325 MG TABLET 650 MG PO (09:14)
[2022-12-14] MEDS: HYDROCORTISONE 1% CREAM 28 GM 1 APPLIC TOP (09:15)
[2022-12-14 09:50] VITALS: BP 104/57; PULSE 96; RESP 18; TEMP 36.4; O2SAT 97
--- NOTE | 2022-12-14 14:36 | CM.DPNOTE ---
Placement Efforts According to Lamar schmitt [facility]- Client has been accepted at [facility] (memory care) in [place], [place] (near [facility]) Speaking today with DENTAL EQUIPMENT REPAIRER/MICHAELS Erin Mckinney: Erin Mckinney, HAYLEE/DNS [facility] P: [phone] F:[phone] [address] [place] [address] Spoke about patient and her current care needs; mostly monitoring and redirecting r/t dementia. Indp functionally. Patient in good spirits and is ready for a move into residential care Erin denies the need for a facetime visit with patient before admission. Faxed patient's inpatient medication list. Erin faxed admission ppk which this PRECINCT CAPTAIN completed w/assist from Dr Hull, ppk completed, signed and faxed back to Erin, med list will need to be completed and signed upon discharge In addition, Erin tells this PRECINCT CAPTAIN that their current medical assistant cardiology cannot accept [facility]. Patient's secondary insurer is [employer] which also cannot be billed as primary coverage Erin recommends patient/family transition to [facility] so that patient's care can be managed by their medical assistant cardiology. Patient's sister and niece agreeable to this and were given the following contact to help them navigate a change from [facility] outside of open enrollment. Jarek Lake [facility] Resources P# [phone] [facility] into [facility] but it must be pending Meanwhile, Vikki, remy emails that they have completed admission ppk and it has been sent to Lamar w/[facility] and they have begun the process w/Jarek Velásquez to get patient's insurance transitioned No move in date or target date for admission has been given by Lamar schmitt [facility], making this coordination challenging. Speaking directly with THEO Khan at [facility] at [place], today has been helpful as she is optimistic patient is a good fit and can be moved in once all contracts and admission ppk is completed [facility] (No) but [facility] and [facility] reviewing as back up options JW
--- NOTE | 2022-12-14 15:20 | P.PN_ITS ---
Subjective Subjective Interval history: Patient awaiting placement, no complaints today. Exam Vital Signs (past 8 hours): - 12/14/22 09:50 Temperature 97.6 F Pulse Rate 96 H Respiratory Rate 18 Blood Pressure 104/57 L Pulse Oximetry 97 Oxygen Flow Rate 0 Oxygen Delivery Method Room Air Oxygen Flow Rate 0 Narrative Exam Narrative: GEN: Middle-aged female, Alert and oriented x 2-3, NAD HEENT:NC, Face symmetric CHEST: Respiratory excursions symmetric, CTAB CV: RRR, no M/R/G ABD: Soft, NT/ND, BT present in all 4 quadrants, no organomegaly or masses EXTR: warm, well perfused, no C/C/E SKIN: warm and dry, no rash NEURO: Alert and oriented x 2-3, nonfocal Objective Labs 12/04/22 06:19 12/04/22 06:19 [facility] Medical History Acrochordon Actinic keratosis Alcoholism Ankle pain (~2009) Anxiety (~1957) Breast cancer (~2004) Callus of foot Chickenpox (~1953) Chronic back pain (~2006) Depression (~1957) Foot pain (~1999) Fracture, trimalleolar (~07/12/10) Hearing loss (~2006) Hyperlipidemia (~1979) Insomnia (~1984) Labral tear of left hip joint (~1986) Mononucleosis (~1967) Mumps (~1953) Osteoarthritis of ankle Osteoarthritis of knees, bilateral (~2009) Osteopenia (~1989) Osteoporosis (~2009) Pain of left breast Plantar warts (~1963) Rosacea (~1983) Shoulder pain (~1999) Tinnitus (~1999) Torn ACL (anterior cruciate ligament) (~1966) Surgical History Anesthesia History of ankle surgery (~2009) History of lumpectomy (~2005) History of repair of anterior cruciate ligament of left knee (~2003) Status post arthroscopy (~2014) Status post hysterectomy (~1996) Family History Father Osteoporosis Mother Heart disease High cholesterol Alzheimer's dementia without behavioral disturbance, unspecified timing of dementia onset Social History household members: friend(s) Smoking Status: Unknown if ever smoked Tobacco: How many years used: 4 second hand exposure: No alcohol intake: never substance use type: former substance user (former marijuana ) and marijuana (former ) Assessment & Plan Assessment & Plan narrative: 1. Cognitive impairment Slums assessment this admission?put her at 07/01.? This is consistent with fairly severe dementia.? Placement efforts are ongoing.? She remains unsafe for discharge at to her prior living arrangements at this time. Continue home seroquel 25mg BID. 2. Remote history of breast cancer Stable.? No known recurrence. 3. Genital herpes Was on high-dose acyclovir prior to last admission.? That has since been discontinued.? Due to a rash on her back, previous provider placed her briefly on Valtrex, but after evaluating the rash felt it was not herpetic.? Valtrex was since discontinued. Patient requesting resumption of acyclovir so this was ordered. 4. Constipation Senna scheduled.? PRN dulcolax.? No recurrent symptoms 5. Macrocytosis No evidence of anemia.? Normal B12 and folate levels.? 6. Hypokalemia Resolved. 7. Rash on her back Continue triamcinolone cream 8. Insomnia Patient requesting her home ambien. This was reordered as 5mg nightly PRN. 9. Left ankle pain -sustained from a sprain 2mo ago -L ankle XR negative. Code status DNR/DNI per SARA Fuller Low Meenu score Dispo PRECINCT COMMANDING OFFICER says likely placement at the [facility] the week of 12/12. Quality VTE Deep Vein Thrombosis/Pulmonary Embolism Present on Admission: No
[2022-12-14 20:08] VITALS: BP 124/66; PULSE 83; RESP 16; TEMP 36.9; O2SAT 97
[2022-12-14] MEDS: ATORVASTATIN 20 MG TABLET 40 MG PO (20:16)
[2022-12-14] MEDS: ZOLPIDEM 5 MG TABLET PO (22:03)
[2022-12-15] MEDS: HYDROCODONE/ACET 5/325 TABLET 1 TAB PO ×3 (03:47→16:37)
[2022-12-15 07:48] VITALS: BP 115/61; PULSE 76; RESP 18; TEMP 36.9; O2SAT 96
[2022-12-15] MEDS: HYDROCORTISONE 1% CREAM 28 GM 1 APPLIC TOP ×2 (09:21→20:53)
[2022-12-15] MEDS: QUETIAPINE 25 MG TABLET PO ×2 (09:21→20:53)
[2022-12-15] MEDS: ACYCLOVIR 400 MG TABLET PO ×2 (09:21→20:53)
--- NOTE | 2022-12-15 12:34 | PM.PN.1 ---
Subjective Subjective Interval history: Patient awaiting placement, no complaints today. Exam Vital Signs (past 8 hours): - 12/15/22 07:48 Temperature 98.4 F Pulse Rate 76 Respiratory Rate 18 Blood Pressure 115/61 Pulse Oximetry 96 Oxygen Flow Rate 0 Oxygen Delivery Method Room Air Oxygen Flow Rate 0 Narrative Exam Narrative: GEN: Middle-aged female, Alert and oriented x 2-3, NAD Objective Labs 12/04/22 06:19 12/04/22 06:19 [facility] Medical History Acrochordon Actinic keratosis Alcoholism Ankle pain (~2009) Anxiety (~1957) Breast cancer (~2004) Callus of foot Chickenpox (~1953) Chronic back pain (~2006) Depression (~1957) Foot pain (~1999) Fracture, trimalleolar (~07/12/10) Hearing loss (~2006) Hyperlipidemia (~1979) Insomnia (~1984) Labral tear of left hip joint (~1986) Mononucleosis (~1967) Mumps (~1953) Osteoarthritis of ankle Osteoarthritis of knees, bilateral (~2009) Osteopenia (~1989) Osteoporosis (~2009) Pain of left breast Plantar warts (~1963) Rosacea (~1983) Shoulder pain (~1999) Tinnitus (~1999) Torn ACL (anterior cruciate ligament) (~1966) Surgical History Anesthesia History of ankle surgery (~2009) History of lumpectomy (~2005) History of repair of anterior cruciate ligament of left knee (~2003) Status post arthroscopy (~2014) Status post hysterectomy (~1996) Family History Father Osteoporosis Mother Heart disease High cholesterol Alzheimer's dementia without behavioral disturbance, unspecified timing of dementia onset Social History household members: friend(s) Smoking Status: Unknown if ever smoked Tobacco: How many years used: 4 second hand exposure: No alcohol intake: never substance use type: former substance user (former marijuana ) and marijuana (former ) Assessment & Plan Assessment & Plan narrative: 1. Cognitive impairment Slums assessment this admission?put her at 07/01.? This is consistent with fairly severe dementia.? Placement efforts are ongoing.? She remains unsafe for discharge at to her prior living arrangements at this time. Continue home seroquel 25mg BID. 2. Remote history of breast cancer Stable.? No known recurrence. 3. Genital herpes Was on high-dose acyclovir prior to last admission.? That has since been discontinued.? Due to a rash on her back, previous provider placed her briefly on Valtrex, but after evaluating the rash felt it was not herpetic.? Valtrex was since discontinued. Patient requesting resumption of acyclovir so this was ordered. 4. Constipation Senna scheduled.? PRN dulcolax.? No recurrent symptoms 5. Macrocytosis No evidence of anemia.? Normal B12 and folate levels.? 6. Hypokalemia Resolved. 7. Rash on her back Continue triamcinolone cream 8. Insomnia Patient requesting her home ambien. This was reordered as 5mg nightly PRN. 9. Left ankle pain -sustained from a sprain 2mo ago -L ankle XR negative. Code status DNR/DNI per SARA Fuller Low Meenu score Dispo CARD ROOM MANAGER says likely placement at the [facility], unclear timing Quality VTE Deep Vein Thrombosis/Pulmonary Embolism Present on Admission: No
--- NOTE | 2022-12-15 12:44 | CM.DPNOTE ---
Called [facility] requested by Dipika for transport on Monday, 12/16 [facility] [address] [facility] [address] [place] Spoke to Otilia at [facility]. who said they could provide BLS for this date & time. I gave her patient's [employer] policy number to ensure coverage for this transport. Otilia will find out for us about [employer] coverage. I provided Erin Mckinney's number to her.
[2022-12-15] MEDS: ATORVASTATIN 20 MG TABLET 40 MG PO (20:53)
[2022-12-15] MEDS: SENNOSIDES 8.6 MG TABLET PO (20:53)
[2022-12-15] MEDS: ZOLPIDEM 5 MG TABLET PO (23:27)
[2022-12-15 23:53] VITALS: BP 118/68; PULSE 83; RESP 18; TEMP 35.9; O2SAT 95
[2022-12-16] MEDS: HYDROCODONE/ACET 5/325 TABLET 1 TAB PO (06:39)
[2022-12-16] MEDS: ACYCLOVIR 400 MG TABLET PO (08:19)
[2022-12-16] MEDS: SENNOSIDES 8.6 MG TABLET PO (08:19)
[2022-12-16] MEDS: QUETIAPINE 25 MG TABLET PO (08:19)
--- NOTE | 2022-12-16 09:27 | P.DS_ITS ---
History of Present Illness History of Present Illness Date Patient Seen: 12/16/22 Time Patient Seen: 09:28 Chief complaint: Psych Narrative: Per admitting provider, Ms. Decker is a 72W with H depression, anxiety, cognitive impairment who is admitted for prolonged delay in finding placement. She has a history of alcohol abuse bug has been sober for quite some time per other physician notes. She lives with a roommate who will be leaving in a few month, with her plan to move to low income housing. She presented to the hospital on 11/[address]. Workup showed no acute process on CT, normal LP. She had mildly elevated CK, AST. There was some documentation of considering an MRI brain, but this appears not to have been done. She was dehydrated. She had SLUMS of . She had previously been on ambien, tramadol, and valium, and was supervising her own medication administration. It was thought she was mostly demented, but possibly had polypharmacy contributing to her confusion. She was discharged back home on 11/29 with seroquel. She returned to the ED that evening as she refused to enter her house and did not recognize her roommate per notes. She has been in the ED for days as they have been unable to place patient, it appears that terminal press operator memory care is being looked into. She was seen by psychiatry in the ED who agreed with other physicians that she was unsafe for home. Psychiatry agreed with avoiding altering medications. She has no complaints when I see her. Discharge Providers Provider Date of admission: 12/02/22 21:41 Discharge Date: 12/16/22 Primary care physician: Jessie Bess DO Consults: 11/29/22 18:36 Consult to [facility] [place] [facility] Urgent Comment: 11/30/22 14:07 Consult to Occupational Therapy Evaluate & Treat Comment: new SLUMS Physician Instructions: Evaluate and treat 12/03/22 14:19 Consult to Occupational Therapy Evaluate & Treat Comment: Repeat SLUMS assessment please Physician Instructions: Evaluate and treat Discharge provider: Aubrey Hull DO Summary Hospital Course Discharge Diagnosis: 1. Cognitive impairment 2. Remote history of breast cancer 3. Genital herpes 4. Constipation 5. Macrocytosis 6. Hypokalemia 7. Rash on her back 8. Insomnia 9. Left ankle pain Hospital Course: [id number] female with known history of remote breast cancer, remote tobacco dependence, mild cognitive impairment, remote history of alcohol dependence, osteoporosis, hyperlipidemia, reported history of HSV?who was previously admitted from 11/27/2022 through 11/29/2022 with acute encephalopathy and concern for progressive dementia with worsening cognitive impairment.? She discharged back to her home where she lives with a roommate.? Unfortunately, upon returning home she did not recognize her nor her roommate.? She refused to go in.? She was subsequently brought back into the emergency department for further evaluation.? Patient was placed on a DCR hold, which was subsequently discontinued.? Psychiatry consultation was obtained.? Dr. Barrios recommended memory care placement.? Unfortunately, she is remained in the emergency department since that time and ultimately our service was asked to admit her to the medical floor on the evening of 12/02/22 pending discharge disposition.? Since admission, she has had improved mentation overall compared to her prior.? However her slums assessment remains 07/01.?She had an uncomplicated stay while awaiting placement. She intermittently has left ankle pain that is presumably due to a sprain she says happened a few months ago. Xray taken are negative for fracture. She was continued on her previous medications. [facility] to [facility]. Time Spent with Patient Time spent: Greater than 30 minutes Exam Vital Signs (past 8 hours): Oxygen Delivery Method Room Air Oxygen Flow Rate 0 Narrative Exam Narrative: GEN: Middle-aged female, Alert and oriented x 2-3, NAD Objective Labs 12/04/22 06:19 12/04/22 06:19 [facility] Medical History Acrochordon Actinic keratosis Alcoholism Ankle pain (~2009) Anxiety (~1957) Breast cancer (~2004) Callus of foot Chickenpox (~1953) Chronic back pain (~2006) Depression (~1957) Foot pain (~1999) Fracture, trimalleolar (~07/12/10) Hearing loss (~2006) Hyperlipidemia (~1979) Insomnia (~1984) Labral tear of left hip joint (~1986) Mononucleosis (~1967) Mumps (~1953) Osteoarthritis of ankle Osteoarthritis of knees, bilateral (~2009) Osteopenia (~1989) Osteoporosis (~2009) Pain of left breast Plantar warts (~1963) Rosacea (~1983) Shoulder pain (~1999) Tinnitus (~1999) Torn ACL (anterior cruciate ligament) (~1966) Surgical History Anesthesia History of ankle surgery (~2009) History of lumpectomy (~2005) History of repair of anterior cruciate ligament of left knee (~2003) Status post arthroscopy (~2014) Status post hysterectomy (~1996) Family History Father Osteoporosis Mother Heart disease High cholesterol Alzheimer's dementia without behavioral disturbance, unspecified timing of dementia onset Social History household members: friend(s) Smoking Status: Unknown if ever smoked Tobacco: How many years used: 4 second hand exposure: No alcohol intake: never substance use type: former substance user (former marijuana ) and marijuana (former ) Discharge Plan Discharge Plan Patient Disposition: Home Provider Discharge Comment: 72-year-old female with known history of remote breast cancer, remote tobacco dependence, mild cognitive impairment, remote history of alcohol dependence, osteoporosis, hyperlipidemia, reported history of HSV?who was previously admitted from 11/27/2022 through 11/29/2022 with acute encephalopathy and concern for progressive dementia with worsening cognitive impairment.? She discharged back to her home where she lives with a roommate.? Unfortunately, upon returning home he did not recognize her nor her roommate.? She refused to go in.? She was subsequently brought back into the emergency department for further evaluation.? Patient was placed on a DCR hold, which was subsequently discontinued.? Psychiatry consultation was obtained.? Dr. Barrios recommended memory care placement.? Unfortunately, she is remained in the emergency department since that time and ultimately our service was asked to admit her to the medical floor on the evening of 12/02/22 pending discharge disposition.? Since admission, she has had improved mentation overall compared to her prior.? However her slums assessment remains 07/01.?Discharged to [facility]. Discharge orders & Medications Prescriptions: New sennosides [senna] 8.6 mg Tablet 8.6 mg PO BID Qty: 60 0RF zolpidem 5 mg Tablet 5 mg PO BEDTIME PRN (Reason: Sleep) 30 Days Qty: 30 0RF quetiapine 25 mg Tablet 25 mg PO BID 30 Days Qty: 60 0RF melatonin 3 mg Tablet 6 mg PO BEDTIME PRN (Reason: Insomnia) Qty: 60 0RF loperamide 2 mg Capsule 2 mg PO QID PRN (Reason: Diarrhea) Qty: 60 0RF hydrocortisone 1 % Cream 1 applic topical BID Qty: 28.4 0RF acetaminophen 325 mg Tablet 650 mg PO Q6H PRN (Reason: Fever/Mild Pain (1-3)) Qty: 90 0RF atorvastatin 20 mg Tablet 40 mg PO BEDTIME 30 Days Qty: 30 0RF hydrocodone-acetaminophen 5-325 mg Tablet 1 tab PO Q6HR PRN (Reason: Pain, Moderate (4-6)) 7 Days Qty: 20 0RF acyclovir 400 mg Tablet 400 mg PO BID 30 Days Qty: 60 0RF Continued (DME) Disabled Parking Permit See Rx Instructions .Route .MEDSUPPLY Qty: 1 0RF Rx Instructions: My patient qualifies for a disabled parking permit. 02/26/21 quetiapine 25 mg Tablet 25 mg PO BID 30 Days Qty: 60 0RF Discontinued zolpidem 12.5 mg tablet,ext release multiphase 12.5 mg PO BEDTIME PRN (Reason: Insomnia) atorvastatin 80 mg tablet 80 mg PO BEDTIME Follow up/Referrals: Jessie Bess DO [Primary Care Provider] - Discharge Health Status Multidrug resistant organism: No MDRO Diet/Activity/Treatments Diet: Diet as Tolerated and Regular Activity: As tolerated, no restrictions Visit Report/Discharge Packet Stand Alone Forms: Patient Portal/API, Stroke Signs & Symptoms Discharge Data Primary Care Provider: Jessie Bess Attending Provider: Clifford Carey Admit Date/Time: 12/02/22 21:41 Quality VTE Deep Vein Thrombosis/Pulmonary Embolism Present on Admission: No
[2022-12-16 09:41] VITALS: BP 97/69; PULSE 97; RESP 18; TEMP 36.9; O2SAT 95
--- NOTE | 2022-12-16 11:34 | PC.NURSE ---
Addendum entered by JANETTE Judd 12/16/22 14:53: ADD: This PAINTLESS DENT REPAIR TECHNICIAN also secured medication Atorvastatin from [facility], which went with patient Original Note: Day shift: Pt discharged from hospital to [facility] in [place]. Called report to THEO Khan, at [place]. Packet of hospital information and discharge information given to [place] EMT. Pt escorted out of hospital via stretcher with [place] EMT. No IV. No tele. All belongings with patient. 2 prescriptions given to driver license agent (ambien and hydrocodone) that were filled from in-house pharmacy.
--- NOTE | 2022-12-16 14:46 | CM.DPNOTE ---
DC Note Discharge today to [facility], memory care unit in [place], [employer] Signed admission orders and signed DC med list was completed yesterday by Dr Hull which were emailed to THEO Khan at [place] 12.15.22 along with Rx for Hydrocodone-acetaminophen, Zolpidem and Seroquel Securing of all the contracts, IDs, ppk etc coordinated between DEL Perez, [place] w/[facility] and w/family members Nolvia (sister) and Vkiki (niece) Today, DC Summary faxed to Erin at [facility] and nurse report was done by DONAVON VENEGAS requested 30 minutes before transport that medications be filled before patient arrives if possible. [facility] was able to fill Atorvastatin , Hydrocodone-acetaminophen and Zolpidem. All others were either not available and/or [place] denied because refills were not due yet Updated THEO Khan Spoke w/patient yesterday and today re plan, reviewed [facility] website with patient and patient was in good spirits, told this [employer] SALES EXEC she was ready and looking forward to seeing her family who were traveling from [place] soon. According to patient; friends and family were mailing necessities to [facility] to help settle her in Plan: Discharge today to [facility] memory care unit for [facility] care placement under Medicaid, via BLS, medications- Atorvastatin , Hydrocodone-acetaminophen and Zolpidem with patient. Patient and family appreciative and agreeable to plan JW
== END 2022-12-16 12:35 | disposition home or self-care (01) ==
LOC: ED 12-02 21:39 → AC 12-03 10:28
PROVIDERS: Emergency Medicine; Family Medicine; Admitting Provider Internal Medicine; Emergency Provider Emergency Medicine; PCP Family Medicine; Referring Provider Emergency Medicine; Visit Provider Internal Medicine
DX: K59.00 Constipation, unspecified (principal); A60.00 Herpesviral infection of urogenital system, unspecified; D75.89 Other specified diseases of blood and blood-forming organs; E87.6 Hypokalemia; R21 Rash and other nonspecific skin eruption; G47.00 Insomnia, unspecified; M25.572 Pain in left ankle and joints of left foot
CPT/HCPCS: 36415; 73610; 80048; 80053; 80305; 80320; 80329; 81001; 82607; 82746; 84443; 85025; 90792; 93005; 97168; 99283; G0378; G0480; J1644